=== PATIENT | female | born 1935 | race Caucasian/White ===

== ENCOUNTER 2019-06-21 15:16 | Inpatient (IN) | payer MEDICARE, OTHER ==
[2019-06-21] MEDS ORDERED: HYDROmorphone 1 MG/ML 1 ML SYRINGE IVP STA (15:36)
[2019-06-21] MEDS ORDERED: KETOROLAC 60 MG/2 ML VIAL IVP STA (15:36)
[2019-06-21] MEDS ORDERED: methylPREDNISolone ACETATE 40 MG/ML 1 ML VIAL INTRAARTIC STA (15:53)
[2019-06-21] MEDS ORDERED: SODIUM CHLORIDE 0.9% 1,000 ML IV ONE (16:18)
--- NOTE | 2019-06-21 16:18 | ED ---
General Adult HPI - General Chief complaint: Extremity Injury, Lower Stated complaint: Lower back and leg pain Time Seen by Provider: 06/21/19 15:20 Source: patient, RN notes reviewed Mode of arrival: ambulatory Limitations: no limitations - History of Present Illness Initial comments: This is an 83-year-old female who presents emergency Department complaining of left buttocks pain. Patient states she fell 1 week ago and has since seen her primary medical care doctor and been to another emergency twice had x-rays and a CAT scan of the area and they have found nothing. Patient states she cannot stand the pain is causing her some which pain she can't ambulate and she is writhing all night long. Patient is requesting to stay overnight for some pain control. Patient denies any numbness or weakness. Patient denies any lumbar spine pain. Patient denies any hip pain. - Related Data Home Medications Medication Instructions Recorded Confirmed Lisinopril [Prinivil] 5 mg PO DAILY 12/08/15 06/21/19 Metoprolol Tartrate [Lopressor] 25 mg PO BID 12/08/15 06/21/19 Warfarin [Coumadin] 5 mg PO WALTER 12/08/15 06/21/19 Aspirin 81 mg PO DAILY 06/21/19 06/21/19 Docusate [Colace] 100 mg PO BID PRN 06/21/19 06/21/19 HYDROcodone/APAP 5-325MG [[place] 1 tab PO Q4H PRN 06/21/19 06/21/19 5-325] Warfarin [Coumadin] 2.5 mg PO MOTUWETHFRSA 06/21/19 06/21/19 Allergies Allergy/AdvReac Type Severity Reaction Status Date / Time No Known Allergies Allergy Verified 06/21/19 16:04 Review of Systems ROS Statement: Those systems with pertinent positive or pertinent negative responses have been documented in the HPI. ROS Other: All systems not noted in ROS Statement are negative. Past Medical History Past Medical History: Atrial Fibrillation History of Any Multi-Drug Resistant Organisms: None Reported Past Surgical History: No Surgical Hx Reported Past Psychological History: No Psychological Hx Reported Smoking Status: Never smoker Past Alcohol Use History: None Reported Past Drug Use History: None Reported General Exam - General Exam Comments Initial Comments: qGENERAL Patient is well-developed and well-nourished. Patient is in moderate EYES Patient's pupils are equal and round. Extraocular motion is intact SKIN Unremarkable NEURO The patient is alert and oriented 3 PYSCH Patient has normal interpersonal interactions. MUSCULOSKELETAL I examine the buttocks there is no hematoma palpated no fluctuant area no redness or swelling. Patient does have some tenderness on the left buttocks at the mid sacral area. Patient has no hip pain she has full range of motion of hip and knee Limitations: no limitations Course Vital Signs 06/21/19 15:18 Temperature 97.8 F Pulse Rate 120 H Respiratory 20 Rate Blood Pressure 113/74 O2 Sat by Pulse 99 Oximetry Medical Decision Making - Medical Decision Making I had the radiologist pulled up CAT scan back up of the pelvis and rebreather and look for any area of fluid collection hematoma or any osseous abnormality he found none. One taken the room and Dilaudid and the Toradol did help the patient but she did not feel comfortable going home. I spoke with Dr. Salmeron and he agreed to admit the patient admitted the patient wrote admitting orders. Disposition Clinical Impression: Intractable pain, Sacral pain Disposition: ADMITTED IP TO THIS HOSP Referrals: Danielle Cole MD [Primary Care Provider] - 1-2 days Time of Disposition: 16:18
[2019-06-21] MEDS ORDERED: HYDROmorphone 0.5 MG/0.5 ML SYRINGE IVP PRN (16:20)
[2019-06-21] MEDS ORDERED: DOCUSATE 100 MG CAP PO PRN (18:06)
[2019-06-21] MEDS ORDERED: METOPROLOL TARTRATE 25 MG TAB PO STA (18:13)
[2019-06-21] MEDS ORDERED: DILTIAZEM 125 MG in SODIUM CHLORIDE 0.9% 100 ML IV SCH (18:15)
[2019-06-21 18:27] LABS: Basophils # (A) 0.1 k/uL (0-0.2); Basophils % (A) 1 %; Eosinophils # (A) 0.1 k/uL (0-0.7); Eosinophils % (A) 1 %; HCT 43.5 % (34.0-46.0); HGB 15.1 gm/dL (11.4-16.0); Lymphocytes # (A) 1.8 k/uL (1.0-4.8); Lymphocytes % (A) 18 %; MCH 30.2 pg (25.0-35.0); MCHC 34.8 g/dL (31.0-37.0); MCV 86.9 fL (80.0-100.0); Mean Platelet Volume 7.2; Monocytes # (A) 0.6 k/uL (0-1.0); Monocytes % (A) 6 %; Neutrophils # (A) 7.4 k/uL (1.3-7.7); Neutrophils % (A) 73 %; Platelet Count 219 k/uL (150-450); RDW 15.5 % (11.5-15.5); WBC 10.2 k/uL (3.8-10.6)
[2019-06-21 18:30] LABS: INR 2.9 (<1.2); Prothrombin Time 28.2 sec (9.0-12.0)
[2019-06-21] MEDS ORDERED: WARFARIN 2.5 MG TAB PO SCH (18:45)
[2019-06-21 18:49] LABS: Albumin 3.4 g/dL (3.5-5.0); Calcium 8.9 mg/dL (8.4-10.2); Potassium 4.5 mmol/L (3.5-5.1); Total Bilirubin 0.9 mg/dL (0.2-1.3); Total Protein 6.6 g/dL (6.3-8.2)
[2019-06-21] MEDS: METOPROLOL TARTRATE 25 MG TAB PO SCH (21:07)
[2019-06-21] MEDS: KETOROLAC 30 MG/ML 1 ML VIAL IVP SCH (23:05)
[2019-06-22] MEDS: HYDROcodone/APAP 5-325MG 1 EACH TAB PO PRN ×2 (02:52→11:55)
[2019-06-22] MEDS: KETOROLAC 30 MG/ML 1 ML VIAL IVP SCH ×3 (05:47→16:11)
[2019-06-22 05:56] LABS: Amorphous Sediment,Urine Rare /hpf; Appearance,Urine Clear (Clear); Bacteria,Urine Rare /hpf; Bilirubin,Urine Negative (Negative); Blood,Urine Trace (Negative); Color,Urine Yellow; Glucose,Urine (UA) Trace (Negative); Hyaline Casts,Urine 19 /lpf (0-2); Ketones,Urine 1+ (Negative); Leukocyte Esterase,Urine Negative (Negative); Mucus,Urine Rare /hpf; Nitrite,Urine Negative (Negative); PH, Urine 5.5 (5.0-8.0); Protein,Urine Trace (Negative); RBC,Urine 2 /hpf (0-5); Specific Gravity,Urine 1.028 (1.001-1.035); Squamous Epithelial Cell,Urine 2 /hpf (0-4); Urobilinogen,Urine <2.0 mg/dL (<2.0)
[2019-06-22] MEDS: ASPIRIN 81 MG PO SCH (09:20)
[2019-06-22] MEDS: LISINOPRIL 5 MG TAB PO SCH (09:20)
[2019-06-22] MEDS: METOPROLOL TARTRATE 25 MG TAB PO SCH ×3 (09:20→20:40)
[2019-06-22 10:21] LABS: INR 2.6 (<1.2); Prothrombin Time 25.5 sec (9.0-12.0)
--- NOTE | 2019-06-22 10:40 | P.CRDCN ---
History of Present Illness Consult date: 06/22/19 Consult reason: atrial fibrillation (with RVR) History of present illness: This is an 83-year-old female patient of Dr. Bella with past medical history of chronic atrial fibrillation, hypertension. Patient states that she fell about a week ago and was seen at [facility] and had CAT scan and x-rays done that did not show any fracture of the hip or pelvis. Patient ambulates with 2 canes. She came into [facility] emergency center for evaluation of right buttocks pain but now she states she on ly has pain down the sides of her legs. Patient found to be in A. fib with RVR and was transferred to the cardiac stepdown unit and started on Cardizem drip at 5 mg per hour. Currently heart rate is in the 80s. Patient states that the right buttocks pain is completely resolved but her leg pain remains. EKG reveals atrial fibrillation with RVR, rate 119. Laboratory studies: CBC unremarkable. INR 2.6. Sodium 125, potassium 4.5, chloride 90, CO2 25, BUN 18 creatinine 1.05. Blood sugar 119. Troponin 0.012. Urinalysis clear, nitrite and leukoesterase negative. Review Of Systems: Constitutional: No fever, no chills, no night sweats. No weight change. No weakness, fatigue or lethargy. No daytime sleepiness. EENT: No headache. No blurred vision or double vision, no loss of vision. No loss of Hearing, no ringing in the ears, no dizziness. No nasal drainage or congestion. No epistaxis. No sore throat. Lungs: No shortness of breath, cough, no sputum production. No wheezing. Cardiovascular: No chest pain, no lower extremity edema. No palpitations. No paroxysmal nocturnal dyspnea. No orthopnea. No lightheadedness or dizziness. No syncopal episodes. Abdominal: No abdominal pain. No nausea, vomiting. No diarrhea. No constipation. No bloody or tarry stools.. No loss of appetite. Genitourinary: No dysuria, increased frequency, urgency. No urinary retention. Musculoskeletal: No myalgias. No muscle weakness, no gait dysfunction, no frequent falls. No back pain. No neck pain. Integumentary: No wounds, no lesions. No rash or pruritus. No unusual bruising. No change in hair or nails. Neurologic: No aphasia. No facial droop. No change in mentation. No head injury. No headache. No paralysis. No paresthesia. Psychiatric: No depression. No anxiety. No mood swings. Endocrine: No abnormal blood sugars. No weight change. No excessive sweating or thirst. No cold intolerance. No weight change. Gen: This is an obese 83-year-old female. Patient is seen ambulating from the bathroom, gait is unsteady. HEENT: Head is atraumatic, normocephalic. Pupils equal, round. Sclerae is anicteric. NECK: Supple. No JVD. No lymphadenopathy. No thyromegaly. LUNGS: Clear to auscultation. No wheezes or rhonchi. No intercostal retractions. HEART: Irregularly irregular rhythm. No murmur. ABDOMEN: Soft. Bowel sounds are present. No masses. No tenderness. EXTREMITIES: No pedal edema. No calf tenderness. On no tenderness to the right buttocks, no ecchymosis noted NEUROLOGICAL: Patient is awake, alert and oriented x3. Cranial nerves 2 through 12 are grossly intact. Assessment: Atrial fibrillation with RVR Chronic atrial fibrillation Hypertension Recent fall with right buttocks and leg pain with negative imaging studies done at [facility] Plan: Patient is currently on Cardizem drip at 5 mg/h which will be discontinued Continue Lopressor 25 mg but increase to 3 times daily Continue lisinopril 5 mg daily and aspirin 81 mg daily Continue Coumadin at home dose Further recommendations to follow based on clinical course. Thank you kindly for this consultation. Nurse practitioner note has been reviewed, I agree with documented findings and plan of care. Patient was seen and examined. Past Medical History Past Medical History: Atrial Fibrillation History of Any Multi-Drug Resistant Organisms: None Reported Past Surgical History: No Surgical Hx Reported Past Psychological History: No Psychological Hx Reported Smoking Status: Never smoker Past Alcohol Use History: None Reported Past Drug Use History: None Reported Medications and Allergies Home Medications Medication Instructions Recorded Confirmed Type Lisinopril [Prinivil] 5 mg PO DAILY 12/08/15 06/21/19 History Metoprolol Tartrate [Lopressor] 25 mg PO BID 12/08/15 06/21/19 History Warfarin [Coumadin] 5 mg PO SCHUSTER 12/08/15 06/21/19 History Aspirin 81 mg PO DAILY 06/21/19 06/21/19 History Docusate [Colace] 100 mg PO BID PRN 06/21/19 06/21/19 History HYDROcodone/APAP 5-325MG [[place] 1 tab PO Q4H PRN 06/21/19 06/21/19 History 5-325] Warfarin [Coumadin] 2.5 mg PO MOTUWETHFRSA 06/21/19 06/21/19 History Allergies Allergy/AdvReac Type Severity Reaction Status Date / Time No Known Allergies Allergy Verified 06/21/19 16:04 Physical Exam Vitals: Vital Signs Temp Pulse Pulse Resp BP BP Pulse Ox 06/22/19 04:00 97.0 F L 72 18 128/73 97 06/22/19 03:58 103 H 18 06/22/19 00:00 97.2 F L 103 H 18 142/90 97 06/21/19 20:00 97.6 F 122 H 18 149/109 96 06/21/19 19:26 129 H 20 135/87 97 06/21/19 18:19 140 H 06/21/19 18:02 97.5 F L 140 H 14 155/105 94 L 06/21/19 18:00 97.5 F L 140 H 12 155/105 92 L 06/21/19 17:17 89 18 137/98 98 06/21/19 15:18 97.8 F 120 H 20 113/74 99 Intake and Output 06/21/19 06/22/19 06/22/19 22:59 06:59 14:59 Other: Voiding Method Toilet Toilet # Voids 1 2 Weight 74.843 kg 79 kg Results 06/21/19 18:15 06/21/19 18:15 Cardiac Enzymes 06/21/19 06/21/19 Range/Units 18:15 18:15 AST 29 (14-36) U/L Troponin I <0.012 (0.000-0.034) ng/mL Coagulation 06/21/19 06/22/19 Range/Units 18:15 09:45 PT 28.2 H 25.5 H (9.0-12.0) sec CBC 06/21/19 Range/Units 18:15 WBC 10.2 (3.8-10.6) k/uL RBC 5.00 (3.80-5.40) m/uL Hgb 15.1 (11.4-16.0) gm/dL Hct 43.5 (34.0-46.0) % Plt Count 219 (150-450) k/uL Comprehensive Metabolic Panel 06/21/19 Range/Units 18:15 Sodium 125 L (137-145) mmol/L Potassium 4.5 (3.5-5.1) mmol/L Chloride 90 L (98-107) mmol/L Carbon Dioxide 25 (22-30) mmol/L BUN 18 H (7-17) mg/dL Creatinine 1.05 H (0.52-1.04) mg/dL Glucose 119 H (74-99) mg/dL Calcium 8.9 (8.4-10.2) mg/dL AST 29 (14-36) U/L ALT 24 (9-52) U/L Alkaline Phosphatase 78 (38-126) U/L Total Protein 6.6 (6.3-8.2) g/dL Albumin 3.4 L (3.5-5.0) g/dL Current Medications Generic Name Dose Route Start Last Admin Trade Name Freq PRN Reason Stop Dose Admin Hydrocodone Bitart/Acetaminophen 1 each 06/21/19 18:06 06/22/19 02:52 [place] 5-325 PO 1 each Q4H PRN Administration MILD TO MODERATE Pain Aspirin 81 mg 06/22/19 09:00 06/22/19 09:20 Aspirin PO 81 mg DAILY SURESH Administration Hydromorphone HCl 0.5 mg 06/21/19 16:20 Dilaudid IVP Q6HR PRN SEVERE Pain Sodium Chloride 1,000 mls @ 20 mls/hr 06/21/19 16:18 06/21/19 17:54 Saline 0.9% IV 06/22/19 16:17 Not Given .Q24H ONE Diltiazem HCl 125 mg/ Sodium 125 mls @ 5 mls/hr 06/21/19 18:15 06/21/19 19:20 Chloride IV 5 mg/hr .Q24H SURESH 5 mls/hr Administration 5 MG/HR Ketorolac Tromethamine 15 mg 06/22/19 00:00 06/22/19 05:47 Toradol IVP 06/27/19 00:01 15 mg Q6HR SURESH Administration Lisinopril 5 mg 06/22/19 09:00 06/22/19 09:20 Zestril PO 5 mg DAILY SURESH Administration Metoprolol Tartrate 25 mg 06/21/19 21:00 06/22/19 09:20 Lopressor PO 25 mg BID SURESH Administration Warfarin Sodium 2.5 mg 06/21/19 18:45 06/21/19 21:07 Coumadin PO 2.5 mg [id number] [facility] Administration Warfarin Sodium 5 mg 06/22/19 18:00 Coumadin PO Schuster@1800 [facility] Intake and Output 06/21/19 06/22/19 06/22/19 22:59 06:59 14:59 Other: Voiding Method Toilet Toilet # Voids 1 2 Weight 74.843 kg 79 kg 06/21/19 18:15 06/21/19 18:15
[2019-06-22] MEDS: DOCUSATE 100 MG CAP PO PRN (11:55)
[2019-06-22] MEDS ORDERED: WARFARIN 5 MG TAB PO SCH (18:00)
--- NOTE | 2019-06-22 22:11 | US ---
EXAMINATION TYPE: US venous doppler duplex LE RT DATE OF EXAM: 06/22/2019 9:57 PM COMPARISON: NONE CLINICAL HISTORY: Previous fall, pain in leg. Pain posterior right thigh, patient on blood thinner SIDE PERFORMED: right TECHNIQUE: The lower extremity deep venous system is examined utilizing real time linear array sonog larry with graded compression, doppler sonography and color-flow sonography. VESSELS IMAGED: External Iliac Vein (EIV) Common Femoral Vein Deep Femoral Vein Greater Saphenous Vein * Femoral Vein Popliteal Vein Small Saphenous Vein * Proximal Calf Veins (* superficial vessels) Right Leg: No evidence of DVT as visualized IMPRESSION: No evidence of deep venous thrombosis in the right leg.
--- NOTE | 2019-06-23 00:18 | P.HPIM ---
History of Present Illness H&P Date: 06/21/19 Chief Complaint: left buttock pain Patient is a 83-year-old female with a known history of hypertension, paroxysmal atrial fibrillation on anticoagulation with Coumadin came to ER with complaints of left buttock pain. Patient says that she fell down and landed on her left b uttock. Since then she has been having worsening pain. Patient was seen at [facility] ER where she had x-ray of the pelvis had CT of the pelvis was done and found no acute fracture or dislocation. Patient was given Colace and Haywood prescription and patient took the medication use which made her nauseated and also was having multiple bowel movements with Colace. Patient has been having worsening pain and could not able to sit walk and cannot ambulate and could not sleep all night. Pt. denied any fever or chills. No chest pain or shortness of breath. No leg swelling. No hip pain. No headache or dizziness or lightheadedness. Denied any head injury. Patient was admitted to the hospital for pain management. Once she arrived to the floor she went into atrial fibrillation with rapid ventricular rate. Patient was started on Cardizem drip and was transferred to telemetry unit. Patient is therapeutic with INR level. Review of Systems Constitutional: Patient denies any fever or chills . No generalized weakness or weight loss. Abdomen: Patient denied nausea vomiting and diarrhea and abdominal pain. Cardiovascular: Patient denies any chest pain or short of breath no palpitations. Respiratory: patient denied any cough is from production. No shortness of breath Neurologic: Patient denied any numbness or tingling headache. Musculoskeletal: Patient denies any complaints of joint swelling or deformity. Buttock pain. Skin: Negative Psychiatric: Negative Endocrine: No heat or cold intolerance. No recent weight gain. Genitourinary: No dysuria or hematuria. All other 14 point ROS negative except the above Past Medical History Past Medical History: Atrial Fibrillation History of Any Multi-Drug Resistant Organisms: None Reported Past Surgical History: No Surgical Hx Reported Past Psychological History: No Psychological Hx Reported Smoking Status: Never smoker Past Alcohol Use History: None Reported Past Drug Use History: None Reported Medications and Allergies Home Medications Medication Instructions Recorded Confirmed Type Lisinopril [Prinivil] 5 mg PO DAILY 12/08/15 06/21/19 History Metoprolol Tartrate [Lopressor] 25 mg PO BID 12/08/15 06/21/19 History Warfarin [Coumadin] 5 mg PO WALTER 12/08/15 06/21/19 History Aspirin 81 mg PO DAILY 06/21/19 06/21/19 History Docusate [Colace] 100 mg PO BID PRN 06/21/19 06/21/19 History HYDROcodone/APAP 5-325MG [[place] 1 tab PO Q4H PRN 06/21/19 06/21/19 History 5-325] Warfarin [Coumadin] 2.5 mg PO MOTUWETHFRSA 06/21/19 06/21/19 History Allergies Allergy/AdvReac Type Severity Reaction Status Date / Time No Known Allergies Allergy Verified 06/21/19 16:04 Physical Exam Vitals: Vital Signs Temp Pulse Resp BP Pulse Ox 06/21/19 17:17 89 18 137/98 98 06/21/19 15:18 97.8 F 120 H 20 113/74 99 Intake and Output 06/21/19 06/21/19 06/21/19 06:59 14:59 22:59 Other: Weight 74.843 kg PHYSICAL EXAMINATION: Patient is lying in the bed comfortably, no acute distress, awake alert and oriented.. HEENT: Normocephalic. Neck is supple. Pupils reactive. Nostrils clear. Oral cavity is moist. Ears reveal no drainage. Neck reveals no JVD, carotid bruits, or thyromegaly. CHEST EXAMINATION: Trachea is central. Symmetrical expansion. Lung [place] clear to auscultation and percussion. CARDIAC: Normal S1, S2 with no gallops. No murmurs ABDOMEN: Soft. Bowel sounds normal. No organomegaly. No abdominal bruits. Extremities: reveal no edema. No clubbing or cyanosis Neurologically awake, alert, oriented x3 with well-coordinated movements. No focal deficits noted Skin: No rash or skin lesions. Psychiatric: Coperative. Nonsuicidal Musculoskeletal: No joint swelling or deformity. Normal range of motion. Results CBC & Chem 7: 06/21/19 18:15 06/21/19 18:15 Thrombosis Risk Factor Assmnt - DVT/VTE Prophylaxis DVT/VTE Prophylaxis: Pharmacologic Prophylaxis ordered Assessment and Plan Assessment: Left Buttock pain status post fall. Recent x-ray and CT negative for any acute fractures. Possible muscle contusion. Atrial fibrillation with rapid ventricular rate. Paroxysmal atrial fibrillation on anticoagulation with Coumadin. Coumadin dosing. Hypertension Hyponatremia likely hypovolemic. DVT prophylaxis. Patient is already on anticoagulation. Plan: Patient was given IV hydration. Continue with pain management Toradol and Tylenol will be added. Haywood as needed severe pain. Patient will be continued on Cardizem drip. Patient was started back on her home dose of metoprolol. Cardiology was consulted. Further recommendations based on the clinical course. Discussed with the patient and her daughter at bedside in detail. Time with Patient: Greater than 30
--- NOTE | 2019-06-23 00:21 | P.PN ---
Subjective Progress Note Date: 06/22/19 Principal diagnosis: Left buttock contusion status post fall Atrial fibrillation with rapid regular rate Patient is a 83-year-old female with a known history of hypertension, paroxysmal atrial fibrillation on anticoagulation with Coumadin came to ER with complaints of left buttock pain. Patient says that she fell down and landed on her left buttock. Since then she has been having worsening pain. Patient was seen at [facility] ER where she had x-ray of the pelvis had CT of the pelvis was done and found no acute fracture or dislocation. Patient was given C olace and Morenci prescription and patient took the medication use which made her nauseated and also was having multiple bowel movements with Colace. Patient has been having worsening pain and could not able to sit walk and cannot ambulate and could not sleep all night. Pt. denied any fever or chills. No chest pain or shortness of breath. No leg swelling. No hip pain. No headache or dizziness or lightheadedness. Denied any head injury. Patient was admitted to the hospital for pain management. Once she arrived to the floor she went into atrial fibrillation with rapid ventricular rate. Patient was started on Cardizem drip and was transferred to telemetry unit. Patient is therapeutic with INR level. 06/22/2019 Patient says that her left buttock pain is improved today. Able to walk with a walker. No complaints of fever or chills. No chest pain or shortness of breath. Cardizem drip has been discontinued and patient was started on metoprolol 25 mg 3 times a day. Cardiology is following. Heart rate is controlled. No nausea vomiting or diarrhea. No abdominal pain. Patient will be continued on PT OT tomorrow and possible discharge. Current medications reviewed. Objective - Vital Signs Vital signs: Vital Signs Temp 97.7 F 06/22/19 08:00 Pulse 70 06/22/19 16:00 Resp 20 06/22/19 16:00 BP 138/67 06/22/19 16:00 Pulse Ox 98 06/22/19 16:00 Intake & Output 06/21/19 06/22/19 06/22/19 18:59 06:59 18:59 Output Total 50 Balance -50 Weight 74.843 kg 79 kg Output: Urine 50 Other: Voiding Method Toilet Toilet # Voids 2 2 - Exam PHYSICAL EXAMINATION: Patient is lying in the bed comfortably, no acute distress, awake alert and oriented.. HEENT: Normocephalic. Neck is supple. Pupils reactive. Nostrils clear. Oral cavity is moist. Ears reveal no drainage. Neck reveals no JVD, carotid bruits, or thyromegaly. CHEST EXAMINATION: Trachea is central. Symmetrical expansion. Lung [place] clear to auscultation and percussion. CARDIAC: Normal S1, S2 with no gallops. No murmurs ABDOMEN: Soft. Bowel sounds normal. No organomegaly. No abdominal bruits. Extremities: reveal no edema. No clubbing or cyanosis. Tenderness over the left upper paraspinal gluteus region Neurologically awake, alert, oriented x3 with well-coordinated movements. No focal deficits noted Skin: No rash or skin lesions. Psychiatric: Coperative. Nonsuicidal Musculoskeletal: No joint swelling or deformity. Normal range of motion. - Labs CBC & Chem 7: 06/21/19 18:15 06/21/19 18:15 Labs: Abnormal Lab Results - Last 24 Hours (Table) 06/21/19 06/21/19 06/22/19 Range/Units 18:15 18:15 05:05 PT 28.2 H (9.0-12.0) sec INR 2.9 H (<1.2) Sodium 125 L (137-145) mmol/L Chloride 90 L (98-107) mmol/L BUN 18 H (7-17) mg/dL Creatinine 1.05 H (0.52-1.04) mg/dL Glucose 119 H (74-99) mg/dL Albumin 3.4 L (3.5-5.0) g/dL Urine Protein Trace H (Negative) Urine Glucose (UA) Trace H (Negative) Urine Ketones 1+ H (Negative) Urine Blood Trace H (Negative) Amorphous Sediment Rare H (None) /hpf Urine Bacteria Rare H (None) /hpf Hyaline Casts 19 H (0-2) /lpf Urine Mucus Rare H (None) /hpf 06/22/19 Range/Units 09:45 PT 25.5 H (9.0-12.0) sec INR 2.6 H (<1.2) Sodium (137-145) mmol/L Chloride (98-107) mmol/L BUN (7-17) mg/dL Creatinine (0.52-1.04) mg/dL Glucose (74-99) mg/dL Albumin (3.5-5.0) g/dL Urine Protein (Negative) Urine Glucose (UA) (Negative) Urine Ketones (Negative) Urine Blood (Negative) Amorphous Sediment (None) /hpf Urine Bacteria (None) /hpf Hyaline Casts (0-2) /lpf Urine Mucus (None) /hpf Assessment and Plan Assessment: Left Buttock pain status post fall. Recent x-ray and CT negative for any acute fractures. Possible muscle contusion. Atrial fibrillation with rapid ventricular rate. Paroxysmal atrial fibrillation on anticoagulation with Coumadin. Coumadin dosing. Hypertension Hyponatremia likely hypovolemic. DVT prophylaxis. Patient is already on anticoagulation. Plan: Patient was given IV hydration. Continue with pain management Toradol and Tylenol will be added. Morenci as needed severe pain. Drip has been discontinued and patient was started on metoprolol.. Patient was started back on her home dose of metoprolol. Cardiology is following. . Further recommendations based on the clinical course. Time with Patient: Greater than 30
--- NOTE | 2019-06-23 00:24 | XR ---
EXAMINATION TYPE: XR ankle complete LT DATE OF EXAM: 06/23/2019 COMPARISON: NONE HISTORY: Pain TECHNIQUE: 3 views FINDINGS: There is transverse fracture of the medial and lateral malleolus. There is 1 cm lateral dis placement of the talus. There is soft tissue swelling. There is plantar calcaneal spurring. IMPRESSION: Displaced bimalleolar fracture of the left ankle. Soft tissue swelling.
--- NOTE | 2019-06-23 00:25 | XR ---
EXAMINATION TYPE: XR knee complete LT DATE OF EXAM: 06/23/2019 COMPARISON: NONE HISTORY: Pain TECHNIQUE: 3 views FINDINGS: There is severe narrowing of the lateral joint space. There is genu valgus deformity. There is moderate spurring of the lateral femoral and tibial condyles. I see no acute fracture nor disloca tion. There is spurring on the patella. 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 No fracture seen.
[2019-06-23] MEDS: KETOROLAC 30 MG/ML 1 ML VIAL IVP SCH ×4 (00:38→19:37)
[2019-06-23 06:19] LABS: Basophils # (A) 0.1 k/uL (0-0.2); Basophils % (A) 1 %; Eosinophils # (A) 0.1 k/uL (0-0.7); Eosinophils % (A) 0 %; HCT 40.7 % (34.0-46.0); Lymphocytes # (A) 0.8 k/uL (1.0-4.8); Lymphocytes % (A) 6 %; MCH 29.6 pg (25.0-35.0); MCHC 34.5 g/dL (31.0-37.0); MCV 85.8 fL (80.0-100.0); Mean Platelet Volume 7.4; Monocytes # (A) 0.8 k/uL (0-1.0); Monocytes % (A) 6 %; Neutrophils # (A) 11.9 k/uL (1.3-7.7); Neutrophils % (A) 87 %; Platelet Count 246 k/uL (150-450); RBC 4.74 m/uL (3.80-5.40); RDW 13.3 % (11.5-15.5); WBC 13.7 k/uL (3.8-10.6)
[2019-06-23 06:29] LABS: INR 3.4 (<1.2); Prothrombin Time 32.4 sec (9.0-12.0)
[2019-06-23 07:05] LABS: Calcium 8.5 mg/dL (8.4-10.2); Potassium 4.8 mmol/L (3.5-5.1)
[2019-06-23] MEDS: ASPIRIN 81 MG PO SCH (09:05)
[2019-06-23] MEDS: LISINOPRIL 5 MG TAB PO SCH (09:05)
[2019-06-23] MEDS: METOPROLOL TARTRATE 25 MG TAB PO SCH (09:06)
--- NOTE | 2019-06-23 14:41 | P.CNOR ---
History of Present Illness - [facility] Consult date: 06/23/19 Consult reason: fracture History of present illness: Patient is an 83-year-old female who was recently admitted to [facility] due to buttock pain that was caused from a recent fall. During her spital stay, the patient did experience another fall which resulted in injury of her left lower extremity. X-rays demonstrated a significant left ankle fracture, our orthopedic team was then consulted. Patient was evaluated today at the bedside, Dr. Hackett was available. Patient and multiple family members present at bedside today. She notes discomfort in the left ankle when she moves it. Patient has basically began osteoarthritis involving her left knee. She has a previous right ankle f racture with surgical fixation many years ago. Patient does state she uses a cane when she ambulates. Patient denies any other orthopedic complaints at this time. Review of Systems Constitutional: Reports as per [facility] Past Medical History Past Medical History: Atrial Fibrillation History of Any Multi-Drug Resistant Organisms: None Reported Past Surgical History: No Surgical Hx Reported Past Psychological History: No Psychological Hx Reported Smoking Status: Never smoker Past Alcohol Use History: None Reported Past Drug Use History: None Reported Medications and Allergies Home Medications Medication Instructions Recorded Confirmed Type Lisinopril [Prinivil] 5 mg PO DAILY 12/08/15 06/21/19 History Metoprolol Tartrate [Lopressor] 25 mg PO BID 12/08/15 06/21/19 History Warfarin [Coumadin] 5 mg PO WALTER 12/08/15 06/21/19 History Aspirin 81 mg PO DAILY 06/21/19 06/21/19 History Docusate [Colace] 100 mg PO BID PRN 06/21/19 06/21/19 History HYDROcodone/APAP 5-325MG [[place] 1 tab PO Q4H PRN 06/21/19 06/21/19 History 5-325] Warfarin [Coumadin] 2.5 mg PO [id number] 06/21/19 06/21/19 History Allergies Allergy/AdvReac Type Severity Reaction Status Date / Time No Known Allergies Allergy Verified 06/21/19 16:04 Physical Examination Left lower extremity: No obvious open lesions or sores present throughout the extremity. Soft tissue swelling or ecchymosis present. She is tender both on the medial and lateral aspect of the ankle. Range of motion is limited at this time. She is able to wiggle the toes minimal difficulty. Dorsal pedis pulses 2+. Calf is soft, no tenderness with palpation. Results - Labs Labs: Abnormal Lab Results - Last 24 Hours (Table) 06/23/19 06/23/19 06/23/19 Range/Units 05:56 05:56 05:56 WBC 13.7 H (3.8-10.6) k/uL Neutrophils # 11.9 H (1.3-7.7) k/uL Lymphocytes # 0.8 L (1.0-4.8) k/uL PT 32.4 H (9.0-12.0) sec INR 3.4 H (<1.2) Sodium 119 L* (137-145) mmol/L Chloride 88 L (98-107) mmol/L BUN 21 H (7-17) mg/dL Glucose 141 H (74-99) mg/dL Osmolality (280-301) mosm/kg 06/23/19 Range/Units 05:56 WBC (3.8-10.6) k/uL Neutrophils # (1.3-7.7) k/uL Lymphocytes # (1.0-4.8) k/uL PT (9.0-12.0) sec INR (<1.2) Sodium (137-145) mmol/L Chloride (98-107) mmol/L BUN (7-17) mg/dL Glucose (74-99) mg/dL Osmolality 252 L (280-301) mosm/kg H & H 06/21/19 06/23/19 Range/Units 18:15 05:56 Hgb 15.1 14.0 (11.4-16.0) gm/dL Hct 43.5 40.7 (34.0-46.0) % Coagulation 06/21/19 06/22/19 06/23/19 Range/Units 18:15 09:45 05:56 INR 2.9 H 2.6 H 3.4 H (<1.2) Result Diagrams: 06/23/19 05:56 06/23/19 05:56 - Diagnostic results Ankle/Foot x-ray: report reviewed, image reviewed Assessment and Plan Plan: Imaging: Multiple x-rays of the left ankle were obtained. Images demonstrated a significantly displaced bimalleolar ankle fracture. Assessment: 1. Displaced left ankle bimalleolar fracture 2. Status post fall 3. Other medical comorbidities Plan: Discussed with patient and family today at bedside that surgical intervention would be best option at this time. Patient has other medical comorbidities, in cluding an INR 3.2. Her Coumadin will be held at this time. We will like to proceed with open reduction internal fixation procedure on 06/25/2019. Medical clearance and recommendations for anticoagulation Ice and elevate often Nonweightbearing Further recommendations to follow Time with Patient: Less than 30
[2019-06-23] MEDS ORDERED: SODIUM CHLORIDE 0.9% 1,000 ML IV SCH (15:15)
--- NOTE | 2019-06-23 16:33 | CONS ---
CONSULTATION REASON FOR CONSULT: Hyponatremia. HISTORY OF PRESENT ILLNESS: The patient is an 83-year-old female who was initially admitted to the hospital on 06/21/2019 with pain in her back and left buttock area after having had a fall. The patient developed atrial fibrillation with RVR and was maintained on Cardizem drip. She had sustained an injury from a fall during her last hospitalization when she had initially presented with the previous fall and buttock pain and x-ray had shown left ankle fracture. At this time the leg is in cast and there are plans for possible surgery on 06/25/2019. Sodium was 125 on initial admission, on 06/21/2019. It has gone down to 119 and 118 today. It looks like patient received some IV fluids. Currently she is not on any IV fluids. She continues to have pain. Random urine sodium and urine osmolality is currently pending. Serum creatinine is 0.76. Blood pressure is not low, in fact, her pressure is around 130-140 mmHg systolic. The patient was not on any thiazide diuretics prior to admission. There is no ongoing diarrhea, nausea, vomiting noted at this time. Upon review of medications post admission I do not see normal saline that was administered. PAST MEDICAL HISTORY: Hypertension, a recent fall and then another fall during her last admission with left ankle fracture, atrial fibrillation. PAST SURGICAL HISTORY: None. SOCIAL HISTORY: Negative for smoking, drug abuse or alcohol abuse. MEDICATIONS PRIOR TO ADMISSION: Prinivil, Lopressor, Coumadin, Colace, [place]. ALLERGIES: None. EXAMINATION: Patient is comfortable, awake, alert, oriented x3. She is not in any acute distress. Blood pressure is 142/87, heart rate 108 per minute. She is afebrile. Examination of the heart S1, S2. Examination of the lungs, bilateral breath sounds are heard. Abdomen is soft, nontender. Examination lower extremities shows left lower extremity in cast. Abdomen is soft, nontender. There is no significant edema noted in right lower extremity. TRACK COACH exam grossly intact. LABS: Show hemoglobin of 14.0, sodium 119, potassium 4.8, BUN 21, serum creatinine 0.76. ASSESSMENT: 1. Hyponatremia, possibly hypovolemic. We will give a sodium chloride challenge and I will start this patient on normal saline at 50 mL an hour. We will repeat a sodium in about 3 hours time. 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 A urine osmolarity and urine sodium have been ordered, but it is currently pending. 2. Acute kidney injury, most likely prerenal or secondary to atrial fibrillation, currently improved. Serum creatinine down from 1.0 to 0.76. 3. Atrial fibrillation with rapid ventricular response, now improved with controlled ventricular response. 4. Hypertension. Blood pressure is controlled. Continue with the JANA inhibitors. PLAN: 1. Use Toradol/all NSAIDs cautiously. Currently, we can continue using it as renal function is stable. 2. Start normal saline at 50 mL an hour and repeat sodium in about 3 hours. Follow up on random urine sodium and urine osmolality. Thank you for this consultation. We will continue to follow the patient with you during her hospitalization. MMTENNILLEL / VALENTINAN: [id number] /
--- NOTE | 2019-06-23 17:53 | P.PN ---
Subjective Progress Note Date: 06/23/19 This is a 83-year-old female who was admitted with a fall. Patient is found to have fractures. She is waiting to have surgery on Sunday. She was initially with Amisha humphreys with RVR. Current heart rate seems to be controlled. She denies any chest pain or shortness of breath. We'll continue current medical therapy except holding Coumadin. Objective - Vital Signs Vital signs: Vital Signs Temp 97.5 F L 06/23/19 15:10 Pulse 107 H 06/23/19 15:10 Resp 16 06/23/19 15:10 BP 126/89 06/23/19 15:10 Pulse Ox 96 06/23/19 15:10 Intake & Output 06/22/19 06/23/19 06/23/19 18:59 06:59 18:59 Intake Total 0 395 600 Output Total 50 350 750 Balance -50 45 -150 Intake: Oral 0 395 600 Output: Urine 50 350 750 Other: Voiding Method Toilet Toilet Toilet # Voids 2 2 0 # Bowel Movements 0 - Exam GENERAL EXAM: Patient is alert and oriented and doesn't appear to be in any acute distress HEENT: Normocephalic. Normal reaction of pupils, equal size, normal range of extraocular motion. No erythema or exudates in the throat. NECK: No masses, no nuchal rigidity. CHEST: No chest wall deformity. LUNGS: Equal air entry with no crackles or wheeze. HEART: S1 and S2 normal with no audible mumurs or gallops. Regular rhythm, femorals equal on both sides.. ABDOMEN: No hepatosplenomegaly, normal bowel sounds, no guarding or rigidity. SKIN: No rashes CENTRAL NERVOUS SYSTEM: No focal deficits. EXTREMITIES: No cyanosis, clubbing or edema. - Labs CBC & Chem 7: 06/23/19 05:56 06/23/19 14:08 Labs: Abnormal Lab Results - Last 24 Hours (Table) 06/23/19 06/23/19 06/23/19 Range/Units 05:56 05:56 05:56 WBC 13.7 H (3.8-10.6) k/uL Neutrophils # 11.9 H (1.3-7.7) k/uL Lymphocytes # 0.8 L (1.0-4.8) k/uL PT 32.4 H (9.0-12.0) sec INR 3.4 H (<1.2) Sodium 119 L* (137-145) mmol/L Chloride 88 L (98-107) mmol/L BUN 21 H (7-17) mg/dL Glucose 141 H (74-99) mg/dL Osmolality (280-301) mosm/kg 06/23/19 06/23/19 Range/Units 05:56 14:08 WBC (3.8-10.6) k/uL Neutrophils # (1.3-7.7) k/uL Lymphocytes # (1.0-4.8) k/uL PT (9.0-12.0) sec INR (<1.2) Sodium 118 L* (137-145) mmol/L Chloride (98-107) mmol/L BUN (7-17) mg/dL Glucose (74-99) mg/dL Osmolality 252 L (280-301) mosm/kg Assessment and Plan (1) History of fall Current Visit: Yes Status: Acute Code(s): Z91.81 - HISTORY OF FALLING SNOMED Code(s): 505188236 (2) Atrial fibrillation with RVR Current Visit: Yes Status: Acute Code(s): I48.91 - UNSPECIFIED ATRIAL FI BRILLATION SNOMED Code(s): 220407078933653 Plan: Continue current medical therapy For rate control. Hold Coumadin. Continue beta blockers and JANA inhibitor.
[2019-06-23] MEDS ORDERED: WARFARIN 0.5 MG TAB PO ONE (18:00)
[2019-06-23 20:12] LABS: Creatinine,Urine Random 105.2 mg/dL
[2019-06-23] MEDS: METOPROLOL TARTRATE 50 MG TAB PO SCH (20:56)
[2019-06-23] MEDS ORDERED: FUROSEMIDE 10 MG/ML 2 ML VIAL IV STA (21:27)
[2019-06-24] MEDS: KETOROLAC 30 MG/ML 1 ML VIAL IVP SCH ×4 (01:10→18:16)
[2019-06-24] MEDS ORDERED: SODIUM CHLORIDE TAB 1 GM TAB PO STA (03:05)
[2019-06-24] MEDS: METOPROLOL TARTRATE 50 MG TAB PO SCH ×2 (06:04→21:47)
[2019-06-24] MEDS: LISINOPRIL 5 MG TAB PO SCH (06:05)
[2019-06-24 06:12] LABS: INR 3.1 (<1.2); Prothrombin Time 29.5 sec (9.0-12.0)
[2019-06-24] MEDS ORDERED: SODIUM CHLORIDE 3%(HYPERTONIC) 500 ML IV SCH ×3 (07:45→17:30)
[2019-06-24] MEDS: ASPIRIN 81 MG PO SCH (10:26)
[2019-06-24 10:56] LABS: Glucose,Whole Blood 132 mg/dL (75-99)
[2019-06-24] MEDS: TOLVAPTAN 15 MG 1/2 TABLET PO ONE ×2 (11:13→11:30)
--- NOTE | 2019-06-24 11:18 | PN ---
PROGRESS NOTE Patient is seen for followup for hyponatremia. Yesterday she was given a challenge of normal saline and her serum sodium did drop down to 117. The patient received a dose of sodium chloride tabs last night and her sodium went up by 118. However, this morning, the patient was confused and therefore she is started on 3% saline and is being moved to the ICU. Blood pressure has not been significantly low. In fact, it is slightly on the higher side. The patient does not have significant pain. Urine osmolality came back at 824, which goes along with diagnosis of SIADH. PHYSICAL EXAMINATION: On examination this morning, patient is comfortable, awake. She is not in any acute distress. Blood pressure 120/91, heart rate 106 per minute. She is afebrile. EXAMINATION OF THE HEART: S1 and S2. EXAMINATION OF THE LUNGS: Bilateral breath sounds are heard. Decreased breath sounds at the bases. Abdomen is soft, nontender. Examination of the lower extremities shows edema 1+ left lower extremity, which is currently wrapped. No significant edema noted in the right lower extremity. SUPERVISOR REACTOR FUELING EXAM: Grossly intact. LABS: Labs show sodium of 118 this morning. The urine osmolality 824. Urine sodium 63. ASSESSMENT: 1. Hyponatremia secondary to SIADH. Will start patient on 3% saline as she had been confused earlier this morning. I will also give her a dose of tolvaptan. I believe she will not need to 3% for a long time especially since we are adding the tolvaptan. Repeat sodium in 3 to 4 hours again. 2. Fracture left lower extremity with plans for surgery in the next few days. 3. Atrial fibrillation with rapid ventricular response, controlled ventricular response now. 4. Acute kidney injury, mostly associated with hemodynamic instability with atrial fibrillation, now improved. 5. Hypertension. The blood pressure was high earlier this morning secondary to the salt tablets. However, it is better now. Continue current medications including JANA inhibitors. PLAN: Start 3% saline, tolvaptan x1. Repeat sodium in 3 to 4 hours. MMODL / IJN: [id number] /
[2019-06-24] MEDS ORDERED: NALOXONE 0.4 MG/ML 1 ML VIAL IV PRN (11:31)
[2019-06-24 13:59] LABS: Calcium 8.1 mg/dL (8.4-10.2); Potassium 4.1 mmol/L (3.5-5.1)
--- NOTE | 2019-06-24 14:50 | P.PN ---
Subjective Progress Note Date: 06/24/19 Principal diagnosis: Left ankle bimalleolar fracture Patient is evaluated today in the ICU unit. Patient was transferred there today due to significantly low sodium. She is being followed by both internal medicine and nephrology. Patient was noted to have some confusion and a gitation, confusion has improved slightly. She remains in the posterior splint at this time. Objective - Vital Signs Vital signs: Vital Signs Temp 97.6 F 06/24/19 12:00 Pulse 93 06/24/19 14:00 Resp 12 06/24/19 14:00 BP 100/66 06/24/19 14:00 Pulse Ox 97 06/24/19 14:00 Intake & Output 06/23/19 06/24/19 06/24/19 18:59 06:59 18:59 Intake Total 600 150 300 Output Total 750 1750 Balance -150 -1600 300 Intake: IV 80 Sodium Chloride 3%( 80 Hypertonic) 500 ml @ 20 mls/hr IV .Q24H SURESH Rx#: [id number] Oral 600 150 220 Output: Urine 750 1750 Other: Voiding Method Toilet Bedpan Bedpan # Voids 0 2 0 # Bowel Movements 0 0 0 - Exam Left lower extremity: Posterior splint is in good position and condition. Patient is able to wiggle her toes. Sensation both proximally and distally to this point are intact. - Labs CBC & Chem 7: 06/23/19 05:56 06/24/19 13:23 Labs: Abnormal Lab Results - Last 24 Hours (Table) 06/23/19 06/23/19 06/24/19 Range/Units 14:08 19:06 00:49 PT (9.0-12.0) sec INR (<1.2) Sodium 118 L* 117 L* 117 L* (137-145) mmol/L Chloride (98-107) mmol/L Carbon Dioxide (22-30) mmol/L BUN (7-17) mg/dL Glucose (74-99) mg/dL POC Glucose (mg/dL) (75-99) mg/dL Calcium (8.4-10.2) mg/dL 06/24/19 06/24/19 06/24/19 Range/Units 05:31 05:33 07:53 PT 29.5 H (9.0-12.0) sec INR 3.1 H (<1.2) Sodium 118 L* 118 L* (137-145) mmol/L Chloride (98-107) mmol/L Carbon Dioxide (22-30) mmol/L BUN (7-17) mg/dL Glucose (74-99) mg/dL POC Glucose (mg/dL) (75-99) mg/dL Calcium (8.4-10.2) mg/dL 06/24/19 06/24/19 Range/Units 10:52 13:23 PT (9.0-12.0) sec INR (<1.2) Sodium 116 L* (137-145) mmol/L Chloride 85 L (98-107) mmol/L Carbon Dioxide 20 L (22-30) mmol/L BUN 20 H (7-17) mg/dL Glucose 155 H (74-99) mg/dL POC Glucose (mg/dL) 132 H (75-99) mg/dL Calcium 8.1 L (8.4-10.2) mg/dL Assessment and Plan Plan: Assessment: 1. Displaced left ankle bimalleolar fracture 2. Status post fall 3. Other medical comorbidities Plan: Patient will be made nothing by mouth tonight with hopeful surgery tomorrow, this will depend on clearance from both medical and nephrology. Continue to hold Coumadin at this time, recheck INR tomorrow Ice and elevate often Nonweightbearing Further recommendations to follow Time with Patient: Less than 30
--- NOTE | 2019-06-24 15:37 | P.CNPUL ---
<Shannan May M - Last Filed: 06/24/19 15:37> History of Present Illness Consult date: 06/24/19 Requesting physician: Soraida Motta Reason for consult: other Chief complaint: hyponatremia History of present illness: This is a 83-year-old white female who came into the hospital on 06/21/2019 complaining of pain in her left buttock, and patient apparently started hurting after a recent fall. Patient was in significant amount of discomfort, and was admitted for pain control, range of motion of the hip and knee was not affected, the patient had some local tenderness over the left buttock at the mid sacral area. Patient apparently had computed tomography scan and x-rays done at the [facility] which did not show any fracture of the hip or pelvis. Patient's past medical history is that of hypertension, paroxysmal atrial fibrillation on Coumadin, with past history of cardioversion. Apparently raquel smith went into A. fib with RVR, and was admitted to the cardiac stepdown floor and started on Cardizem drip for rate control. Her admission blood work showed serum sodium of 125, which was down to 117, and the patient was initiated on fluid restriction, and started on 3% hypertonic saline and transferred to the intensive care unit. Her INR today is 3.1, white blood cell count was 13.7, troponin was negative 1, LFTs were within normal limits, serum osmolality was 252, urine osmolality was 824, random urine sodium was 63. Patient has had no fever or chills, no complaints of shortness of breath or chest pain, no leg swelling, no hip pain, no lightheadedness dizziness. Patient has been amb ulating with a walker however her gait is unsteady, and during her hospital stay patient apparently sustained another fall resulting in injury of her left lower extremity, with x-rays showing significant left ankle fracture for which an orthopedic consultation was requested. Patient has been transferred to the intensive care unit for close monitoring, in view of her hyponatremia with increasing confusion, nephrology is following, and 3% hypertonic sitting is infusing. We are consulted for critical care management Review of Systems All systems: negative Constitutional: Denies chills, Denies fever Eyes: denies blurred vision, denies pain Ears, nose, mouth and throat: Denies headache, Denies sore throat Cardiovascular: Denies chest pain, Denies shortness of breath Respiratory: Denies cough Gastrointestinal: Denies abdominal pain, Denies diarrhea, Denies nausea, Denies vomiting Genitourinary: Denies dysuria, Denies hematuria Musculoskeletal: Reports frequent falls, Reports gait dysfunction, Denies myalgias Integumentary: Denies pruritus, Denies rash Neurological: Reports confusion, Reports gait dysfunction, Denies numbness, Denies weakness Psychiatric: Denies anxiety, Denies depression Endocrine: Denies fatigue, Denies weight change Past Medical History Past Medical History: Atrial Fibrillation History of Any Multi-Drug Resistant Organisms: None Reported Past Surgical History: No Surgical Hx Reported Past Psychological History: No Psychological Hx Reported Smoking Status: Never smoker Past Alcohol Use History: None Reported Past Drug Use History: None Reported Medications and Allergies Home Medications Medication Instructions Recorded Confirmed Type Lisinopril [Prinivil] 5 mg PO DAILY 12/08/15 06/21/19 History Metoprolol Tartrate [Lopressor] 25 mg PO BID 12/08/15 06/21/19 History Warfarin [Coumadin] 5 mg PO WALTER 12/08/15 06/21/19 History Aspirin 81 mg PO DAILY 06/21/19 06/21/19 History Docusate [Colace] 100 mg PO BID PRN 06/21/19 06/21/19 History HYDROcodone/APAP 5-325MG [[place] 1 tab PO Q4H PRN 06/21/19 06/21/19 History 5-325] Warfarin [Coumadin] 2.5 mg PO MOTUWETHFRSA 06/21/19 06/21/19 History Allergies Allergy/AdvReac Type Severity Reaction Status Date / Time No Known Allergies Allergy Verified 06/21/19 16:04 Physical Exam Vitals: Vital Signs Temp Pulse Pulse Resp BP BP Pulse Ox 06/24/19 13:00 90 12 129/101 98 06/24/19 12:00 97.6 F 101 H 18 124/71 98 06/24/19 11:00 101 H 12 107/88 98 06/24/19 10:00 100 13 108/75 97 06/24/19 09:50 93 19 102/70 97 06/24/19 08:20 97.8 F 106 H 18 120/91 100 06/24/19 04:00 97.6 F 118 H 20 148/108 97 06/24/19 00:00 97.6 F 109 H 16 111/79 95 06/23/19 20:00 97.6 F 115 H 18 112/74 96 06/23/19 15:10 97.5 F L 107 H 16 126/89 96 Intake and Output 06/23/19 06/24/19 06/24/19 22:59 06:59 14:59 Intake Total 390 280 Output Total 1350 800 Balance -960 -800 280 Intake: IV 60 Sodium Chloride 3%( 60 Hypertonic) 500 ml @ 20 mls/hr IV .Q24H [facility] Rx#: [id number] Oral 390 220 Output: Urine 1350 800 Other: Voiding Method Bedpan Bedpan Bedpan # Voids 3 2 0 # Bowel Movements 0 0 0 GENERAL EXAM: Alert, pleasant, 83-year-old white female, on room air, comfortable in no apparent distress. HEAD: Normocephalic/atraumatic. EYES: Normal reaction of pupils, equal size. Conjunctiva pink, sclera white. NOSE: Clear with pink turbinates. THROAT: No erythema or exudates. NECK: No masses, no JVD, no thyroid enlargement, no adenopathy. CHEST: No chest wall deformity. Symmetrical expansion. LUNGS: Equal air entry with no crackles, wheeze, rhonchi or dullness. CVS: Irregular rate and rhythm, normal S1 and S2, no gallops, no murmurs, no rubs ABDOMEN: Soft, nontender. No hepatosplenomegaly, normal bowel sounds, no guarding or rigidity. EXTREMITIES: No clubbing, mild edema and ecchymosis in the left ankle, no cyanosis, 2+ pulses and upper and lower extremities. MUSCULOSKELETAL: Muscle strength and tone normal. SPINE: No scoliosis or deformity SKIN: No rashes CENTRAL NERVOUS SYSTEM: Alert and oriented -3. No focal deficits, tone is nor mal in all 4 extremities. PSYCHIATRIC: Alert and oriented -3. Appropriate affect. Intact judgment and insight. Results - Laboratory Findings CBC and BMP: 06/23/19 05:56 06/24/19 13:23 PT/INR, D-dimer PT 29.5 sec (9.0-12.0) H 06/24/19 05:33 INR 3.1 (<1.2) H 06/24/19 05:33 Abnormal lab findings: Abnormal Labs 0906/21/19 06/22/19 18:15 18:15 05:05 WBC Neutrophils # Lymphocytes # PT 28.2 H INR 2.9 H Sodium 125 L Chloride 90 L BUN 18 H Creatinine 1.05 H Glucose 119 H POC Glucose (mg/dL) Osmolality Albumin 3.4 L Urine Protein Trace H Urine Glucose (UA) Trace H Urine Ketones 1+ H Urine Blood Trace H Amorphous Sediment Rare H Urine Bacteria Rare H Hyaline Casts 19 H Urine Mucus Rare H 06/22/19 06/23/19 06/23/19 09:45 05:56 05:56 WBC 13.7 H Neutrophils # 11.9 H Lymphocytes # 0.8 L PT 25.5 H 32.4 H INR 2.6 H 3.4 H Sodium Chloride BUN Creatinine Glucose POC Glucose (mg/dL) Osmolality Albumin Urine Protein Urine Glucose (UA) Urine Ketones Urine Blood Amorphous Sediment Urine Bacteria Hyaline Casts Urine Mucus 06/23/19 06/23/19 06/23/19 05:56 05:56 14:08 WBC Neutrophils # Lymphocytes # PT INR Sodium 119 L* 118 L* Chloride 88 L BUN 21 H Creatinine Glucose 141 H POC Glucose (mg/dL) Osmolality 252 L Albumin Urine Protein Urine Glucose (UA) Urine Ketones Urine Blood Amorphous Sediment Urine Bacteria Hyaline Casts Urine Mucus 06/23/19 06/24/19 06/24/19 19:06 00:49 05:31 WBC Neutrophils # Lymphocytes # PT INR Sodium 117 L* 117 L* 118 L* Chloride BUN Creatinine Glucose POC Glucose (mg/dL) Osmolality Albumin Urine Protein Urine Glucose (UA) Urine Ketones Urine Blood Amorphous Sediment Urine Bacteria Hyaline Casts Urine Mucus 06/24/19 06/24/19 06/24/19 05:33 07:53 10:52 WBC Neutrophils # Lymphocytes # PT 29.5 H INR 3.1 H Sodium 118 L* Chloride BUN Creatinine Glucose POC Glucose (mg/dL) 132 H Osmolality Albumin Urine Protein Urine Glucose (UA) Urine Ketones Urine Blood Amorphous Sediment Urine Bacteria Hyaline Casts Urine Mucus - Diagnostic Findings Additional studies: X-ray of the knee, x-ray of the ankle and venous Doppler ultrasound of the right leg reviewed Assessment and Plan Plan: Assessment: #1. 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 Nephrology is following #2. Acute delirium, likely related to the above, being closely monitored in the intensive care unit #3. Displaced left ankle bimalleolar fracture, status post fall #4. Frequent falls at home, most recently sustaining injury to her bilateral buttocks at home #5. Atrial fibrillation with rapid ventricular response #6. Paroxysmal small atrial fibrillation on Coumadin, with previous history of cardioversion #7. Hypertension #8. Lifetime nonsmoker #9. Gait dysfunction, frequent falls Plan: Continue monitoring in the intensive care unit, monitor neurologic status, hypertonic saline infusion per nephrology recommendation, hemodynamically stable, no complaints of shortness of breath or chest pain, her atrial fibrill ation rate is better controlled, INR today is 3.1, Coumadin is on hold. Patient continues to be very restless and confused, delirious. We'll need a director food safety at the bedside. Patient is impulsive, attempts to get up unassisted. Family reports acute mental status change, and denies any history of dementia. May proceed with the brain CT, the patient has been anticoagulated and has not been hypotensive. She has been evaluated by orthopedic service and is planning surgery tomorrow on 06/25/2019, will have to make sure that the serum sodium normalizes before surgery. Maintain pain control. No pulmonary issues at this time. We'll continue to closely monitor I performed a history & physical examination of the patient and discussed their management with my nurse practitioner, Shannan May. I reviewed the nurse practitioner's note and agree with the documented findings and plan of care. Lung sounds are positive for clear breath sounds. The findings and the impression was discussed with the patient. I attest to the documentation by the nurse practitioner. <Sadiq Ku - Last Filed: 06/24/19 20:13> Physical Exam Vitals: Vital Signs Temp Pulse Pulse Resp BP BP Pulse Ox 06/24/19 19:00 91 18 97/55 96 06/24/19 18:00 111 H 22 106/81 98 06/24/19 17:00 104 H 20 116/90 96 06/24/19 16:00 97.6 F 98 17 94/68 96 06/24/19 15:00 105 H 17 92/64 98 06/24/19 14:00 93 12 100/66 97 06/24/19 13:00 90 12 129/101 98 06/24/19 12:00 97.6 F 101 H 18 124/71 98 06/24/19 11:00 101 H 12 107/88 98 06/24/19 10:00 100 13 108/75 97 06/24/19 09:50 93 19 102/70 97 06/24/19 08:20 97.8 F 106 H 18 120/91 100 06/24/19 04:00 97.6 F 118 H 20 148/108 97 06/24/19 00:00 97.6 F 109 H 16 111/79 95 Intake and Output 06/24/19 06/24/19 06/24/19 06:59 14:59 22:59 Intake Total 300 207.5 Output Total 800 802 Balance -800 300 -594.5 Intake: IV 80 107.5 Sodium Chloride 3%( 80 107.5 Hypertonic) 500 ml @ 20 mls/hr IV .Q24H [facility] Rx#: [id number] Oral 220 100 Output: Urine 800 802 Other: Voiding Method Bedpan Bedpan Bedpan # Voids 2 0 1 # Bowel Movements 0 0 Results - Laboratory Findings CBC and BMP: 06/23/19 05:56 06/24/19 15:47 PT/INR, D-dimer PT 29.5 sec (9.0-12.0) H 06/24/19 05:33 INR 3.1 (<1.2) H 06/24/19 05:33 Abnormal lab findings: Abnormal Labs 06/21/19 06/21/19 06/22/19 18:15 18:15 05:05 WBC Neutrophils # Lymphocytes # PT 28.2 H INR 2.9 H Sodium 125 L Chloride 90 L Carbon Dioxide BUN 18 H Creatinine 1.05 H Glucose 119 H POC Glucose (mg/dL) Osmolality Calcium Albumin 3.4 L Urine Protein Trace H Urine Glucose (UA) Trace H Urine Ketones 1+ H Urine Blood Trace H Amorphous Sediment Rare H Urine Bacteria Rare H Hyaline Casts 19 H Urine Mucus Rare H 06/22/19 06/23/19 06/23/19 09:45 05:56 05:56 WBC 13.7 H Neutrophils # 11.9 H Lymphocytes # 0.8 L PT 25.5 H 32.4 H INR 2.6 H 3.4 H Sodium Chloride Carbon Dioxide BUN Creatinine Glucose POC Glucose (mg/dL) Osmolality Calcium Albumin Urine Protein Urine Glucose (UA) Urine Ketones Urine Blood Amorphous Sediment Urine Bacteria Hyaline Casts Urine Mucus 06/23/19 06/23/19 06/23/19 05:56 05:56 14:08 WBC Neutrophils # Lymphocytes # PT INR Sodium 119 L* 118 L* Chloride 88 L Carbon Dioxide BUN 21 H Creatinine Glucose 141 H POC Glucose (mg/dL) Osmolality 252 L Calcium Albumin Urine Protein Urine Glucose (UA) Urine Ketones Urine Blood Amorphous Sediment Urine Bacteria Hyaline Casts Urine Mucus 06/23/19 06/24/19 06/24/19 19:06 00:49 05:31 WBC Neutrophils # Lymphocytes # PT INR Sodium 117 L* 117 L* 118 L* Chloride Carbon Dioxide BUN Creatinine Glucose POC Glucose (mg/dL) Osmolality Calcium Albumin Urine Protein Urine Glucose (UA) Urine Ketones Urine Blood Amorphous Sediment Urine Bacteria Hyaline Casts Urine Mucus 06/24/19 06/24/19 06/24/19 05:33 07:53 10:52 WBC Neutrophils # Lymphocytes # PT 29.5 H INR 3.1 H Sodium 118 L* Chloride Carbon Dioxide BUN Creatinine Glucose POC Glucose (mg/dL) 132 H Osmolality Calcium Albumin Urine Protein Urine Glucose (UA) Urine Ketones Urine Blood Amorphous Sediment Urine Bacteria Hyaline Casts Urine Mucus 06/24/19 06/24/19 13:23 15:47 WBC Neutrophils # Lymphocytes # PT INR Sodium 116 L* 117 L* Chloride 85 L Carbon Dioxide 20 L BUN 20 H Creatinine Glucose 155 H POC Glucose (mg/dL) Osmolality Calcium 8.1 L Albumin Urine Protein Urine Glucose (UA) Urine Ketones Urine Blood Amorphous Sediment Urine Bacteria Hyaline Casts Urine Mucus Assessment and Plan Plan: The patient was seen and the family was interviewed and all of the questions was answered to their satisfaction. The patient is a component of SIADH. She is current on hypertonic saline. We'll going to gradually correct the sodium by hypertonic saline at the rate of 25 mL an hour. We will make sure that the correction is in order of 6-10 mEq of sodium level on a 24-hour period. Monitor mental status. CAT scan of the brain is negative. Hold Coumadin for now. Restrict fluids. We'll continue to follow.
--- NOTE | 2019-06-24 16:19 | XR ---
EXAMINATION TYPE: XR chest 1V DATE OF EXAM: 06/24/2019 COMPARISON: NONE HISTORY: Shortness of breath TECHNIQUE: Single frontal view of the chest is obtained. FINDINGS: Retrocardiac airspace disease blunting the left costophrenic angle and the lateral hemidia phragm border. Eventration is seen of the right hemidiaphragm. Pulmonary hyperinflation with biapical lucency is noted. Mild diffuse osseous demineralization. Cardiomediastinal silhouette is mildly enla rged. No pneumothorax seen. IMPRESSION: Retrocardiac airspace disease may represent a trace left pleural effusion with atelectas is or pneumonia in the appropriate clinical setting.
--- NOTE | 2019-06-24 16:58 | CT ---
EXAMINATION TYPE: CT brain wo con DATE OF EXAM: 06/24/2019 COMPARISON: None HISTORY: 83-year-old female confusion, altered mental status TECHNIQUE: Examination was done in axial plane without intravenous contrast. Coronal and sagittal r econstructions performed. CT DLP: 1086.4 mGycm Automated exposure control for dose reduction was used. FINDINGS: There is no evidence of acute intracranial hemorrhage, acute ischemic changes, mass, mass-effect, or extra-axial fluid collection. There is no effacement of cerebral sulci or basal subarachnoid cister ns. There is no hydrocephalus. There is no midline shift. Agrawal-white matter distinction is preserv ed. Mild generalized supratentorial volume loss. Paranasal sinuses and mastoid air cells are well pneumatized. Orbits and globes are intact. IMPRESSION: Mild generalized atrophy. No acute intracranial abnormality seen.
--- NOTE | 2019-06-24 17:35 | P.PN ---
Subjective Progress Note Date: 06/24/19 This is a 83-year-old female who was admitted with a fall. Patient is found to have fractures. She is waiting to have surgery on Sunday. She was initially with Amisha humphreys with RVR. Current heart rate seems to be controlled. She denies any chest pain or shortness of breath. We'll continue current medical therapy except holding Coumadin. 06/24/2019: This patient was admitted to the hospital with fall and fracture of the leg. Patient has history of atrial fibrillation which is chronic. Patient also developed hyponatremia. Became little confused. Patient was transferred to ICU for management of the hyponatremia an infusion of 3% saline. Denies any chest pain. We'll hold lisinopril also because of low blood pressure and hyponatremia. Further recommendations depend upon the clinical course Objective - Vital Signs Vital signs: Vital Signs Temp 97.6 F 06/24/19 16:00 Pulse 104 H 06/24/19 17:00 Resp 20 06/24/19 17:00 BP 116/90 06/24/19 17:00 Pulse Ox 96 06/24/19 17:00 Intake & Output 06/23/19 06/24/19 06/24/19 18:59 06:59 18:59 Intake Total 600 150 460 Output Total 750 1750 150 Balance -150 -1600 310 Intake: IV 140 Sodium Chloride 3%( 140 Hypertonic) 500 ml @ 20 mls/hr IV .Q24H [facility] Rx#: [id number] Oral 600 150 320 Output: Urine 750 1750 150 Other: Voiding Method Toilet Bedpan Bedpan # Voids 0 2 1 # Bowel Movements 0 0 0 - Exam GENERAL EXAM: Patient is alert and oriented and doesn't appear to be in any acute distress HEENT: Normocephalic. Normal reaction of pupils, equal size, normal range of extraocular motion. No erythema or exudates in the throat. NECK: No masses, no nuchal rigidity. CHEST: No chest wall deformity. LUNGS: Equal air entry with no crackles or wheeze. HEART: S1 and S2 normal with no audible mumurs or gallops. Regular rhythm, femorals equal on both sides.. ABDOMEN: No hepatosplenomegaly, normal bowel sounds, no guarding or rigidity. SKIN: No rashes CENTRAL NERVOUS SYSTEM: No focal deficits. EXTREMITIES: No cyanosis, clubbing or edema. - Labs CBC & Chem 7: 06/23/19 05:56 06/24/19 15:47 Labs: Abnormal Lab Results - Last 24 Hours (Table) 06/23/19 06/24/19 06/24/19 Range/Units 19:06 00:49 05:31 PT (9.0-12.0) sec INR (<1.2) Sodium 117 L* 117 L* 118 L* (137-145) mmol/L Chloride (98-107) mmol/L Carbon Dioxide (22-30) mmol/L BUN (7-17) mg/dL Glucose (74-99) mg/dL POC Glucose (mg/dL) (75-99) mg/dL Calcium (8.4-10.2) mg/dL 06/24/19 06/24/19 06/24/19 Range/Units 05:33 07:53 10:52 PT 29.5 H (9.0-12.0) sec INR 3.1 H (<1.2) Sodium 118 L* (137-145) mmol/L Chloride (98-107) mmol/L Carbon Dioxide (22-30) mmol/L BUN (7-17) mg/dL Glucose (74-99) mg/dL POC Glucose (mg/dL) 132 H (75-99) mg/dL Calcium (8.4-10.2) mg/dL 06/24/19 06/24/19 Range/Units 13:23 15:47 PT (9.0-12.0) sec INR (<1.2) Sodium 116 L* 117 L* (137-145) mmol/L Chloride 85 L (98-107) mmol/L Carbon Dioxide 20 L (22-30) mmol/L BUN 20 H (7-17) mg/dL Glucose 155 H (74-99) mg/dL POC Glucose (mg/dL) (75-99) mg/dL Calcium 8.1 L (8.4-10.2) mg/dL Assessment and Plan (1) History of fall Current Visit: Yes Status: Acute Code(s): Z91.81 - HISTORY OF FALLING SNOMED Code(s): 500936269 (2) Atrial fibrillation with RVR Current Visit: Yes Status: Acute Code(s): I48.91 - UNSPECIFIED ATRIAL FIBRILLATION SNOMED Code(s): 722937947457956 Plan: Patient developed hyponatremia. She is receiving with 3% normal saline. We'll hold lisinopril because of low blood pressure. Continue rest of the medication
[2019-06-24] MEDS ORDERED: LIDOCAINE 1% 20 ML VIAL (10MG/ML) FOR IV START INTRADERMA PRN (19:12)
[2019-06-24] MEDS ORDERED: DEXAMETHASONE SOD PHOSPHATE 10 MG/ML 1 ML VIAL IV ONE ×2 (19:12→19:30)
[2019-06-24] MEDS ORDERED: ONDANSETRON 4 MG/2 ML VIAL IVP PRN (19:12)
[2019-06-24] MEDS ORDERED: HYDROmorphone 0.5 MG/0.5 ML SYRINGE IVP PRN (19:12)
[2019-06-24] MEDS ORDERED: ONDANSETRON 4 MG/2 ML VIAL IVP ONE ×2 (19:12→19:30)
[2019-06-24 19:24] LABS: Appearance,Urine Clear (Clear); Bilirubin,Urine Negative (Negative); Blood,Urine Negative (Negative); Color,Urine Yellow; Glucose,Urine (UA) Negative (Negative); Ketones,Urine Negative (Negative); Leukocyte Esterase,Urine Negative (Negative); Nitrite,Urine Negative (Negative); PH, Urine 5.5 (5.0-8.0); Protein,Urine Negative (Negative); Specific Gravity,Urine 1.011 (1.001-1.035); Urobilinogen,Urine <2.0 mg/dL (<2.0)
[2019-06-24] MEDS: LACTATED RINGERS 1,000 ML IV SCH (19:28)
[2019-06-24] MEDS ORDERED: LORazepam 2 MG/ML INJ IV STA (20:33)
--- NOTE | 2019-06-24 22:30 | P.PN ---
Subjective Progress Note Date: 06/23/19 Principal diagnosis: Left buttock contusion status post fall Atrial fibrillation with rapid regular rate Patient is a 83-year-old female with a known history of hypertension, paroxysmal atrial fibrillation on anticoagulation with Coumadin came to ER with complaints of left buttock pain. Patient says that she fell down and landed on her left buttock. Since then she has been having worsening pain. Patient was seen at [facility] ER where she had x-ray of the pelvis had CT of the pelvis was done and found no acute fracture or dislocation. Patient was given C olace and [place] prescription and patient took the medication use which made her nauseated and also was having multiple bowel movements with Colace. Patient has been having worsening pain and could not able to sit walk and cannot ambulate and could not sleep all night. Pt. denied any fever or chills. No chest pain or shortness of breath. No leg swelling. No hip pain. No headache or dizziness or lightheadedness. Denied any head injury. Patient was admitted to the hospital for pain management. Once she arrived to the floor she went into atrial fibrillation with rapid ventricular rate. Patient was started on Cardizem drip and was transferred to telemetry unit. Patient is therapeutic with INR level. 06/22/2019 Patient says that her left buttock pain is improved today. Able to walk with a walker. No complaints of fever or chills. No chest pain or shortness of breath. Cardizem drip has been discontinued and patient was started on metoprolol 25 mg 3 times a day. Cardiology is following. Heart rate is controlled. No nausea vomiting or diarrhea. No abdominal pain. Patient will be continued on PT OT tomorrow and possible discharge. 06/23/2019 Patient currently denied any chest pain or shortness of breath. Patient does have left ankle pain. Overnight patient sustained a fall while using commode and x-ray of the left ankle showed bimalleolar displaced fracture. Patient was seen by orthopedic surgery and is planning for or once INR normalizes. Otherwise sodium level dropped to 119 today. Possible SIADH was considered. Patient was kept on fluid restriction and nephrology was consulted. Patient was started on normal saline at 60 mL per hour. Monitor sodium level closely. Otherwise heart rate is controlled. INR is more than 3 and is on hold currently. Cardiology is on board. Current medications reviewed. Objective - Vital Signs Vital signs: Vital Signs Temp 97.6 F 06/23/19 20:00 Pulse 115 H 06/23/19 20:00 Resp 18 06/23/19 20:00 BP 112/74 06/23/19 20:00 Pulse Ox 96 06/23/19 20:00 Intake & Output 06/23/19 06/23/19 06/24/19 06:59 18:59 06:59 Intake Total 395 600 Output Total 350 750 50 Balance 45 -150 -50 Intake: Oral 395 600 Output: Urine 350 750 50 Other: Voiding Method Toilet Toilet Bedpan # Voids 2 0 1 # Bowel Movements 0 0 - Exam PHYSICAL EXAMINATION: Patient is lying in the bed comfortably, no acute distress, awake alert and oriented.. HEENT: Normocephalic. Neck is supple. Pupils reactive. Nostrils clear. Oral cavity is moist. Ears reveal no drainage. Neck reveals no JVD, carotid bruits, or thyromegaly. CHEST EXAMINATION: Trachea is central. Symmetrical expansion. Lung [place] clear to auscultation and percussion. CARDIAC: Normal S1, S2 with no gallops. No murmurs ABDOMEN: Soft. Bowel sounds normal. No organomegaly. No abdominal bruits. Extremities: reveal no edema. No clubbing or cyanosis. Tenderness over the left upper paraspinal gluteus region Neurologically awake, alert, oriented x3 with well-coordinated movements. No focal deficits noted Skin: No rash or skin lesions. Psychiatric: Coperative. Nonsuicidal Musculoskeletal: No joint swelling or deformity. Normal range of motion. Left ankle splint in place. - Labs CBC & Chem 7: 06/23/19 05:56 06/24/19 20:18 Labs: Abnormal Lab Results - Last 24 Hours (Table) 06/23/19 06/23/19 06/23/19 Range/Units 05:56 05:56 05:56 WBC 13.7 H (3.8-10.6) k/uL Neutrophils # 11.9 H (1.3-7.7) k/uL Lymphocytes # 0.8 L (1.0-4.8) k/uL PT 32.4 H (9.0-12.0) sec INR 3.4 H (<1.2) Sodium 119 L* (137-145) mmol/L Chloride 88 L (98-107) mmol/L BUN 21 H (7-17) mg/dL Glucose 141 H (74-99) mg/dL Osmolality (280-301) mosm/kg 06/23/19 06/23/19 06/23/19 Range/Units 05:56 14:08 19:06 WBC (3.8-10.6) k/uL Neutrophils # (1.3-7.7) k/uL Lymphocytes # (1.0-4.8) k/uL PT (9.0-12.0) sec INR (<1.2) Sodium 118 L* 117 L* (137-145) mmol/L Chloride (98-107) mmol/L BUN (7-17) mg/dL Glucose (74-99) mg/dL Osmolality 252 L (280-301) mosm/kg Assessment and Plan Assessment: Hypoosmolar hyponatremia. Possible SIADH. Fluid restriction. Left ankle bimalleolar fracture status post fall. Left Buttock pain status post fall. Recent x-ray and CT negative for any acute fractures. Possible muscle contusion. Improving clinically. Atrial fibrillation with rapid ventricular rate. Controlled now. Paroxysmal atrial fibrillation on anticoagulation with Coumadin. Coumadin dosing. Hypertension Hyponatremia likely hypovolemic. DVT prophylaxis. Patient is already on anticoagulation. Plan: Patient is being continued on normal Tenisha 60 mL per hour. Fluid restriction.. Continue with pain management Toradol and Tylenol will be added. [place] as needed severe pain. Drip has been discontinued and patient was started on metoprolol.. Patient was started back on her home dose of metoprolol. Cardiology and nephrology is following. . Further recommendations based on the clinical course. Time with Patient: Greater than 30
--- NOTE | 2019-06-24 22:34 | P.PN ---
Subjective Progress Note Date: 06/24/19 Principal diagnosis: Left buttock contusion status post fall Atrial fibrillation with rapid regular rate Patient is a 83-year-old female with a known history of hypertension, paroxysmal atrial fibrillation on anticoagulation with Coumadin came to ER with complaints of left buttock pain. Patient says that she fell down and landed on her left buttock. Since then she has been having worsening pain. Patient was seen at [facility] ER where she had x-ray of the pelvis had CT of the pelvis was done and found no acute fracture or dislocation. Patient was given C olace and [place] prescription and patient took the medication use which made her nauseated and also was having multiple bowel movements with Colace. Patient has been having worsening pain and could not able to sit walk and cannot ambulate and could not sleep all night. Pt. denied any fever or chills. No chest pain or shortness of breath. No leg swelling. No hip pain. No headache or dizziness or lightheadedness. Denied any head injury. Patient was admitted to the hospital for pain management. Once she arrived to the floor she went into atrial fibrillation with rapid ventricular rate. Patient was started on Cardizem drip and was transferred to telemetry unit. Patient is therapeutic with INR level. 06/22/2019 Patient says that her left buttock pain is improved today. Able to walk with a walker. No complaints of fever or chills. No chest pain or shortness of breath. Cardizem drip has been discontinued and patient was started on metoprolol 25 mg 3 times a day. Cardiology is following. Heart rate is controlled. No nausea vomiting or diarrhea. No abdominal pain. Patient will be continued on PT OT tomorrow and possible discharge. 06/23/2019 Patient currently denied any chest pain or shortness of breath. Patient does have left ankle pain. Overnight patient sustained a fall while using commode and x-ray of the left ankle showed bimalleolar displaced fracture. Patient was seen by orthopedic surgery and is planning for or once INR normalizes. Otherwise sodium level dropped to 119 today. Possible SIADH was considered. Patient was kept on fluid restriction and nephrology was consulted. Patient was started on normal saline at 60 mL per hour. Monitor sodium level closely. Otherwise heart rate is controlled. INR is more than 3 and is on hold currently. Cardiology is on board. 06/24/2019 Patient was confused today morning and CT of the head was ordered. Otherwise sodium level dropped down to 116. Started on hypertonic saline and sodium level is being monitored closely. Likely due to SIADH. Otherwise heart rate is controlled. INR is still at 3.1. Orthopedic surgery is planning for or likely next day. Patient has left ankle bimalleolar displaced fracture. Patient was transferred to MICU for close monitoring. Cardiology, pulmonary and nephrology is following. Current medications reviewed. Objective - Vital Signs Vital signs: Vital Signs Temp 97.6 F 06/24/19 16:00 Pulse 93 06/24/19 22:00 Resp 17 06/24/19 22:00 BP 82/61 06/24/19 22:00 Pulse Ox 100 06/24/19 22:00 Intake & Output 06/24/19 06/24/19 06/25/19 06:59 18:59 06:59 Intake Total 150 482.5 75 Output Total 1750 770 232 Balance -1600 -287.5 -157 Intake: IV 162.5 75 Sodium Chloride 3%( 162.5 75 Hypertonic) 500 ml @ 20 mls/hr IV .Q24H [facility] Rx#: [id number] Oral 150 320 Output: Urine 1750 770 232 Other: Voiding Method Bedpan Bedpan # Voids 2 1 # Bowel Movements 0 0 - Exam PHYSICAL EXAMINATION: Patient is lying in the bed comfortably, no acute distress, awake alert and angela ented.. HEENT: Normocephalic. Neck is supple. Pupils reactive. Nostrils clear. Oral cavity is moist. Ears reveal no drainage. Neck reveals no JVD, carotid bruits, or thyromegaly. CHEST EXAMINATION: Trachea is central. Symmetrical expansion. Lung [place] clear to auscultation and percussion. CARDIAC: Normal S1, S2 with no gallops. No murmurs ABDOMEN: Soft. Bowel sounds normal. No organomegaly. No abdominal bruits. Extremities: reveal no edema. No clubbing or cyanosis. Tenderness over the l eft upper paraspinal gluteus region Neurologically awake, alert, oriented x3 with well-coordinated movements. No focal deficits noted Skin: No rash or skin lesions. Psychiatric: Coperative. Nonsuicidal Musculoskeletal: No joint swelling or deformity. Normal range of motion. Left ankle splint in place. - Labs CBC & Chem 7: 06/23/19 05:56 06/24/19 20:18 Labs: Abnormal Lab Results - Last 24 Hours (Table) 06/24/19 06/24/19 06/24/19 Range/Units 00:49 05:31 05:33 PT 29.5 H (9.0-12.0) sec INR 3.1 H (<1.2) Sodium 117 L* 118 L* (137-145) mmol/L Chloride (98-107) mmol/L Carbon Dioxide (22-30) mmol/L BUN (7-17) mg/dL Glucose (74-99) mg/dL POC Glucose (mg/dL) (75-99) mg/dL Calcium (8.4-10.2) mg/dL 06/24/19 06/24/19 06/24/19 Range/Units 07:53 10:52 13:23 PT (9.0-12.0) sec INR (<1.2) Sodium 118 L* 116 L* (137-145) mmol/L Chloride 85 L (98-107) mmol/L Carbon Dioxide 20 L (22-30) mmol/L BUN 20 H (7-17) mg/dL Glucose 155 H (74-99) mg/dL POC Glucose (mg/dL) 132 H (75-99) mg/dL Calcium 8.1 L (8.4-10.2) mg/dL 06/24/19 06/24/19 Range/Units 15:47 20:18 PT (9.0-12.0) sec INR (<1.2) Sodium 117 L* 120 L (137-145) mmol/L Chloride (98-107) mmol/L Carbon Dioxide (22-30) mmol/L BUN (7-17) mg/dL Glucose (74-99) mg/dL POC Glucose (mg/dL) (75-99) mg/dL Calcium (8.4-10.2) mg/dL Assessment and Plan Assessment: 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 Fluid restriction. Left ankle bimalleolar fracture status post fall. Possible wart once INR normalizes. Left Buttock pain status post fall. Recent x-ray and CT negative for any acute fractures. Possible muscle contusion. Improving clinically. Atrial fibrillation with rapid ventricular rate. Controlled now. Paroxysmal atrial fibrillation on anticoagulation with Coumadin. Coumadin dosing. Hypertension Hyponatremia likely hypovolemic. DVT prophylaxis. Hold on anticoagulation. SCDs. Plan: Patient is being continued on hypertonic saline. Was also given a dose of tolvapton. Fluid restriction.. Continue with pain management Toradol and [place] as needed severe pain. Cardizem Drip has been discontinued and patient was started on metoprolol.. Patient was started back on her home dose of metoprolol. Cardiology and nephrology is following. Orthopedic surgery is planning for OR tomorrow. Coumadin is on hold. Further recommendations based on the clinical course. Time with Patient: Greater than 30
[2019-06-24] MEDS: DILTIAZEM 125 MG in SODIUM CHLORIDE 0.9% 100 ML IV SCH (23:53)
[2019-06-25] MEDS: KETOROLAC 30 MG/ML 1 ML VIAL IVP SCH ×4 (01:46→17:02)
[2019-06-25] MEDS: LORazepam 2 MG/ML INJ IV PRN ×3 (01:47→06:56)
[2019-06-25 04:35] LABS: Basophils % (A) 0 %; Eosinophils # (A) 0.1 k/uL (0-0.7); Eosinophils % (A) 1 %; HCT 36.9 % (34.0-46.0); Lymphocytes % (A) 9 %; MCHC 35.3 g/dL (31.0-37.0); MCV 85.1 fL (80.0-100.0); Mean Platelet Volume 7.4; Monocytes # (A) 0.8 k/uL (0-1.0); Monocytes % (A) 7 %; Neutrophils # (A) 9.4 k/uL (1.3-7.7); Neutrophils % (A) 82 %; Platelet Count 243 k/uL (150-450); RBC 4.34 m/uL (3.80-5.40); RDW 15.9 % (11.5-15.5); WBC 11.4 k/uL (3.8-10.6)
[2019-06-25 04:40] LABS: INR 1.5 (<1.2); Prothrombin Time 15.5 sec (9.0-12.0)
[2019-06-25 04:45] LABS: Calcium 8.3 mg/dL (8.4-10.2)
[2019-06-25] MEDS ORDERED: SODIUM CHLORIDE 3%(HYPERTONIC) 500 ML IV SCH (06:00)
[2019-06-25] MEDS ORDERED: PANTOPRAZOLE 40 MG TABLET PO SCH (07:30)
[2019-06-25] MEDS ORDERED: PANTOPRAZOLE 40 MG/10 ML VIAL IVP SCH (07:30)
[2019-06-25] MEDS: METOPROLOL TARTRATE 50 MG TAB PO SCH ×2 (08:06→21:25)
[2019-06-25] MEDS: PANTOPRAZOLE 40 MG/10 ML VIAL IVP SCH (08:08)
[2019-06-25] MEDS ORDERED: HEPARIN SODIUM,PORCINE 5,000 UNIT/ML 1 ML VIAL IV ONE (09:00)
--- NOTE | 2019-06-25 09:06 | XR ---
EXAMINATION TYPE: XR chest 1V DATE OF EXAM: 06/25/2019 COMPARISON: Prior chest x-ray 06/24/2019 HISTORY: Preop TECHNIQUE: Single frontal view of the chest is obtained. FINDINGS: Patient is rotated and there are overlying cardiac leads, artifacts. Heart remains enlarge d. No evident pneumothorax. Minimal patchy basilar density likely represents subsegmental atelectatic change. There is prominence of the region of the pulmonary artery. IMPRESSION: Rotated exam, cardiomegaly. Possible underlying pulmonary artery enlargement. Probable b asilar subsegmental atelectatic change.
--- NOTE | 2019-06-25 09:34 | P.PN ---
Subjective Progress Note Date: 06/25/19 This is a 83-year-old female who was admitted with a fall. Patient is found to have fractures. She is waiting to have surgery on Sunday. She was initially with Amisha humphreys with RVR. Current heart rate seems to be controlled. She denies any chest pain or shortness of breath. We'll continue current medical therapy except holding Coumadin. 06/24/2019: This patient was admitted to the hospital with fall and fracture of the leg. Patient has history of atrial fibrillation which is chronic. Patient also developed hyponatremia. Became little confused. Patient was transferred to ICU for management of the hyponatremia an infusion of 3% saline. Denies any chest pain. We'll hold lisinopril also because of low blood pressure and hyponatremia. Further recommendations depend upon the clinical course. 06/25/2019: This patient was transferred to intensive care unit yesterday because of hyponatremia and confusional states. She appears to be very agitated and confused. Her sodium has improved to 121. She is on 3% saline IV. Patient went into atrial fibrillation with rapid ventricular response last night. She is on IV Cardizem with rate control. Because of extreme agitation, patient will not take oral medication, though she got Lopressor last night. Patient is is off warfarin. Most probably patient may not have surgery done today. I'll put her on IV heparin which could be discontinued before surgery. Neurology consult may be obtained. Chest x-ray doesn't show any CHF Objective - Vital Signs Vital signs: Vital Signs Temp 97 F L 06/25/19 08:00 Pulse 105 H 06/25/19 09:00 Resp 20 06/25/19 09:00 BP 105/64 06/25/19 09:00 Pulse Ox 100 06/25/19 09:00 Intake & Output 06/24/19 06/25/19 06/25/19 18:59 06:59 18:59 Intake Total 482.5 270 45 Output Total 770 657 45 Balance -287.5 -387 0 Weight 80 kg Intake: IV 162.5 270 45 Sodium Chloride 3%( 162.5 175 Hypertonic) 500 ml @ 20 mls/hr IV .Q24H [facility] Rx#: [id number] Sodium Chloride 3%( 50 Hypertonic) 500 ml @ 25 mls/hr IV .Q20H [facility] Rx#: [id number] sodium chloride 3% 45 45 Oral 320 Output: Urine 770 657 45 Other: Voiding Method Bedpan Indwelling Catheter Indwelling Catheter # Voids 1 # Bowel Movements 0 - Exam GENERAL EXAM: Patient is agitated and confused HEENT: Normocephalic. Normal reaction of pupils, equal size, normal range of extraocular motion. No erythema or exudates in the throat. NECK: No masses, no nuchal rigidity. CHEST: No chest wall deformity. LUNGS: Equal air entry with no crackles or wheeze. HEART: S1 and S2 normal with no audible mumurs or gallops. Regular rhythm, femorals equal on both sides.. ABDOMEN: No hepatosplenomegaly, normal bowel sounds, no guarding or rigidity. SKIN: No rashes CENTRAL NERVOUS SYSTEM: No focal deficits. EXTREMITIES: No cyanosis, clubbing or edema. - Labs CBC & Chem 7: 06/25/19 04:20 06/25/19 04:20 Labs: Abnormal Lab Results - Last 24 Hours (Table) 06/24/19 06/24/19 06/24/19 Range/Units 10:52 13:23 15:47 WBC (3.8-10.6) k/uL RDW (11.5-15.5) % Neutrophils # (1.3-7.7) k/uL PT (9.0-12.0) sec INR (<1.2) Sodium 116 L* 117 L* (137-145) mmol/L Chloride 85 L (98-107) mmol/L Carbon Dioxide 20 L (22-30) mmol/L BUN 20 H (7-17) mg/dL Glucose 155 H (74-99) mg/dL POC Glucose (mg/dL) 132 H (75-99) mg/dL Calcium 8.1 L (8.4-10.2) mg/dL 06/24/19 06/25/19 06/25/19 Range/Units 20:18 01:13 04:20 WBC (3.8-10.6) k/uL RDW (11.5-15.5) % Neutrophils # (1.3-7.7) k/uL PT 15.5 H (9.0-12.0) sec INR 1.5 H (<1.2) Sodium 120 L 120 L (137-145) mmol/L Chloride (98-107) mmol/L Carbon Dioxide (22-30) mmol/L BUN (7-17) mg/dL Glucose (74-99) mg/dL POC Glucose (mg/dL) (75-99) mg/dL Calcium (8.4-10.2) mg/dL 06/25/19 06/25/19 Range/Units 04:20 04:20 WBC 11.4 H (3.8-10.6) k/uL RDW 15.9 H (11.5-15.5) % Neutrophils # 9.4 H (1.3-7.7) k/uL PT (9.0-12.0) sec INR (<1.2) Sodium 123 L (137-145) mmol/L Chloride 93 L (98-107) mmol/L Carbon Dioxide 21 L (22-30) mmol/L BUN 25 H (7-17) mg/dL Glucose 111 H (74-99) mg/dL POC Glucose (mg/dL) (75-99) mg/dL Calcium 8.3 L (8.4-10.2) mg/dL Assessment and Plan (1) History of fall Current Visit: Yes Status: Acute Code(s): Z91.81 - HISTORY OF FALLING SNOMED Code(s): 126868763 (2) Atrial fibrillation with RVR Current Visit: Yes Status: Acute Code(s): I48.91 - UNSPECIFIED ATRIAL FIBRILLATION SNOMED Code(s): 071124780449106 (3) Agitation Current Visit: Yes Status: Acute Code(s): R45.1 - RESTLESSNESS AND AGITATION SNOMED Code(s): 710013915 (4) Hyponatremia Current Visit: Yes Status: Acute Code(s): E87.1 - HYPO-OSMOLALITY AND HYPONATREMIA SNOMED Code(s): 67232310 Plan: Continue with IV Cardizem. Initiate IV heparin. Consider neuro consult
[2019-06-25] MEDS: HEPARIN SOD,PORK IN 0.45% NACL 25,000 UNIT in 0.45% NACL 1 250ML.BAG IV SCH (10:11)
--- NOTE | 2019-06-25 11:43 | P.PN ---
Subjective Progress Note Date: 06/25/19 Principal diagnosis: Left ankle bimalleolar fracture Patient is evaluated today in the ICU unit. Baseline confusion remains, her sodium did improve slightly. She remains in the posterior splint at this time. Objective - Vital Signs Vital signs: Vital Signs Temp 97 F L 06/25/19 08:00 Pulse 93 06/25/19 11:00 Resp 15 06/25/19 11:00 BP 92/76 06/25/19 11:00 Pulse Ox 92 L 06/25/19 11:00 Intake & Output 06/24/19 06/25/19 06/25/19 18:59 06:59 18:59 Intake Total 482.5 270 60 Output Total 770 657 95 Balance -287.5 -387 -35 Weight 80 kg Intake: IV 162.5 270 60 Sodium Chloride 3%( 162.5 175 Hypertonic) 500 ml @ 20 mls/hr IV .Q24H [facility] Rx#: [id number] Sodium Chloride 3%( 50 Hypertonic) 500 ml @ 25 mls/hr IV .Q20H [facility] Rx#: [id number] sodium chloride 3% 45 60 Oral 320 Output: Urine 770 657 95 Other: Voiding Method Bedpan Indwelling Catheter Indwelling Catheter # Voids 1 # Bowel Movements 0 - Exam Left lower extremity: Posterior splint is in good position and condition. - Labs CBC & Chem 7: 06/25/19 04:20 06/25/19 09:00 Labs: Abnormal Lab Results - Last 24 Hours (Table) 06/24/19 06/24/19 06/24/19 Range/Units 13:23 15:47 20:18 WBC (3.8-10.6) k/uL RDW (11.5-15.5) % Neutrophils # (1.3-7.7) k/uL PT (9.0-12.0) sec INR (<1.2) Sodium 116 L* 117 L* 120 L (137-145) mmol/L Chloride 85 L (98-107) mmol/L Carbon Dioxide 20 L (22-30) mmol/L BUN 20 H (7-17) mg/dL Glucose 155 H (74-99) mg/dL Calcium 8.1 L (8.4-10.2) mg/dL 09/25/19 09/25/19 09/25/19 Range/Units 01:13 04:20 04:20 WBC 11.4 H (3.8-10.6) k/uL RDW 15.9 H (11.5-15.5) % Neutrophils # 9.4 H (1.3-7.7) k/uL PT 15.5 H (9.0-12.0) sec INR 1.5 H (<1.2) Sodium 120 L (137-145) mmol/L Chloride (98-107) mmol/L Carbon Dioxide (22-30) mmol/L BUN (7-17) mg/dL Glucose (74-99) mg/dL Calcium (8.4-10.2) mg/dL 06/25/19 06/25/19 Range/Units 04:20 09:00 WBC (3.8-10.6) k/uL RDW (11.5-15.5) % Neutrophils # (1.3-7.7) k/uL PT (9.0-12.0) sec INR (<1.2) Sodium 123 L 126 L (137-145) mmol/L Chloride 93 L (98-107) mmol/L Carbon Dioxide 21 L (22-30) mmol/L BUN 25 H (7-17) mg/dL Glucose 111 H (74-99) mg/dL Calcium 8.3 L (8.4-10.2) mg/dL Assessment and Plan Plan: Assessment: 1. Displaced left ankle bimalleolar fracture 2. Status post fall 3. Other medical comorbidities Plan: Discussed with anesthesia, due to low sodium we'll cancel surgery today Continue to hold Coumadin at this time, recheck INR tomorrow Ice and elevate often Nonweightbearing Further recommendations to follow Time with Patient: Less than 30
--- NOTE | 2019-06-25 11:44 | PN ---
PROGRESS NOTE Patient is seen for followup for hyponatremia secondary to SIADH. Patient was maintained on 3% saline, which is now discontinued. Her sodium has come up to 126. Patient also received a dose of tolvaptan yesterday. Patient has been combative and confused. She did get Ativan this morning and since then, she has been quite sleepy and not easily arousable. She is moving all 4 extremities. She remains quite restless. PHYSICAL EXAMINATION: Blood pressure was 120/85, heart rate about 102 per minute. Patient is afebrile. Examination of the heart S1, S2. Examination of the lungs, decreased breath sounds at the bases. Abdomen is soft, nontender. Examination of the lower extremities shows left lower extremity currently is wrapped. No significant edema noted in the right lower extremity. LABS: Show sodium of 126 this morning at 9, potassium 4.0, BUN 25, serum creatinine 0.9 mg/dL. ASSESSMENT: 1. [id number] secondary to SIADH. Previous sodium was noted to be 140 on 01/21/2019. No obvious adenopathy or masses noted on chest x-ray. Consider CT scan of the lungs and abdomen down the road to determine etiology. In the meantime, patient received a dose of tolvaptan yesterday, I will likely give her another dose today. We will repeat in the sodium level in the next 2-3 hours. Continue off of 3% saline for now. 2. Left lower extremity fracture. Hold off on surgery for now, given the hyponatremia. 3. History of atrial fibrillation with rapid ventricular rate. Patient started on Cardizem drip last night. She is being followed by Cardiology. PLAN: DC 3% saline. Repeat sodium in 3 hours. MMODL / IJN: [id number] /
--- NOTE | 2019-06-25 13:44 | CT ---
EXAMINATION TYPE: CT ChestAbdPelvis w con DATE OF EXAM: 06/25/2019 COMPARISON: Chest x-ray earlier today HISTORY: Intractable pain worse in the sacrum. Hyponatremia. CT DLP: 1264.4 mGycm. Automated Exposure Control for Dose Reduction was Utilized. CONTRAST: CT scan of the thorax, abdomen and pelvis is performed without oral but with IV Contrast, patient inj ected with 100 mL of Isovue 300. FINDINGS: LUNGS: There are small bilateral pleural effusions with associated compressive atelectasis. No suspic ious nodules or masses. No pneumothorax is seen bilaterally. MEDIASTINUM: There are no greater than 1 cm hilar or mediastinal lymph nodes. Small pericardial effus ion is seen most prominent inferiorly posteriorly measuring up to 12 mm in thickness on axial image 4 0. Cardiomegaly is present. Enlarged main and right pulmonary artery are seen, CT findings suggestin g underlying pulmonary hypertension. Moderate left atrial dilatation. OTHER: No additional significant abnormality is seen. LIVER/GB: Cholecystectomy clips are present. PANCREAS: No significant abnormality is seen. SPLEEN: No significant abnormality is seen. ADRENALS: No significant abnormality is seen. KIDNEYS: Menon catheter in decompressed bladder. Symmetric cortical measuring uptake and excretion is seen without hydronephrosis. BOWEL: Evaluation while slightly suboptimal secondary to lack of enteric contrast. Some diverticula i n the left and sigmoid colon. No CT evidence for acute diverticulitis. No suspicious small or large b owel dilatation. There is bowel containing left inguinal hernia without suspicious dilatation to sugg est obstruction. GENITAL ORGANS: Uterus small in size consistent with patient's postmenopausal age. LYMPH NODES: No greater than 1cm abdominal or pelvic lymph nodes are appreciated. OSSEOUS STRUCTURES: Moderate narrowing in both hip joints. No obvious sacral fracture. Surrounding fa t posterior maintained, no decubitus ulcer noted. Exaggerated lumbar lordosis. Moderate disc space na rrowing L3-L4 level. Slight S-shaped scoliotic curvature. OTHER: Asymmetrically heterogeneous hyperdense prominence right rectus muscle could reflect product o f left-sided atrophy or right-sided sheath hematoma coronal image 40. Correlate clinically. IMPRESSION: 1. Cardiomegaly with small bilateral pleural effusions. Possible CHF exacerbation. Correlate clinical ly. 2. Bowel containing left inguinal hernia without CT evidence for small bowel obstruction. 3. Asymmetry to the rectus muscles, possible left-sided atrophy versus right-sided rectus sheath lesly holland. Latter is suspected. Correlate clinically.
--- NOTE | 2019-06-25 14:17 | P.CNNES ---
History of Present Illness Consult date: 06/25/19 Requesting physician: Sadiq Ku Reason for Consult: Altered mental status Chief complaint: Confused History of Present Illness: This is an 83 yo female who initially presented on 06/21/19 c/o left buttock pain s/p a fall. She was admitted for pain control. She does have a h/o afib on warfarin, but went into rapid afib while in-house for which she was started on a cardizem gtt. She was also found to be hyponatremic, initially at 125 but then trended down to 117. She never had any witnessed seizure activity. Despite all of the above, she was still ambulating with a walker. Unfortunately, she sustained another fall and fractured her left ankle. She was then transferred to the ICU for management of her hyponatremia for which she was fluid restricted and started on 3% hypertonic saline. 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 She has been agitated at night requiring a mitten in the right hand and frequent redirection from staff. She did receive 1mg of lorazepam this morning at 656am, which sedated her for a while, after which she became even more confused. Patient cannot provide any meaningful history. My historical information was obtained by discussing the case with OUTPATIENT SCHEDULER and reviewing available medical records in EMR. Review of Systems Cannot obtain from patient due to AMS Past Medical History Past Medical History: Atrial Fibrillation History of Any Multi-Drug Resistant Organisms: None Reported Past Surgical History: No Surgical Hx Reported Past Psychological History: No Psychological Hx Reported Smoking Status: Never smoker Past Alcohol Use History: None Reported Past Drug Use History: None Reported Medications and Allergies Home Medications Medication Instructions Recorded Confirmed Type Lisinopril [Prinivil] 5 mg PO DAILY 12/08/15 06/21/19 History Metoprolol Tartrate [Lopressor] 25 mg PO BID 12/08/15 06/21/19 History Warfarin [Coumadin] 5 mg PO WALTER 12/08/15 06/21/19 History Aspirin 81 mg PO DAILY 06/21/19 06/21/19 History Docusate [Colace] 100 mg PO BID PRN 06/21/19 06/21/19 History HYDROcodone/APAP 5-325MG [Downey 1 tab PO Q4H PRN 06/21/19 06/21/19 History 5-325] Warfarin [Coumadin] 2.5 mg PO MOTUWETHFRSA 06/21/19 06/21/19 History Allergies Allergy/AdvReac Type Severity Reaction Status Date / Time No Known Allergies Allergy Verified 06/21/19 16:04 Physical Examination - Vital Signs Vital Signs: Vital Signs Temp Pulse Resp BP Pulse Ox 06/25/19 11:00 93 15 92/76 92 L 06/25/19 10:00 102 H 22 120/85 95 06/25/19 09:00 105 H 20 105/64 100 06/25/19 08:00 97 F L 101 H 11 L 118/85 98 06/25/19 07:00 18 129/103 99 06/25/19 06:00 141 H 20 104/89 93 L 06/25/19 05:00 101 H 18 106/75 99 06/25/19 04:00 98 F 149 H 20 101/78 93 L 06/25/19 03:00 121 H 21 135/85 96 06/25/19 02:00 107 H 18 121/86 98 06/25/19 01:00 109 H 20 100/85 91 L 06/25/19 00:00 98 F 125 H 16 112/96 93 L 06/24/19 23:00 151 H 22 113/82 96 06/24/19 22:00 93 17 82/61 100 06/24/19 21:19 98 06/24/19 21:00 130 H 19 109/71 98 06/24/19 20:00 98 24 101/58 95 06/24/19 19:00 91 18 97/55 96 06/24/19 18:00 111 H 22 106/81 98 06/24/19 17:00 104 H 20 116/90 96 06/24/19 16:00 97.6 F 98 17 94/68 96 06/24/19 15:00 105 H 17 92/64 98 06/24/19 14:00 93 12 100/66 97 Intake and Output 06/24/19 06/25/19 06/25/19 22:59 06:59 14:59 Intake Total 282.5 170 60 Output Total 1102 325 95 Balance -819.5 -155 -35 Intake: IV 182.5 170 60 Sodium Chloride 3%( 182.5 75 Hypertonic) 500 ml @ 20 mls/hr IV .Q24H [facility] Rx#: [id number] Sodium Chloride 3%( 50 Hypertonic) 500 ml @ 25 mls/hr IV .Q20H [facility] Rx#: [id number] sodium chloride 3% 45 60 Oral 100 Output: Urine 1102 325 95 Other: Voiding Method Indwelling Catheter Indwelling Catheter Indwelling Catheter # Voids 1 Weight 80 kg Gen NAD Frequently moving about in bed and needs to be redirected by medical staff director HEENT NCAT Sclera without icterus O/P clear Neck Supple No meningismus or carotid bruit Cor Irregularly irregular Lungs CTAB Abd Soft NTND +BS Ext Right mitten and left ankle splint in place MS Awake waxing and waning mental status able to follow simple commands on occasion such as mouth opening and shaking hand appears to have echopraxia no intelligible verbal output further detailed language function cannot be assessed CN PERRL Blinks to threat bilaterally No facial asymmetry Equal elevation of palate Tongue appears midline sym SCM bilaterally Motor Normal bulk Bilateral [place] No tremors or other adventitious movements GAR x4 antigravity+ but cannot perform individual muscle group testing due to lack of cooperation/AMS Sens Localizes to nailbed stim x4 No apparent neglect Coord Cannot test due to AMS DTRs 1+/4 sym throughout Right toes downgoing cannot test left toes due to splint no right ankle clonus Gait Deferred Results - Laboratory Findings CBC and BMP: 06/25/19 04:20 06/25/19 11:53 Abnormal Lab Findings: Abnormal Labs 06/21/19 06/21/19 06/22/19 18:15 18:15 05:05 WBC RDW Neutrophils # Lymphocytes # PT 28.2 H INR 2.9 H Sodium 125 L Chloride 90 L Carbon Dioxide BUN 18 H Creatinine 1.05 H Glucose 119 H POC Glucose (mg/dL) Osmolality Calcium Albumin 3.4 L Urine Protein Trace H Urine Glucose (UA) Trace H Urine Ketones 1+ H Urine Blood Trace H Amorphous Sediment Rare H Urine Bacteria Rare H Hyaline Casts 19 H Urine Mucus Rare H 06/22/19 06/23/19 06/23/19 09:45 05:56 05:56 WBC 13.7 H RDW Neutrophils # 11.9 H Lymphocytes # 0.8 L PT 25.5 H 32.4 H INR 2.6 H 3.4 H Sodium Chloride Carbon Dioxide BUN Creatinine Glucose POC Glucose (mg/dL) Osmolality Calcium Albumin Urine Protein Urine Glucose (UA) Urine Ketones Urine Blood Amorphous Sediment Urine Bacteria Hyaline Casts Urine Mucus 06/23/19 06/23/19 06/23/19 05:56 05:56 14:08 WBC RDW Neutrophils # Lymphocytes # PT INR Sodium 119 L* 118 L* Chloride 88 L Carbon Dioxide BUN 21 H Creatinine Glucose 141 H POC Glucose (mg/dL) Osmolality 252 L Calcium Albumin Urine Protein Urine Glucose (UA) Urine Ketones Urine Blood Amorphous Sediment Urine Bacteria Hyaline Casts Urine Mucus 06/23/19 06/24/19 06/24/19 19:06 00:49 05:31 WBC RDW Neutrophils # Lymphocytes # PT INR Sodium 117 L* 117 L* 118 L* Chloride Carbon Dioxide BUN Creatinine Glucose POC Glucose (mg/dL) Osmolality Calcium Albumin Urine Protein Urine Glucose (UA) Urine Ketones Urine Blood Amorphous Sediment Urine Bacteria Hyaline Casts Urine Mucus 06/24/19 06/24/19 06/24/19 05:33 07:53 10:52 WBC RDW Neutrophils # Lymphocytes # PT 29.5 H INR 3.1 H Sodium 118 L* Chloride Carbon Dioxide BUN Creatinine Glucose POC Glucose (mg/dL) 132 H Osmolality Calcium Albumin Urine Protein Urine Glucose (UA) Urine Ketones Urine Blood Amorphous Sediment Urine Bacteria Hyaline Casts Urine Mucus 06/24/19 06/24/19 06/24/19 13:23 15:47 20:18 WBC RDW Neutrophils # Lymphocytes # PT INR Sodium 116 L* 117 L* 120 L Chloride 85 L Carbon Dioxide 20 L BUN 20 H Creatinine Glucose 155 H POC Glucose (mg/dL) Osmolality Calcium 8.1 L Albumin Urine Protein Urine Glucose (UA) Urine Ketones Urine Blood Amorphous Sediment Urine Bacteria Hyaline Casts Urine Mucus 06/25/19 06/25/19 06/25/19 01:13 04:20 04:20 WBC 11.4 H RDW 15.9 H Neutrophils # 9.4 H Lymphocytes # PT 15.5 H INR 1.5 H Sodium 120 L Chloride Carbon Dioxide BUN Creatinine Glucose POC Glucose (mg/dL) Osmolality Calcium Albumin Urine Protein Urine Glucose (UA) Urine Ketones Urine Blood Amorphous Sediment Urine Bacteria Hyaline Casts Urine Mucus 06/25/19 06/25/19 06/25/19 04:20 09:00 11:53 WBC RDW Neutrophils # Lymphocytes # PT INR Sodium 123 L 126 L 126 L Chloride 93 L Carbon Dioxide 21 L BUN 25 H Creatinine Glucose 111 H POC Glucose (mg/dL) Osmolality Calcium 8.3 L Albumin Urine Protein Urine Glucose (UA) Urine Ketones Urine Blood Amorphous Sediment Urine Bacteria Hyaline Casts Urine Mucus - Diagnostic Findings Additional findings: CT Head wo cont 06/25/19. Mild global atrophy. Normal yen-white differentiation and sulci. No evidence of cerebral edema. No ICH. Nil acute. I have reviewed neuroimages myself. Assessment and Plan Assessment: Non-focal exam. Clinical exam is consistent with a metabolic encephalopathy, likely due to hyponatremia worsened by benzodiazepine use in the elderly Plan: -Avoid benzodiazepines if possible. Alpha agonist such as dexmedetomidine gtt may be a better choice of chemical restraint with fewer residual effects that may further cloud sensorium -Minimize opiate use if possible (I do understand her pain does need to be treated due to fracture) so to be able to follow neuro exam -No anticholinergics -She is afebrile without meningismus. There are no temporal changes on CT Head. She does not have a bacterial meningitis, and my index of suspicion for this to be HSV encephalitis is also low at this point. Will hold off on LP -She would need to be still for 15-30 minutes for further neuro testing such as MRI brain and EEG for which she would need to be heavily sedated. I don't believe she is having subclinical seizures, so will hold off on EEG right now. Her exam is non-focal, so a stroke would be less likely. Sometimes strokes in the bilateral thalami can cause altered mental status without much focality on exam. The typical etiology is proximal embolic phenomenon. But, her INR had been therapeutic until today, and she is currently on a heparin gtt -Another differential consideration is central pontine myelinolysis that would only be seen on MRI. But, she does not have quadriparesis, pseudobulbar palsy or seizures that one typically sees. Also, more importantly, her sodium has been correcting under the judicious management by ICU/nephrology -SIADH work-up in progress -Will follow up -d/w ICU staff. All questions answered. Thank you for this consultation. Please call with ?. Time with Patient: Greater than 30 (Time spent in direct patient care, greater than 50% of which was spent in [id number] counseling and coordination of care: 70 minutes)
[2019-06-25] MEDS ORDERED: TOLVAPTAN 15 MG 1/2 TABLET PO ONE (15:00)
--- NOTE | 2019-06-25 16:40 | P.PN ---
Subjective Progress Note Date: 06/25/19 This is a 83-year-old white female who came into the hospital on 06/21/2019 com plaining of pain in her left buttock, and patient apparently started hurting after a recent fall. Patient was in significant amount of discomfort, and was admitted for pain control, range of motion of the hip and knee was not affected, the patient had some local tenderness over the left buttock at the mid sacral area. Patient apparently had computed tomography scan and x-rays done at the [facility] which did not show any fracture of the hip or pelvis. Patient's past medical history is that of hypertension, paroxysmal atrial fibrillation on Coumadin, with past history of cardioversion. Apparently patient went into A. fib with RVR, and was admitted to the cardiac stepdown [facility] and started on Cardizem drip for rate control. Her admission blood work showed serum sodium of 125, which was down to 117, and the patient was initiated on fluid restriction, and started on 3% hypertonic saline and transferred to the intensive care unit. Her INR today is 3.1, white blood cell count was 13.7, troponin was negative 1, LFTs were within normal limits, serum osmolality was 252, urine osmolality was 824, random urine sodium was 63. Patient has had no fever or chills, no complaints of shortness of breath or chest pain, no leg swelling, no hip pain, no lightheadedness dizziness. Patient has been ambulating with a walker however her gait is unsteady, and during her hospital stay patient apparently sustained another fall resulting in injury of her left lower extremity, with x-rays showing significant left ankle fracture for which an orthopedic consultation was requested. Patient has been transferred to the intensive care unit for close monitoring, in view of her hyponatremia with increasing confusion, nephrology is following, and 3% hypertonic sitting is infusing. We are consulted for critical care management On today's evaluation of 06/25/2019, the patient is still in intensive care unit. Unfortunately, the mental status continues to be altered and the patient had significant amount of agitation or restlessness and confusion yesterday. We decided not to give Haldol due to underlying hyponatremia. She received 1 dose of Ativan. We will continue the hypertonic saline infusion and patient's sodium gradually improved and currently is up to 126 and based on his correction the hypertonic saline was completely discontinued. This morning, the patient was m umbling, stating she sentences, unable to have a conversation or follow commands. She is confused and restless and somnolent. She was able to move all 4 extremities and withdraws to pain was diminished in all 4 extremities. Neurology consultation was requested. Note that the CAT scan of the brain was essentially negative. I discussed the case with neurologist. Based on his opinion, the abnormality seen on essentially metabolic in nature. Meanwhile, I ordered a CAT scan of the chest and abdomen and showed no acute abnormalities. No evidence of any intrathoracic or intra-abdominal masses to contribute for an underlying SIADH. The patient currently is afebrile. She is hemodynamically stable. Urine output is improved. She is on a Cardizem drip at the rate of 10 mg an hour for rate control. She is also on IV heparin regarding atrial fibrillation. Warfarin has been discontinued. Objective - Vital Signs Vital signs: Vital Signs Temp 95.7 F L 06/25/19 13:00 Pulse 92 06/25/19 15:00 Resp 17 06/25/19 15:00 BP 96/56 06/25/19 15:00 Pulse Ox 98 06/25/19 15:00 Intake & Output 06/24/19 06/25/19 06/25/19 18:59 06:59 18:59 Intake Total 482.5 270 60 Output Total 770 657 245 Balance -287.5 -387 -185 Weight 80 kg Intake: IV 162.5 270 60 Sodium Chloride 3%( 162.5 175 Hypertonic) 500 ml @ 20 mls/hr IV .Q24H [facility] Rx#: [id number] Sodium Chloride 3%( 50 Hypertonic) 500 ml @ 25 mls/hr IV .Q20H [facility] Rx#: [id number] sodium chloride 3% 45 60 Oral 320 Output: Urine 770 657 245 Other: Voiding Method Bedpan Indwelling Catheter Indwelling Catheter # Voids 1 # Bowel Movements 0 - Exam GENERAL EXAM: Alert, pleasant, 83-year-old white female, on 2 L of oxygen by nasal cannula with a pulse is 98%. She is delirious and confused. Unable to carry conversation. Does not follow any commands. HEAD: Normocephalic/atraumatic. EYES: Normal reaction of pupils, equal size. Conjunctiva pink, sclera white. NOSE: Clear with pink turbinates. THROAT: No erythema or exudates. NECK: No masses, no JVD, no thyroid enlargement, no adenopathy. CHEST: No chest wall deformity. Symmetrical expansion. LUNGS: Equal air entry with no crackles, wheeze, rhonchi or dullness. CVS: Irregular rate and rhythm, normal S1 and S2, no gallops, no murmurs, no ru bs ABDOMEN: Soft, nontender. No hepatosplenomegaly, normal bowel sounds, no guarding or rigidity. EXTREMITIES: No clubbing, mild edema and ecchymosis in the left ankle, no cyanosis, 2+ pulses and upper and lower extremities. MUSCULOSKELETAL: Muscle strength and tone normal. SPINE: No scoliosis or deformity SKIN: No rashes CENTRAL NERVOUS SYSTEM: Alert and oriented 0-1 No focal deficits, tone is normal in all 4 extremities. No neck stiffness. There was a cardiac to light. No nystagmus. Reflexes are 1 over 4 symmetrical and the toes are downgoing without any Babinski or clonus. Speech cannot be evaluated. The patient mumbles and occasion she states few short sentences. Gait evaluation cannot be done. PSYCHIATRIC: Unable to perform. - Labs CBC & Chem 7: 06/25/19 04:20 06/25/19 11:53 Labs: Abnormal Lab Results - Last 24 Hours (Table) 06/24/19 06/25/19 06/25/19 Range/Units 20:18 01:13 04:20 WBC (3.8-10.6) k/uL RDW (11.5-15.5) % Neutrophils # (1.3-7.7) k/uL PT 15.5 H (9.0-12.0) sec INR 1.5 H (<1.2) Sodium 120 L 120 L (137-145) mmol/L Chloride (98-107) mmol/L Carbon Dioxide (22-30) mmol/L BUN (7-17) mg/dL Glucose (74-99) mg/dL Calcium (8.4-10.2) mg/dL 06/25/19 06/25/19 06/25/19 Range/Units 04:20 04:20 09:00 WBC 11.4 H (3.8-10.6) k/uL RDW 15.9 H (11.5-15.5) % Neutrophils # 9.4 H (1.3-7.7) k/uL PT (9.0-12.0) sec INR (<1.2) Sodium 123 L 126 L (137-145) mmol/L Chloride 93 L (98-107) mmol/L Carbon Dioxide 21 L (22-30) mmol/L BUN 25 H (7-17) mg/dL Glucose 111 H (74-99) mg/dL Calcium 8.3 L (8.4-10.2) mg/dL 06/25/19 Range/Units 11:53 WBC (3.8-10.6) k/uL RDW (11.5-15.5) % Neutrophils # (1.3-7.7) k/uL PT (9.0-12.0) sec INR (<1.2) Sodium 126 L (137-145) mmol/L Chloride (98-107) mmol/L Carbon Dioxide (22-30) mmol/L BUN (7-17) mg/dL Glucose (74-99) mg/dL Calcium (8.4-10.2) mg/dL Assessment and Plan Plan: 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 The patient is on fluid restriction. The patient is also treated with hypertonic saline at 3% solution and the patient's sodium level is up to 126. Hypertonic saline infusion has been discontinued. 2 encephalopathy. Rule out metabolic encephalopathy. Encephalitis is felt to b e less likely in the absence of any fever. No meningeal signs at this point in time. CAT scan of the brain is negative. Cannot entirely rule out the possibility of CVA. 3 chronic atrial fibrillation currently on IV heparin 4 recurrent falls with a fracture of the left ankle and the patient has a bimalleolar fracture in the left ankle. 5 hypertension PLAN Discontinue the Ativan. May utilize Haldol for agitation. We'll avoid opiates. We'll monitor the sodium level. Monitor mental status. May consider an MRI of the brain and EEG once the patient is more rested and able to participate with this type of testing. Neurologist on the case. Nephrology on the case. We'll monitor mental status. May consider a lumbar puncture today to state specially the patient does not show any signs of improvement with a correction of the sodium level. We'll follow. As for the ankle fracture, no further intervention at this point in time as long as patient's mental status is not fully recovered. Continued IV heparin. Continue Cardizem drip for rate control for now. Family is at the bedside and I have had a lengthy discussion with the and the daughter explained to them the situation. Awaiting neurology evaluation.
[2019-06-25] MEDS: DILTIAZEM 125 MG in SODIUM CHLORIDE 0.9% 100 ML IV SCH (17:01)
--- NOTE | 2019-06-25 18:45 | XR ---
EXAMINATION TYPE: XR chest 1V confirm line [facility] DATE OF EXAM: 06/25/2019 COMPARISON: 06/25/2019 HISTORY: PICC placement TECHNIQUE: Single frontal view of the chest is obtained. FINDINGS: Sided PICC terminates in the cavoatrial junction just beyond the bronchus intermedius. Haz iness over the left costophrenic angle relates to trace left pleural effusion and minimal bibasilar a telectasis is seen. Cardiomediastinal silhouette is enlarged. Generalized osseous demineralization is noted. No sizable pneumothorax. IMPRESSION: Appropriately placed right-sided PICC.
[2019-06-25 19:00] LABS: ABG Base Excess -1.3 mmol/L; ABG HCO3 22 mmol/L (21-25); ABG Oxygen Saturation 99.1 % (94-97); ABG PCO2 30 mmHg (35-45); ABG PH 7.48 (7.35-7.45); ABG PO2 148 mmHg (83-108); ABG TCO2 23 mmol/L (19-24); Allen Test Performed? Yes
[2019-06-25] MEDS ORDERED: SODIUM CHLORIDE 0.9% 250 ML IV ONE ×2 (19:00→20:38)
--- NOTE | 2019-06-25 19:38 | PCN ---
PROCEDURE NOTE PREOPERATIVE DIAGNOSIS: Altered mental status. POSTOPERATIVE DIAGNOSIS: Altered mental status. PROCEDURE: Insertion of triple-lumen catheter. Indication: Hemodynamic monitoring/Intravenous access. A time-out was completed verifying correct patient, procedure, site, positioning, and implant(s) or special equipment if applicable. The patient was placed in a dependent position appropriate for triple lumen catheter placement based on the vein to be cannulated. The patient's left shoulder was prepped and draped in sterile fashion. Lidocaine 1% was used to anesthetize the surrounding skin area. A triple-lumen 9F Cordis catheter was introduced into the left subclavian vein using Seldinger technique. The catheter was threaded smoothly over the guidewire and appropriate blood return was obtained. Each lumen of the catheter was evacuated of air and flushed with sterile saline. The catheter was then sutured in place to the skin and a sterile dressing applied. Perfusion to the extremity distal to the point of catheter insertion was checked and found to be adequate. No bedside complications or bleeding. MMODL / IJN: [id number] /
--- NOTE | 2019-06-25 19:44 | PCN ---
PROCEDURE NOTE ARTERIAL LINE PLACEMENT: PREOPERATIVE DIAGNOSIS: Altered mental status. POSTOPERATIVE DIAGNOSIS: Altered mental status. DESCRIPTION OF PROCEDURE: A time-out was completed verifying correct patient, procedure, site, positioning, and implant(s) or special equipment if applicable. Edwardo's test was performed to ensure adequate perfusion. The patient's right groin was prepped and draped in sterile fashion. Lidocaine 1% was used to anesthetize the area. An 18G Arrow arterial line was introduced into the femoral artery. The catheter was threaded over the guide wire and the needle was removed with appropriate pulsatile blood return. Blood loss was minimal. The catheter was then sutured in place to the skin and a sterile dressing applied. Perfusion to the extremity distal to the point of catheter insertion was checked and found to be adequate. The patient tolerated the procedure well and there were no bedside complications or bleeding. MMGLENYS / VALENTINAN: [id number] /
[2019-06-25] MEDS ORDERED: SODIUM CHLORIDE 0.9% 500 ML 500 ML IV ONE ×2 (20:18→22:22)
[2019-06-25 20:47] LABS: HGB 11.2 gm/dL (11.4-16.0); MCH 30.8 pg (25.0-35.0); MCHC 35.9 g/dL (31.0-37.0); MCV 85.7 fL (80.0-100.0); Platelet Count 230 k/uL (150-450); RBC 3.62 m/uL (3.80-5.40); RDW 14.1 % (11.5-15.5); WBC 9.7 k/uL (3.8-10.6)
[2019-06-25 20:58] LABS: Glucose,Whole Blood 117 mg/dL (75-99)
[2019-06-25] MEDS: SODIUM CHLORIDE 3%(HYPERTONIC) 500 ML IV SCH (21:11)
[2019-06-25] MEDS: LACTATED RINGERS 1,000 ML IV SCH (21:15)
[2019-06-26 02:03] LABS: Anisocytosis Slight; HCT 30.9 % (34.0-46.0); HGB 10.9 gm/dL (11.4-16.0); MCH 30.4 pg (25.0-35.0); MCHC 35.3 g/dL (31.0-37.0); MCV 86.3 fL (80.0-100.0); Mean Platelet Volume 7.7; Platelet Count 237 k/uL (150-450); RBC 3.58 m/uL (3.80-5.40); RDW 17.1 % (11.5-15.5); WBC 9.7 k/uL (3.8-10.6)
[2019-06-26] MEDS: SODIUM CHLORIDE 3%(HYPERTONIC) 500 ML IV SCH (04:13)
[2019-06-26 04:35] LABS: Calcium 8.2 mg/dL (8.4-10.2); Potassium 3.5 mmol/L (3.5-5.1)
[2019-06-26] MEDS ORDERED: POTASSIUM CHLORIDE 20 MEQ in WATER FOR INJECTION 1 100ML.BAG IVPB SCH (05:00)
[2019-06-26] MEDS: DOCUSATE 100 MG CAP PO PRN (05:40)
[2019-06-26] MEDS: POTASSIUM CHLORIDE ER 20 MEQ TAB.ER PO SCH ×2 (05:40→07:42)
[2019-06-26] MEDS: DILTIAZEM 125 MG in SODIUM CHLORIDE 0.9% 100 ML IV SCH ×2 (05:40→13:31)
[2019-06-26] MEDS ORDERED: SODIUM CHLORIDE 0.9% 500 ML 500 ML IV ONE ×2 (07:13→15:25)
--- NOTE | 2019-06-26 07:54 | P.PN ---
Subjective Progress Note Date: 06/26/19 Principal diagnosis: Metabolic encephalopathy due to hyponatremia confounded by benzodiazepine use Sedation withheld. More alert and oriented this morning. Actually able to converse with me. No neuro c/o. Objective - Vital Signs Vital signs: Vital Signs Temp 97.1 F L 06/26/19 04:45 Pulse 121 H 06/26/19 07:00 Resp 18 06/26/19 05:30 BP 64/40 06/26/19 07:00 Pulse Ox 96 06/26/19 07:00 Intake & Output 06/25/19 06/26/19 06/26/19 18:59 06:59 18:59 Intake Total 435 1427.793 500 Output Total 385 1021 30 Balance 50 406.793 470 Weight 79.3 kg Intake: IV 310 910 500 Lactated Ringers 1,000 ml 100 @ 20 mls/hr IV .Q24H [facility] Rx#:[id number] Sodium Chloride 0.9% 250 250 750 ml @ 999 mls/hr IV .Q16M [facility] Rx#:[id number] Sodium Chloride 0.9% 500 500 ml 500 ml @ 999 mls/hr IV .Q31M [facility] Rx#:[id number] Sodium Chloride 3%( 60 Hypertonic) 500 ml @ 15 mls/hr IV .Q24H [facility] Rx#: [id number] sodium chloride 3% 60 Intake, IV Titration 125 217.793 Amount Diltiazem 125 mg In 125 60.833 Sodium Chloride 0.9% 100 ml @ 10 MG/HR 10 mls/hr IV .[id number] [facility] Rx#: [id number] Heparin Sod,Pork in 0.45% 156.96 NaCl 25,000 unit In 0.45 % NaCl 1 250ml.bag @ 12 UNITS/KG/HR 9.6 mls/hr IV .Q24H [facility] Rx#:[id number] Oral 300 Output: Urine 385 1021 30 Other: Voiding Method Indwelling Catheter Indwelling Catheter ABP, PAP, CO, CI - Last Documented Arterial Blood Pressure 87/43 - Exam Gen NAD Pleasant and cooperative MS Awake and alert knows she's at [facility] thinks year is 2012 but correctly knows it's June and fall has started Presient is Trump Able to give thumbs up and victory sign without finger agnosia or left-right disorientation Able to follow 2-step commands CN II-XII grossly intact no nystagmus Motor Normal bulk/tone No tremors Strength 5/5 sym throughout Sens Intact to LT x4 Coord No dysmetria as she grabs onto my hand with each of hers DTRs 2+/4 sym throughout Gait Deferred - Labs CBC & Chem 7: 06/26/19 01:48 06/26/19 06:48 Labs: Abnormal Lab Results - Last 24 Hours (Table) 06/25/19 06/25/19 06/25/19 Range/Units 09:00 11:53 18:42 RBC (3.80-5.40) m/uL Hgb (11.4-16.0) gm/dL Hct (34.0-46.0) % RDW (11.5-15.5) % APTT (22.0-30.0) sec ABG pH (7.35-7.45) ABG pCO2 (35-45) mmHg ABG pO2 (83-108) mmHg ABG O2 Saturation (94-97) % Sodium 126 L 126 L 126 L (137-145) mmol/L POC Glucose (mg/dL) (75-99) mg/dL Calcium (8.4-10.2) mg/dL 06/25/19 06/25/19 06/25/19 Range/Units 18:57 20:20 20:57 RBC 3.62 L (3.80-5.40) m/uL Hgb 11.2 L (11.4-16.0) gm/dL Hct 31.0 L (34.0-46.0) % RDW (11.5-15.5) % APTT (22.0-30.0) sec ABG pH 7.48 H (7.35-7.45) ABG pCO2 30 L (35-45) mmHg ABG pO2 148 H (83-108) mmHg ABG O2 Saturation 99.1 H (94-97) % Sodium (137-145) mmol/L POC Glucose (mg/dL) 117 H (75-99) mg/dL Calcium (8.4-10.2) mg/dL 06/25/19 06/26/19 06/26/19 Range/Units 22:26 01:48 01:48 RBC 3.58 L (3.80-5.40) m/uL Hgb 10.9 L (11.4-16.0) gm/dL Hct 30.9 L (34.0-46.0) % RDW 17.1 H (11.5-15.5) % APTT >200.0 H* (22.0-30.0) sec ABG pH (7.35-7.45) ABG pCO2 (35-45) mmHg ABG pO2 (83-108) mmHg ABG O2 Saturation (94-97) % Sodium 126 L (137-145) mmol/L POC Glucose (mg/dL) (75-99) mg/dL Calcium (8.4-10.2) mg/dL 06/26/19 06/26/19 Range/Units 03:40 06:48 RBC (3.80-5.40) m/uL Hgb (11.4-16.0) gm/dL Hct (34.0-46.0) % RDW (11.5-15.5) % APTT (22.0-30.0) sec ABG pH (7.35-7.45) ABG pCO2 (35-45) mmHg ABG pO2 (83-108) mmHg ABG O2 Saturation (94-97) % Sodium 131 L 130 L (137-145) mmol/L POC Glucose (mg/dL) (75-99) mg/dL Calcium 8.2 L (8.4-10.2) mg/dL Assessment and Plan Assessment: Metabolic encephalopathy due to hyponatremia (improving) confounded by previous benzodiazepine use. Patient is much improved neurologically. Plan: -Avoid benzodiazepines and anticholinergics -Minimize opiate use if possible (I do understand her pain does need to be mahamed ated due to fracture) so to be able to follow neuro exam -Neuro exam continues to be non-focal. Her mental status is much improved today. Low index of suspicion for RAND TACKER infection or acute intracranial structural explanation -SIADH work-up in progress -Will follow up -d/w ICU staff. All questions answered. Thank you again for this consultation. Time with Patient: Less than 30 (Time spent in direct patient care, greater than 50% of which was spent in [id number] counseling and coordination of care: 25 minutes)
--- NOTE | 2019-06-26 08:11 | XR ---
EXAMINATION TYPE: XR chest 1V portable DATE OF EXAM: 06/26/2019 COMPARISON: 06/25/2019 HISTORY: Shortness of breath TECHNIQUE: Single frontal view of the chest is obtained. FINDINGS: Left-sided central venous catheter line terminates in the cavoatrial junction. There is pu lmonary hyperinflation compatible with underlying COPD. Improved aeration of the left lung with near visualization of the entirety of the hemidiaphragm. Very trace pleural effusions remain. Diffuse osse ous demineralization. IMPRESSION: Stable trace pleural effusions and left-sided central venous catheter with slight improv ed aeration of the left lung base.
[2019-06-26 08:41] LABS: INR 1.5 (<1.2); Prothrombin Time 15.1 sec (9.0-12.0)
[2019-06-26] MEDS: PANTOPRAZOLE 40 MG/10 ML VIAL IVP SCH (08:49)
[2019-06-26] MEDS ORDERED: MIDODRINE 5 MG TAB PO SCH (09:00)
[2019-06-26] MEDS ORDERED: DIGOXIN 250 MCG/ML 2 ML AMP IVP ONE ×2 (09:30→15:30)
[2019-06-26] MEDS: METOPROLOL TARTRATE 50 MG TAB PO SCH ×2 (09:33→22:02)
--- NOTE | 2019-06-26 10:04 | P.PN ---
Subjective Progress Note Date: 06/26/19 This is a 83-year-old female who was admitted with a fall. Patient is found to have fractures. She is waiting to have surgery on Sunday. She was initially with Amisha humphreys with RVR. Current heart rate seems to be controlled. She denies any chest pain or shortness of breath. We'll continue current medical therapy except holding Coumadin. 06/24/2019: This patient was admitted to the hospital with fall and fracture of the leg. Patient has history of atrial fibrillation which is chronic. Patient also developed hyponatremia. Became little confused. Patient was transferred to ICU for management of the hyponatremia an infusion of 3% saline. Denies any chest pain. We'll hold lisinopril also because of low blood pressure and hyponatremia. Further recommendations depend upon the clinical course. 06/25/2019: This patient was transferred to intensive care unit yesterday because of hyponatremia and confusional states. She appears to be very agitated and confused. Her sodium has improved to 121. She is on 3% saline IV. Patient went into atrial fibrillation with rapid ventricular response last night. She is on IV Cardizem with rate control. Because of extreme agitation, patient will not take oral medication, though she got Lopressor last night. Patient is is off warfarin. Most probably patient may not have surgery done today. I'll put her on IV heparin which could be discontinued before surgery. Neurology consult may be obtained. Chest x-ray doesn't show any CHF. 06/26/2019: This patient is admitted with fracture. Patient was getting pain medication. She developed hyponatremia requiring IV 3% saline. She was agitated and confused but seemed to be gradually improving. She is alert and could identify has been. Could not date exactly. Her chest x-ray is normal. S he doesn't appear to be in acute distress. No complaints of chest pain or shortness of breath. Patient is having mild hypotension and also tachycardic with atrial fibrillation. I'm going to give her low dose of Lanoxin. Rest of the medication to be continued. Potassium to be corrected Objective - Vital Signs Vital signs: Vital Signs Temp 96.8 F L 06/26/19 08:00 Pulse 105 H 06/26/19 10:00 Resp 15 06/26/19 10:00 BP 80/38 06/26/19 09:00 Pulse Ox 98 06/26/19 10:00 Intake & Output 06/25/19 06/26/19 06/26/19 18:59 06:59 18:59 Intake Total 435 1427.793 710 Output Total 385 1021 140 Balance 50 406.793 570 Weight 79.3 kg Intake: IV 310 910 560 Lactated Ringers 1,000 ml 100 60 @ 20 mls/hr IV .Q24H [facility] Rx#:[id number] Sodium Chloride 0.9% 250 250 750 ml @ 999 mls/hr IV .Q16M [facility] Rx#:[id number] Sodium Chloride 0.9% 500 500 ml 500 ml @ 999 mls/hr IV .Q31M [facility] Rx#:[id number] Sodium Chloride 3%( 60 0 Hypertonic) 500 ml @ 15 mls/hr IV .Q24H [facility] Rx#: [id number] sodium chloride 3% 60 Intake, IV Titration 125 217.793 Amount Diltiazem 125 mg In 125 60.833 Sodium Chloride 0.9% 100 ml @ 10 MG/HR 10 mls/hr IV .[id number] [facility] Rx#: [id number] Heparin Sod,Pork in 0.45% 156.96 NaCl 25,000 unit In 0.45 % NaCl 1 250ml.bag @ 12 UNITS/KG/HR 9.6 mls/hr IV .Q24H [facility] Rx#:[id number] Oral 300 150 Output: Urine 385 1021 140 Other: Voiding Method Indwelling Catheter Indwelling Catheter Indwelling Catheter # Bowel Movements 0 ABP, PAP, CO, CI - Last Documented Arterial Blood Pressure 130/61 - Exam GENERAL EXAM: Patient is agitated and confused HEENT: Normocephalic. Normal reaction of pupils, equal size, normal range of extraocular motion. No erythema or exudates in the throat. NECK: No masses, no nuchal rigidity. CHEST: No chest wall deformity. LUNGS: Equal air entry with no crackles or wheeze. HEART: S1 and S2 normal with no audible mumurs or gallops. Regular rhythm, femorals equal on both sides.. ABDOMEN: No hepatosplenomegaly, normal bowel sounds, no guarding or rigidity. SKIN: No rashes CENTRAL NERVOUS SYSTEM: No focal deficits. EXTREMITIES: No cyanosis, clubbing or edema. - Labs CBC & Chem 7: 06/26/19 01:48 06/26/19 06:48 Labs: Abnormal Lab Results - Last 24 Hours (Table) 06/25/19 06/25/19 06/25/19 Range/Units 11:53 18:42 18:57 RBC (3.80-5.40) m/uL Hgb (11.4-16.0) gm/dL Hct (34.0-46.0) % RDW (11.5-15.5) % PT (9.0-12.0) sec INR (<1.2) APTT (22.0-30.0) sec ABG pH 7.48 H (7.35-7.45) ABG pCO2 30 L (35-45) mmHg ABG pO2 148 H (83-108) mmHg ABG O2 Saturation 99.1 H (94-97) % Sodium 126 L 126 L (137-145) mmol/L POC Glucose (mg/dL) (75-99) mg/dL Calcium (8.4-10.2) mg/dL 06/25/19 06/25/19 06/25/19 Range/Units 20:20 20:57 22:26 RBC 3.62 L (3.80-5.40) m/uL Hgb 11.2 L (11.4-16.0) gm/dL Hct 31.0 L (34.0-46.0) % RDW (11.5-15.5) % PT (9.0-12.0) sec INR (<1.2) APTT (22.0-30.0) sec ABG pH (7.35-7.45) ABG pCO2 (35-45) mmHg ABG pO2 (83-108) mmHg ABG O2 Saturation (94-97) % Sodium 126 L (137-145) mmol/L POC Glucose (mg/dL) 117 H (75-99) mg/dL Calcium (8.4-10.2) mg/dL 06/26/19 06/26/19 06/26/19 Range/Units 01:48 01:48 01:48 RBC 3.58 L (3.80-5.40) m/uL Hgb 10.9 L (11.4-16.0) gm/dL Hct 30.9 L (34.0-46.0) % RDW 17.1 H (11.5-15.5) % PT 15.1 H (9.0-12.0) sec INR 1.5 H (<1.2) APTT >200.0 H* (22.0-30.0) sec ABG pH (7.35-7.45) ABG pCO2 (35-45) mmHg ABG pO2 (83-108) mmHg ABG O2 Saturation (94-97) % Sodium (137-145) mmol/L POC Glucose (mg/dL) (75-99) mg/dL Calcium (8.4-10.2) mg/dL 06/26/19 06/26/19 Range/Units 03:40 06:48 RBC (3.80-5.40) m/uL Hgb (11.4-16.0) gm/dL Hct (34.0-46.0) % RDW (11.5-15.5) % PT (9.0-12.0) sec INR (<1.2) APTT (22.0-30.0) sec ABG pH (7.35-7.45) ABG pCO2 (35-45) mmHg ABG pO2 (83-108) mmHg ABG O2 Saturation (94-97) % Sodium 131 L 130 L (137-145) mmol/L POC Glucose (mg/dL) (75-99) mg/dL Calcium 8.2 L (8.4-10.2) mg/dL Assessment and Plan (1) History of fall Current Visit: Yes Status: Acute Code(s): Z91.81 - HISTORY OF FALLING SNOMED Code(s): 930935615 (2) Atrial fibrillation with RVR Current Visit: Yes Status: Acute Code(s): I48.91 - UNSPECIFIED ATRIAL FIBRILLATION SNOMED Code(s): 229631534095031 (3) Agitation Current Visit: Yes Status: Acute Code(s): R45.1 - RESTLESSNESS AND AGITATION SNOMED Code(s): 539977239 (4) Hyponatremia Current Visit: Yes Status: Acute Code(s): E87.1 - HYPO-OSMOLALITY AND HYPONATREMIA SNOMED Code(s): 68241950 Plan: I'll give couple of doses of Lanoxin for controlling of heart rate. We will get an echocardiogram also
[2019-06-26 10:55] LABS: Basophils % (A) 0 %; Eosinophils % (A) 0 %; HCT 31.5 % (34.0-46.0); HGB 10.7 gm/dL (11.4-16.0); Lymphocytes # (A) 0.7 k/uL (1.0-4.8); Lymphocytes % (A) 6 %; MCH 29.7 pg (25.0-35.0); MCHC 33.9 g/dL (31.0-37.0); MCV 87.5 fL (80.0-100.0); Mean Platelet Volume 6.9; Monocytes # (A) 0.6 k/uL (0-1.0); Monocytes % (A) 5 %; Neutrophils # (A) 9.8 k/uL (1.3-7.7); Neutrophils % (A) 88 %; Platelet Count 238 k/uL (150-450); RDW 14.6 % (11.5-15.5); WBC 11.2 k/uL (3.8-10.6)
--- NOTE | 2019-06-26 11:36 | ECHOF ---
Referral Reason:assess cardiac function MEASUREMENTS -------- HEIGHT: 165.1 cm WEIGHT: 78.9 kg BP: 120/63 RVIDd: 2.7 cm (< 3.3) IVSd: 1.4 cm (0.6 - 1.1) LVIDd: 3.6 cm (3.9 - 5.3) LVPWd: 1.4 cm (0.6 - 1.1) IVSs: 1.7 cm LVIDs: 2.2 cm LVPWs: 1.6 cm LA Diam: 3.7 cm (2.7 - 3.8) LAESV Index (A-L): 30.10 ml/m Ao Diam: 3.5 cm (2.0 - 3.7) AV Cusp: 2.0 cm (1.5 - 2.6) MV EXCURSION: 16.269 mm (> 18.000) MV EF SLOPE: 67 mm/s (70 - 150) EPSS: 0.3 cm AV maxP.97 mmHg AV meanP.30 mmHg AR PHT: 625 ms RAP: 5.00 mmHg RVSP: 32.85 mmHg FINDINGS -------- Atrial fibrillation. This was a technically difficult study with suboptimal apical views. The left ventricular size is normal. There is moderate concentric left ventricular hypertrophy. O verall left ventricular systolic function is low-normal with, an EF between 50 - 55 %. The right ventricle is normal in size. LA is midly dilated 29-33ml/m2. The right atrial size is normal. 3 ml of Lumason was utilized for enhancement of images. Interatrial and interventricular septum intact. There is mild aortic valve sclerosis. There is moderate aortic regurgitation. There is mild aorti c stenosis present. Peak/mean gradient across the Aortic Valve is 13.97mmHg / 6.30mmHg. Mild mitral annular calcification present. [id number] mitral regurgitation is present. Mild tricuspid regurgitation present. Right ventricular systolic pressure is normal at < 35 mmHg. Trace/mild (physiologic) pulmonic regurgitation. The aortic root size is normal. Normal inferior vena cava with normal inspiratory collapse consistent with estimated right atrial pre ssure of 5 mmHg. There is no pericardial effusion. CONCLUSIONS -------- 1. Atrial fibrillation. 2. This was a technically difficult study with suboptimal apical views. 3. The left ventricular size is normal. 4. There is moderate concentric left ventricular hypertrophy. 5. Overall left ventricular systolic function is low-normal with, an EF between 50 - 55 %. 6. LA is midly dilated 29-33ml/m2. 7. 3 ml of Lumason was utilized for enhancement of images. 8. There is mild aortic valve sclerosis. 9. There is moderate aortic regurgitation. 10. There is mild aortic stenosis present. 11. Peak/mean gradient across the Aortic Valve is 13.97mmHg / 6.30mmHg. 12. Mild mitral annular calcification present. 13. Toxa-do-poagoner mitral regurgitation is present. 14. Mild tricuspid regurgitation present. 15. Right ventricular systolic pressure is normal at < 35 mmHg. 16. Trace/mild (physiologic) pulmonic regurgitation. 17. The aortic root size is normal. 18. Normal inferior vena cava with normal inspiratory collapse consistent with estimated right atrial pressure of 5 mmHg. 19. There is no pericardial effusion. SUPERVISOR AREA: Mckenzie Carcamo RDCS
--- NOTE | 2019-06-26 12:54 | P.PN ---
Subjective Progress Note Date: 06/26/19 Principal diagnosis: SIADH, hyponatremia, metabolic encephalopathy This is a 83-year-old white female who came into the hospital on 06/21/2019 complaining of pain in her left buttock, and patient apparently started hurting after a recent fall. Patient was in significant amount of discomfort, and was admitted for pain control, range of motion of the hip and knee was not affected, the patient had some local tenderness over the left buttock at the mid sacral area. Patient apparently had computed tomography scan and x-rays done at the [facility] which did not show any fracture of the hip or pelvis. Patient's past medical history is that of hypertension, paroxysmal atrial fibrillation on Coumadin, with past history of cardioversion. Apparently patient went into A. fib with RVR, and was admitted to the cardiac stepdown floor and started on Cardizem drip for rate control. Her admission blood work showed serum sodium of 125, which was down to 117, and the patient was initiated on fluid restriction, and started on 3% hypertonic saline and transferred to the intensive care unit. Her INR today is 3.1, white blood cell count was 13.7, troponin was negative 1, LFTs were within normal limits, serum osmolality was 252, urine osmolality was 824, random urine sodium was 63. Patient has had no fever or chills, no complaints of shortness of breath or chest pain, no leg swelling, no hip pain, no lightheadedness dizziness. Patient has been ambulating with a walker however her gait is unsteady, and during her hospital stay patient apparently sustained another fall resulting in injury of her left lower extremity, with x-rays showing significant left ankle fracture for which an orthopedic consultation was requested. Patient has been transferred to the intensive care unit for close monitoring, in view of her hyponatremia with increasing confusion, nephrology is following, and 3% hypertonic sitting is infusing. We are consulted for critical care management On today's evaluation of 06/25/2019, the patient is still in intensive care unit. Unfortunately, the mental status continues to be altered and the patient had significant amount of agitation or restlessness and confusion yesterday. We decided not to give Haldol due to underlying hyponatremia. She received 1 dose of Ativan. We will continue the hypertonic saline infusion and patient's sodium gradually improved and currently is up to 126 and based on his correction the hypertonic saline was completely discontinued. This morning, the patient was mumbling, stating she sentences, unable to have a conversation or follow commands. She is confused and restless and somnolent. She was able to move all 4 extremities and withdraws to pain was diminished in all 4 extremities. Neur ology consultation was requested. Note that the CAT scan of the brain was essentially negative. I discussed the case with neurologist. Based on his opinion, the abnormality seen on essentially metabolic in nature. Meanwhile, I ordered a CAT scan of the chest and abdomen and showed no acute abnormalities. No evidence of any intrathoracic or intra-abdominal masses to contribute for an underlying SIADH. The patient currently is afebrile. She is hemodynamically stable. Urine output is improved. She is on a Cardizem drip at the rate of 10 mg an hour for rate control. She is also on IV heparin regarding atrial fibrillation. Warfarin has been discontinued. On 06/26/2019 patient seen in follow-up in the intensive care unit, she is much more awake today, she is responding appropriately, she knows she is in the hospital, she knows her name, she knew her . Her sodium on today's labs is 132. Last night she was given some IV fluid boluses, a total of 1,5 liters of normal saline last night, an additional 500 mL this morning or hypotension and systolic in the 70s. Patient had a Triple-lumen central venous catheter placed, and her CVP is anywhere from 0-6. Blood pressure has improved, Cardizem drip has been discontinued, patient is in A. fib with RVR with a rate of 1:30 BP M, and she is being loaded with digoxin. His chest x-ray shows stable trace pleural effusions and a left-sided central venous catheter with some improvement in aeration of the left lung base. Echocardiogram showed EF of 50-55%, [id number] MR, mild tricuspid regurg, mild aortic stenosis, and moderate aortic regurgitation. His any chest pain, denies any shortness of breath, her marrow pulse ox is 99%, she is afebrile, she remains on heparin drip for anticoagulation. Denies any left lower extremity pain, which remains in the splint Objective - Vital Signs Vital signs: Vital Signs Temp 97.7 F 06/26/19 12:00 Pulse 116 H 06/26/19 12:00 Resp 14 06/26/19 12:00 BP 111/38 06/26/19 11:00 Pulse Ox 99 06/26/19 12:00 Intake & Output 06/25/19 06/26/19 06/26/19 18:59 06:59 18:59 Intake Total 435 1427.793 808.32 Output Total 385 1021 190 Balance 50 406.793 618.32 Weight 79.3 kg Intake: IV 310 910 600 Lactated Ringers 1,000 ml 100 100 @ 20 mls/hr IV .Q24H [facility] Rx#:[id number] Sodium Chloride 0.9% 250 250 750 ml @ 999 mls/hr IV .Q16M [facility] Rx#:[id number] Sodium Chloride 0.9% 500 500 ml 500 ml @ 999 mls/hr IV .Q31M [facility] Rx#:[id number] Sodium Chloride 3%( 60 0 Hypertonic) 500 ml @ 15 mls/hr IV .Q24H [facility] Rx#: [id number] sodium chloride 3% 60 Intake, IV Titration 125 217.793 58.32 Amount Diltiazem 125 mg In 125 60.833 Sodium Chloride 0.9% 100 ml @ 10 MG/HR 10 mls/hr IV .[id number] [facility] Rx#: [id number] Heparin Sod,Pork in 0.45% 156.96 58.32 NaCl 25,000 unit In 0.45 % NaCl 1 250ml.bag @ 12 UNITS/KG/HR 9.6 mls/hr IV .Q24H [facility] Rx#:[id number] Oral 300 150 Output: Urine 385 1021 190 Other: Voiding Method Indwelling Catheter Indwelling Catheter Indwelling Catheter # Bowel Movements 0 ABP, PAP, CO, CI - Last Documented Arterial Blood Pressure 94/43 - Exam GENERAL EXAM: Alert, pleasant, 83-year-old white female, on room air, with a pulse ox of 99% comfortable in no apparent distress. HEAD: Normocephalic/atraumatic. EYES: Normal reaction of pupils, equal size. Conjunctiva pink, sclera white. NOSE: Clear with pink turbinates. THROAT: No erythema or exudates. NECK: No masses, no JVD, no thyroid enlargement, no adenopathy. CHEST: No chest wall deformity. Symmetrical expansion. LUNGS: Equal air entry with no crackles, wheeze, rhonchi or dullness. CVS: Irregular rate and rhythm, normal S1 and S2, no gallops, no murmurs, no rubs. Patient tachycardic, currently with a rate of 1:30 BPM ABDOMEN: Soft, nontender. No hepatosplenomegaly, normal bowel sounds, no guarding or rigidity. EXTREMITIES: No clubbing, no cyanosis, 2+ pulses and upper and lower extremities. Mild edema and ecchymosis in the left ankle, left ankle is immobilized with a splint and an arnie wrap MUSCULOSKELETAL: Muscle strength and tone normal. SPINE: No scoliosis or deformity SKIN: No rashes CENTRAL NERVOUS SYSTEM: Alert and oriented -3. No focal deficits, tone is normal in all 4 extremities. PSYCHIATRIC: Alert and oriented -3. Appropriate affect. Intact judgment and insight. - Labs CBC & Chem 7: 06/26/19 10:36 06/26/19 09:55 Labs: Abnormal Lab Results - Last 24 Hours (Table) 06/25/19 06/25/19 06/25/19 Range/Units 11:53 18:42 18:57 WBC (3.8-10.6) k/uL RBC (3.80-5.40) m/uL Hgb (11.4-16.0) gm/dL Hct (34.0-46.0) % RDW (11.5-15.5) % Neutrophils # (1.3-7.7) k/uL Lymphocytes # (1.0-4.8) k/uL PT (9.0-12.0) sec INR (<1.2) APTT (22.0-30.0) sec ABG pH 7.48 H (7.35-7.45) ABG pCO2 30 L (35-45) mmHg ABG pO2 148 H (83-108) mmHg ABG O2 Saturation 99.1 H (94-97) % Sodium 126 L 126 L (137-145) mmol/L POC Glucose (mg/dL) (75-99) mg/dL Calcium (8.4-10.2) mg/dL 06/25/19 06/25/19 06/25/19 Range/Units 20:20 20:57 22:26 WBC (3.8-10.6) k/uL RBC 3.62 L (3.80-5.40) m/uL Hgb 11.2 L (11.4-16.0) gm/dL Hct 31.0 L (34.0-46.0) % RDW (11.5-15.5) % Neutrophils # (1.3-7.7) k/uL Lymphocytes # (1.0-4.8) k/uL PT (9.0-12.0) sec INR (<1.2) APTT (22.0-30.0) sec ABG pH (7.35-7.45) ABG pCO2 (35-45) mmHg ABG pO2 (83-108) mmHg ABG O2 Saturation (94-97) % Sodium 126 L (137-145) mmol/L POC Glucose (mg/dL) 117 H (75-99) mg/dL Calcium (8.4-10.2) mg/dL 06/26/19 06/26/19 06/26/19 Range/Units 01:48 01:48 01:48 WBC (3.8-10.6) k/uL RBC 3.58 L (3.80-5.40) m/uL Hgb 10.9 L (11.4-16.0) gm/dL Hct 30.9 L (34.0-46.0) % RDW 17.1 H (11.5-15.5) % Neutrophils # (1.3-7.7) k/uL Lymphocytes # (1.0-4.8) k/uL PT 15.1 H (9.0-12.0) sec INR 1.5 H (<1.2) APTT >200.0 H* (22.0-30.0) sec ABG pH (7.35-7.45) ABG pCO2 (35-45) mmHg ABG pO2 (83-108) mmHg ABG O2 Saturation (94-97) % Sodium (137-145) mmol/L POC Glucose (mg/dL) (75-99) mg/dL Calcium (8.4-10.2) mg/dL 06/26/19 06/26/19 06/26/19 Range/Units 03:40 06:48 09:55 WBC (3.8-10.6) k/uL RBC (3.80-5.40) m/uL Hgb (11.4-16.0) gm/dL Hct (34.0-46.0) % RDW (11.5-15.5) % Neutrophils # (1.3-7.7) k/uL Lymphocytes # (1.0-4.8) k/uL PT (9.0-12.0) sec INR (<1.2) APTT >200.0 H* (22.0-30.0) sec ABG pH (7.35-7.45) ABG pCO2 (35-45) mmHg ABG pO2 (83-108) mmHg ABG O2 Saturation (94-97) % Sodium 131 L 130 L (137-145) mmol/L POC Glucose (mg/dL) (75-99) mg/dL Calcium 8.2 L (8.4-10.2) mg/dL 06/26/19 06/26/19 Range/Units 09:55 10:36 WBC 11.2 H (3.8-10.6) k/uL RBC 3.60 L (3.80-5.40) m/uL Hgb 10.7 L (11.4-16.0) gm/dL Hct 31.5 L (34.0-46.0) % RDW (11.5-15.5) % Neutrophils # 9.8 H (1.3-7.7) k/uL Lymphocytes # 0.7 L (1.0-4.8) k/uL PT (9.0-12.0) sec INR (<1.2) APTT (22.0-30.0) sec ABG pH (7.35-7.45) ABG pCO2 (35-45) mmHg ABG pO2 (83-108) mmHg ABG O2 Saturation (94-97) % Sodium 132 L (137-145) mmol/L POC Glucose (mg/dL) (75-99) mg/dL Calcium (8.4-10.2) mg/dL Assessment and Plan Plan: Assessment: #1. 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 Nephrology is following #2. Metabolic encephalopathy, encephalitis felt to be less likely in the absence of fever, no meningismus, CT brain was negative, seems to be improving with improvement of patient's serum sodium #3. Displaced left ankle bimalleolar fracture, status post fall #4. Frequent falls at home, most recently sustaining injury to her bilateral buttocks at home #5. Atrial fibrillation with rapid ventricular response #6. Paroxysmal small atrial fibrillation on Coumadin, with previous history of cardioversion #7. Hypertension #8. Lifetime nonsmoker #9. Gait dysfunction, frequent falls Plan: Patient's mental status seems to be improving, much less confused, she is oriented 2, no restlessness, no fidgeting. Sodium level is improving, patient has been given IV fluid boluses last night for hypotension, blood pressure has improved, encourage oral intake, maintain aspiration precautions, denies any shortness of breath, or chest pain, nephrology is following, is considering MRI and EEG, hence the patient's mental status is improving with serum sodium. Continue heparin infusion for anticoagulation, Cardizem is currently on hold, cardiology is following, patient has received a couple doses of digoxin, for rate control. Benzodiazepines are on hold, patient is much more alert and oriented, and able to converse, and improving neurologically. We'll follow I performed a history & physical examination of the patient and discussed their management with my nurse practitioner, Shannan May. I reviewed the nurse practitioner's note and agree with the documented findings and plan of care. Lung sounds are positive for clear breath sounds. The findings and the imp ression was discussed with the patient. I attest to the documentation by the nurse practitioner. Time with Patient: Less than 30
[2019-06-26 15:15] LABS: Potassium 4.1 mmol/L (3.5-5.1)
--- NOTE | 2019-06-26 15:51 | P.PN ---
Subjective Progress Note Date: 06/26/19 Principal diagnosis: Left ankle bimalleolar fracture Patient is evaluated today in the ICU unit. Mental status is improved significantly. She remains in the posterior splint at this time. Objective - Vital Signs Vital signs: Vital Signs Temp 97.7 F 06/26/19 12:00 Pulse 106 H 06/26/19 14:00 Resp 13 06/26/19 14:00 BP 111/38 06/26/19 11:00 Pulse Ox 98 06/26/19 14:00 Intake & Output 06/25/19 06/26/19 06/26/19 18:59 06:59 18:59 Intake Total 435 7071.591 1008.487 Output Total 385 1021 240 Balance 50 406.793 797.487 Weight 79.3 kg Intake: IV 310 910 620 Lactated Ringers 1,000 ml 100 120 @ 20 mls/hr IV .Q24H [facility] Rx#:[id number] Sodium Chloride 0.9% 250 250 750 ml @ 999 mls/hr IV .Q16M [facility] Rx#:[id number] Sodium Chloride 0.9% 500 500 ml 500 ml @ 999 mls/hr IV .Q31M [facility] Rx#:[id number] Sodium Chloride 3%( 60 0 Hypertonic) 500 ml @ 15 mls/hr IV .Q24H [facility] Rx#: [id number] sodium chloride 3% 60 Intake, IV Titration 125 217.793 67.487 Amount Diltiazem 125 mg In 125 60.833 9.167 Sodium Chloride 0.9% 100 ml @ 10 MG/HR 10 mls/hr IV .[id number] [facility] Rx#: [id number] Heparin Sod,Pork in 0.45% 156.96 58.32 NaCl 25,000 unit In 0.45 % NaCl 1 250ml.bag @ 12 UNITS/KG/HR 9.6 mls/hr IV .Q24H [facility] Rx#:[id number] Oral 300 350 Output: Urine 385 1021 240 Other: Voiding Method Indwelling Catheter Indwelling Catheter Indwelling Catheter # Bowel Movements 0 ABP, PAP, CO, CI - Last Documented Arterial Blood Pressure 113/44 - Exam Left lower extremity: Posterior splint is in good position and condition. Splint was removed periodically to examine skin, ecchymosis present in both medial and lateral aspects of the ankle along with soft tissue swelling. No obvious skin breakdown note. Dorsal pedis pulses 2+ - Labs CBC & Chem 7: 06/26/19 10:36 06/26/19 15:05 Labs: Abnormal Lab Results - Last 24 Hours (Table) 06/25/19 06/25/19 06/25/19 Range/Units 18:42 18:57 20:20 WBC (3.8-10.6) k/uL RBC 3.62 L (3.80-5.40) m/uL Hgb 11.2 L (11.4-16.0) gm/dL Hct 31.0 L (34.0-46.0) % RDW (11.5-15.5) % Neutrophils # (1.3-7.7) k/uL Lymphocytes # (1.0-4.8) k/uL PT (9.0-12.0) sec INR (<1.2) APTT (22.0-30.0) sec ABG pH 7.48 H (7.35-7.45) ABG pCO2 30 L (35-45) mmHg ABG pO2 148 H (83-108) mmHg ABG O2 Saturation 99.1 H (94-97) % Sodium 126 L (137-145) mmol/L POC Glucose (mg/dL) (75-99) mg/dL Calcium (8.4-10.2) mg/dL 06/25/19 06/25/19 06/26/19 Range/Units 20:57 22:26 01:48 WBC (3.8-10.6) k/uL RBC (3.80-5.40) m/uL Hgb (11.4-16.0) gm/dL Hct (34.0-46.0) % RDW (11.5-15.5) % Neutrophils # (1.3-7.7) k/uL Lymphocytes # (1.0-4.8) k/uL PT 15.1 H (9.0-12.0) sec INR 1.5 H (<1.2) APTT (22.0-30.0) sec ABG pH (7.35-7.45) ABG pCO2 (35-45) mmHg ABG pO2 (83-108) mmHg ABG O2 Saturation (94-97) % Sodium 126 L (137-145) mmol/L POC Glucose (mg/dL) 117 H (75-99) mg/dL Calcium (8.4-10.2) mg/dL 06/26/19 06/26/19 06/26/19 Range/Units 01:48 01:48 03:40 WBC (3.8-10.6) k/uL RBC 3.58 L (3.80-5.40) m/uL Hgb 10.9 L (11.4-16.0) gm/dL Hct 30.9 L (34.0-46.0) % RDW 17.1 H (11.5-15.5) % Neutrophils # (1.3-7.7) k/uL Lymphocytes # (1.0-4.8) k/uL PT (9.0-12.0) sec INR (<1.2) APTT >200.0 H* (22.0-30.0) sec ABG pH (7.35-7.45) ABG pCO2 (35-45) mmHg ABG pO2 (83-108) mmHg ABG O2 Saturation (94-97) % Sodium 131 L (137-145) mmol/L POC Glucose (mg/dL) (75-99) mg/dL Calcium 8.2 L (8.4-10.2) mg/dL 06/26/19 06/26/19 06/26/19 Range/Units 06:48 09:55 09:55 WBC (3.8-10.6) k/uL RBC (3.80-5.40) m/uL Hgb (11.4-16.0) gm/dL Hct (34.0-46.0) % RDW (11.5-15.5) % Neutrophils # (1.3-7.7) k/uL Lymphocytes # (1.0-4.8) k/uL PT (9.0-12.0) sec INR (<1.2) APTT >200.0 H* (22.0-30.0) sec ABG pH (7.35-7.45) ABG pCO2 (35-45) mmHg ABG pO2 (83-108) mmHg ABG O2 Saturation (94-97) % Sodium 130 L 132 L (137-145) mmol/L POC Glucose (mg/dL) (75-99) mg/dL Calcium (8.4-10.2) mg/dL 06/26/19 06/26/19 Range/Units 10:36 15:05 WBC 11.2 H (3.8-10.6) k/uL RBC 3.60 L (3.80-5.40) m/uL Hgb 10.7 L (11.4-16.0) gm/dL Hct 31.5 L (34.0-46.0) % RDW (11.5-15.5) % Neutrophils # 9.8 H (1.3-7.7) k/uL Lymphocytes # 0.7 L (1.0-4.8) k/uL PT (9.0-12.0) sec INR (<1.2) APTT (22.0-30.0) sec ABG pH (7.35-7.45) ABG pCO2 (35-45) mmHg ABG pO2 (83-108) mmHg ABG O2 Saturation (94-97) % Sodium 130 L (137-145) mmol/L POC Glucose (mg/dL) (75-99) mg/dL Calcium (8.4-10.2) mg/dL Assessment and Plan Plan: Assessment: 1. Displaced left ankle bimalleolar fracture 2. Status post fall 3. Other medical comorbidities Plan: Continue use of the posterior splint, icing and elevating often Nonweightbearing Plan for surgical intervention when medically stable Time with Patient: Less than 30
[2019-06-26] MEDS: HEPARIN SOD,PORK IN 0.45% NACL 25,000 UNIT in 0.45% NACL 1 250ML.BAG IV SCH (16:13)
[2019-06-26] MEDS: NOREPINEPHRINE 4 MG in SODIUM CHLORIDE 0.9% 250 ML IV SCH (16:44)
[2019-06-26] MEDS: MIDODRINE 5 MG TAB PO SCH (17:00)
--- NOTE | 2019-06-26 20:27 | PN ---
PROGRESS NOTE Patient is seen for followup for hyponatremia. Her sodium has improved overnight. The patient was hypotensive as well. She received about 750 mL of IV fluid overnight for hypotension. Serum sodium initially stayed up at about 126, but then picked up to about 131. The patient was restarted on 3% saline for about 6 hours. Currently she is off the 3% saline. Her mentation has improved. Blood pressure is staying about 90 mmHg systolic. Urine output is fair. PHYSICAL EXAMINATION: This morning, patient is tired, but arousable. She is alert and oriented x3. Heart rate has been high, around 110-120 beats per minute. Patient is afebrile. Blood pressure was 85-90 mmHg systolic. Examination of the heart S1, S2. Examination of the lungs, bilateral breath sounds are heard. Decreased breath sounds at bases. Abdomen is soft, nontender. Exam of lower extremities shows no evidence of edema. Left lower extremity is currently wrapped. SURVEY INTERVIEWER exam grossly intact. LABS: Show sodium 132 this morning, potassium 3.5, BUN 17, serum creatinine 0.7. ASSESSMENT: 1. Hyponatremia secondary to Syndrome of inappropriate antidiuretic hormone, status post 3% saline. The patient received 3% saline again early this morning. It is now discontinued. She has received normal saline boluses as well for hypotension. Since her sodium is up to about 130-132 mEq/L we can give her a fluid bolus with normal saline if her blood pressure drops again. I will also add midodrine and hopefully we can avoid the Levophed. Cortisol level will be ordered as well. 2. Right lower extremity fracture. Surgery postponed until medically stable. 3. Atrial fibrillation with RVR, being followed by Cardiology. Cardizem drip was discontinued last night because of hypotension. The patient received dig this morning with improvement in rate control. PLAN: Continue to monitor serum sodium levels. Okay to give fluid boluses with normal saline for hypotension as serum sodium has stabilized. Check random cortisol level and repeat serum sodium this evening. MMODL / IJN: [id number] /
--- NOTE | 2019-06-26 21:45 | P.PN ---
Subjective Progress Note Date: 06/25/19 Principal diagnosis: Left buttock contusion status post fall Atrial fibrillation with rapid regular rate Patient is a 83-year-old female with a known history of hypertension, paroxysmal atrial fibrillation on anticoagulation with Coumadin came to ER with complaints of left buttock pain. Patient says that she fell down and landed on her left buttock. Since then she has been having worsening pain. Patient was seen at [facility] ER where she had x-ray of the pelvis had CT of the pelvis was done and found no acute fracture or dislocation. Patient was given C olace and [place] prescription and patient took the medication use which made her nauseated and also was having multiple bowel movements with Colace. Patient has been having worsening pain and could not able to sit walk and cannot ambulate and could not sleep all night. Pt. denied any fever or chills. No chest pain or shortness of breath. No leg swelling. No hip pain. No headache or dizziness or lightheadedness. Denied any head injury. Patient was admitted to the hospital for pain management. Once she arrived to the floor she went into atrial fibrillation with rapid ventricular rate. Patient was started on Cardizem drip and was transferred to telemetry unit. Patient is therapeutic with INR level. 06/22/2019 Patient says that her left buttock pain is improved today. Able to walk with a walker. No complaints of fever or chills. No chest pain or shortness of breath. Cardizem drip has been discontinued and patient was started on metoprolol 25 mg 3 times a day. Cardiology is following. Heart rate is controlled. No nausea vomiting or diarrhea. No abdominal pain. Patient will be continued on PT OT tomorrow and possible discharge. 06/23/2019 Patient currently denied any chest pain or shortness of breath. Patient does have left ankle pain. Overnight patient sustained a fall while using commode and x-ray of the left ankle showed bimalleolar displaced fracture. Patient was seen by orthopedic surgery and is planning for or once INR normalizes. Otherwise sodium level dropped to 119 today. Possible SIADH was considered. Patient was kept on fluid restriction and nephrology was consulted. Patient was started on normal saline at 60 mL per hour. Monitor sodium level closely. Otherwise heart rate is controlled. INR is more than 3 and is on hold currently. Cardiology is on board. 06/24/2019 Patient was confused today morning and CT of the head was ordered. Otherwise sodium level dropped down to 116. Started on hypertonic saline and sodium level is being monitored closely. Likely due to SIADH. Otherwise heart rate is controlled. INR is still at 3.1. Orthopedic surgery is planning for or likely next day. Patient has left ankle bimalleolar displaced fracture. Patient was transferred to MICU for close monitoring. Cardiology, pulmonary and nephrology is following. 06/25/2019 Patient is awake and alert but lethargic. Sodium level improved to 121. Patient was started on heparin drip and Coumadin is on hold. Orthopedic surgery is planning for OR once patient is clinically stable. Heart rate is controlled. Cardiology and pulmonary is following. Current medications reviewed. Objective - Vital Signs Vital signs: Vital Signs Temp 97 F L 06/25/19 08:00 Pulse 93 06/25/19 11:00 Resp 15 06/25/19 11:00 BP 92/76 06/25/19 11:00 Pulse Ox 92 L 06/25/19 11:00 Intake & Output 06/24/19 06/25/19 06/25/19 18:59 06:59 18:59 Intake Total 482.5 270 60 Output Total 770 657 95 Balance -287.5 -387 -35 Weight 80 kg Intake: IV 162.5 270 60 Sodium Chloride 3%( 162.5 175 Hypertonic) 500 ml @ 20 mls/hr IV .Q24H [facility] Rx#: [id number] Sodium Chloride 3%( 50 Hypertonic) 500 ml @ 25 mls/hr IV .Q20H [facility] Rx#: [id number] sodium chloride 3% 45 60 Oral 320 Output: Urine 770 657 95 Other: Voiding Method Bedpan Indwelling Catheter Indwelling Catheter # Voids 1 # Bowel Movements 0 - Exam PHYSICAL EXAMINATION: Patient is lying in the bed comfortably, no acute distress, awake alert and oriented.. HEENT: Normocephalic. Neck is supple. Pupils reactive. Nostrils clear. Oral cavity is moist. Ears reveal no drainage. Neck reveals no JVD, carotid bruits, or thyromegaly. CHEST EXAMINATION: Trachea is central. Symmetrical expansion. Lung [place] clear to auscultation and percussion. CARDIAC: Normal S1, S2 with no gallops. No murmurs ABDOMEN: Soft. Bowel sounds normal. No organomegaly. No abdominal bruits. Extremities: reveal no edema. No clubbing or cyanosis. Tenderness over the left upper paraspinal gluteus region Neurologically awake, alert, oriented x3 with well-coordinated movements. No focal deficits noted Skin: No rash or skin lesions. Psychiatric: Coperative. Nonsuicidal Musculoskeletal: No joint swelling or deformity. Normal range of motion. Left ankle splint in place. - Labs CBC & Chem 7: 06/26/19 10:36 06/26/19 20:47 Labs: Abnormal Lab Results - Last 24 Hours (Table) 06/24/19 06/24/19 06/24/19 Range/Units 13:23 15:47 20:18 WBC (3.8-10.6) k/uL RDW (11.5-15.5) % Neutrophils # (1.3-7.7) k/uL PT (9.0-12.0) sec INR (<1.2) Sodium 116 L* 117 L* 120 L (137-145) mmol/L Chloride 85 L (98-107) mmol/L Carbon Dioxide 20 L (22-30) mmol/L BUN 20 H (7-17) mg/dL Glucose 155 H (74-99) mg/dL Calcium 8.1 L (8.4-10.2) mg/dL 06/25/19 06/25/19 06/25/19 Range/Units 01:13 04:20 04:20 WBC 11.4 H (3.8-10.6) k/uL RDW 15.9 H (11.5-15.5) % Neutrophils # 9.4 H (1.3-7.7) k/uL PT 15.5 H (9.0-12.0) sec INR 1.5 H (<1.2) Sodium 120 L (137-145) mmol/L Chloride (98-107) mmol/L Carbon Dioxide (22-30) mmol/L BUN (7-17) mg/dL Glucose (74-99) mg/dL Calcium (8.4-10.2) mg/dL 06/25/19 06/25/19 06/25/19 Range/Units 04:20 09:00 11:53 WBC (3.8-10.6) k/uL RDW (11.5-15.5) % Neutrophils # (1.3-7.7) k/uL PT (9.0-12.0) sec INR (<1.2) Sodium 123 L 126 L 126 L (137-145) mmol/L Chloride 93 L (98-107) mmol/L Carbon Dioxide 21 L (22-30) mmol/L BUN 25 H (7-17) mg/dL Glucose 111 H (74-99) mg/dL Calcium 8.3 L (8.4-10.2) mg/dL Assessment and Plan Assessment: 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 Fluid restriction. Sodium level is improving. Left ankle bimalleolar fracture status post fall. Possible OR once INR normalizes and clinically stable. Left Buttock pain status post fall. Recent x-ray and CT negative for any acute fractures. Possible muscle contusion. Improving clinically. Atrial fibrillation with rapid ventricular rate. Controlled now. Paroxysmal atrial fibrillation on anticoagulation with Coumadin. Coumadin dosing. Hypertension Hyponatremia likely hypovolemic. DVT prophylaxis. Hold on anticoagulation. SCDs. Plan: Patient was on hypertonic saline. Was also given a dose of tolvapton. Fluid restriction.. Sodium level is improving. Continue with pain management Toradol and [place] as needed severe pain. Cardizem Drip has been discontinued and patient was started on metoprolol.. Patient was started back on her home dose of metoprolol. Cardiology and nephrology is following. Orthopedic surgery is planning for OR tomorrow. Coumadin is on hold. Further recommendations based on the clinical course. Time with Patient: Greater than 30
--- NOTE | 2019-06-26 21:49 | P.PN ---
Subjective Progress Note Date: 06/26/19 Principal diagnosis: Left buttock contusion status post fall Atrial fibrillation with rapid regular rate Patient is a 83-year-old female with a known history of hypertension, paroxysmal atrial fibrillation on anticoagulation with Coumadin came to ER with complaints of left buttock pain. Patient says that she fell down and landed on her left buttock. Since then she has been having worsening pain. Patient was seen at [facility] ER where she had x-ray of the pelvis had CT of the pelvis was done and found no acute fracture or dislocation. Patient was given C olace and [place] prescription and patient took the medication use which made her nauseated and also was having multiple bowel movements with Colace. Patient has been having worsening pain and could not able to sit walk and cannot ambulate and could not sleep all night. Pt. denied any fever or chills. No chest pain or shortness of breath. No leg swelling. No hip pain. No headache or dizziness or lightheadedness. Denied any head injury. Patient was admitted to the hospital for pain management. Once she arrived to the floor she went into atrial fibrillation with rapid ventricular rate. Patient was started on Cardizem drip and was transferred to telemetry unit. Patient is therapeutic with INR level. 06/22/2019 Patient says that her left buttock pain is improved today. Able to walk with a walker. No complaints of fever or chills. No chest pain or shortness of breath. Cardizem drip has been discontinued and patient was started on metoprolol 25 mg 3 times a day. Cardiology is following. Heart rate is controlled. No nausea vomiting or diarrhea. No abdominal pain. Patient will be continued on PT OT tomorrow and possible discharge. 06/23/2019 Patient currently denied any chest pain or shortness of breath. Patient does have left ankle pain. Overnight patient sustained a fall while using commode and x-ray of the left ankle showed bimalleolar displaced fracture. Patient was seen by orthopedic surgery and is planning for or once INR normalizes. Otherwise sodium level dropped to 119 today. Possible SIADH was considered. Patient was kept on fluid restriction and nephrology was consulted. Patient was started on normal saline at 60 mL per hour. Monitor sodium level closely. Otherwise heart rate is controlled. INR is more than 3 and is on hold currently. Cardiology is on board. 06/24/2019 Patient was confused today morning and CT of the head was ordered. Otherwise sodium level dropped down to 116. Started on hypertonic saline and sodium level is being monitored closely. Likely due to SIADH. Otherwise heart rate is controlled. INR is still at 3.1. Orthopedic surgery is planning for or likely next day. Patient has left ankle bimalleolar displaced fracture. Patient was transferred to MICU for close monitoring. Cardiology, pulmonary and nephrology is following. 06/25/2019 Patient is awake and alert but lethargic. Sodium level improved to 121. Patient was started on heparin drip and Coumadin is on hold. Orthopedic surgery is planning for OR once patient is clinically stable. Heart rate is controlled. Cardiology and pulmonary is following. 06/26/2019 Patient was admitted to the hospital due to left gluteal pain status post fall and hyponatremia. Patient went into A. fib with RVR and was started on Cardizem drip initially. Patient did have a fall and fraction left ankle and was transferred to MICU. Patient is currently more awake today. Sodium level improved to 132. Otherwise patient was hypotensive and was given fluid boluses. Patient was started on digoxin. Patient is in atrial fibrillation with rapid ventricular rate. Coumadin is on hold and was started on heparin drip. 2-D echocardiogram showed ejection fraction 50-55% with [id number] MR and mild aortic stenosis and moderate aortic regurgitation. Patient denied any complaints of chest pain or shortness of breath. Patient has been afebrile. Left ankle splint in place. Current medications reviewed. Objective - Vital Signs Vital signs: Vital Signs Temp 97.4 F L 06/26/19 20:00 Pulse 99 06/26/19 21:00 Resp 14 06/26/19 21:00 BP 111/38 06/26/19 11:00 Pulse Ox 99 06/26/19 21:00 Intake & Output 06/26/19 06/26/19 06/27/19 06:59 18:59 06:59 Intake Total 5665.976 0348.007 75.76 Output Total 1021 340 30 Balance 519.038 8371.007 45.76 Weight 79.3 kg Intake: IV 910 1200 60 Lactated Ringers 1,000 ml 100 200 60 @ 20 mls/hr IV .Q24H [facility] Rx#:[id number] Sodium Chloride 0.9% 250 750 ml @ 999 mls/hr IV .Q16M [facility] Rx#:[id number] Sodium Chloride 0.9% 500 1000 ml 500 ml @ 999 mls/hr IV .Q31M [facility] Rx#:[id number] Sodium Chloride 3%( 60 0 Hypertonic) 500 ml @ 15 mls/hr IV .Q24H [facility] Rx#: [id number] Intake, IV Titration 217.793 85.007 15.76 Amount Diltiazem 125 mg In 60.833 9.167 Sodium Chloride 0.9% 100 ml @ 10 MG/HR 10 mls/hr IV .[id number] [facility] Rx#: [id number] Heparin Sod,Pork in 0.45% 156.96 75.84 15.76 NaCl 25,000 unit In 0.45 % NaCl 1 250ml.bag @ 12 UNITS/KG/HR 9.6 mls/hr IV .Q24H [facility] Rx#:[id number] Oral 300 450 Output: Urine 1021 340 30 Other: Voiding Method Indwelling Catheter Indwelling Catheter Indwelling Catheter # Bowel Movements 0 ABP, PAP, CO, CI - Last Documented Arterial Blood Pressure 91/43 - Exam PHYSICAL EXAMINATION: Patient is lying in the bed comfortably, no acute distress, awake alert and orie nted.. HEENT: Normocephalic. Neck is supple. Pupils reactive. Nostrils clear. Oral cavity is moist. Ears reveal no drainage. Neck reveals no JVD, carotid bruits, or thyromegaly. CHEST EXAMINATION: Trachea is central. Symmetrical expansion. Lung [place] clear to auscultation and percussion. CARDIAC: Normal S1, S2 with no gallops. No murmurs ABDOMEN: Soft. Bowel sounds normal. No organomegaly. No abdominal bruits. Extremities: reveal no edema. No clubbing or cyanosis. Tenderness over the le ft upper paraspinal gluteus region Neurologically awake, alert, oriented x3 with well-coordinated movements. No focal deficits noted Skin: No rash or skin lesions. Psychiatric: Coperative. Nonsuicidal Musculoskeletal: No joint swelling or deformity. Normal range of motion. Left ankle splint in place. - Labs CBC & Chem 7: 06/26/19 10:36 06/26/19 20:47 Labs: Abnormal Lab Results - Last 24 Hours (Table) 09/06/26/19 06/26/19 Range/Units 22:26 01:48 01:48 WBC (3.8-10.6) k/uL RBC (3.80-5.40) m/uL Hgb (11.4-16.0) gm/dL Hct (34.0-46.0) % RDW (11.5-15.5) % Neutrophils # (1.3-7.7) k/uL Lymphocytes # (1.0-4.8) k/uL PT 15.1 H (9.0-12.0) sec INR 1.5 H (<1.2) APTT >200.0 H* (22.0-30.0) sec Sodium 126 L (137-145) mmol/L Calcium (8.4-10.2) mg/dL 06/26/19 06/26/19 06/26/19 Range/Units 01:48 03:40 06:48 WBC (3.8-10.6) k/uL RBC 3.58 L (3.80-5.40) m/uL Hgb 10.9 L (11.4-16.0) gm/dL Hct 30.9 L (34.0-46.0) % RDW 17.1 H (11.5-15.5) % Neutrophils # (1.3-7.7) k/uL Lymphocytes # (1.0-4.8) k/uL PT (9.0-12.0) sec INR (<1.2) APTT (22.0-30.0) sec Sodium 131 L 130 L (137-145) mmol/L Calcium 8.2 L (8.4-10.2) mg/dL 06/26/19 06/26/19 06/26/19 Range/Units 09:55 09:55 10:36 WBC 11.2 H (3.8-10.6) k/uL RBC 3.60 L (3.80-5.40) m/uL Hgb 10.7 L (11.4-16.0) gm/dL Hct 31.5 L (34.0-46.0) % RDW (11.5-15.5) % Neutrophils # 9.8 H (1.3-7.7) k/uL Lymphocytes # 0.7 L (1.0-4.8) k/uL PT (9.0-12.0) sec INR (<1.2) APTT >200.0 H* (22.0-30.0) sec Sodium 132 L (137-145) mmol/L Calcium (8.4-10.2) mg/dL 06/26/19 06/26/19 06/26/19 Range/Units 15:05 18:45 20:47 WBC (3.8-10.6) k/uL RBC (3.80-5.40) m/uL Hgb (11.4-16.0) gm/dL Hct (34.0-46.0) % RDW (11.5-15.5) % Neutrophils # (1.3-7.7) k/uL Lymphocytes # (1.0-4.8) k/uL PT (9.0-12.0) sec INR (<1.2) APTT 173.5 H* (22.0-30.0) sec Sodium 130 L 127 L (137-145) mmol/L Calcium (8.4-10.2) mg/dL Assessment and Plan Assessment: 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 Fluid restriction. Sodium level is improving. Left ankle bimalleolar fracture status post fall. Possible OR once INR normalizes and clinically stable. Left Buttock pain status post fall. Recent x-ray and CT negative for any acute fractures. Possible muscle contusion. Improving clinically. Atrial fibrillation with rapid ventricular rate. Started on digitoxin. Paroxysmal atrial fibrillation on anticoagulation with Coumadin. Coumadin dosing. Hypertension Hyponatremia likely hypovolemic. DVT prophylaxis. Hold on anticoagulation. SCDs. Plan: Patient was on hypertonic saline. Was also given a dose of tolvapton. Fluid restriction.. Sodium level is improving. Continue with pain management Toradol and [place] as needed severe pain. Cardizem Drip has been discontinued and patient was started on metoprolol.. Patient was started back on her home dose of metoprolol. Started on digitoxin. Cardiology and nephrology is following. Orthopedic surgery is planning for OR once clinically stable. Coumadin is on hold. On heparin drip now. Further recommendations based on the clinical course. Prognosis is guarded. Time with Patient: Greater than 30
[2019-06-26] MEDS ORDERED: FUROSEMIDE 10 MG/ML 4 ML VIAL IV STA (22:02)
[2019-06-26] MEDS ORDERED: MIDODRINE 5 MG TAB PO STA (22:02)
[2019-06-26] MEDS ORDERED: TOLVAPTAN 15 MG 1/2 TABLET PO ONE (22:28)
[2019-06-27] MEDS ORDERED: AMIODARONE 360 MG in DEXTROSE 5% IN WATER 200 ML IV ONE ×2 (02:13)
[2019-06-27] MEDS ORDERED: DEXTROSE 5% IN WATER 100 ML with AMIODARONE 150 MG IV ONE (02:13)
[2019-06-27] MEDS: HEPARIN SODIUM,PORCINE 5,000 UNIT/ML 1 ML VIAL IV PRN ×2 (03:40→18:31)
[2019-06-27 05:12] LABS: Calcium 8.1 mg/dL (8.4-10.2); Potassium 4.6 mmol/L (3.5-5.1)
[2019-06-27] MEDS ORDERED: SODIUM CHLORIDE 0.9% 500 ML 500 ML IV ONE (05:24)
[2019-06-27 05:27] LABS: Basophils # (A) 0.1 k/uL (0-0.2); Basophils % (A) 0 %; Eosinophils % (A) 0 %; HCT 27.9 % (34.0-46.0); HGB 9.8 gm/dL (11.4-16.0); Lymphocytes % (A) 7 %; MCH 30.7 pg (25.0-35.0); MCHC 35.1 g/dL (31.0-37.0); MCV 87.4 fL (80.0-100.0); Mean Platelet Volume 7.2; Monocytes # (A) 0.7 k/uL (0-1.0); Monocytes % (A) 5 %; Neutrophils # (A) 11.7 k/uL (1.3-7.7); Neutrophils % (A) 86 %; Platelet Count 273 k/uL (150-450); RBC 3.19 m/uL (3.80-5.40); RDW 14.8 % (11.5-15.5); WBC 13.5 k/uL (3.8-10.6)
[2019-06-27] MEDS ORDERED: SODIUM CHLORIDE 3%(HYPERTONIC) 500 ML IV SCH (06:15)
[2019-06-27] MEDS: MIDODRINE 5 MG TAB PO SCH ×3 (08:10→17:10)
[2019-06-27] MEDS: NOREPINEPHRINE 4 MG in SODIUM CHLORIDE 0.9% 250 ML IV SCH (08:14)
[2019-06-27] MEDS: AMIODARONE 300 MG in DEXTROSE 5% IN WATER 250 ML IV SCH ×4 (08:45→18:36)
[2019-06-27] MEDS: PANTOPRAZOLE 40 MG/10 ML VIAL IVP SCH (08:49)
--- NOTE | 2019-06-27 09:21 | P.PN ---
Subjective Progress Note Date: 06/27/19 Principal diagnosis: Metabolic encephalopathy due to hyponatremia confounded by benzodiazepine use Sedation withheld. Na dropped again last night. Per RN patient became more lethargic and less responsive when her Na dropped again last night, but improved after 3% hypertonic saline was restarted and her sodium went back up. Still no exact etiology for her hyponatremia. ICU/nephrology working on it. No seizure. No new neuro c/o. Objective - Vital Signs Vital signs: Vital Signs Temp 97.9 F 06/27/19 08:00 Pulse 90 06/27/19 08:00 Resp 18 06/27/19 08:00 BP 111/38 06/26/19 11:00 Pulse Ox 98 06/27/19 08:00 Intake & Output 06/26/19 06/27/19 06/27/19 18:59 06:59 18:59 Intake Total 1735.007 633.04 215 Output Total 340 140 15 Balance 1395.007 493.04 200 Weight 79.4 kg Intake: IV 1200 600 15 0.9 80 Lactated Ringers 1,000 ml 200 20 @ 20 mls/hr IV .Q24H [facility] Rx#:[id number] Sodium Chloride 0.9% 500 1000 ml 500 ml @ 999 mls/hr IV .Q31M [facility] Rx#:[id number] Sodium Chloride 0.9% 500 500 ml 500 ml @ 999 mls/hr IV .Q31M [facility] Rx#:[id number] Sodium Chloride 3%( 0 Hypertonic) 500 ml @ 15 mls/hr IV .Q24H [facility] Rx#: [id number] Sodium Chloride 3%( 15 Hypertonic) 500 ml @ 15 mls/hr IV .Q24H [facility] Rx#: [id number] Intake, IV Titration 85.007 33.04 200 Amount Amiodarone 360 mg In 200 Dextrose 5% in Water 200 ml @ 1 MG/MIN 33.333 mls/ hr IV .Q6H [facility] Rx#: [id number] Diltiazem 125 mg In 9.167 Sodium Chloride 0.9% 100 ml @ 10 MG/HR 10 mls/hr IV .[id number] [facility] Rx#: [id number] Heparin Sod,Pork in 0.45% 75.84 33.04 NaCl 25,000 unit In 0.45 % NaCl 1 250ml.bag @ 12 UNITS/KG/HR 9.6 mls/hr IV .Q24H [facility] Rx#:[id number] Oral 450 Output: Urine 340 140 15 Other: Voiding Method Indwelling Catheter Indwelling Catheter # Bowel Movements 0 1 ABP, PAP, CO, CI - Last Documented Arterial Blood Pressure 95/49 - Exam Gen NAD Pleasant and cooperative MS Awake and alert [facility] is fall able to follow multi-step commands CN II-XII grossly intact no nystagmus Motor Normal bulk/tone No tremors Strength 5/5 sym throughout Sens Intact to LT x4 Coord No dysmetria as she grabs onto my hand with each of hers DTRs 2+/4 sym throughout Gait Deferred - Labs CBC & Chem 7: 06/27/19 04:25 06/27/19 04:25 Labs: Abnormal Lab Results - Last 24 Hours (Table) 06/26/19 06/26/19 06/26/19 Range/Units 09:55 09:55 10:36 WBC 11.2 H (3.8-10.6) k/uL RBC 3.60 L (3.80-5.40) m/uL Hgb 10.7 L (11.4-16.0) gm/dL Hct 31.5 L (34.0-46.0) % Neutrophils # 9.8 H (1.3-7.7) k/uL Lymphocytes # 0.7 L (1.0-4.8) k/uL APTT >200.0 H* (22.0-30.0) sec Sodium 132 L (137-145) mmol/L Carbon Dioxide (22-30) mmol/L BUN (7-17) mg/dL Creatinine (0.52-1.04) mg/dL Glucose (74-99) mg/dL Calcium (8.4-10.2) mg/dL 06/26/19 06/26/19 06/26/19 Range/Units 15:05 18:45 20:47 WBC (3.8-10.6) k/uL RBC (3.80-5.40) m/uL Hgb (11.4-16.0) gm/dL Hct (34.0-46.0) % Neutrophils # (1.3-7.7) k/uL Lymphocytes # (1.0-4.8) k/uL APTT 173.5 H* (22.0-30.0) sec Sodium 130 L 127 L (137-145) mmol/L Carbon Dioxide (22-30) mmol/L BUN (7-17) mg/dL Creatinine (0.52-1.04) mg/dL Glucose (74-99) mg/dL Calcium (8.4-10.2) mg/dL 06/27/19 06/27/19 06/27/19 Range/Units 00:48 02:31 04:25 WBC 13.5 H (3.8-10.6) k/uL RBC 3.19 L (3.80-5.40) m/uL Hgb 9.8 L (11.4-16.0) gm/dL Hct 27.9 L (34.0-46.0) % Neutrophils # 11.7 H (1.3-7.7) k/uL Lymphocytes # (1.0-4.8) k/uL APTT 43.1 H (22.0-30.0) sec Sodium 128 L (137-145) mmol/L Carbon Dioxide (22-30) mmol/L BUN (7-17) mg/dL Creatinine (0.52-1.04) mg/dL Glucose (74-99) mg/dL Calcium (8.4-10.2) mg/dL 06/27/19 Range/Units 04:25 WBC (3.8-10.6) k/uL RBC (3.80-5.40) m/uL Hgb (11.4-16.0) gm/dL Hct (34.0-46.0) % Neutrophils # (1.3-7.7) k/uL Lymphocytes # (1.0-4.8) k/uL APTT (22.0-30.0) sec Sodium 128 L (137-145) mmol/L Carbon Dioxide 18 L (22-30) mmol/L BUN 25 H (7-17) mg/dL Creatinine 1.33 H (0.52-1.04) mg/dL Glucose 170 H (74-99) mg/dL Calcium 8.1 L (8.4-10.2) mg/dL Assessment and Plan Assessment: Metabolic encephalopathy due to hyponatremia. Mental status is much improved. Plan: -Avoid benzodiazepines and anticholinergics -Minimize opiate use -Low index of suspicion for [employer]IVER infection or acute intracranial structural explanation -SIADH work-up in progress -d/w ICU staff. All questions answered -No further inpatient neuro recs at this time. Will revisit patient prn. Please call with new ?. Thank you again for this consultation. Time with Patient: Less than 30 (Time spent in direct patient care, greater than 50% of which was spent in [id number] counseling and coordination of care: 70 minutes)
[2019-06-27] MEDS ORDERED: TOLVAPTAN 15 MG 1/2 TABLET PO ONE (10:27)
[2019-06-27] MEDS: METOPROLOL TARTRATE 50 MG TAB PO SCH ×2 (10:40→21:07)
[2019-06-27] MEDS: DOCUSATE 100 MG CAP PO PRN (10:47)
--- NOTE | 2019-06-27 11:15 | P.PN ---
Subjective Progress Note Date: 06/27/19 This is a 83-year-old female who was admitted with a fall. Patient is found to have fractures. She is waiting to have surgery on Sunday. She was initially with Amisha humphreys with RVR. Current heart rate seems to be controlled. She denies any chest pain or shortness of breath. We'll continue current medical therapy except holding Coumadin. 06/24/2019: This patient was admitted to the hospital with fall and fracture of the leg. Patient has history of atrial fibrillation which is chronic. Patient also developed hyponatremia. Became little confused. Patient was transferred to ICU for management of the hyponatremia an infusion of 3% saline. Denies any chest pain. We'll hold lisinopril also because of low blood pressure and hyponatremia. Further recommendations depend upon the clinical course. 06/25/2019: This patient was transferred to intensive care unit yesterday because of hyponatremia and confusional states. She appears to be very agitated and confused. Her sodium has improved to 121. She is on 3% saline IV. Patient went into atrial fibrillation with rapid ventricular response last night. She is on IV Cardizem with rate control. Because of extreme agitation, patient will not take oral medication, though she got Lopressor last night. Patient is is off warfarin. Most probably patient may not have surgery done today. I'll put her on IV heparin which could be discontinued before surgery. Neurology consult may be obtained. Chest x-ray doesn't show any CHF. 06/26/2019: This patient is admitted with fracture. Patient was getting pain medication. She developed hyponatremia requiring IV 3% saline. She was agitated and confused but seemed to be gradually improving. She is alert and could identify has been. Could not date exactly. Her chest x-ray is normal. S he doesn't appear to be in acute distress. No complaints of chest pain or shortness of breath. Patient is having mild hypotension and also tachycardic with atrial fibrillation. I'm going to give her low dose of Lanoxin. Rest of the medication to be continued. Potassium to be corrected. 06/27/2019: This patient is admitted following fall and fracture. Patient developed unexplained hyponatremia and has been developing confusion related to hyponatremia. Patient is receiving IV 3% saline. She seemed to be alert and oriented. She is complaining of some pain in the right upper thigh area. She went into atrial fibrillation with rapid ventricular response. Patient went on IV amiodarone last night. Heart rate is better controlled. Chest x-ray doesn't show any evidence of CHF. Overall she seemed to be relatively stable. We'll make continue by mouth amiodarone for now for rate control. Objective - Vital Signs Vital signs: Vital Signs Temp 97.9 F 06/27/19 08:00 Pulse 76 06/27/19 10:00 Resp 21 06/27/19 10:00 BP 111/38 06/26/19 11:00 Pulse Ox 100 06/27/19 10:00 Intake & Output 06/26/19 06/27/19 06/27/19 18:59 06:59 18:59 Intake Total 1735.007 633.04 243.267 Output Total 340 140 125 Balance 1395.007 493.04 118.267 Weight 79.4 kg Intake: IV 1200 600 15 0.9 80 Lactated Ringers 1,000 ml 200 20 @ 20 mls/hr IV .Q24H [facility] Rx#:[id number] Sodium Chloride 0.9% 500 1000 ml 500 ml @ 999 mls/hr IV .Q31M [facility] Rx#:[id number] Sodium Chloride 0.9% 500 500 ml 500 ml @ 999 mls/hr IV .Q31M [facility] Rx#:[id number] Sodium Chloride 3%( 0 Hypertonic) 500 ml @ 15 mls/hr IV .Q24H [facility] Rx#: [id number] Sodium Chloride 3%( 15 Hypertonic) 500 ml @ 15 mls/hr IV .Q24H [facility] Rx#: [id number] Intake, IV Titration 85.007 33.04 228.267 Amount Amiodarone 360 mg In 200 Dextrose 5% in Water 200 ml @ 1 MG/MIN 33.333 mls/ hr IV .Q6H [facility] Rx#: [id number] Diltiazem 125 mg In 9.167 Sodium Chloride 0.9% 100 ml @ 10 MG/HR 10 mls/hr IV .[id number] [facility] Rx#: [id number] Heparin Sod,Pork in 0.45% 75.84 33.04 28.267 NaCl 25,000 unit In 0.45 % NaCl 1 250ml.bag @ 12 UNITS/KG/HR 9.6 mls/hr IV .Q24H [facility] Rx#:[id number] Oral 450 Output: Urine 340 140 125 Other: Voiding Method Indwelling Catheter Indwelling Catheter Indwelling Catheter # Bowel Movements 0 1 ABP, PAP, CO, CI - Last Documented Arterial Blood Pressure 108/42 - Exam GENERAL EXAM: Patient is seemed to be alert and oriented HEENT: Normocephalic. Normal reaction of pupils, equal size, normal range of extraocular motion. No erythema or exudates in the throat. NECK: No masses, no nuchal rigidity. CHEST: No chest wall deformity. LUNGS: Equal air entry with no crackles or wheeze. HEART: S1 and S2 normal with no audible mumurs or gallops. Regular rhythm, femorals equal on both sides.. ABDOMEN: No hepatosplenomegaly, normal bowel sounds, no guarding or rigidity. SKIN: No rashes CENTRAL NERVOUS SYSTEM: No focal deficits. EXTREMITIES: No cyanosis, clubbing or edema. - Labs CBC & Chem 7: 06/27/19 04:25 06/27/19 09:45 Labs: Abnormal Lab Results - Last 24 Hours (Table) 06/26/19 06/26/19 06/26/19 Range/Units 09:55 09:55 15:05 WBC (3.8-10.6) k/uL RBC (3.80-5.40) m/uL Hgb (11.4-16.0) gm/dL Hct (34.0-46.0) % Neutrophils # (1.3-7.7) k/uL APTT >200.0 H* (22.0-30.0) sec Sodium 132 L 130 L (137-145) mmol/L Carbon Dioxide (22-30) mmol/L BUN (7-17) mg/dL Creatinine (0.52-1.04) mg/dL Glucose (74-99) mg/dL Calcium (8.4-10.2) mg/dL 06/26/19 06/26/19 06/27/19 Range/Units 18:45 20:47 00:48 WBC (3.8-10.6) k/uL RBC (3.80-5.40) m/uL Hgb (11.4-16.0) gm/dL Hct (34.0-46.0) % Neutrophils # (1.3-7.7) k/uL APTT 173.5 H* (22.0-30.0) sec Sodium 127 L 128 L (137-145) mmol/L Carbon Dioxide (22-30) mmol/L BUN (7-17) mg/dL Creatinine (0.52-1.04) mg/dL Glucose (74-99) mg/dL Calcium (8.4-10.2) mg/dL 06/27/19 06/27/19 06/27/19 Range/Units 02:31 04:25 04:25 WBC 13.5 H (3.8-10.6) k/uL RBC 3.19 L (3.80-5.40) m/uL Hgb 9.8 L (11.4-16.0) gm/dL Hct 27.9 L (34.0-46.0) % Neutrophils # 11.7 H (1.3-7.7) k/uL APTT 43.1 H (22.0-30.0) sec Sodium 128 L (137-145) mmol/L Carbon Dioxide 18 L (22-30) mmol/L BUN 25 H (7-17) mg/dL Creatinine 1.33 H (0.52-1.04) mg/dL Glucose 170 H (74-99) mg/dL Calcium 8.1 L (8.4-10.2) mg/dL 06/27/19 06/27/19 Range/Units 09:45 09:45 WBC (3.8-10.6) k/uL RBC (3.80-5.40) m/uL Hgb (11.4-16.0) gm/dL Hct (34.0-46.0) % Neutrophils # (1.3-7.7) k/uL APTT 140.8 H* (22.0-30.0) sec Sodium 128 L (137-145) mmol/L Carbon Dioxide (22-30) mmol/L BUN (7-17) mg/dL Creatinine (0.52-1.04) mg/dL Glucose (74-99) mg/dL Calcium (8.4-10.2) mg/dL Assessment and Plan (1) History of fall Current Visit: Yes Status: Acute Code(s): Z91.81 - HISTORY OF FALLING SNOMED Code(s): 020555057 (2) Atrial fibrillation with RVR Current Visit: Yes Status: Acute Code(s): I48.91 - UNSPECIFIED ATRIAL FI BRILLATION SNOMED Code(s): 044190552795530 (3) Agitation Current Visit: Yes Status: Acute Code(s): R45.1 - RESTLESSNESS AND AGITATION SNOMED Code(s): 167381717 (4) Hyponatremia Current Visit: Yes Status: Acute Code(s): E87.1 - HYPO-OSMOLALITY AND HYPON ATREMIA SNOMED Code(s): 40961773 Plan: Patient is on IV amiodarone for rate control. Patient is off beta petr because of low blood pressure. Chest x-ray doesn't show any congestive heart failure. Complaining of some right sided leg pain which is being addressed by orthopedics.
[2019-06-27] MEDS: HYDROcodone/APAP 5-325MG 1 EACH TAB PO PRN (11:17)
--- NOTE | 2019-06-27 11:38 | XR ---
EXAMINATION TYPE: XR chest 1V portable DATE OF EXAM: 06/27/2019 COMPARISON: 06/26/2019 INDICATION: Short of breath TECHNIQUE: Single frontal view of the chest is obtained. FINDINGS: The heart size is borderline in size. The pulmonary vasculature is normal. The lungs are clear. Left central venous catheter is present with tip in the distal superior vena cava region. No pneumoth orax is evident. IMPRESSION: 1. No acute pulmonary process.
--- NOTE | 2019-06-27 11:49 | P.PN ---
Subjective Progress Note Date: 06/27/19 Principal diagnosis: Left ankle bimalleolar fracture Patient is evaluated today in the ICU unit. Mental status has continued to improve. Her sodium remains very low at this time. Family and patient did note that she has some discomfort involving the right anterior thigh. No recent trauma since the fall in the hospital which resulted in the ankle fracture. She remains in the posterior splint at this time. Objective - Vital Signs Vital signs: Vital Signs Temp 97.9 F 06/27/19 08:00 Pulse 70 06/27/19 11:00 Resp 10 L 06/27/19 11:00 BP 111/38 06/26/19 11:00 Pulse Ox 99 06/27/19 11:00 Intake & Output 06/26/19 06/27/19 06/27/19 18:59 06:59 18:59 Intake Total 1735.007 633.04 593.267 Output Total 340 140 155 Balance 1395.007 493.04 438.267 Weight 79.4 kg Intake: IV 1200 600 15 0.9 80 Lactated Ringers 1,000 ml 200 20 @ 20 mls/hr IV .Q24H [facility] Rx#:[id number] Sodium Chloride 0.9% 500 1000 ml 500 ml @ 999 mls/hr IV .Q31M [facility] Rx#:[id number] Sodium Chloride 0.9% 500 500 ml 500 ml @ 999 mls/hr IV .Q31M [facility] Rx#:[id number] Sodium Chloride 3%( 0 Hypertonic) 500 ml @ 15 mls/hr IV .Q24H [facility] Rx#: [id number] Sodium Chloride 3%( 15 Hypertonic) 500 ml @ 15 mls/hr IV .Q24H [facility] Rx#: [id number] Intake, IV Titration 85.007 33.04 228.267 Amount Amiodarone 360 mg In 200 Dextrose 5% in Water 200 ml @ 1 MG/MIN 33.333 mls/ hr IV .Q6H [facility] Rx#: [id number] Diltiazem 125 mg In 9.167 Sodium Chloride 0.9% 100 ml @ 10 MG/HR 10 mls/hr IV .[id number] [facility] Rx#: [id number] Heparin Sod,Pork in 0.45% 75.84 33.04 28.267 NaCl 25,000 unit In 0.45 % NaCl 1 250ml.bag @ 12 UNITS/KG/HR 9.6 mls/hr IV .Q24H [facility] Rx#:[id number] Oral 450 350 Output: Urine 340 140 155 Other: Voiding Method Indwelling Catheter Indwelling Catheter Indwelling Catheter # Bowel Movements 0 1 ABP, PAP, CO, CI - Last Documented Arterial Blood Pressure 99/46 - Exam Left lower extremity: Posterior splint is in good position and condition. Splint was removed periodically to examine skin, ecchymosis present in both medial and lateral aspects of the ankle along with soft tissue swelling. No obvious skin breakdown note. Dorsal pedis pulses 2+ Right lower extremity: No obvious open lesions or sores present on the right upper leg, no areas of ecchymosis or soft tissue swelling. Logroll maneuver the hip reproduces no pain. Palpation of the area reproduces no significant discomfort. Calf is soft, no tenderness with palpation. Sensory exam to light touch is intact throughout extremity - Labs CBC & Chem 7: 06/27/19 04:25 06/27/19 09:45 Labs: Abnormal Lab Results - Last 24 Hours (Table) 06/26/19 06/26/19 06/26/19 Range/Units 15:05 18:45 20:47 WBC (3.8-10.6) k/uL RBC (3.80-5.40) m/uL Hgb (11.4-16.0) gm/dL Hct (34.0-46.0) % Neutrophils # (1.3-7.7) k/uL APTT 173.5 H* (22.0-30.0) sec Sodium 130 L 127 L (137-145) mmol/L Carbon Dioxide (22-30) mmol/L BUN (7-17) mg/dL Creatinine (0.52-1.04) mg/dL Glucose (74-99) mg/dL Calcium (8.4-10.2) mg/dL 06/27/19 06/27/19 06/27/19 Range/Units 00:48 02:31 04:25 WBC 13.5 H (3.8-10.6) k/uL RBC 3.19 L (3.80-5.40) m/uL Hgb 9.8 L (11.4-16.0) gm/dL Hct 27.9 L (34.0-46.0) % Neutrophils # 11.7 H (1.3-7.7) k/uL APTT 43.1 H (22.0-30.0) sec Sodium 128 L (137-145) mmol/L Carbon Dioxide (22-30) mmol/L BUN (7-17) mg/dL Creatinine (0.52-1.04) mg/dL Glucose (74-99) mg/dL Calcium (8.4-10.2) mg/dL 06/27/19 06/27/19 06/27/19 Range/Units 04:25 09:45 09:45 WBC (3.8-10.6) k/uL RBC (3.80-5.40) m/uL Hgb (11.4-16.0) gm/dL Hct (34.0-46.0) % Neutrophils # (1.3-7.7) k/uL APTT 140.8 H* (22.0-30.0) sec Sodium 128 L 128 L (137-145) mmol/L Carbon Dioxide 18 L (22-30) mmol/L BUN 25 H (7-17) mg/dL Creatinine 1.33 H (0.52-1.04) mg/dL Glucose 170 H (74-99) mg/dL Calcium 8.1 L (8.4-10.2) mg/dL Assessment and Plan Plan: Assessment: 1. Displaced left ankle bimalleolar fracture 2. Status post fall 3. Right leg pain 4. Other medical comorbidities Plan: Continue use of the posterior splint, icing and elevating often Nonweightbearing Plan for surgical intervention when medically stable With regards to pain involving the right leg, x-rays were ordered Time with Patient: Less than 30
--- NOTE | 2019-06-27 11:51 | P.PN ---
Subjective This is a pleasant 83 years old female with past medical history of atrial fibrillation on warfarin and metoprolol on admission, history of hypertension. She presents with fall and left ankle fracture, found to have metabolic encephalopathy or altered mental status and hyponatremia secondary to SIADH. Patient has been followed by several consultants including pulmonary/critical care team, neurology, nephrology and cardiology. Orthopedic team are planning to do open reduction for her ankle fracture was she is medically stable and INR down. Patient today he is in the ICU, lying in bed fully awake however she looks lethargic. Blood pressure on the low-normal signed 99/46, she was getting normal saline boluses while monitoring her sodium level, metoprolol is on hold and she didn't get it for the last few days, also patient does not seem in pain and she having used her Morrow and Dilaudid for 2 days. However her blood pressure sore on the low side and medial drain has been added. Was team are following the case and managing her sodium closely, she is status post hypertonic saline 3% and on 06/26/2019 she got a dose of Tolvaptan. Also patient is on heparin drip while Coumadin is on hold. Labs showing WBC of 13.5 K hemoglobin is 10.8, sodium is 128 today on several occasions, creatinine is elevated at 1.3. U Scar UA is negative Review of systems CONSTITUTIONAL: No fever HEENT: No recent visual problems or hearing problems. Denied any sore throat. CARDIOVASCULAR: No orthopnea, PND, no palpitations, no syncope. PULMONARY:no hemoptysis. GASTROINTESTINAL: Normoactive bowel sounds. NEUROLOGICAL: No headaches,no numbness. HEMATOLOGICAL: Denies any bleeding or petechiae. GENITOURINARY: Denies any burning micturition, frequency, or urgency. MUSCULOSKELETAL/RHEUMATOLOGICAL: Denies any joint pain, swelling, or any muscle pain. ENDOCRINE: Denies any polyuria or polydipsia. Active Medications Generic Name Dose Route Start Last Admin Trade Name Freq PRN Reason Stop Dose Admin Hydrocodone Bitart/Acetaminophen 1 each 06/21/19 18:06 06/27/19 11:17 Morrow 5-325 PO 1 each Q4H PRN Administration MILD TO MODERATE Pain Docusate Sodium 100 mg 06/22/19 11:03 06/27/19 10:47 Colace PO 100 mg DAILY PRN Administration Constipation Heparin Sodium (Porcine) 0 unit 06/25/19 09:00 06/27/19 03:40 Heparin IV 1,983 unit PER PROTOCOL PRN Administration Low PTT Protocol Hydromorphone HCl 0.5 mg 06/21/19 16:20 06/22/19 13:36 Dilaudid IVP 0.5 mg Q6HR PRN Administration SEVERE Pain Heparin Sodium/Sodium Chloride 250 mls @ 9.6 mls/hr 06/25/19 09:00 06/27/19 10:45 25,000 unit/ Sodium Chloride IV 0 units/kg/hr .Q24H [facility] 0 mls/hr Titration Protocol 12 UNITS/KG/HR Norepinephrine Bitartrate 4 mg 254 mls @ 15.107 mls/hr 06/26/19 15:15 06/27/19 08:14 / Sodium Chloride IV Not Given .[id number] [facility] Protocol 0.05 MCG/KG/MIN Amiodarone HCl 300 mg/ 250 mls @ 25 mls/hr 06/27/19 08:15 06/27/19 08:45 Dextrose/Water IV 06/28/19 02:14 0.5 mg/min .Q10H [facility] 25 mls/hr Administration Protocol 0.5 MG/MIN Lidocaine HCl 0.1 ml 06/24/19 19:12 .Xylocaine 1% Inj (10mg/Ml) For Iv Start INTRADERMA PER PROTOCOL PRN IV Start Metoprolol Tartrate 50 mg 06/23/19 21:00 06/27/19 10:40 Lopressor PO Not Given BID [facility] Midodrine 10 mg 06/26/19 17:30 06/27/19 08:10 Proamatine PO 10 mg AC-TID [facility] Administration Naloxone HCl 0.2 mg 06/24/19 11:31 Narcan IV Q2M PRN Opioid Reversal Pantoprazole Sodium 40 mg 06/25/19 09:00 06/27/19 08:49 Protonix IVP 40 mg DAILY [facility] Administration Objective - Vital Signs Vital signs: Vital Signs Temp 97.9 F 06/27/19 08:00 Pulse 70 06/27/19 11:00 Resp 10 L 06/27/19 11:00 BP 111/38 06/26/19 11:00 Pulse Ox 99 06/27/19 11:00 Intake & Output 0906/27/19 06/27/19 18:59 06:59 18:59 Intake Total 1735.007 633.04 593.267 Output Total 340 140 155 Balance 1395.007 493.04 438.267 Weight 79.4 kg Intake: IV 1200 600 15 0.9 80 Lactated Ringers 1,000 ml 200 20 @ 20 mls/hr IV .Q24H [facility] Rx#:[id number] Sodium Chloride 0.9% 500 1000 ml 500 ml @ 999 mls/hr IV .Q31M [facility] Rx#:[id number] Sodium Chloride 0.9% 500 500 ml 500 ml @ 999 mls/hr IV .Q31M [facility] Rx#:[id number] Sodium Chloride 3%( 0 Hypertonic) 500 ml @ 15 mls/hr IV .Q24H [facility] Rx#: [id number] Sodium Chloride 3%( 15 Hypertonic) 500 ml @ 15 mls/hr IV .Q24H [facility] Rx#: [id number] Intake, IV Titration 85.007 33.04 228.267 Amount Amiodarone 360 mg In 200 Dextrose 5% in Water 200 ml @ 1 MG/MIN 33.333 mls/ hr IV .Q6H [facility] Rx#: [id number] Diltiazem 125 mg In 9.167 Sodium Chloride 0.9% 100 ml @ 10 MG/HR 10 mls/hr IV .[id number] [facility] Rx#: [id number] Heparin Sod,Pork in 0.45% 75.84 33.04 28.267 NaCl 25,000 unit In 0.45 % NaCl 1 250ml.bag @ 12 UNITS/KG/HR 9.6 mls/hr IV .Q24H [facility] Rx#:[id number] Oral 450 350 Output: Urine 340 140 155 Other: Voiding Method Indwelling Catheter Indwelling Catheter Indwelling Catheter # Bowel Movements 0 1 ABP, PAP, CO, CI - Last Documented Arterial Blood Pressure 99/46 - Labs CBC & Chem 7: 06/27/19 04:25 06/27/19 09:45 Labs: Abnormal Lab Results - Last 24 Hours (Table) 06/26/19 06/26/19 06/26/19 Range/Units 15:05 18:45 20:47 WBC (3.8-10.6) k/uL RBC (3.80-5.40) m/uL Hgb (11.4-16.0) gm/dL Hct (34.0-46.0) % Neutrophils # (1.3-7.7) k/uL APTT 173.5 H* (22.0-30.0) sec Sodium 130 L 127 L (137-145) mmol/L Carbon Dioxide (22-30) mmol/L BUN (7-17) mg/dL Creatinine (0.52-1.04) mg/dL Glucose (74-99) mg/dL Calcium (8.4-10.2) mg/dL 06/27/19 06/27/19 06/27/19 Range/Units 00:48 02:31 04:25 WBC 13.5 H (3.8-10.6) k/uL RBC 3.19 L (3.80-5.40) m/uL Hgb 9.8 L (11.4-16.0) gm/dL Hct 27.9 L (34.0-46.0) % Neutrophils # 11.7 H (1.3-7.7) k/uL APTT 43.1 H (22.0-30.0) sec Sodium 128 L (137-145) mmol/L Carbon Dioxide (22-30) mmol/L BUN (7-17) mg/dL Creatinine (0.52-1.04) mg/dL Glucose (74-99) mg/dL Calcium (8.4-10.2) mg/dL 06/27/19 06/27/19 06/27/19 Range/Units 04:25 09:45 09:45 WBC (3.8-10.6) k/uL RBC (3.80-5.40) m/uL Hgb (11.4-16.0) gm/dL Hct (34.0-46.0) % Neutrophils # (1.3-7.7) k/uL APTT 140.8 H* (22.0-30.0) sec Sodium 128 L 128 L (137-145) mmol/L Carbon Dioxide 18 L (22-30) mmol/L BUN 25 H (7-17) mg/dL Creatinine 1.33 H (0.52-1.04) mg/dL Glucose 170 H (74-99) mg/dL Calcium 8.1 L (8.4-10.2) mg/dL Assessment and Plan Assessment: Hyponatremia secondary to SIADH Left ankle fracture, going for surgery once medically stable A. fib and RVR, currently heart rate is controlled. Coumadin is in hold and patient on heparin drip Acute kidney injury Hypotension, status post several boluses of normal saline Plan: This is a pleasant 83 years old male with left fracture and hyponatremia. Continue with the drain and fluid boluses as needed. Patient is followed by several consultants including critical care, neurologist, patient support associate, chemical unit operator in orthopedic team. Still needs to monitor her sodium closely, monitor blood pressure, continue with medial drain. Hold metoprolol, norco and Dilaudid. Continue with fluid restriction. Monitor glucose sites and INR. Patient will need surgical fixation of her left ankle fracture once she is medically stable. Labs and medication were reviewed.. Continue same treatment. Continue with symptomatic treatment. Resume home medication. Monitor lytes and vitals. DVT and GI prophylaxis. Further recommendations of the clinical course of the patient DVT prophylaxis: heparin GI Prophylaxis: protnix Prognosis is guarded
--- NOTE | 2019-06-27 13:46 | XR ---
EXAMINATION TYPE: XR femur RT DATE OF EXAM: 06/27/2019 COMPARISON: NONE HISTORY: Pain, fall TECHNIQUE: 2 view right femur FINDINGS: Right hip appears normal. Right knee has moderate degenerative change. No acute fractures a re evident. IMPRESSION: 1. No acute osseous abnormality. 2. Moderate degenerative changes right knee
--- NOTE | 2019-06-27 13:47 | P.PN ---
Subjective Progress Note Date: 06/27/19 This is a 83-year-old white female who came into the hospital on 06/21/2019 complaining of pain in her left buttock, and patient apparently started hurting after a recent fall. Patient was in significant amount of discomfort, and was admitted for pain control, range of motion of the hip and knee was not affected, the patient had some local tenderness over the left buttock at the mid sacral area. Patient apparently had computed tomography scan and x-rays done at the [facility] which did not show any fracture of the hip or pelvis. Patient's past medical history is that of hypertension, paroxysmal atrial fibrillation on Coumadin, with past history of cardioversion. Apparently vera merida went into A. fib with RVR, and was admitted to the cardiac stepdown floor and started on Cardizem drip for rate control. Her admission blood work showed serum sodium of 125, which was down to 117, and the patient was initiated on fluid restriction, and started on 3% hypertonic saline and transferred to the intensive care unit. Her INR today is 3.1, white blood cell count was 13.7, troponin was negative 1, LFTs were within normal limits, serum osmolality was 252, urine osmolality was 824, random urine sodium was 63. Patient has had no fever or chills, no complaints of shortness of breath or chest pain, no leg swelling, no hip pain, no lightheadedness dizziness. Patient has been ambu lating with a walker however her gait is unsteady, and during her hospital stay patient apparently sustained another fall resulting in injury of her left lower extremity, with x-rays showing significant left ankle fracture for which an orthopedic consultation was requested. Patient has been transferred to the intensive care unit for close monitoring, in view of her hyponatremia with increasing confusion, nephrology is following, and 3% hypertonic sitting is infusing. We are consulted for critical care management On today's evaluation of 06/25/2019, the patient is still in intensive care unit . Unfortunately, the mental status continues to be altered and the patient had significant amount of agitation or restlessness and confusion yesterday. We decided not to give Haldol due to underlying hyponatremia. She received 1 dose of Ativan. We will continue the hypertonic saline infusion and patient's sodium gradually improved and currently is up to 126 and based on his correction the hypertonic saline was completely discontinued. This morning, the patient was mumbling, stating she sentences, unable to have a conversation or follow commands. She is confused and restless and somnolent. She was able to move all 4 extremities and withdraws to pain was diminished in all 4 extremities. Neurology consultation was requested. Note that the CAT scan of the brain was essentially negative. I discussed the case with neurologist. Based on his opinion, the abnormality seen on essentially metabolic in nature. Meanwhile, I ordered a CAT scan of the chest and abdomen and showed no acute abnormalities. No evidence of any intrathoracic or intra-abdominal masses to contribute for an underlying SIADH. The patient currently is afebrile. She is hemodynamically stable. Urine output is improved. She is on a Cardizem drip at the rate of 10 mg an hour for rate control. She is also on IV heparin regarding atrial fibrillation. Warfarin has been discontinued. On 06/26/2019 patient seen in follow-up in the intensive care unit, she is much more awake today, she is responding appropriately, she knows she is in the hospital, she knows her name, she knew her . Her sodium on today's labs is 132. Last night she was given some IV fluid boluses, a total of 1,5 liters of normal saline last night, an additional 500 mL this morning or hypotension and systolic in the 70s. Patient had a Triple-lumen central venous catheter placed, and her CVP is anywhere from 0-6. Blood pressure has improved, Cardizem drip has been discontinued, patient is in A. fib with RVR with a rate of 1:30 BPM, and she is being loaded with digoxin. His chest x-ray shows stable trace pleural effusions and a left-sided central venous catheter with some improvement in aeration of the left lung base. Echocardiogram showed EF of 50-55%, [id number] MR, mild tricuspid regurg, mild aortic stenosis, and moderate aortic regurgitation. His any chest pain, denies any shortness of breath, her marrow pulse ox is 99%, she is afebrile, she remains on heparin drip for anticoagulation. Denies any left lower extremity pain, which remains in the splint On 06/27/2019 I'm seeing this patient for a follow-up. Patient is awake and alert and following commands and answering questions. Mental status is appropriate. Sodium came up to 131 and subsequently dropped down to 128 as the patient was receiving boluses of normal saline for low CVP and hypotension. The patient currently is back on hypertonic saline at 3%. The patient also received a dose of Tolvaptan 15 mg and would awaiting a follow-up sodium level. The patient is doing well. She is in atrial fibrillation. The rate is controlled. She is on amiodarone drip at 0.5 mg per minute. She is also on metoprolol for rate control. No pressors for now. The patient is on IV heparin for now for anticoagulation. Warfarin has been kept on hold. No pain. No other complaints otherwise for now. The left lower extremity still placed in a splint and she will ultimately need a surgery regarding the ankle fracture. Echo was noted and the patient has mild aortic stenosis, moderate aortic regurgitation, ejection fraction of around 50-55% and the patient has mild to moderate MR. Objective - Vital Signs Vital signs: Vital Signs Temp 97.8 F 06/27/19 12:00 Pulse 98 06/27/19 13:00 Resp 15 06/27/19 13:00 BP 111/38 06/26/19 11:00 Pulse Ox 98 06/27/19 13:00 Intake & Output 06/26/19 06/27/19 06/27/19 18:59 06:59 18:59 Intake Total 1735.007 633.04 793.267 Output Total 340 140 255 Balance 1395.007 493.04 538.267 Weight 79.4 kg 79.4 kg Intake: IV 1200 600 15 0.9 80 Lactated Ringers 1,000 ml 200 20 @ 20 mls/hr IV .Q24H [facility] Rx#:[id number] Sodium Chloride 0.9% 500 1000 ml 500 ml @ 999 mls/hr IV .Q31M [facility] Rx#:[id number] Sodium Chloride 0.9% 500 500 ml 500 ml @ 999 mls/hr IV .Q31M [facility] Rx#:[id number] Sodium Chloride 3%( 0 Hypertonic) 500 ml @ 15 mls/hr IV .Q24H [facility] Rx#: [id number] Sodium Chloride 3%( 15 Hypertonic) 500 ml @ 15 mls/hr IV .Q24H [facility] Rx#: [id number] Intake, IV Titration 85.007 33.04 228.267 Amount Amiodarone 360 mg In 200 Dextrose 5% in Water 200 ml @ 1 MG/MIN 33.333 mls/ hr IV .Q6H [facility] Rx#: [id number] Diltiazem 125 mg In 9.167 Sodium Chloride 0.9% 100 ml @ 10 MG/HR 10 mls/hr IV .[id number] [facility] Rx#: [id number] Heparin Sod,Pork in 0.45% 75.84 33.04 28.267 NaCl 25,000 unit In 0.45 % NaCl 1 250ml.bag @ 12 UNITS/KG/HR 9.6 mls/hr IV .Q24H [facility] Rx#:[id number] Oral 450 550 Output: Urine 340 140 255 Other: Voiding Method Indwelling Catheter Indwelling Catheter Indwelling Catheter # Voids 1 # Bowel Movements 0 1 ABP, PAP, CO, CI - Last Documented Arterial Blood Pressure 106/48 - Exam GENERAL EXAM: Alert, pleasant, 83-year-old white female, on room air, with a pulse ox of 99% comfortable in no apparent distress. HEAD: Normocephalic/atraumatic. EYES: Normal reaction of pupils, equal size. Conjunctiva pink, sclera white. NOSE: Clear with pink turbinates. THROAT: No erythema or exudates. NECK: No masses, no JVD, no thyroid enlargement, no adenopathy. CHEST: No chest wall deformity. Symmetrical expansion. LUNGS: Equal air entry with no crackles, wheeze, rhonchi or dullness. CVS: Irregular rate and rhythm, irregular S1-S2 consistent with atrial fibrillation the rate is controlled for now. ABDOMEN: Soft, nontender. No hepatosplenomegaly, normal bowel sounds, no guarding or rigidity. EXTREMITIES: No clubbing, no cyanosis, 2+ pulses and upper and lower ext remities. Mild edema and ecchymosis in the left ankle, left ankle is immobilized with a splint and an arnie wrap MUSCULOSKELETAL: Muscle strength and tone normal. SPINE: No scoliosis or deformity SKIN: No rashes CENTRAL NERVOUS SYSTEM: Alert and oriented -3. No focal deficits, tone is normal in all 4 extremities. PSYCHIATRIC: Alert and oriented -3. Appropriate affect. Intact judgment and insight. - Labs CBC & Chem 7: 06/27/19 04:25 06/27/19 09:45 Labs: Abnormal Lab Results - Last 24 Hours (Table) 06/26/19 06/26/19 06/26/19 Range/Units 15:05 18:45 20:47 WBC (3.8-10.6) k/uL RBC (3.80-5.40) m/uL Hgb (11.4-16.0) gm/dL Hct (34.0-46.0) % Neutrophils # (1.3-7.7) k/uL APTT 173.5 H* (22.0-30.0) sec Sodium 130 L 127 L (137-145) mmol/L Carbon Dioxide (22-30) mmol/L BUN (7-17) mg/dL Creatinine (0.52-1.04) mg/dL Glucose (74-99) mg/dL Calcium (8.4-10.2) mg/dL 06/27/19 06/27/19 06/27/19 Range/Units 00:48 02:31 04:25 WBC 13.5 H (3.8-10.6) k/uL RBC 3.19 L (3.80-5.40) m/uL Hgb 9.8 L (11.4-16.0) gm/dL Hct 27.9 L (34.0-46.0) % Neutrophils # 11.7 H (1.3-7.7) k/uL APTT 43.1 H (22.0-30.0) sec Sodium 128 L (137-145) mmol/L Carbon Dioxide (22-30) mmol/L BUN (7-17) mg/dL Creatinine (0.52-1.04) mg/dL Glucose (74-99) mg/dL Calcium (8.4-10.2) mg/dL 06/27/19 06/27/19 06/27/19 Range/Units 04:25 09:45 09:45 WBC (3.8-10.6) k/uL RBC (3.80-5.40) m/uL Hgb (11.4-16.0) gm/dL Hct (34.0-46.0) % Neutrophils # (1.3-7.7) k/uL APTT 140.8 H* (22.0-30.0) sec Sodium 128 L 128 L (137-145) mmol/L Carbon Dioxide 18 L (22-30) mmol/L BUN 25 H (7-17) mg/dL Creatinine 1.33 H (0.52-1.04) mg/dL Glucose 170 H (74-99) mg/dL Calcium 8.1 L (8.4-10.2) mg/dL Assessment and Plan Plan: 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 The patient is on fluid restriction. Patient's sodium was stephen and came up to 131 and then dropped to 128. She received Samsca and currently she is on hypertonic saline infusion to correct her sodium level. The level will be monitored within next hour or so. The patient has no cause for her underlying SIADH. Cancer workup including the CAT scan of the chest abdomen and pelvis came back negative. No signs of any hypothyroidism. No drug induced SIADH. 2 encephalopathy essentially to metabolic causes which recovered. 3 chronic atrial fibrillation currently on IV heparin 4 recurrent falls with a fracture of the left ankle and the patient has a bimalleolar fracture in the left ankle. 5 hypertension 6 normocytic anemia 7 acute kidney injury probably related to hypotension in the creatinine is up to 1.3. Nephritis on the case. The patient's urine output is improved since PLAN Correction of sodium per nephrology. Monitor renal function. Mental status is improved. Management of atrial fibrillation. The patient may potentially switch to oral amiodarone and a lower dose metoprolol. This was discussed with cardiology. Continue IV heparin. We'll continue to follow.
[2019-06-27] MEDS: HEPARIN SOD,PORK IN 0.45% NACL 25,000 UNIT in 0.45% NACL 1 250ML.BAG IV SCH (16:15)
[2019-06-27] MEDS: SODIUM CHLORIDE 3%(HYPERTONIC) 500 ML IV SCH (17:15)
--- NOTE | 2019-06-27 17:34 | PN ---
PROGRESS NOTE Patient is seen for followup for hyponatremia which is secondary to SIADH. Patient was quite encephalopathic. She was maintained on 3% saline. Over the last couple of days, sodium has increased. It had gone up to 132; however, patient had become hypotensive and needed multiple normal saline boluses, following which patient's sodium dropped again. She has received tolvaptan over the last 3 days which did help with the hyponatremia. Patient received a dose last night and I will give her another dose this morning. Her mentation has improved significantly. Overnight urine output was low and her serum creatinine is noted to have increased from 0.7 to 1.3 mg/dL this morning. On examination today, blood pressure was 99/44 this morning, heart rate of 80 per minute. Patient is afebrile. EXAMINATION OF THE HEART: S1 and S2. EXAMINATION OF LUNGS: Bilateral breath sounds are heard. ABDOMEN: Soft, non-tender. Examination of lower extremities shows trace edema bilaterally. Patient has a fracture in the left lower extremity and it is currently wrapped. Labs show sodium 128, potassium 4.6. Hemoglobin was 9.8 g/dL. ASSESSMENT: 1. Hyponatremia secondary to syndrome of inappropriate antidiuretic hormone, status post tolvaptan. Repeat another dose this morning. Minimize IV fluids. Maintain high-protein intake. Repeat sodium this evening. 2. Acute kidney injury secondary to hypotension, hypoperfusion. Patient's CVP was low as well. Patient has received fluid boluses. Urine output seems to have picked up slightly. 3. Encephalopathy secondary to hyponatremia, now improved. 4. Left lower extremity fracture; surgery postponed until patient is stable. PLAN: Repeat sodium later today. Repeat a dose of tolvaptan. We will try to minimize IV fluids. Patient is encouraged to increase protein intake. MMODL / IJN: [id number] /
--- NOTE | 2019-06-27 18:31 | PN ---
PROGRESS NOTE ADDENDUM TO PROGRESS NOTE: Patient's repeat sodium did come down to 126. She has been started on amiodarone which is based in D5W and I believe this is the reason why her sodium has dropped again. At this time patient needs the amiodarone. We will ask Pharmacy if it can be made in saline. Otherwise, I will start the patient back on 3% saline. She has received her Samsca today. We may repeat another dose this evening, based on her repeat sodium levels. MMODL / IJN: [id number] /
[2019-06-27] MEDS ORDERED: FUROSEMIDE 10 MG/ML 4 ML VIAL IV STA (22:10)
[2019-06-28] MEDS: NOREPINEPHRINE 4 MG in SODIUM CHLORIDE 0.9% 250 ML IV SCH ×2 (00:19→10:15)
[2019-06-28] MEDS: AMIODARONE 300 MG in DEXTROSE 5% IN WATER 250 ML IV SCH ×4 (00:37→05:09)
[2019-06-28] MEDS: HYDROcodone/APAP 5-325MG 1 EACH TAB PO PRN (02:14)
[2019-06-28 04:39] LABS: Basophils % (A) 0 %; Eosinophils # (A) 0.2 k/uL (0-0.7); Eosinophils % (A) 1 %; HCT 25.9 % (34.0-46.0); Lymphocytes # (A) 1.8 k/uL (1.0-4.8); Lymphocytes % (A) 11 %; MCH 30.6 pg (25.0-35.0); MCHC 34.8 g/dL (31.0-37.0); MCV 87.8 fL (80.0-100.0); Mean Platelet Volume 7.5; Monocytes # (A) 0.9 k/uL (0-1.0); Monocytes % (A) 5 %; Neutrophils # (A) 14.2 k/uL (1.3-7.7); Neutrophils % (A) 82 %; Platelet Count 273 k/uL (150-450); RBC 2.95 m/uL (3.80-5.40); RDW 15.2 % (11.5-15.5); WBC 17.5 k/uL (3.8-10.6)
[2019-06-28 04:52] LABS: Calcium 8.2 mg/dL (8.4-10.2); Potassium 4.4 mmol/L (3.5-5.1)
[2019-06-28] MEDS: MIDODRINE 5 MG TAB PO SCH ×3 (09:20→17:58)
[2019-06-28] MEDS: PANTOPRAZOLE 40 MG/10 ML VIAL IVP SCH (09:21)
--- NOTE | 2019-06-28 11:00 | P.PN ---
Subjective Progress Note Date: 06/28/19 Principal diagnosis: Left ankle bimalleolar fracture Patient is evaluated today in the ICU unit. X-rays were reviewed of the right lower extremity, negative for any acute fractures. Mental status is continued to remain stable, her sodium is been not significantly decreasing. Patient is still question 1 Surgilav and on her ankle. Objective - Vital Signs Vital signs: Vital Signs Temp 97.5 F L 06/28/19 04:00 Pulse 71 06/28/19 07:00 Resp 14 06/28/19 07:00 BP 111/38 06/26/19 11:00 Pulse Ox 98 06/28/19 07:00 Intake & Output 06/27/19 06/28/19 06/28/19 18:59 06:59 18:59 Intake Total 1480.371 206.933 15 Output Total 360 1375 75 Balance 1120.371 -1168.067 -60 Weight 79.4 kg 79.2 kg Intake: IV 15 165 15 Sodium Chloride 3%( 15 165 15 Hypertonic) 500 ml @ 15 mls/hr IV .Q24H [facility] Rx#: [id number] Intake, IV Titration 515.371 41.933 Amount Amiodarone 300 mg In 246.25 Dextrose 5% in Water 250 ml @ 0.5 MG/MIN 25 mls/hr IV .Q10H [facility] Rx#: [id number] Amiodarone 360 mg In 200 Dextrose 5% in Water 200 ml @ 1 MG/MIN 33.333 mls/ hr IV .Q6H [facility] Rx#: [id number] Heparin Sod,Pork in 0.45% 39.121 26.933 NaCl 25,000 unit In 0.45 % NaCl 1 250ml.bag @ 12 UNITS/KG/HR 9.6 mls/hr IV .Q24H [facility] Rx#:[id number] Sodium Chloride 3%( 30 15 Hypertonic) 500 ml @ 15 mls/hr IV .Q24H [facility] Rx#: [id number] Oral 950 Output: Urine 360 1375 75 Other: Voiding Method Indwelling Catheter Indwelling Catheter # Voids 1 ABP, PAP, CO, CI - Last Documented Arterial Blood Pressure 106/44 - Exam Left lower extremity: Posterior splint is in good position and condition. Dorsal pedis pulses 2+ - Labs CBC & Chem 7: 06/28/19 04:30 06/28/19 09:15 Labs: Abnormal Lab Results - Last 24 Hours (Table) 06/27/19 06/27/19 06/27/19 Range/Units 16:11 17:55 20:55 WBC (3.8-10.6) k/uL RBC (3.80-5.40) m/uL Hgb (11.4-16.0) gm/dL Hct (34.0-46.0) % Neutrophils # (1.3-7.7) k/uL APTT 38.1 H (22.0-30.0) sec Sodium 126 L 127 L (137-145) mmol/L Carbon Dioxide (22-30) mmol/L BUN (7-17) mg/dL Creatinine (0.52-1.04) mg/dL Glucose (74-99) mg/dL Calcium (8.4-10.2) mg/dL 06/28/19 06/28/19 06/28/19 Range/Units 00:30 00:30 04:30 WBC 17.5 H (3.8-10.6) k/uL RBC 2.95 L (3.80-5.40) m/uL Hgb 9.0 L (11.4-16.0) gm/dL Hct 25.9 L (34.0-46.0) % Neutrophils # 14.2 H (1.3-7.7) k/uL APTT >200.0 H* (22.0-30.0) sec Sodium 127 L (137-145) mmol/L Carbon Dioxide (22-30) mmol/L BUN (7-17) mg/dL Creatinine (0.52-1.04) mg/dL Glucose (74-99) mg/dL Calcium (8.4-10.2) mg/dL 06/28/19 06/28/19 06/28/19 Range/Units 04:30 09:15 09:15 WBC (3.8-10.6) k/uL RBC (3.80-5.40) m/uL Hgb (11.4-16.0) gm/dL Hct (34.0-46.0) % Neutrophils # (1.3-7.7) k/uL APTT 49.3 H (22.0-30.0) sec Sodium 130 L 130 L (137-145) mmol/L Carbon Dioxide 21 L (22-30) mmol/L BUN 31 H (7-17) mg/dL Creatinine 1.66 H (0.52-1.04) mg/dL Glucose 131 H (74-99) mg/dL Calcium 8.2 L (8.4-10.2) mg/dL Assessment and Plan Plan: Assessment: 1. Displaced left ankle bimalleolar fracture 2. Status post fall 3. Right leg pain 4. Other medical comorbidities Plan: Continue use of the posterior splint, icing and elevating often Nonweightbearing Discussed the case with anesthesia today, she will be tentatively boarded for an ORIF of the left ankle for 06/29/2019. Appreciate other durable medical equipment repairer recommendations for surgical clearance. Time with Patient: Less than 30
[2019-06-28] MEDS: METOPROLOL TARTRATE 50 MG TAB PO SCH ×2 (11:02→22:05)
[2019-06-28] MEDS: AMIODARONE 200 MG TAB PO SCH ×2 (11:03→21:19)
--- NOTE | 2019-06-28 12:01 | P.PN ---
Subjective Progress Note Date: 06/28/19 Seen and examined for the follow-up of hyponatremia. Urine output picked up since last night after giving Lasix. No nausea vomiting diarrhea. Daughter at bedside. Sodium improved today. Objective - Vital Signs Vital signs: Vital Signs Temp 97.9 F 06/28/19 08:00 Pulse 100 06/28/19 11:00 Resp 15 06/28/19 11:00 BP 111/38 06/26/19 11:00 Pulse Ox 98 06/28/19 11:00 Intake & Output 06/27/19 06/28/19 06/28/19 18:59 06:59 18:59 Intake Total 1480.371 206.933 550 Output Total 360 1375 280 Balance 1120.371 -1168.067 270 Weight 79.4 kg 79.2 kg Intake: IV 15 165 33 0.9% Pressure Bag 18 Sodium Chloride 3%( 15 165 15 Hypertonic) 500 ml @ 15 mls/hr IV .Q24H [facility] Rx#: [id number] Intake, IV Titration 515.371 41.933 45 Amount Amiodarone 300 mg In 246.25 Dextrose 5% in Water 250 ml @ 0.5 MG/MIN 25 mls/hr IV .Q10H [facility] Rx#: [id number] Amiodarone 360 mg In 200 Dextrose 5% in Water 200 ml @ 1 MG/MIN 33.333 mls/ hr IV .Q6H [facility] Rx#: [id number] Heparin Sod,Pork in 0.45% 39.121 26.933 NaCl 25,000 unit In 0.45 % NaCl 1 250ml.bag @ 12 UNITS/KG/HR 9.6 mls/hr IV .Q24H [facility] Rx#:[id number] Sodium Chloride 3%( 30 15 45 Hypertonic) 500 ml @ 15 mls/hr IV .Q24H [facility] Rx#: [id number] Oral 950 472 Output: Urine 360 1375 280 Other: Voiding Method Indwelling Catheter Indwelling Catheter Indwelling Catheter # Voids 1 ABP, PAP, CO, CI - Last Documented Arterial Blood Pressure 116/41 - Exam No acute distress S1-S2 heard Lungs clear Trace edema - Labs CBC & Chem 7: 06/28/19 04:30 06/28/19 09:15 Labs: Abnormal Lab Results - Last 24 Hours (Table) 06/27/19 06/27/19 06/27/19 Range/Units 16:11 17:55 20:55 WBC (3.8-10.6) k/uL RBC (3.80-5.40) m/uL Hgb (11.4-16.0) gm/dL Hct (34.0-46.0) % Neutrophils # (1.3-7.7) k/uL APTT 38.1 H (22.0-30.0) sec Sodium 126 L 127 L (137-145) mmol/L Carbon Dioxide (22-30) mmol/L BUN (7-17) mg/dL Creatinine (0.52-1.04) mg/dL Glucose (74-99) mg/dL Calcium (8.4-10.2) mg/dL 06/28/19 06/28/19 06/28/19 Range/Units 00:30 00:30 04:30 WBC 17.5 H (3.8-10.6) k/uL RBC 2.95 L (3.80-5.40) m/uL Hgb 9.0 L (11.4-16.0) gm/dL Hct 25.9 L (34.0-46.0) % Neutrophils # 14.2 H (1.3-7.7) k/uL APTT >200.0 H* (22.0-30.0) sec Sodium 127 L (137-145) mmol/L Carbon Dioxide (22-30) mmol/L BUN (7-17) mg/dL Creatinine (0.52-1.04) mg/dL Glucose (74-99) mg/dL Calcium (8.4-10.2) mg/dL 06/28/19 06/28/19 06/28/19 Range/Units 04:30 09:15 09:15 WBC (3.8-10.6) k/uL RBC (3.80-5.40) m/uL Hgb (11.4-16.0) gm/dL Hct (34.0-46.0) % Neutrophils # (1.3-7.7) k/uL APTT 49.3 H (22.0-30.0) sec Sodium 130 L 130 L (137-145) mmol/L Carbon Dioxide 21 L (22-30) mmol/L BUN 31 H (7-17) mg/dL Creatinine 1.66 H (0.52-1.04) mg/dL Glucose 131 H (74-99) mg/dL Calcium 8.2 L (8.4-10.2) mg/dL Assessment and Plan Assessment: #1 hypotonic hypernatremia suspect hypovolemia. #2 acute kidney injury secondary to hypotension #3 encephalopathy resolved #4 left lower extremity fracture. Plan: #1 continue 3% today. #2 check BMP every 8 hours. #3 anticipate renal functions to improve by tomorrow.
--- NOTE | 2019-06-28 12:04 | PN ---
PROGRESS NOTE Mrs. Stark is an 83-year-old female who presented with pain in her left buttock after a fall. She has a prior history of atrial fibrillation, had atrial fibrillation with rapid ventricular response, had an episode of hyponatremia. She is feeling better today. She is awake, alert, oriented. Her sodium is better. She continues to be in atrial fibrillation with controlled response. She has no evidence of malignant arrhythmia. Her anticoagulation is on hold. She had an echocardiogram that showed preserved systolic function with ejection fraction 50% to 55% with moderate aortic regurgitation, mild to moderate mitral regurgitation. She continues to be at this time on IV amiodarone, heparin, metoprolol tartrate 50 mg twice a day. PHYSICAL EXAMINATION: Blood pressure 106/40 with a heart rate in the 70s. LUNGS: Clear anteriorly. HEART: Irregular irregular. S1, S2. No S3. No rub. ABDOMEN: Soft, nontender. EXTREMITIES: Trace to 1+ edema bilaterally. LAB DATA: BUN and creatinine of 31 and 1.66, worse than yesterday. Sodium is up to 130. Her hemoglobin is 9.0. IMPRESSION: 1. Fall with fracture. She was evaluated for surgery and that has been postponed because of the change in mental status. 2. Hyponatremia, improved. 3. Atrial fibrillation; rate under better control. 4. Acute renal injury. RECOMMENDATIONS: I will switch her to oral amiodarone. Continue the rest of her medical regimen. Will continue IV heparin for possibility of surgery. MMODL / IJN: [id number] /
--- NOTE | 2019-06-28 13:29 | P.PN ---
Subjective This is a pleasant 83 years old female with past medical history of atrial fibrillation on warfarin and metoprolol on admission, history of hypertension. She presents with fall and left ankle fracture, found to have metabolic encephalopathy or altered mental status and hyponatremia secondary to SIADH. Patient has been followed by several consultants including pulmonary/critical care team, neurology, nephrology and cardiology. Orthopedic team are planning to do open reduction for her ankle fracture was she is medically stable and INR down. Patient today he is in the ICU, lying in bed fully awake however she looks lethargic. Blood pressure on the low-normal signed 99/46, she was getting normal saline boluses while monitoring her sodium level, metoprolol is on hold and she didn't get it for the last few days, also patient does not seem in pain and she having used her [place] and Dilaudid for 2 days. However her blood pressure sore on the low side and medial drain has been added. Was team are following the case and managing her sodium closely, she is status post hypertonic saline 3% and on 06/26/2019 she got a dose of Tolvaptan. Also patient is on heparin drip while Coumadin is on hold. Labs showing WBC of 13.5 K hemoglobin is 10.8, sodium is 128 today on several occasions, creatinine is elevated at 1.3. U Scar UA is negative 06/28/2019 Patient is awake and alert, no new complaints. No chest pain or dyspnea. Her pain at the fracture site is minimal. Family at bedside and patient can recognize her daughter. WBC is trending up to 17.5 today. We going to repeat urine analysis. Chest x-ray from yesterday showing no acute process. Sodium today is stable at 130, while patient remains on 3% saline at 15 mL/h, also patient is started on Levophed at 0.05, she is on amiodarone and heparin drips as well for her irregular heart rate.. Orthopedic still pending medical. Metalsmith Helper switch her amiodarone to oral pills, while continue with heparin drip for possible date for surgery Review of systems CONSTITUTIONAL: No fever HEENT: No recent visual problems or hearing problems. Denied any sore throat. CARDIOVASCULAR: No orthopnea, PND, no palpitations, no syncope. PULMONARY:no hemoptysis. GASTROINTESTINAL: Normoactive bowel sounds. NEUROLOGICAL: No headaches,no numbness. HEMATOLOGICAL: Denies any bleeding or petechiae. GENITOURINARY: Denies any burning micturition, frequency, or urgency. MUSCULOSKELETAL/RHEUMATOLOGICAL: Denies any joint pain, swelling, or any muscle pain. ENDOCRINE: Denies any polyuria or polydipsia. Active Medications Generic Name Dose Route Start Last Admin Trade Name Freq PRN Reason Stop Dose Admin Hydrocodone Bitart/Acetaminophen 1 each 06/21/19 18:06 06/28/19 02:14 [place] 5-325 PO 1 each Q4H PRN Administration MILD TO MODERATE Pain Amiodarone HCl 400 mg 06/28/19 10:15 06/28/19 11:03 Cordarone PO 400 mg BID [facility]H Administration Docusate Sodium 100 mg 06/22/19 11:03 06/27/19 10:47 Colace PO 100 mg DAILY PRN Administration Constipation Heparin Sodium (Porcine) 0 unit 06/25/19 09:00 06/27/19 18:31 Heparin IV 4,000 unit PER PROTOCOL PRN Administration Low PTT Protocol Hydromorphone HCl 0.5 mg 06/21/19 16:20 06/22/19 13:36 Dilaudid IVP 0.5 mg Q6HR PRN Administration SEVERE Pain Heparin Sodium/Sodium Chloride 250 mls @ 9.6 mls/hr 06/25/19 09:00 06/28/19 02:17 25,000 unit/ Sodium Chloride IV 2 units/kg/hr .Q24H S[facility] 1.6 mls/hr Titration Protocol 12 UNITS/KG/HR Norepinephrine Bitartrate 4 mg 254 mls @ 15.107 mls/hr 06/26/19 15:15 06/28/19 10:15 / Sodium Chloride IV 0.05 mcg/kg/min .[id number] S[facility] 15.107 mls/hr Administration Protocol 0.05 MCG/KG/MIN Sodium Chloride (Hypertonic) 500 mls @ 15 mls/hr 06/27/19 17:30 06/27/19 17:15 Saline 3% (Hypertonic) IV 06/28/19 17:31 15 mls/hr .Q24H [facility] Administration Protocol Lidocaine HCl 0.1 ml 06/24/19 19:12 .Xylocaine 1% Inj (10mg/Ml) For Iv Start INTRADERMA PER PROTOCOL PRN IV Start Metoprolol Tartrate 50 mg 06/23/19 21:00 06/28/19 11:02 Lopressor PO Not Given BID SURESH Midodrine 10 mg 06/26/19 17:30 06/28/19 13:13 Proamatine PO 10 mg AC-TID S[facility] Administration Naloxone HCl 0.2 mg 06/24/19 11:31 Narcan IV Q2M PRN Opioid Reversal Pantoprazole Sodium 40 mg 06/25/19 09:00 06/28/19 09:21 Protonix IVP 40 mg DAILY SURESH Administration Objective - Vital Signs Vital signs: Vital Signs Temp 97.9 F 06/28/19 08:00 Pulse 100 06/28/19 11:00 Resp 15 06/28/19 11:00 BP 111/38 06/26/19 11:00 Pulse Ox 98 06/28/19 11:00 Intake & Output 06/27/19 06/28/19 06/28/19 18:59 06:59 18:59 Intake Total 1480.371 206.933 571 Output Total 360 1375 280 Balance 1120.371 -1168.067 291 Weight 79.4 kg 79.2 kg Intake: IV 15 165 39 0.9% Pressure Bag 24 Sodium Chloride 3%( 15 165 15 Hypertonic) 500 ml @ 15 mls/hr IV .Q24H [facility] Rx#: [id number] Intake, IV Titration 515.371 41.933 60 Amount Amiodarone 300 mg In 246.25 Dextrose 5% in Water 250 ml @ 0.5 MG/MIN 25 mls/hr IV .Q10H [facility] Rx#: [id number] Amiodarone 360 mg In 200 Dextrose 5% in Water 200 ml @ 1 MG/MIN 33.333 mls/ hr IV .Q6H [facility] Rx#: [id number] Heparin Sod,Pork in 0.45% 39.121 26.933 NaCl 25,000 unit In 0.45 % NaCl 1 250ml.bag @ 12 UNITS/KG/HR 9.6 mls/hr IV .Q24H [facility] Rx#:[id number] Sodium Chloride 3%( 30 15 60 Hypertonic) 500 ml @ 15 mls/hr IV .Q24H [facility] Rx#: [id number] Oral 950 472 Output: Urine 360 1375 280 Other: Voiding Method Indwelling Catheter Indwelling Catheter Indwelling Catheter # Voids 1 ABP, PAP, CO, CI - Last Documented Arterial Blood Pressure 116/41 - Labs CBC & Chem 7: 06/28/19 04:30 06/28/19 09:15 Labs: Abnormal Lab Results - Last 24 Hours (Table) 06/27/19 06/27/19 06/27/19 Range/Units 16:11 17:55 20:55 WBC (3.8-10.6) k/uL RBC (3.80-5.40) m/uL Hgb (11.4-16.0) gm/dL Hct (34.0-46.0) % Neutrophils # (1.3-7.7) k/uL APTT 38.1 H (22.0-30.0) sec Sodium 126 L 127 L (137-145) mmol/L Carbon Dioxide (22-30) mmol/L BUN (7-17) mg/dL Creatinine (0.52-1.04) mg/dL Glucose (74-99) mg/dL Calcium (8.4-10.2) mg/dL 06/28/19 06/28/19 06/28/19 Range/Units 00:30 00:30 04:30 WBC 17.5 H (3.8-10.6) k/uL RBC 2.95 L (3.80-5.40) m/uL Hgb 9.0 L (11.4-16.0) gm/dL Hct 25.9 L (34.0-46.0) % Neutrophils # 14.2 H (1.3-7.7) k/uL APTT >200.0 H* (22.0-30.0) sec Sodium 127 L (137-145) mmol/L Carbon Dioxide (22-30) mmol/L BUN (7-17) mg/dL Creatinine (0.52-1.04) mg/dL Glucose (74-99) mg/dL Calcium (8.4-10.2) mg/dL 06/28/19 06/28/19 06/28/19 Range/Units 04:30 09:15 09:15 WBC (3.8-10.6) k/uL RBC (3.80-5.40) m/uL Hgb (11.4-16.0) gm/dL Hct (34.0-46.0) % Neutrophils # (1.3-7.7) k/uL APTT 49.3 H (22.0-30.0) sec Sodium 130 L 130 L (137-145) mmol/L Carbon Dioxide 21 L (22-30) mmol/L BUN 31 H (7-17) mg/dL Creatinine 1.66 H (0.52-1.04) mg/dL Glucose 131 H (74-99) mg/dL Calcium 8.2 L (8.4-10.2) mg/dL Assessment and Plan Assessment: Hyponatremia secondary to SIADH Left ankle fracture, going for surgery once medically stable A. fib and RVR, currently heart rate is controlled. Coumadin is in hold and patient on heparin drip Acute kidney injury Hypotension, status post several boluses of normal saline Plan: This is a pleasant 83 years old male with left fracture and hyponatremia. Continue with the drain and fluid boluses as needed. Patient is followed by several consultants including critical care, neurologist, seafood and service meat manager, technical customer support specialist in orthopedic team. Still needs to monitor her sodium closely, monitor blood pressure, continue with medial drain. Hold metoprolol, norco and Dilaudid. Continue with fluid restriction. Monitor glucose sites and INR. Patient will need surgical fixation of her left ankle fracture once she is medically stable. Labs and medication were reviewed.. Continue same treatment. Continue with symptomatic treatment. Resume home medication. Monitor lytes and vitals. DVT and GI prophylaxis. Further recommendations of the clinical course of the patient DVT prophylaxis: heparin GI Prophylaxis: protnix Prognosis is guarded
[2019-06-28 13:42] LABS: Basophils # (A) 0.1 k/uL (0-0.2); Basophils % (A) 1 %; Eosinophils # (A) 0.1 k/uL (0-0.7); Eosinophils % (A) 1 %; HCT 26.4 % (34.0-46.0); HGB 9.1 gm/dL (11.4-16.0); Lymphocytes # (A) 1.7 k/uL (1.0-4.8); Lymphocytes % (A) 9 %; MCH 30.7 pg (25.0-35.0); MCHC 34.5 g/dL (31.0-37.0); MCV 88.8 fL (80.0-100.0); Mean Platelet Volume 7.3; Monocytes # (A) 0.9 k/uL (0-1.0); Monocytes % (A) 5 %; Neutrophils # (A) 15.8 k/uL (1.3-7.7); Neutrophils % (A) 84 %; Platelet Count 310 k/uL (150-450); RBC 2.97 m/uL (3.80-5.40); RDW 15.6 % (11.5-15.5); WBC 18.8 k/uL (3.8-10.6)
[2019-06-28 13:50] LABS: Calcium 8.3 mg/dL (8.4-10.2); Potassium 4.5 mmol/L (3.5-5.1)
--- NOTE | 2019-06-28 14:24 | P.PN ---
Subjective Progress Note Date: 06/28/19 This is a 83-year-old white female who came into the hospital on 06/21/2019 complaining of pain in her left buttock, and patient apparently started hurting after a recent fall. Patient was in significant amount of discomfort, and was admitted for pain control, range of motion of the hip and knee was not affected, the patient had some local tenderness over the left buttock at the mid sacral area. Patient apparently had computed tomography scan and x-rays done at the [facility] which did not show any fracture of the hip or pelvis. Patient's past medical history is that of hypertension, paroxysmal atrial fibrillation on Coumadin, with past history of cardioversion. Apparently vera merida went into A. fib with RVR, and was admitted to the cardiac stepdown floor and started on Cardizem drip for rate control. Her admission blood work showed serum sodium of 125, which was down to 117, and the patient was initiated on fluid restriction, and started on 3% hypertonic saline and transferred to the intensive care unit. Her INR today is 3.1, white blood cell count was 13.7, troponin was negative 1, LFTs were within normal limits, serum osmolality was 252, urine osmolality was 824, random urine sodium was 63. Patient has had no fever or chills, no complaints of shortness of breath or chest pain, no leg swelling, no hip pain, no lightheadedness dizziness. Patient has been ambu lating with a walker however her gait is unsteady, and during her hospital stay patient apparently sustained another fall resulting in injury of her left lower extremity, with x-rays showing significant left ankle fracture for which an orthopedic consultation was requested. Patient has been transferred to the intensive care unit for close monitoring, in view of her hyponatremia with increasing confusion, nephrology is following, and 3% hypertonic sitting is infusing. We are consulted for critical care management On today's evaluation of 06/25/2019, the patient is still in intensive care unit . Unfortunately, the mental status continues to be altered and the patient had significant amount of agitation or restlessness and confusion yesterday. We decided not to give Haldol due to underlying hyponatremia. She received 1 dose of Ativan. We will continue the hypertonic saline infusion and patient's sodium gradually improved and currently is up to 126 and based on his correction the hypertonic saline was completely discontinued. This morning, the patient was mumbling, stating she sentences, unable to have a conversation or follow commands. She is confused and restless and somnolent. She was able to move all 4 extremities and withdraws to pain was diminished in all 4 extremities. Neurology consultation was requested. Note that the CAT scan of the brain was essentially negative. I discussed the case with neurologist. Based on his opinion, the abnormality seen on essentially metabolic in nature. Meanwhile, I ordered a CAT scan of the chest and abdomen and showed no acute abnormalities. No evidence of any intrathoracic or intra-abdominal masses to contribute for an underlying SIADH. The patient currently is afebrile. She is hemodynamically stable. Urine output is improved. She is on a Cardizem drip at the rate of 10 mg an hour for rate control. She is also on IV heparin regarding atrial fibrillation. Warfarin has been discontinued. On 06/26/2019 patient seen in follow-up in the intensive care unit, she is much more awake today, she is responding appropriately, she knows she is in the hospital, she knows her name, she knew her . Her sodium on today's labs is 132. Last night she was given some IV fluid boluses, a total of 1,5 liters of normal saline last night, an additional 500 mL this morning or hypotension and systolic in the 70s. Patient had a Triple-lumen central venous catheter placed, and her CVP is anywhere from 0-6. Blood pressure has improved, Cardizem drip has been discontinued, patient is in A. fib with RVR with a rate of 1:30 BPM, and she is being loaded with digoxin. His chest x-ray shows stable trace pleural effusions and a left-sided central venous catheter with some improvement in aeration of the left lung base. Echocardiogram showed EF of 50-55%, [id number] MR, mild tricuspid regurg, mild aortic stenosis, and moderate aortic regurgitation. His any chest pain, denies any shortness of breath, her marrow pulse ox is 99%, she is afebrile, she remains on heparin drip for anticoagulation. Denies any left lower extremity pain, which remains in the splint On 06/27/2019 I'm seeing this patient for a follow-up. Patient is awake and alert and following commands and answering questions. Mental status is appropriate. Sodium came up to 131 and subsequently dropped down to 128 as the patient was receiving boluses of normal saline for low CVP and hypotension. The patient currently is back on hypertonic saline at 3%. The patient also received a dose of Tolvaptan 15 mg and would awaiting a follow-up sodium level. The patient is doing well. She is in atrial fibrillation. The rate is controlled. She is on amiodarone drip at 0.5 mg per minute. She is also on metoprolol for rate control. No pressors for now. The patient is on IV heparin for now for anticoagulation. Warfarin has been kept on hold. No pain. No other complaints otherwise for now. The left lower extremity still placed in a splint and she will ultimately need a surgery regarding the ankle fracture. Echo was noted and the patient has mild aortic stenosis, moderate aortic regurgitation, ejection fraction of around 50-55% and the patient has mild to moderate MR. on 06/28/2019, I'm seeing this patient for a follow-up. The patient is awake and alert. She is following commands and she is fully alert at this point in t mikel. note that the sodium level has also improved. His sodium level is up to 1:30 and the patient is on a hypertonic saline solution. Nevertheless, the patient was on of getting hypotensive. Her CVP was low. She developed an acute kidney injury. Creatinine is up to 1.68. Her white cell count is up to 17.5 which is a new onset leukocytosis. As such one concern is development of an infection along with an acute kidney injury. Despite all this, the patient feels well. She does not have any fever. I checked a lactic acid level which came back at 2.1. She is in atrial fibrillation.I made recommendations to send blood cultures and progress troponin level. Cardiology saw the patient and switch this patient oral amiodarone 400 mg by mouth twice a day. The patient is on IV heparin per protocol. The patient is receiving metoprolol 50 mg by mouth twice a day in addition to IV heparin regarding her lung for ventricular fibrillation. No nausea. No vomiting. No abdominal pain. No dysuria fixed urgency. She has a [place] catheter in place. The left extremity is swollen the patient has an external splint. Objective - Vital Signs Vital signs: Vital Signs Temp 97.9 F 06/28/19 08:00 Pulse 100 06/28/19 11:00 Resp 15 06/28/19 11:00 BP 111/38 06/26/19 11:00 Pulse Ox 98 06/28/19 11:00 Intake & Output 06/27/19 06/28/19 06/28/19 18:59 06:59 18:59 Intake Total 1480.371 206.933 571 Output Total 360 1375 280 Balance 1120.371 -1168.067 291 Weight 79.4 kg 79.2 kg Intake: IV 15 165 39 0.9% Pressure Bag 24 Sodium Chloride 3%( 15 165 15 Hypertonic) 500 ml @ 15 mls/hr IV .Q24H [facility] Rx#: [id number] Intake, IV Titration 515.371 41.933 60 Amount Amiodarone 300 mg In 246.25 Dextrose 5% in Water 250 ml @ 0.5 MG/MIN 25 mls/hr IV .Q10H [facility] Rx#: [id number] Amiodarone 360 mg In 200 Dextrose 5% in Water 200 ml @ 1 MG/MIN 33.333 mls/ hr IV .Q6H [facility] Rx#: [id number] Heparin Sod,Pork in 0.45% 39.121 26.933 NaCl 25,000 unit In 0.45 % NaCl 1 250ml.bag @ 12 UNITS/KG/HR 9.6 mls/hr IV .Q24H [facility] Rx#:[id number] Sodium Chloride 3%( 30 15 60 Hypertonic) 500 ml @ 15 mls/hr IV .Q24H [facility] Rx#: [id number] Oral 950 [id number] Output: Urine 360 1375 280 Other: Voiding Method Indwelling Catheter Indwelling Catheter Indwelling Catheter # Voids 1 ABP, PAP, CO, CI - Last Documented Arterial Blood Pressure 116/41 - Exam GENERAL EXAM: Alert, pleasant, 83-year-old white female, on room air, with a pulse ox of 99% comfortable in no apparent distress. HEAD: Normocephalic/atraumatic. EYES: Normal reaction of pupils, equal size. Conjunctiva pink, sclera white. NOSE: Clear with pink turbinates. THROAT: No erythema or exudates. NECK: No masses, no JVD, no thyroid enlargement, no adenopathy. CHEST: No chest wall deformity. Symmetrical expansion. LUNGS: Equal air entry with no crackles, wheeze, rhonchi or dullness. CVS: Irregular rate and rhythm, irregular S1-S2 consistent with atrial fibrillation the rate is controlled for now. ABDOMEN: Soft, nontender. No hepatosplenomegaly, normal bowel sounds, no guarding or rigidity. EXTREMITIES: No clubbing, no cyanosis, 2+ pulses and upper and lower extremities. Mild edema and ecchymosis in the left ankle, left ankle is immobilized with a splint and an arnie wrap MUSCULOSKELETAL: Muscle strength and tone normal. SPINE: No scoliosis or deformity SKIN: No rashes CENTRAL NERVOUS SYSTEM: Alert and oriented -3. No focal deficits, tone is normal in all 4 extremities. PSYCHIATRIC: Alert and oriented -3. Appropriate affect. Intact judgment and insight. - Labs CBC & Chem 7: 06/28/19 13:20 06/28/19 13:20 Labs: Abnormal Lab Results - Last 24 Hours (Table) 06/27/19 06/27/19 06/27/19 Range/Units 16:11 17:55 20:55 WBC (3.8-10.6) k/uL RBC (3.80-5.40) m/uL Hgb (11.4-16.0) gm/dL Hct (34.0-46.0) % RDW (11.5-15.5) % Neutrophils # (1.3-7.7) k/uL APTT 38.1 H (22.0-30.0) sec ABG Lactic Acid (0.5-1.6) mmol/L Sodium 126 L 127 L (137-145) mmol/L Carbon Dioxide (22-30) mmol/L BUN (7-17) mg/dL Creatinine (0.52-1.04) mg/dL Glucose (74-99) mg/dL Calcium (8.4-10.2) mg/dL 06/28/19 06/28/19 06/28/19 Range/Units 00:30 00:30 04:30 WBC 17.5 H (3.8-10.6) k/uL RBC 2.95 L (3.80-5.40) m/uL Hgb 9.0 L (11.4-16.0) gm/dL Hct 25.9 L (34.0-46.0) % RDW (11.5-15.5) % Neutrophils # 14.2 H (1.3-7.7) k/uL APTT >200.0 H* (22.0-30.0) sec ABG Lactic Acid (0.5-1.6) mmol/L Sodium 127 L (137-145) mmol/L Carbon Dioxide (22-30) mmol/L BUN (7-17) mg/dL Creatinine (0.52-1.04) mg/dL Glucose (74-99) mg/dL Calcium (8.4-10.2) mg/dL 06/28/19 06/28/19 06/28/19 Range/Units 04:30 09:15 09:15 WBC (3.8-10.6) k/uL RBC (3.80-5.40) m/uL Hgb (11.4-16.0) gm/dL Hct (34.0-46.0) % RDW (11.5-15.5) % Neutrophils # (1.3-7.7) k/uL APTT 49.3 H (22.0-30.0) sec ABG Lactic Acid (0.5-1.6) mmol/L Sodium 130 L 130 L (137-145) mmol/L Carbon Dioxide 21 L (22-30) mmol/L BUN 31 H (7-17) mg/dL Creatinine 1.66 H (0.52-1.04) mg/dL Glucose 131 H (74-99) mg/dL Calcium 8.2 L (8.4-10.2) mg/dL 06/28/19 06/28/19 06/28/19 Range/Units 13:20 13:20 13:20 WBC 18.8 H (3.8-10.6) k/uL RBC 2.97 L (3.80-5.40) m/uL Hgb 9.1 L (11.4-16.0) gm/dL Hct 26.4 L (34.0-46.0) % RDW 15.6 H (11.5-15.5) % Neutrophils # 15.8 H (1.3-7.7) k/uL APTT (22.0-30.0) sec ABG Lactic Acid 2.1 H (0.5-1.6) mmol/L Sodium 130 L (137-145) mmol/L Carbon Dioxide 19 L (22-30) mmol/L BUN 31 H (7-17) mg/dL Creatinine 1.68 H (0.52-1.04) mg/dL Glucose 179 H (74-99) mg/dL Calcium 8.3 L (8.4-10.2) mg/dL Assessment and Plan Plan: 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 patient was treated with fluid restriction and hypertonic saline infusion and currently her sodium is up to 1:30. Nevertheless, there is a possibility that she had a hypovolemic hyponatremic condition. The patient was having lower urine output and hypotension and the possibility of hypovolemic hyponatremic condition was also being entertained. In any rate, the patient on 3% hypertonic saline solution. The sodium level remains at 130. I'm convinced that the patient has a component of SIADH and she developed an acute kidney injury in the setting of hypovolemia as the patient was instructed from fluid and the patient was having altered mentation unable to keep up with oral intake. 2 encephalopathy essentially to metabolic causes which recovered. 3 chronic atrial fibrillation currently on IV heparinMild the patient is currently on a combination of metoprolol and amiodarone orally for rate control. 4 recurrent falls with a fracture of the left ankle and the patient has a bimalleolar fracture in the left ankle. 5 hypertension, history of 6 normocytic anemia 7 acute kidney injury probably related to hypotension the patient has a steady rise in the creatinine which is up to 1.68 today. She also has a component of non-anion gap metabolic acidosis with a serum bicarb of 19. 8 acute leukocytosis. 9 mild lactic acidosis with a lactic acid level of 2.1 PLAN we'll check urine analysis and urine cultures. We'll check blood cultures. Lactic acid level was noted. White cell count was noted. We'll give the patient empiric antibiotics with IV Zosyn. We'll check a pro-calcitonin level. We'll monitor the white cell count. Monitor fever pattern. Monitor blood pressure and currently she is on norepinephrine infusion at 0.07 milligrams per kilograms per minute.triple-lumen site is dry clean and intact at this point in time. Blood cultures have been sent. we'll keep the patient of ICU for now awaiting further answers to the above-mentioned disturbances. Orthopedic surgeries on the case also regarding the possibility of a left ankle ORIF. We'll continue to follow.
[2019-06-28 17:18] LABS: Appearance,Urine Clear (Clear); Bacteria,Urine Rare /hpf; Bilirubin,Urine Negative (Negative); Blood,Urine Small (Negative); Color,Urine Light Yellow; Glucose,Urine (UA) Negative (Negative); Ketones,Urine Negative (Negative); Leukocyte Esterase,Urine Negative (Negative); Mucus,Urine Rare /hpf; Nitrite,Urine Negative (Negative); Protein,Urine Negative (Negative); RBC,Urine 1 /hpf (0-5); Specific Gravity,Urine 1.007 (1.001-1.035); Urobilinogen,Urine <2.0 mg/dL (<2.0)
[2019-06-28] MEDS: PIPERACILLIN-TAZOBACTAM 3.375 GM in SODIUM CHLORIDE 0.9% 100 ML IVPB SCH (18:04)
[2019-06-28] MEDS ORDERED: SODIUM CHLORIDE 3%(HYPERTONIC) 500 ML IV SCH (20:15)
[2019-06-28] MEDS: SODIUM CHLORIDE 3%(HYPERTONIC) 500 ML IV SCH (21:12)
[2019-06-29] MEDS: HEPARIN SOD,PORK IN 0.45% NACL 25,000 UNIT in 0.45% NACL 1 250ML.BAG IV SCH ×2 (04:35→10:29)
[2019-06-29 05:17] LABS: Anisocytosis Slight; Basophils % (A) 0 %; Eosinophils # (A) 0.1 k/uL (0-0.7); Eosinophils % (A) 1 %; HGB 8.2 gm/dL (11.4-16.0); Lymphocytes # (A) 1.3 k/uL (1.0-4.8); Lymphocytes % (A) 10 %; MCH 31.9 pg (25.0-35.0); MCHC 35.8 g/dL (31.0-37.0); MCV 89.2 fL (80.0-100.0); Mean Platelet Volume 7.6; Monocytes # (A) 0.8 k/uL (0-1.0); Monocytes % (A) 6 %; Neutrophils % (A) 82 %; Platelet Count 248 k/uL (150-450); RBC 2.58 m/uL (3.80-5.40); RDW 16.3 % (11.5-15.5); WBC 13.4 k/uL (3.8-10.6)
[2019-06-29] MEDS: PIPERACILLIN-TAZOBACTAM 3.375 GM in SODIUM CHLORIDE 0.9% 100 ML IVPB SCH ×3 (05:25→21:16)
[2019-06-29 05:31] LABS: Potassium 4.7 mmol/L (3.5-5.1)
[2019-06-29] MEDS: PANTOPRAZOLE 40 MG/10 ML VIAL IVP SCH (08:31)
--- NOTE | 2019-06-29 08:54 | P.PN ---
Subjective Progress Note Date: 06/29/19 This is a 83-year-old white female who came into the hospital on 06/21/2019 complaining of pain in her left buttock, and patient apparently started hurting after a recent fall. Patient was in significant amount of discomfort, and was admitted for pain control, range of motion of the hip and knee was not affected, the patient had some local tenderness over the left buttock at the mid sacral area. Patient apparently had computed tomography scan and x-rays done at the [facility] which did not show any fracture of the hip or pelvis. Patient's past medical history is that of hypertension, paroxysmal atrial fibrillation on Coumadin, with past history of cardioversion. Apparently vera merida went into A. fib with RVR, and was admitted to the cardiac stepdown floor and started on Cardizem drip for rate control. Her admission blood work showed serum sodium of 125, which was down to 117, and the patient was initiated on fluid restriction, and started on 3% hypertonic saline and transferred to the intensive care unit. Her INR today is 3.1, white blood cell count was 13.7, troponin was negative 1, LFTs were within normal limits, serum osmolality was 252, urine osmolality was 824, random urine sodium was 63. Patient has had no fever or chills, no complaints of shortness of breath or chest pain, no leg swelling, no hip pain, no lightheadedness dizziness. Patient has been ambu lating with a walker however her gait is unsteady, and during her hospital stay patient apparently sustained another fall resulting in injury of her left lower extremity, with x-rays showing significant left ankle fracture for which an orthopedic consultation was requested. Patient has been transferred to the intensive care unit for close monitoring, in view of her hyponatremia with increasing confusion, nephrology is following, and 3% hypertonic sitting is infusing. We are consulted for critical care management On today's evaluation of 06/25/2019, the patient is still in intensive care unit . Unfortunately, the mental status continues to be altered and the patient had significant amount of agitation or restlessness and confusion yesterday. We decided not to give Haldol due to underlying hyponatremia. She received 1 dose of Ativan. We will continue the hypertonic saline infusion and patient's sodium gradually improved and currently is up to 126 and based on his correction the hypertonic saline was completely discontinued. This morning, the patient was mumbling, stating she sentences, unable to have a conversation or follow commands. She is confused and restless and somnolent. She was able to move all 4 extremities and withdraws to pain was diminished in all 4 extremities. Neurology consultation was requested. Note that the CAT scan of the brain was essentially negative. I discussed the case with neurologist. Based on his opinion, the abnormality seen on essentially metabolic in nature. Meanwhile, I ordered a CAT scan of the chest and abdomen and showed no acute abnormalities. No evidence of any intrathoracic or intra-abdominal masses to contribute for an underlying SIADH. The patient currently is afebrile. She is hemodynamically stable. Urine output is improved. She is on a Cardizem drip at the rate of 10 mg an hour for rate control. She is also on IV heparin regarding atrial fibrillation. Warfarin has been discontinued. On 06/26/2019 patient seen in follow-up in the intensive care unit, she is much more awake today, she is responding appropriately, she knows she is in the hospital, she knows her name, she knew her . Her sodium on today's labs is 132. Last night she was given some IV fluid boluses, a total of 1,5 liters of normal saline last night, an additional 500 mL this morning or hypotension and systolic in the 70s. Patient had a Triple-lumen central venous catheter placed, and her CVP is anywhere from 0-6. Blood pressure has improved, Cardizem drip has been discontinued, patient is in A. fib with RVR with a rate of 1:30 BPM, and she is being loaded with digoxin. His chest x-ray shows stable trace pleural effusions and a left-sided central venous catheter with some improvement in aeration of the left lung base. Echocardiogram showed EF of 50-55%, [id number] MR, mild tricuspid regurg, mild aortic stenosis, and moderate aortic regurgitation. His any chest pain, denies any shortness of breath, her marrow pulse ox is 99%, she is afebrile, she remains on heparin drip for anticoagulation. Denies any left lower extremity pain, which remains in the splint On 06/27/2019 I'm seeing this patient for a follow-up. Patient is awake and alert and following commands and answering questions. Mental status is appropriate. Sodium came up to 131 and subsequently dropped down to 128 as the patient was receiving boluses of normal saline for low CVP and hypotension. The patient currently is back on hypertonic saline at 3%. The patient also received a dose of Tolvaptan 15 mg and would awaiting a follow-up sodium level. The patient is doing well. She is in atrial fibrillation. The rate is controlled. She is on amiodarone drip at 0.5 mg per minute. She is also on metoprolol for rate control. No pressors for now. The patient is on IV heparin for now for anticoagulation. Warfarin has been kept on hold. No pain. No other complaints otherwise for now. The left lower extremity still placed in a splint and she will ultimately need a surgery regarding the ankle fracture. Echo was noted and the patient has mild aortic stenosis, moderate aortic regurgitation, ejection fraction of around 50-55% and the patient has mild to moderate MR. on 06/28/2019, I'm seeing this patient for a follow-up. The patient is awake and alert. She is following commands and she is fully alert at this point in t mikel. note that the sodium level has also improved. His sodium level is up to 1:30 and the patient is on a hypertonic saline solution. Nevertheless, the patient was on of getting hypotensive. Her CVP was low. She developed an acute kidney injury. Creatinine is up to 1.68. Her white cell count is up to 17.5 which is a new onset leukocytosis. As such one concern is development of an infection along with an acute kidney injury. Despite all this, the patient feels well. She does not have any fever. I checked a lactic acid level which came back at 2.1. She is in atrial fibrillation.I made recommendations to send blood cultures and progress troponin level. Cardiology saw the patient and switch this patient oral amiodarone 400 mg by mouth twice a day. The patient is on IV heparin per protocol. The patient is receiving metoprolol 50 mg by mouth twice a day in addition to IV heparin regarding her lung for ventricular fibrillation. No nausea. No vomiting. No abdominal pain. No dysuria fixed urgency. She has a [place] catheter in place. The left extremity is swollen the patient has an external splint. On 06/29/2019 the patient is wide awake and alert and his sodium level is up to 134. The hypertonic saline has been discontinued. Renal function continues to improve. I suspected an infectious component to her condition yesterday as the patient had some increased leukocytosis and acute kidney injury and the progress troponin level was also being elevated. Hypo-therapeutic on IV Zosyn. The patient had no fever. She remained hemodynamically stable. In fact her blood pressures improved significantly. Creatinine is down to 1.4. She is doing well and on today's evaluation we'll obtain clearance for this patient to go to surgery. She will be receiving a unit of packed RBC prior to surgery upon the request of general surgery. No other complaints otherwise for now. Objective - Vital Signs Vital signs: Vital Signs Temp 98.6 F 06/29/19 04:00 Pulse 78 06/29/19 07:00 Resp 16 06/29/19 07:00 BP 106/89 06/29/19 07:00 Pulse Ox 98 06/29/19 07:00 Intake & Output 06/28/19 06/29/19 06/29/19 18:59 06:59 18:59 Intake Total 1556.851 409.947 21 Output Total 885 1900 125 Balance 671.851 -1490.053 -104 Weight 80.7 kg Intake: IV 81 192 6 0.9 20 0.9% Pressure Bag 66 72 6 Piperacillin-Tazobactam 3 100 .375 gm In Sodium Chloride 0.9% 100 ml @ 25 mls/hr IVPB Q12H [facility] Rx# :[id number] Sodium Chloride 3%( 15 Hypertonic) 500 ml @ 15 mls/hr IV .Q24H [facility] Rx#: [id number] Intake, IV Titration 413.851 217.947 15 Amount Heparin Sod,Pork in 0.45% 37.947 NaCl 25,000 unit In 0.45 % NaCl 1 250ml.bag @ 12 UNITS/KG/HR 9.6 mls/hr IV .Q24H [facility] Rx#:[id number] Norepinephrine 4 mg In 148.851 Sodium Chloride 0.9% 250 ml @ 0.05 MCG/KG/MIN 15. 107 mls/hr IV .[id number] [facility] Rx#:[id number] Piperacillin-Tazobactam 3 100 .375 gm In Sodium Chloride 0.9% 100 ml @ 25 mls/hr IVPB Q12H [facility] Rx# :[id number] Sodium Chloride 3%( 165 180 15 Hypertonic) 500 ml @ 15 mls/hr IV .Q24H [facility] Rx#: [id number] Oral 1062 Output: Urine 885 1900 125 Other: Voiding Method Indwelling Catheter Indwelling Catheter ABP, PAP, CO, CI - Last Documented Arterial Blood Pressure 130/42 - Exam GENERAL EXAM: Alert, pleasant, 83-year-old white female, on room air, with a pulse ox of 99% comfortable in no apparent distress. HEAD: Normocephalic/atraumatic. EYES: Normal reaction of pupils, equal size. Conjunctiva pink, sclera white. NOSE: Clear with pink turbinates. THROAT: No erythema or exudates. NECK: No masses, no JVD, no thyroid enlargement, no adenopathy. CHEST: No chest wall deformity. Symmetrical expansion. LUNGS: Equal air entry with no crackles, wheeze, rhonchi or dullness. CVS: Irregular rate and rhythm, irregular S1-S2 consistent with atrial fibrillation the rate is controlled for now. ABDOMEN: Soft, nontender. No hepatosplenomegaly, normal bowel sounds, no guarding or rigidity. EXTREMITIES: No clubbing, no cyanosis, 2+ pulses and upper and lower extremities. Mild edema and ecchymosis in the left ankle, left ankle is immobilized with a splint and an arnie wrap MUSCULOSKELETAL: Muscle strength and tone normal. SPINE: No scoliosis or deformity SKIN: No rashes CENTRAL NERVOUS SYSTEM: Alert and oriented -3. No focal deficits, tone is normal in all 4 extremities. PSYCHIATRIC: Alert and oriented -3. Appropriate affect. Intact judgment and insight. - Labs CBC & Chem 7: 06/29/19 05:05 06/29/19 08:25 Labs: Abnormal Lab Results - Last 24 Hours (Table) 06/28/19 06/28/19 06/28/19 Range/Units 04:30 09:15 09:15 WBC (3.8-10.6) k/uL RBC (3.80-5.40) m/uL Hgb (11.4-16.0) gm/dL Hct (34.0-46.0) % RDW (11.5-15.5) % Neutrophils # (1.3-7.7) k/uL APTT 49.3 H (22.0-30.0) sec ABG Lactic Acid (0.5-1.6) mmol/L Sodium 130 L (137-145) mmol/L Carbon Dioxide (22-30) mmol/L BUN (7-17) mg/dL Creatinine (0.52-1.04) mg/dL Glucose (74-99) mg/dL Calcium (8.4-10.2) mg/dL Procalcitonin 0.18 H (0.02-0.09) ng/mL Urine Blood (Negative) Urine Bacteria (None) /hpf Urine Mucus (None) /hpf 06/28/19 06/28/19 06/28/19 Range/Units 13:20 13:20 13:20 WBC 18.8 H (3.8-10.6) k/uL RBC 2.97 L (3.80-5.40) m/uL Hgb 9.1 L (11.4-16.0) gm/dL Hct 26.4 L (34.0-46.0) % RDW 15.6 H (11.5-15.5) % Neutrophils # 15.8 H (1.3-7.7) k/uL APTT (22.0-30.0) sec ABG Lactic Acid 2.1 H (0.5-1.6) mmol/L Sodium 130 L (137-145) mmol/L Carbon Dioxide 19 L (22-30) mmol/L BUN 31 H (7-17) mg/dL Creatinine 1.68 H (0.52-1.04) mg/dL Glucose 179 H (74-99) mg/dL Calcium 8.3 L (8.4-10.2) mg/dL Procalcitonin (0.02-0.09) ng/mL Urine Blood (Negative) Urine Bacteria (None) /hpf Urine Mucus (None) /hpf 06/28/19 06/28/19 06/29/19 Range/Units 15:30 21:15 01:00 WBC (3.8-10.6) k/uL RBC (3.80-5.40) m/uL Hgb (11.4-16.0) gm/dL Hct (34.0-46.0) % RDW (11.5-15.5) % Neutrophils # (1.3-7.7) k/uL APTT (22.0-30.0) sec ABG Lactic Acid (0.5-1.6) mmol/L Sodium 129 L 131 L (137-145) mmol/L Carbon Dioxide (22-30) mmol/L BUN (7-17) mg/dL Creatinine (0.52-1.04) mg/dL Glucose (74-99) mg/dL Calcium (8.4-10.2) mg/dL Procalcitonin (0.02-0.09) ng/mL Urine Blood Small H (Negative) Urine Bacteria Rare H (None) /hpf Urine Mucus Rare H (None) /hpf 06/29/19 06/29/19 06/29/19 Range/Units 05:05 05:05 08:25 WBC 13.4 H (3.8-10.6) k/uL RBC 2.58 L (3.80-5.40) m/uL Hgb 8.2 L (11.4-16.0) gm/dL Hct 23.0 L (34.0-46.0) % RDW 16.3 H (11.5-15.5) % Neutrophils # 11.0 H (1.3-7.7) k/uL APTT (22.0-30.0) sec ABG Lactic Acid (0.5-1.6) mmol/L Sodium 130 L 134 L (137-145) mmol/L Carbon Dioxide 21 L (22-30) mmol/L BUN 29 H (7-17) mg/dL Creatinine 1.44 H (0.52-1.04) mg/dL Glucose 119 H (74-99) mg/dL Calcium 8.0 L (8.4-10.2) mg/dL Procalcitonin (0.02-0.09) ng/mL Urine Blood (Negative) Urine Bacteria (None) /hpf Urine Mucus (None) /hpf Microbiology - Last 24 Hours (Table) 06/28/19 15:30 Urine Culture - Preliminary Urine,Catheterized Assessment and Plan Plan: 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 Hyponatremia improved and the patient's sodium level is up to 134. Hypertonic saline has been discontinued. Mental status is improved. 2 encephalopathy essentially to metabolic causes which recovered. 3 chronic atrial fibrillation currently on IV heparinMild the patient is currently on a combination of metoprolol and amiodarone orally for rate control. 4 recurrent falls with a fracture of the left ankle and the patient has a bimalleolar fracture in the left ankle. 5 hypertension, history of 6 normocytic anemia 7 acute kidney injury probably related to hypotension the patient has a steady rise in the creatinine which is up to 1.68 today. Clinically the kidney function improved and the creatinine is down to 1.4.. 8 acute leukocytosis. Improving and the patient's white cell count is improved down to 13. Currently on IV Zosyn as an empiric antibiotic coverage. 9 mild lactic acidosis with a lactic acid level of 2.1, improving. Currently on IV Zosyn as an empiric antibiotic coverage. PLAN Discontinue hypertonic saline. Continue IV Zosyn. Provide a unit of packed RBC. Proceed with a ORIF of the left ankle fracture. We'll continue to follow. IV heparin will be discontinued around 90 minutes prior to the surgical intervention. She'll be brought in to the ICU following her surgery.
--- NOTE | 2019-06-29 10:17 | P.PN ---
Subjective Progress Note Date: 06/29/19 Seen and examined for the follow-up of hyponatremia. Feels better today. No nausea vomiting diarrhea. Going for a hip surgery today. Objective - Vital Signs Vital signs: Vital Signs Temp 98.6 F 06/29/19 09:55 Pulse 86 06/29/19 09:55 Resp 12 06/29/19 09:55 BP 137/44 06/29/19 09:55 Pulse Ox 97 06/29/19 09:55 Intake & Output 06/28/19 06/29/19 06/29/19 18:59 06:59 18:59 Intake Total 1556.851 409.947 21 Output Total 885 1900 125 Balance 671.851 -1490.053 -104 Weight 80.7 kg Intake: IV 81 192 6 0.9 20 0.9% Pressure Bag 66 72 6 Piperacillin-Tazobactam 3 100 .375 gm In Sodium Chloride 0.9% 100 ml @ 25 mls/hr IVPB Q12H [facility] Rx# :[id number] Sodium Chloride 3%( 15 Hypertonic) 500 ml @ 15 mls/hr IV .Q24H [facility] Rx#: [id number] Intake, IV Titration 413.851 217.947 15 Amount Heparin Sod,Pork in 0.45% 37.947 NaCl 25,000 unit In 0.45 % NaCl 1 250ml.bag @ 12 UNITS/KG/HR 9.6 mls/hr IV .Q24H [facility] Rx#:[id number] Norepinephrine 4 mg In 148.851 Sodium Chloride 0.9% 250 ml @ 0.05 MCG/KG/MIN 15. 107 mls/hr IV .[id number] [facility] Rx#:[id number] Piperacillin-Tazobactam 3 100 .375 gm In Sodium Chloride 0.9% 100 ml @ 25 mls/hr IVPB Q12H [facility] Rx# :[id number] Sodium Chloride 3%( 165 180 15 Hypertonic) 500 ml @ 15 mls/hr IV .Q24H [facility] Rx#: [id number] Oral 1062 Blood Product 0 Rc As-1 Unit 0 [id number] Output: Urine 885 1900 125 Other: Voiding Method Indwelling Catheter Indwelling Catheter ABP, PAP, CO, CI - Last Documented Arterial Blood Pressure 141/46 - Exam No acute distress S1-S2 heard Lungs clear Trace edema - Labs CBC & Chem 7: 06/29/19 05:05 06/29/19 08:25 Labs: Abnormal Lab Results - Last 24 Hours (Table) 06/28/19 06/28/19 06/28/19 Range/Units 04:30 13:20 13:20 WBC 18.8 H (3.8-10.6) k/uL RBC 2.97 L (3.80-5.40) m/uL Hgb 9.1 L (11.4-16.0) gm/dL Hct 26.4 L (34.0-46.0) % RDW 15.6 H (11.5-15.5) % Neutrophils # 15.8 H (1.3-7.7) k/uL ABG Lactic Acid (0.5-1.6) mmol/L Sodium 130 L (137-145) mmol/L Carbon Dioxide 19 L (22-30) mmol/L BUN 31 H (7-17) mg/dL Creatinine 1.68 H (0.52-1.04) mg/dL Glucose 179 H (74-99) mg/dL Calcium 8.3 L (8.4-10.2) mg/dL Procalcitonin 0.18 H (0.02-0.09) ng/mL Urine Blood (Negative) Urine Bacteria (None) /hpf Urine Mucus (None) /hpf Crossmatch 06/28/19 06/28/19 06/28/19 Range/Units 13:20 15:30 21:15 WBC (3.8-10.6) k/uL RBC (3.80-5.40) m/uL Hgb (11.4-16.0) gm/dL Hct (34.0-46.0) % RDW (11.5-15.5) % Neutrophils # (1.3-7.7) k/uL ABG Lactic Acid 2.1 H (0.5-1.6) mmol/L Sodium 129 L (137-145) mmol/L Carbon Dioxide (22-30) mmol/L BUN (7-17) mg/dL Creatinine (0.52-1.04) mg/dL Glucose (74-99) mg/dL Calcium (8.4-10.2) mg/dL Procalcitonin (0.02-0.09) ng/mL Urine Blood Small H (Negative) Urine Bacteria Rare H (None) /hpf Urine Mucus Rare H (None) /hpf Crossmatch 06/29/19 06/29/19 06/29/19 Range/Units 01:00 05:05 05:05 WBC 13.4 H (3.8-10.6) k/uL RBC 2.58 L (3.80-5.40) m/uL Hgb 8.2 L (11.4-16.0) gm/dL Hct 23.0 L (34.0-46.0) % RDW 16.3 H (11.5-15.5) % Neutrophils # 11.0 H (1.3-7.7) k/uL ABG Lactic Acid (0.5-1.6) mmol/L Sodium 131 L 130 L (137-145) mmol/L Carbon Dioxide 21 L (22-30) mmol/L BUN 29 H (7-17) mg/dL Creatinine 1.44 H (0.52-1.04) mg/dL Glucose 119 H (74-99) mg/dL Calcium 8.0 L (8.4-10.2) mg/dL Procalcitonin (0.02-0.09) ng/mL Urine Blood (Negative) Urine Bacteria (None) /hpf Urine Mucus (None) /hpf Crossmatch 06/29/19 06/29/19 Range/Units 08:25 08:25 WBC (3.8-10.6) k/uL RBC (3.80-5.40) m/uL Hgb (11.4-16.0) gm/dL Hct (34.0-46.0) % RDW (11.5-15.5) % Neutrophils # (1.3-7.7) k/uL ABG Lactic Acid (0.5-1.6) mmol/L Sodium 134 L (137-145) mmol/L Carbon Dioxide (22-30) mmol/L BUN (7-17) mg/dL Creatinine (0.52-1.04) mg/dL Glucose (74-99) mg/dL Calcium (8.4-10.2) mg/dL Procalcitonin (0.02-0.09) ng/mL Urine Blood (Negative) Urine Bacteria (None) /hpf Urine Mucus (None) /hpf Crossmatch See Detail Microbiology - Last 24 Hours (Table) 06/28/19 15:30 Urine Culture - Preliminary Urine,Catheterized Assessment and Plan Assessment: #1 hypotonic hypernatremia suspect hypovolemia. #2 acute kidney injury secondary to hypotension #3 encephalopathy resolved #4 left lower extremity fracture. Plan: #1 stop 3% today. Continue to monitor labs every 8 hours. #2 nonfunctioning improving.
--- NOTE | 2019-06-29 10:20 | PN ---
PROGRESS NOTE Mrs. Stark is an 83-year-old female with a known history of chronic persistent atrial fibrillation who presented with a fall and a fracture of her ankle. She is scheduled to undergo surgical intervention today. She is feeling well this morning. Her breathing is stable. She still has some discomfort in the ankle but overall better. She denies any dizziness, palpitations. She is in atrial fibrillation, controlled ventricular response. Hemodynamically, she is stable. She denies any nausea or vomiting. She continues to be at this time on amiodarone 400 mg twice a day, metoprolol tartrate 50 mg twice a day. She is off the IV heparin because of surgery today. PHYSICAL EXAMINATION: Blood pressure 106/89 with a heart rate in the 70s. LUNGS: Clear. HEART: Irregularly irregular, S1, S2. No S3 with systolic murmur. No diastolic murmur. No rub. ABDOMEN: Soft, nontender. Positive bowel sounds. EXTREMITIES +1 edema. Dressing noted on the left side. LAB DATA: Lab data revealed a BUN and creatinine of 29 and 1.44, potassium 4.7. Hemoglobin of 8.2. Her sodium today is 134, hemoglobin of 8.2. IMPRESSION: 1. Atrial fibrillation, controlled ventricular response. Was anticoagulated before. 2. Recent fall and fracture of the ankle scheduled for surgical intervention today. 3. Hyponatremia, resolved. 4. Change in mental status, resolved. 5. Acute renal function, improved. RECOMMENDATION: From the cardiac standpoint, patient will be undergoing surgery today. I would recommend to initiate treatment with Eliquis 5 mg twice a day post surgical intervention. We will follow her heart rate and dose of the amiodarone can be further adjusted down as needed. Depending on her progress, further recommendations will be made. MMODL / IJN: [id number] /
[2019-06-29] MEDS ORDERED: MIDAZOLAM 2 MG/2 ML VIAL ONE (10:50)
[2019-06-29] MEDS ORDERED: fentaNYL (PF) 50 MCG/ML 2 ML AMP ONE (10:50)
[2019-06-29] MEDS ORDERED: KETAMINE 10 MG/ML 20 ML VIAL ONE (10:50)
[2019-06-29] MEDS ORDERED: IV FLUID CONTINUATION 1,000 ML IV ONE (10:52)
[2019-06-29] MEDS ORDERED: SODIUM CHLORIDE 0.9% 100 ML with ceFAZolin 2,000 MG IV ONE ×2 (11:20)
[2019-06-29] MEDS ORDERED: MAGNESIUM HYDROXIDE 2,400 MG/10 ML CUP PO PRN (13:03)
--- NOTE | 2019-06-29 13:14 | P.OP ---
Date of Procedure: 06/29/19 Preoperative Diagnosis: Left ankle bimalleolar fracture Postoperative Diagnosis: Severely comminuted displaced left ankle bimalleolar fracture with severely osteoporotic bone Procedure(s) Performed: Open reduction and internal fixation left ankle bimalleolar fracture Implants: Synthes distal specialty left lateral malleolar plate with appropriate length screws as well as a Synthes medial hook plate Anesthesia: spinal Surgeon: Perez Hackett Riveting Machine Operator Automatic #1: Magdiel Awad Estimated Blood Loss (ml): 20 Pathology: none sent Condition: stable Disposition: PACU Indications for Procedure: 83-year-old patient seen with a comminuted displaced left ankle bimalleolar fracture. I recommended open reduction internal fixation. The procedure risks, complications benefits and recovery were discussed. Consent was obtained. Operative Findings: See description of procedure Description of Procedure: The patient was taken to the operative suite. The patient underwent a spinal anesthetic by the department of anesthesia. He well-padded tourniquet placed proximal left thigh. The left lower extremity was prepped and draped in the normal sterile orthopedic fashion. The extremity was elevated and the tourniquet was insufflated to 300. An incision was now made over the lateral malleolus. I dissected down the fracture. There was severely comminuted distal lateral malleolar fracture with significant bone loss. At this point I pieced together whatever bone I was able to identify and chose a specialty Synthes fibular plate. I dissected proximally to find some good bone stock. I drilled holes proximally to stabilize the plate. I pieced together some larger fragments of bone I could find and introduced a couple of smaller screws into them. The anterior aspect of lateral meniscus was completely obliterated with no real area for me to fixate any hardware to. I now made an incision along the medial aspect. I dissected down to the medial most. That was also severely comminuted and the bones are osteoporotic. Multiple attempts were made to try to fixate this with pins with inability to achieve stabilization. I now chose a Synthes plate secured fragments I could find and introduced one single screw to stabilize medial side. C-arm was brought into the field and noted continued instability of the mortise. I now fired 2 screw holes across the syndesmosis and introduced into long screws to help stabilize the mortise. The C-arm was brought to the operative field noted noting some better stability of the mortise. Spot films can document this. Both wounds were irrigated. The subcu soft tissues were repaired with 2-0 Vicryl. The skin margins were repaired with skin lucius. We applied sterile dressings. The tourniquet was released. The patient was placed into a modified bulky Dc splint with the ankle in neutral position as I could achieve. Patient was then awakened transferred to a bed and recovery stable condition. The prognosis is severely guarded given the severe comminution of the fractures, significant osteoporosis and her medical conditions.
--- NOTE | 2019-06-29 13:16 | FL ---
FLUOROSCOPY 42 seconds of fluoroscopy time were utilized during internal fixation of the left ankle. 3 images doc ument the procedure.
--- NOTE | 2019-06-29 13:50 | P.PN ---
Subjective This is a pleasant 83 years old female with past medical history of atrial fibrillation on warfarin and metoprolol on admission, history of hypertension. She presents with fall and left ankle fracture, found to have metabolic encephalopathy or altered mental status and hyponatremia secondary to SIADH. Patient has been followed by several consultants including pulmonary/critical care team, neurology, nephrology and cardiology. Orthopedic team are planning to do open reduction for her ankle fracture was she is medically stable and INR down. Patient today he is in the ICU, lying in bed fully awake however she looks lethargic. Blood pressure on the low-normal signed 99/46, she was getting normal saline boluses while monitoring her sodium level, metoprolol is on hold and she didn't get it for the last few days, also patient does not seem in pain and she having used her [place] and Dilaudid for 2 days. However her blood pressure sore on the low side and medial drain has been added. Was team are following the case and managing her sodium closely, she is status post hypertonic saline 3% and on 06/26/2019 she got a dose of Tolvaptan. Also patient is on heparin drip while Coumadin is on hold. Labs showing WBC of 13.5 K hemoglobin is 10.8, sodium is 128 today on several occasions, creatinine is elevated at 1.3. U Scar UA is negative 06/28/2019 Patient is awake and alert, no new complaints. No chest pain or dyspnea. Her pain at the fracture site is minimal. Family at bedside and patient can recognize her daughter. WBC is trending up to 17.5 today. We going to repeat urine analysis. Chest x-ray from yesterday showing no acute process. Sodium today is stable at 130, while patient remains on 3% saline at 15 mL/h, also patient is started on Levophed at 0.05, she is on amiodarone and heparin drips as well for her irregular heart rate.. Orthopedic still pending medical. Human Resources Services Specialist switch her amiodarone to oral pills, while continue with heparin drip for possible date for surgery 06/29/2019 Patient is seen and examined by me at bedside in the ICU prior for her going to the operative room. Patient is awake and alert, she is not in distress. She denies chest pain or dyspnea. She is hemodynamically stable, labs showing significant improvement of her potassium up to 134, creatinine 1.4, double BCs 13.4 K. Patient is medically stable for going for surgery for her left ankle fracture however she is at some risk. Review of systems CONSTITUTIONAL: No fever, no malaise, no fatigue. HEENT: No recent visual problems or hearing problems. Denied any sore throat. CARDIOVASCULAR: No orthopnea, PND, no palpitations, no syncope. PULMONARY: No shortness of breath, no cough, no hemoptysis. GASTROINTESTINAL: No diarrhea, no nausea, no vomiting, no abdominal pain. Normoactive bowel sounds. NEUROLOGICAL: No headaches, no weakness, no numbness. HEMATOLOGICAL: Denies any bleeding or petechiae. GENITOURINARY: Denies any burning micturition, frequency, or urgency. MUSCULOSKELETAL/RHEUMATOLOGICAL: Denies any joint pain, swelling, or any muscle pain. ENDOCRINE: Denies any polyuria or polydipsia. Active Medications Generic Name Dose Route Start Last Admin Trade Name Freq PRN Reason Stop Dose Admin Acetaminophen 650 mg 06/29/19 13:03 Tylenol Tab PO Q4HR PRN Pain Scale 1 to 5 Hydrocodone Bitart/Acetaminophen 2 each 06/29/19 13:03 [place] 5-325 PO Q6HR PRN Pain Scale 6 to 10 Amiodarone HCl 400 mg 06/28/19 10:15 06/28/19 21:19 Cordarone PO 400 mg BID SURESH Administration Docusate Sodium 100 mg 06/22/19 11:03 06/27/19 10:47 Colace PO 100 mg DAILY PRN Administration Constipation Heparin Sodium (Porcine) 0 unit 06/25/19 09:00 06/27/19 18:31 Heparin IV 4,000 unit PER PROTOCOL PRN Administration Low PTT Protocol Heparin Sodium/Sodium Chloride 250 mls @ 9.6 mls/hr 06/25/19 09:00 06/29/19 10:29 25,000 unit/ Sodium Chloride IV Not Given .Q24H [facility] Protocol 12 UNITS/KG/HR Norepinephrine Bitartrate 4 mg 254 mls @ 15.107 mls/hr 06/26/19 15:15 06/28/19 18:45 / Sodium Chloride IV 0 mcg/kg/min .[id number] S[facility] 0 mls/hr Titration Protocol 0.05 MCG/KG/MIN Piperacillin Sod/Tazobactam 100 mls @ 25 mls/hr 06/29/19 14:00 Sod 3.375 gm/ Sodium Chloride IVPB Q8H [facility] Lidocaine HCl 0.1 ml 06/24/19 19:12 .Xylocaine 1% Inj (10mg/Ml) For Iv Start INTRADERMA PER PROTOCOL PRN IV Start Magnesium Hydroxide 2,400 mg 06/29/19 13:03 Milk Of Magnesia PO DAILY PRN Constipation Metoprolol Tartrate 50 mg 06/23/19 21:00 06/28/19 22:05 Lopressor PO Not Given BID SURESH Midodrine 10 mg 06/26/19 17:30 06/28/19 17:58 Proamatine PO 10 mg AC-TID S[facility] Administration Naloxone HCl 0.2 mg 06/24/19 11:31 Narcan IV Q2M PRN Opioid Reversal Pantoprazole Sodium 40 mg 06/25/19 09:00 06/29/19 08:31 Protonix IVP 40 mg DAILY S[facility] Administration Senna/Docusate Sodium 2 each 06/29/19 21:00 Senokot-S PO HS SURESH Objective - Vital Signs Vital signs: Vital Signs Temp 98 F 06/29/19 13:03 Pulse 88 06/29/19 13:43 Resp 16 06/29/19 13:43 BP 103/54 06/29/19 13:30 Pulse Ox 98 06/29/19 13:43 Intake & Output 06/28/19 06/29/19 06/29/19 18:59 06:59 18:59 Intake Total 1556.851 409.947 919 Output Total 885 1900 755 Balance 671.851 -1490.053 164 Weight 80.7 kg Intake: IV 81 192 454 0.9 20 30 0.9% Pressure Bag 66 72 24 Piperacillin-Tazobactam 3 100 .375 gm In Sodium Chloride 0.9% 100 ml @ 25 mls/hr IVPB Q12H [facility] Rx# :[id number] Sodium Chloride 3%( 15 Hypertonic) 500 ml @ 15 mls/hr IV .Q24H [facility] Rx#: [id number] Intake, IV Titration 413.851 217.947 30 Amount Heparin Sod,Pork in 0.45% 37.947 NaCl 25,000 unit In 0.45 % NaCl 1 250ml.bag @ 12 UNITS/KG/HR 9.6 mls/hr IV .Q24H [facility] Rx#:[id number] Norepinephrine 4 mg In 148.851 Sodium Chloride 0.9% 250 ml @ 0.05 MCG/KG/MIN 15. 107 mls/hr IV .[id number] [facility] Rx#:[id number] Piperacillin-Tazobactam 3 100 .375 gm In Sodium Chloride 0.9% 100 ml @ 25 mls/hr IVPB Q12H [facility] Rx# :[id number] Sodium Chloride 3%( 165 180 30 Hypertonic) 500 ml @ 15 mls/hr IV .Q24H [facility] Rx#: [id number] Oral 1062 Blood Product 435 Rc As-1 Unit 310 [id number] Output: Urine 885 1900 735 Estimated Blood Loss 20 Other: Voiding Method Indwelling Catheter Indwelling Catheter Indwelling Catheter ABP, PAP, CO, CI - Last Documented Arterial Blood Pressure 138/49 - Exam GENERAL: The patient is alert and oriented x3, not in any acute distress. Well developed, well nourished. HEENT: Pupils are round and equally reacting to light. EOMI. No scleral icterus. No conjunctival pallor. Normocephalic, atraumatic. No pharyngeal erythema. No thyromegaly. CARDIOVASCULAR: S1 and S2 present. No murmurs, rubs, or gallops. PULMONARY: Chest is clear to auscultation, no wheezing or crackles. ABDOMEN: Soft, nontender, nondistended, normoactive bowel sounds. No palpable organomegaly. MUSCULOSKELETAL: No joint swelling or deformity. -EXTREMITIES: No cyanosis, clubbing, or pedal edema. Right leg is on posterior splint NEUROLOGICAL: Gross neurological examination did not reveal any focal deficits. SKIN: No rashes. no petechiae. - Labs CBC & Chem 7: 06/29/19 05:05 06/29/19 08:25 Labs: Abnormal Lab Results - Last 24 Hours (Table) 06/28/19 06/28/19 06/28/19 Range/Units 04:30 13:20 13:20 WBC (3.8-10.6) k/uL RBC (3.80-5.40) m/uL Hgb (11.4-16.0) gm/dL Hct (34.0-46.0) % RDW (11.5-15.5) % Neutrophils # (1.3-7.7) k/uL ABG Lactic Acid 2.1 H (0.5-1.6) mmol/L Sodium 130 L (137-145) mmol/L Carbon Dioxide 19 L (22-30) mmol/L BUN 31 H (7-17) mg/dL Creatinine 1.68 H (0.52-1.04) mg/dL Glucose 179 H (74-99) mg/dL Calcium 8.3 L (8.4-10.2) mg/dL Procalcitonin 0.18 H (0.02-0.09) ng/mL Urine Blood (Negative) Urine Bacteria (None) /hpf Urine Mucus (None) /hpf Crossmatch 06/28/19 06/28/19 06/29/19 Range/Units 15:30 21:15 01:00 WBC (3.8-10.6) k/uL RBC (3.80-5.40) m/uL Hgb (11.4-16.0) gm/dL Hct (34.0-46.0) % RDW (11.5-15.5) % Neutrophils # (1.3-7.7) k/uL ABG Lactic Acid (0.5-1.6) mmol/L Sodium 129 L 131 L (137-145) mmol/L Carbon Dioxide (22-30) mmol/L BUN (7-17) mg/dL Creatinine (0.52-1.04) mg/dL Glucose (74-99) mg/dL Calcium (8.4-10.2) mg/dL Procalcitonin (0.02-0.09) ng/mL Urine Blood Small H (Negative) Urine Bacteria Rare H (None) /hpf Urine Mucus Rare H (None) /hpf Crossmatch 06/29/19 06/29/19 06/29/19 Range/Units 05:05 05:05 08:25 WBC 13.4 H (3.8-10.6) k/uL RBC 2.58 L (3.80-5.40) m/uL Hgb 8.2 L (11.4-16.0) gm/dL Hct 23.0 L (34.0-46.0) % RDW 16.3 H (11.5-15.5) % Neutrophils # 11.0 H (1.3-7.7) k/uL ABG Lactic Acid (0.5-1.6) mmol/L Sodium 130 L 134 L (137-145) mmol/L Carbon Dioxide 21 L (22-30) mmol/L BUN 29 H (7-17) mg/dL Creatinine 1.44 H (0.52-1.04) mg/dL Glucose 119 H (74-99) mg/dL Calcium 8.0 L (8.4-10.2) mg/dL Procalcitonin (0.02-0.09) ng/mL Urine Blood (Negative) Urine Bacteria (None) /hpf Urine Mucus (None) /hpf Crossmatch 06/29/19 Range/Units 08:25 WBC (3.8-10.6) k/uL RBC (3.80-5.40) m/uL Hgb (11.4-16.0) gm/dL Hct (34.0-46.0) % RDW (11.5-15.5) % Neutrophils # (1.3-7.7) k/uL ABG Lactic Acid (0.5-1.6) mmol/L Sodium (137-145) mmol/L Carbon Dioxide (22-30) mmol/L BUN (7-17) mg/dL Creatinine (0.52-1.04) mg/dL Glucose (74-99) mg/dL Calcium (8.4-10.2) mg/dL Procalcitonin (0.02-0.09) ng/mL Urine Blood (Negative) Urine Bacteria (None) /hpf Urine Mucus (None) /hpf Crossmatch See Detail Microbiology - Last 24 Hours (Table) 06/28/19 10:30 Blood Culture - Preliminary Blood No Growth after 24 hours 06/28/19 10:25 Blood Culture - Preliminary Blood No Growth after 24 hours 06/28/19 15:30 Urine Culture - Preliminary Urine,Catheterized Assessment and Plan Assessment: Hyponatremia secondary to SIADH Left ankle fracture, going for surgery once medically stable A. fib and RVR, currently heart rate is controlled. Coumadin is in hold and patient on heparin drip Acute kidney injury Hypotension, status post several boluses of normal saline Plan: This is a pleasant 83 years old male with left fracture and hyponatremia. Continue with the drain and fluid boluses as needed. Patient is followed by several consultants including critical care, neurologist, weed eradicator, optical instrument repairer in orthopedic team. Still needs to monitor her sodium closely, monitor blood pressure, continue with medial drain. Hold metoprolol, norco and Dilaudid. Continue with fluid restriction. Monitor glucose sites and INR. Patient will need surgical fixation of her left ankle fracture once she is m edically stable. Labs and medication were reviewed.. Continue same treatment. Continue with symptomatic treatment. Resume home medication. Monitor lytes and vitals. DVT and GI prophylaxis. Further recommendations of the clinical course of the patient Patient is medically stable for going for her ankle fracture surgery however she still at-risk. (Preop evaluation) DVT prophylaxis: heparin GI Prophylaxis: protnix Prognosis is guarded
[2019-06-29] MEDS: MIDODRINE 5 MG TAB PO SCH ×3 (14:46→19:41)
[2019-06-29] MEDS: AMIODARONE 200 MG TAB PO SCH ×2 (14:46→21:14)
[2019-06-29] MEDS: ACETAMINOPHEN TAB 325 MG TAB PO PRN (15:44)
[2019-06-29] MEDS: HYDROcodone/APAP 5-325MG 1 EACH TAB PO PRN (16:53)
[2019-06-29] MEDS: NOREPINEPHRINE 4 MG in SODIUM CHLORIDE 0.9% 250 ML IV SCH (19:40)
[2019-06-29] MEDS: METOPROLOL TARTRATE 50 MG TAB PO SCH ×2 (19:40→21:14)
[2019-06-29] MEDS: SENNOSIDES-DOCUSATE SODIUM 1 EACH TAB PO SCH (21:14)
[2019-06-29] MEDS: APIXABAN 5 MG TAB PO SCH (21:15)
[2019-06-30] MEDS: HYDROcodone/APAP 5-325MG 1 EACH TAB PO PRN ×2 (00:12→13:49)
[2019-06-30 06:27] LABS: Anisocytosis Slight; HCT 24.7 % (34.0-46.0); HGB 8.5 gm/dL (11.4-16.0); MCH 30.7 pg (25.0-35.0); MCHC 34.3 g/dL (31.0-37.0); MCV 89.5 fL (80.0-100.0); Mean Platelet Volume 5.9; Platelet Count 223 k/uL (150-450); RBC 2.76 m/uL (3.80-5.40); RDW 16.7 % (11.5-15.5); WBC 12.2 k/uL (3.8-10.6)
[2019-06-30 06:49] LABS: Calcium 8.1 mg/dL (8.4-10.2); Potassium 4.6 mmol/L (3.5-5.1)
[2019-06-30] MEDS: MIDODRINE 5 MG TAB PO SCH ×3 (07:14→16:59)
[2019-06-30] MEDS: PIPERACILLIN-TAZOBACTAM 3.375 GM in SODIUM CHLORIDE 0.9% 100 ML IVPB SCH ×3 (07:15→23:05)
[2019-06-30] MEDS: METOPROLOL TARTRATE 50 MG TAB PO SCH ×2 (09:33→20:20)
[2019-06-30] MEDS: PANTOPRAZOLE 40 MG/10 ML VIAL IVP SCH (09:33)
[2019-06-30] MEDS: AMIODARONE 200 MG TAB PO SCH ×2 (09:33→20:20)
[2019-06-30] MEDS: APIXABAN 5 MG TAB PO SCH ×2 (09:33→20:20)
--- NOTE | 2019-06-30 12:39 | P.PN ---
Subjective This is a pleasant 83 years old female with past medical history of atrial fibrillation on warfarin and metoprolol on admission, history of hypertension. She presents with fall and left ankle fracture, found to have metabolic encephalopathy or altered mental status and hyponatremia secondary to SIADH. Patient has been followed by several consultants including pulmonary/critical care team, neurology, nephrology and cardiology. Orthopedic team are planning to do open reduction for her ankle fracture was she is medically stable and INR down. Patient today he is in the ICU, lying in bed fully awake however she looks lethargic. Blood pressure on the low-normal signed 99/46, she was getting normal saline boluses while monitoring her sodium level, metoprolol is on hold and she didn't get it for the last few days, also patient does not seem in pain and she having used her [place] and Dilaudid for 2 days. However her blood pressure sore on the low side and medial drain has been added. Was team are following the case and managing her sodium closely, she is status post hypertonic saline 3% and on 06/26/2019 she got a dose of Tolvaptan. Also patient is on heparin drip while Coumadin is on hold. Labs showing WBC of 13.5 K hemoglobin is 10.8, sodium is 128 today on several occasions, creatinine is elevated at 1.3. U Scar UA is negative 06/28/2019 Patient is awake and alert, no new complaints. No chest pain or dyspnea. Her pain at the fracture site is minimal. Family at bedside and patient can recognize her daughter. WBC is trending up to 17.5 today. We going to repeat urine analysis. Chest x-ray from yesterday showing no acute process. Sodium today is stable at 130, while patient remains on 3% saline at 15 mL/h, also patient is started on Levophed at 0.05, she is on amiodarone and heparin drips as well for her irregular heart rate.. Orthopedic still pending medical. Decision Science Analyst switch her amiodarone to oral pills, while continue with heparin drip for possible date for surgery 06/29/2019 Patient is seen and examined by me at bedside in the ICU prior for her going to the operative room. Patient is awake and alert, she is not in distress. She denies chest pain or dyspnea. She is hemodynamically stable, labs showing significant improvement of her potassium up to 134, creatinine 1.4, double BCs 13.4 K. Patient is medically stable for going for surgery for her left ankle fracture however she is at some risk. 06/30/2019 Patient is a status post open reduction and internal fixation of her left ankle bimalleolar fracture, and today is postoperative day #1. Left leg is in splint with a dressing in place. Her pain is minimal and is well controlled. Patient denies any other symptoms. She denies chest pain or dyspnea. No abdominal pain. No nausea vomiting. Vitas looks stable. Leukocytosis improving down to 12.2, creatinine is down to 1.1, sodium is 134. Patient was started on Eliquis, and amiodarone . She remains on Zosyn for infection of unknown source, however her WBC is trending down. Objective - Vital Signs Vital signs: Vital Signs Temp 97.7 F 06/30/19 08:30 Pulse 93 06/30/19 08:30 Resp 18 06/30/19 08:30 BP 100/54 06/30/19 08:30 Pulse Ox 100 06/30/19 08:30 Intake & Output 06/29/19 06/30/19 06/30/19 18:59 06:59 18:59 Intake Total 999 16 240 Output Total 1105 1900 Balance -106 -1884 240 Weight 94 kg Intake: IV 534 16 0.9 80 10 0.9% Pressure Bag 54 6 Intake, IV Titration 30 Amount Sodium Chloride 3%( 30 Hypertonic) 500 ml @ 15 mls/hr IV .Q24H [facility] Rx#: [id number] Oral 240 Blood Product 435 Rc As-1 Unit 310 [id number] Output: Urine 1085 1900 Uretheral ([place]) 500 Estimated Blood Loss 20 Other: Voiding Method Indwelling Catheter Indwelling Catheter Indwelling Catheter ABP, PAP, CO, CI - Last Documented Arterial Blood Pressure 121/38 - Exam GENERAL: The patient is alert and oriented x3, not in any acute distress. Well developed, well nourished. HEENT: Pupils are round and equally reacting to light. EOMI. No scleral icterus. No conjunctival pallor. Normocephalic, atraumatic. No pharyngeal erythema. No thyromegaly. CARDIOVASCULAR: S1 and S2 present. No murmurs, rubs, or gallops. PULMONARY: Chest is clear to auscultation, no wheezing or crackles. ABDOMEN: Soft, nontender, nondistended, normoactive bowel sounds. No palpable organomegaly. MUSCULOSKELETAL: No joint swelling or deformity. -EXTREMITIES: No cyanosis, clubbing, or pedal edema. Right leg is on posterior splint NEUROLOGICAL: Gross neurological examination did not reveal any focal deficits. SKIN: No rashes. no petechiae. - Labs CBC & Chem 7: 06/30/19 05:38 06/30/19 05:38 Labs: Abnormal Lab Results - Last 24 Hours (Table) 06/30/19 06/30/19 Range/Units 05:38 05:38 WBC 12.2 H (3.8-10.6) k/uL RBC 2.76 L (3.80-5.40) m/uL Hgb 8.5 L (11.4-16.0) gm/dL Hct 24.7 L (34.0-46.0) % RDW 16.7 H (11.5-15.5) % Sodium 134 L (137-145) mmol/L Carbon Dioxide 21 L (22-30) mmol/L BUN 25 H (7-17) mg/dL Creatinine 1.10 H (0.52-1.04) mg/dL Calcium 8.1 L (8.4-10.2) mg/dL Microbiology - Last 24 Hours (Table) 06/28/19 10:25 Blood Culture - Preliminary Blood No Growth after 48 hours 06/28/19 15:30 Urine Culture - Final Urine,Catheterized 06/28/19 10:30 Blood Culture - Preliminary Blood No Growth after 24 hours Assessment and Plan Assessment: Hyponatremia secondary to SIADH, improvement Left ankle fracture, status post open reduction and internal fixation A. fib and RVR, currently heart rate is controlled. Continue with Eliquis and amiodarone Acute kidney injury, improving Hypotension, improved Plan: This is a pleasant 83 years old male with left fracture and hyponatremia. Surgical team are following the case for postop care, continue with the Eliquis, amiodarone, Zosyn. Monitor sodium and creatinine and WBC. Several consultants R following the case. Labs and medication were reviewed.. Continue same treatment. Continue with symptomatic treatment. Resume home medication. Monitor lytes and vitals. DVT and GI prophylaxis. Further recommendations of the clinical course of the patient Patient is medically stable for going for her ankle fracture surgery however she still at-risk. (Preop evaluation) DVT prophylaxis: Eliquis GI Prophylaxis: protnix Prognosis is guarded
--- NOTE | 2019-06-30 12:55 | P.PN ---
Subjective Progress Note Date: 06/30/19 Principal diagnosis: SIADH, hyponatremia, metabolic encephalopathy This is a 83-year-old white female who came into the hospital on 06/21/2019 complaining of pain in her left buttock, and patient apparently started hurting after a recent fall. Patient was in significant amount of discomfort, and was admitted for pain control, range of motion of the hip and knee was not affected, the patient had some local tenderness over the left buttock at the mid sacral area. Patient apparently had computed tomography scan and x-rays done at the [facility] which did not show any fracture of the hip or pelvis. Patient's past medical history is that of hypertension, paroxysmal atrial fibrillation on Coumadin, with past history of cardioversion. Apparently patient went into A. fib with RVR, and was admitted to the cardiac stepdown floor and started on Cardizem drip for rate control. Her admission blood work showed serum sodium of 125, which was down to 117, and the patient was initiated on fluid restriction, and started on 3% hypertonic saline and transferred to the intensive care unit. Her INR today is 3.1, white blood cell count was 13.7, troponin was negative 1, LFTs were within normal limits, serum osmolality was 252, urine osmolality was 824, random urine sodium was 63. Patient has had no fever or chills, no complaints of shortness of breath or chest pain, no leg swelling, no hip pain, no lightheadedness dizziness. Patient has been ambulating with a walker however her gait is unsteady, and during her hospital stay patient apparently sustained another fall resulting in injury of her left lower extremity, with x-rays showing significant left ankle fracture for which an orthopedic consultation was requested. Patient has been transferred to the intensive care unit for close monitoring, in view of her hyponatremia with increasing confusion, nephrology is following, and 3% hypertonic sitting is infusing. We are consulted for critical care management On today's evaluation of 06/25/2019, the patient is still in intensive care unit. Unfortunately, the mental status continues to be altered and the patient had significant amount of agitation or restlessness and confusion yesterday. We decided not to give Haldol due to underlying hyponatremia. She received 1 dose of Ativan. We will continue the hypertonic saline infusion and patient's sodium gradually improved and currently is up to 126 and based on his correction the hypertonic saline was completely discontinued. This morning, the patient was mumbling, stating she sentences, unable to have a conversation or follow commands. She is confused and restless and somnolent. She was able to move all 4 extremities and withdraws to pain was diminished in all 4 extremities. Neur ology consultation was requested. Note that the CAT scan of the brain was essentially negative. I discussed the case with neurologist. Based on his opinion, the abnormality seen on essentially metabolic in nature. Meanwhile, I ordered a CAT scan of the chest and abdomen and showed no acute abnormalities. No evidence of any intrathoracic or intra-abdominal masses to contribute for an underlying SIADH. The patient currently is afebrile. She is hemodynamically stable. Urine output is improved. She is on a Cardizem drip at the rate of 10 mg an hour for rate control. She is also on IV heparin regarding atrial fibrillation. Warfarin has been discontinued. On 06/26/2019 patient seen in follow-up in the intensive care unit, she is much more awake today, she is responding appropriately, she knows she is in the hospital, she knows her name, she knew her . Her sodium on today's labs is 132. Last night she was given some IV fluid boluses, a total of 1,5 liters of normal saline last night, an additional 500 mL this morning or hypotension and systolic in the 70s. Patient had a Triple-lumen central venous catheter placed, and her CVP is anywhere from 0-6. Blood pressure has improved, Cardizem drip has been discontinued, patient is in A. fib with RVR with a rate of 1:30 BP M, and she is being loaded with digoxin. His chest x-ray shows stable trace pleural effusions and a left-sided central venous catheter with some improvement in aeration of the left lung base. Echocardiogram showed EF of 50-55%, [id number] MR, mild tricuspid regurg, mild aortic stenosis, and moderate aortic regurgitation. His any chest pain, denies any shortness of breath, her marrow pulse ox is 99%, she is afebrile, she remains on heparin drip for anticoagulation. Denies any left lower extremity pain, which remains in the splint On 06/30/2019 patient seen in follow-up on selective care unit, she is awake and alert, oriented 3, in no acute distress, this is postop day 1 status post surgical repair of her left ankle fracture. No acute complaints, denies any difficulty breathing, room air pulse ox is 100%, lung sounds are clear, incentive spirometry effort is 500-1000 mL, today's labs have been reviewed showing serum sodium level of 134, renal profile is improving, BUN is down to 25 and creatinine is 1.10, patient is tolerating oral intake, specific complaints, blood and urine cultures showed no growth, patient is on oral anticoagulation and amiodarone, antibiotic coverage is with Zosyn. There have been no fevers or chills Objective - Vital Signs Vital signs: Vital Signs Temp 97.7 F 06/30/19 08:30 Pulse 93 06/30/19 08:30 Resp 18 06/30/19 08:30 BP 100/54 06/30/19 08:30 Pulse Ox 100 06/30/19 08:30 Intake & Output 06/29/19 06/30/19 06/30/19 18:59 06:59 18:59 Intake Total 999 16 240 Output Total 1105 1900 Balance -106 -1884 240 Weight 94 kg Intake: IV 534 16 0.9 80 10 0.9% Pressure Bag 54 6 Intake, IV Titration 30 Amount Sodium Chloride 3%( 30 Hypertonic) 500 ml @ 15 mls/hr IV .Q24H [facility] Rx#: [id number] Oral 240 Blood Product 435 Rc As-1 Unit 310 [id number] Output: Urine 1085 1900 Uretheral ([place]) 500 Estimated Blood Loss 20 Other: Voiding Method Indwelling Catheter Indwelling Catheter Indwelling Catheter ABP, PAP, CO, CI - Last Documented Arterial Blood Pressure 121/38 - Exam GENERAL EXAM: Alert, pleasant, 83-year-old white female, on room air, with a pulse ox of 99% comfortable in no apparent distress. HEAD: Normocephalic/atraumatic. EYES: Normal reaction of pupils, equal size. Conjunctiva pink, sclera white. NOSE: Clear with pink turbinates. THROAT: No erythema or exudates. NECK: No masses, no JVD, no thyroid enlargement, no adenopathy. CHEST: No chest wall deformity. Symmetrical expansion. LUNGS: Equal air entry with no crackles, wheeze, rhonchi or dullness. CVS: Irregular rate and rhythm, normal S1 and S2, no gallops, no murmurs, no rubs. ABDOMEN: Soft, nontender. No hepatosplenomegaly, normal bowel sounds, no guarding or rigidity. EXTREMITIES: No clubbing, no cyanosis, 2+ pulses and upper and lower extremities. Mild edema and ecchymosis in the left ankle, left ankle is immobilized with a splint and an arnie wrap MUSCULOSKELETAL: Muscle strength and tone normal. SPINE: No scoliosis or deformity SKIN: No rashes CENTRAL NERVOUS SYSTEM: Alert and oriented -3. No focal deficits, tone is normal in all 4 extremities. PSYCHIATRIC: Alert and oriented -3. Appropriate affect. Intact judgment and insight. - Labs CBC & Chem 7: 06/30/19 05:38 06/30/19 05:38 Labs: Abnormal Lab Results - Last 24 Hours (Table) 06/30/19 06/30/19 Range/Units 05:38 05:38 WBC 12.2 H (3.8-10.6) k/uL RBC 2.76 L (3.80-5.40) m/uL Hgb 8.5 L (11.4-16.0) gm/dL Hct 24.7 L (34.0-46.0) % RDW 16.7 H (11.5-15.5) % Sodium 134 L (137-145) mmol/L Carbon Dioxide 21 L (22-30) mmol/L BUN 25 H (7-17) mg/dL Creatinine 1.10 H (0.52-1.04) mg/dL Calcium 8.1 L (8.4-10.2) mg/dL Microbiology - Last 24 Hours (Table) 06/28/19 10:30 Blood Culture - Preliminary Blood No Growth after 48 hours 06/28/19 10:25 Blood Culture - Preliminary Blood No Growth after 48 hours 06/28/19 15:30 Urine Culture - Final Urine,Catheterized Assessment and Plan Plan: Assessment: #1. 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 Improved #2. Metabolic encephalopathy, encephalitis felt to be less likely in the absence of fever, no meningismus, CT brain was negative, seems to be improving with improvement of patient's serum sodium. Recovered #3. Displaced left ankle bimalleolar fracture, status post fall, status post ORIF, postoperative day 1 #4. Frequent falls at home, most recently sustaining injury to her bilateral buttocks at home #5. Atrial fibrillation with rapid ventricular response, rate is now controlled, on amiodarone, and oral Xarelto #6. Paroxysmal small atrial fibrillation on Coumadin, with previous history of cardioversion #7. Acute kidney injury related to hypotension, improving with IV hydration #8. Mild lactic acidosis, improving, currently on Zosyn for empiric antibiotic coverage #9. Hypertension #10. Lifetime nonsmoker #11. Gait dysfunction Plan: Patient is doing well, serum sodium stable at 134, mentation is appropriate, patient seems to have recovered from her encephalopathy. Denies any pain, denies any difficulty breathing, denies any chest pain, vital signs are stable, encourage deep breathing and coughing, incentive spirometry use, continues on oral anticoagulation, rate is controlled, continue with empiric anticoagulation, cultures are negative thus far. I performed a history & physical examination of the patient and discussed their management with my nurse practitioner, Shannan May. I reviewed the nurse practitioner's note and agree with the documented findings and plan of care. Lung sounds are positive for clear breath sounds. The findings and the impressi on was discussed with the patient. I attest to the documentation by the nurse practitioner. Time with Patient: Less than 30
--- NOTE | 2019-06-30 13:24 | P.PN ---
Subjective Patient is seen in follow-up for acute kidney injury and hyponatremia. Currently off all IV fluids. Sodium level stable at 134 today. She underwent ankle surgery yesterday. Currently sitting up in chair. No vomiting or diarrhea. Renal function is improving. Vital signs are stable. General: The patient appeared well nourished and normally developed. HEENT: Head exam is unremarkable. Neck is without jugular venous distension. LUNGS: Lungs are clear to auscultation and percussion. Breath sounds decreased. HEART: Rate and Rhythm are regular. First and second heart sounds normal. No murmurs, rubs or gallops. ABDOMEN: Abdominal exam reveals normal bowel sounds. Non-tender and non- distended. No evidence of peritonitis. EXTREMITITES: No clubbing, cyanosis, or edema. Objective - Vital Signs Vital signs: Vital Signs Temp 97.7 F 06/30/19 08:30 Pulse 93 06/30/19 08:30 Resp 18 06/30/19 08:30 BP 100/54 06/30/19 08:30 Pulse Ox 100 06/30/19 08:30 Intake & Output 06/29/19 06/30/19 06/30/19 18:59 06:59 18:59 Intake Total 999 16 240 Output Total 1105 1900 Balance -106 -1884 240 Weight 94 kg Intake: IV 534 16 0.9 80 10 0.9% Pressure Bag 54 6 Intake, IV Titration 30 Amount Sodium Chloride 3%( 30 Hypertonic) 500 ml @ 15 mls/hr IV .Q24H [facility] Rx#: [id number] Oral 240 Blood Product 435 Rc As-1 Unit 310 [id number] Output: Urine 1085 1900 Uretheral ([place]) 500 Estimated Blood Loss 20 Other: Voiding Method Indwelling Catheter Indwelling Catheter Indwelling Catheter ABP, PAP, CO, CI - Last Documented Arterial Blood Pressure 121/38 - Labs CBC & Chem 7: 06/30/19 05:38 06/30/19 05:38 Labs: Abnormal Lab Results - Last 24 Hours (Table) 06/30/19 06/30/19 Range/Units 05:38 05:38 WBC 12.2 H (3.8-10.6) k/uL RBC 2.76 L (3.80-5.40) m/uL Hgb 8.5 L (11.4-16.0) gm/dL Hct 24.7 L (34.0-46.0) % RDW 16.7 H (11.5-15.5) % Sodium 134 L (137-145) mmol/L Carbon Dioxide 21 L (22-30) mmol/L BUN 25 H (7-17) mg/dL Creatinine 1.10 H (0.52-1.04) mg/dL Calcium 8.1 L (8.4-10.2) mg/dL Microbiology - Last 24 Hours (Table) 06/28/19 10:30 Blood Culture - Preliminary Blood No Growth after 48 hours 06/28/19 10:25 Blood Culture - Preliminary Blood No Growth after 48 hours 06/28/19 15:30 Urine Culture - Final Urine,Catheterized Assessment and Plan Plan: Assessment: 1. Acute kidney injury mostly prerenal improved with IV hydration. Creatinine 1.1 today. 2. Hypovolemic hyponatremia improved with IV hydration. Status post 3% saline. Currently off all IV fluids. Sodium level 134 today. 3. Left ankle fracture status post ORIF on June 29. 4. Encephalopathy, resolved. Plan: Encouraged oral intake. Add ensure with meals. 1500 mL fluid restriction. Repeat electrolytes in the morning.
--- NOTE | 2019-06-30 15:34 | P.PN ---
Subjective Progress Note Date: 06/30/19 Principal diagnosis: Status post ORIF left ankle bimalleolar fracture Patient evaluated at bedside, she is on the cardiac stepdown unit. She is resting comfortably. She notes discomfort in the ankle. She denies chest pain or shortness of breath. Objective - Vital Signs Vital signs: Vital Signs Temp 97.9 F 06/30/19 12:20 Pulse 84 06/30/19 12:20 Resp 17 06/30/19 12:20 BP 99/52 06/30/19 12:20 Pulse Ox 93 L 06/30/19 12:20 Intake & Output 06/29/19 06/30/19 06/30/19 18:59 06:59 18:59 Intake Total 999 16 480 Output Total 1105 1900 Balance -106 -1884 480 Weight 94 kg Intake: IV 534 16 0.9 80 10 0.9% Pressure Bag 54 6 Intake, IV Titration 30 Amount Sodium Chloride 3%( 30 Hypertonic) 500 ml @ 15 mls/hr IV .Q24H [facility] Rx#: [id number] Oral 480 Blood Product 435 Rc As-1 Unit 310 [id number] Output: Urine 1085 1900 Uretheral ([place]) 500 Estimated Blood Loss 20 Other: Voiding Method Indwelling Catheter Indwelling Catheter Indwelling Catheter ABP, PAP, CO, CI - Last Documented Arterial Blood Pressure 121/38 - Exam Left lower extremity: Postop splint is in good position and condition, sensory exam throughout the extremities intact. She is able to wiggle the toes minimal difficulty - Labs CBC & Chem 7: 06/30/19 05:38 06/30/19 05:38 Labs: Abnormal Lab Results - Last 24 Hours (Table) 06/30/19 06/30/19 Range/Units 05:38 05:38 WBC 12.2 H (3.8-10.6) k/uL RBC 2.76 L (3.80-5.40) m/uL Hgb 8.5 L (11.4-16.0) gm/dL Hct 24.7 L (34.0-46.0) % RDW 16.7 H (11.5-15.5) % Sodium 134 L (137-145) mmol/L Carbon Dioxide 21 L (22-30) mmol/L BUN 25 H (7-17) mg/dL Creatinine 1.10 H (0.52-1.04) mg/dL Calcium 8.1 L (8.4-10.2) mg/dL Microbiology - Last 24 Hours (Table) 06/28/19 10:30 Blood Culture - Preliminary Blood No Growth after 48 hours 06/28/19 10:25 Blood Culture - Preliminary Blood No Growth after 48 hours 06/28/19 15:30 Urine Culture - Final Urine,Catheterized Assessment and Plan Plan: Assessment: Postoperative day #1 status post ORIF left ankle bimalleolar fracture Plan: Pain control, continue current medication GI and DVT prophylaxis, other medical specialty recommendations for this Nonweightbearing left lower extremity Ice and elevate Recommend rehab placement for discharge Time with Patient: Less than 30
--- NOTE | 2019-06-30 20:27 | PN ---
PROGRESS NOTE Mrs. Stark is a lady who has chronic atrial fibrillation, but the rate is well controlled. She also had significant hyponatremia. She underwent her ankle surgery uneventfully. She is resting comfortably without symptoms. She remains in atrial fibrillation. Rate control is fairly decent. Sodium is 134. Vitals are stable. There is no carotid bruit. JVD is evident. S1, S2 heard normally. Irregular rhythm noted. Short systolic murmur noted. Lungs reveal decent air entry. Abdomen and lower extremity exam is unchanged. I am recommending that we decrease the amiodarone from 400 to 200 mg b.i.d. and continue her other medications as before. MMODL / IJN: [id number] /
[2019-06-30] MEDS: SENNOSIDES-DOCUSATE SODIUM 1 EACH TAB PO SCH (23:05)
[2019-07-01] MEDS: HYDROcodone/APAP 5-325MG 1 EACH TAB PO PRN (05:06)
[2019-07-01 05:50] LABS: Anisocytosis Slight; HGB 8.4 gm/dL (11.4-16.0); Hypochromasia Slight; MCH 31.1 pg (25.0-35.0); MCHC 33.7 g/dL (31.0-37.0); MCV 92.5 fL (80.0-100.0); Mean Platelet Volume 5.6; Platelet Count 226 k/uL (150-450); RBC 2.71 m/uL (3.80-5.40); RDW 17.2 % (11.5-15.5); WBC 10.9 k/uL (3.8-10.6)
[2019-07-01 06:04] LABS: Potassium 4.2 mmol/L (3.5-5.1)
[2019-07-01] MEDS: PANTOPRAZOLE 40 MG TABLET PO SCH (06:45)
[2019-07-01] MEDS: MIDODRINE 5 MG TAB PO SCH ×3 (06:45→18:35)
[2019-07-01] MEDS: PIPERACILLIN-TAZOBACTAM 3.375 GM in SODIUM CHLORIDE 0.9% 100 ML IVPB SCH (06:45)
[2019-07-01] MEDS: AMIODARONE 200 MG TAB PO SCH ×2 (08:55→20:28)
[2019-07-01] MEDS: APIXABAN 5 MG TAB PO SCH ×2 (08:55→20:28)
[2019-07-01] MEDS: METOPROLOL TARTRATE 50 MG TAB PO SCH ×2 (08:55→20:29)
[2019-07-01] MEDS ORDERED: LACTULOSE 20 GM/30 ML CUP PO PRN (10:11)
--- NOTE | 2019-07-01 11:25 | P.PN ---
Subjective Progress Note Date: 07/01/19 Principal diagnosis: Status post ORIF left ankle bimalleolar fracture Patient evaluated at bedside, she is on the cardiac stepdown unit. She is resting comfortably. She notes discomfort in the ankle. She denies chest pain or shortness of breath. Objective - Vital Signs Vital signs: Vital Signs Temp 97.6 F 07/01/19 08:00 Pulse 78 07/01/19 08:00 Resp 18 07/01/19 08:00 BP 96/55 07/01/19 08:00 Pulse Ox 98 07/01/19 08:00 Intake & Output 06/30/19 07/01/19 07/01/19 18:59 06:59 18:59 Intake Total 480 480 360 Output Total 700 1200 Balance -220 -720 360 Intake: Oral 480 480 360 Output: Urine 700 1200 Other: Voiding Method Indwelling Catheter Indwelling Catheter Indwelling Catheter ABP, PAP, CO, CI - Last Documented Arterial Blood Pressure 121/38 - Exam Left lower extremity: Postop splint is in good position and condition, sensory exam throughout the extremities intact. She is able to wiggle the toes minimal difficulty - Labs CBC & Chem 7: 07/01/19 05:35 07/01/19 05:35 Labs: Abnormal Lab Results - Last 24 Hours (Table) 07/01/19 07/01/19 Range/Units 05:35 05:35 WBC 10.9 H (3.8-10.6) k/uL RBC 2.71 L (3.80-5.40) m/uL Hgb 8.4 L (11.4-16.0) gm/dL Hct 25.0 L (34.0-46.0) % RDW 17.2 H (11.5-15.5) % Sodium 134 L (137-145) mmol/L BUN 23 H (7-17) mg/dL Glucose 131 H (74-99) mg/dL Calcium 8.0 L (8.4-10.2) mg/dL Microbiology - Last 24 Hours (Table) 06/28/19 10:30 Blood Culture - Preliminary Blood No Growth after 48 hours 06/28/19 10:25 Blood Culture - Preliminary Blood No Growth after 48 hours Assessment and Plan Plan: Assessment: Postoperative day #2 status post ORIF left ankle bimalleolar fracture Plan: Pain control, continue current medication GI and DVT prophylaxis, other medical specialty recommendations for this Nonweightbearing left lower extremity Ice and elevate Recommend rehab placement for discharge
[2019-07-01 11:36] VITALS: BMI 34.4
[2019-07-01] MEDS: CALCIUM CARB-VIT D 500MG-200UN 1 EACH TAB PO SCH ×2 (12:31→18:35)
--- NOTE | 2019-07-01 16:15 | P.PN ---
Subjective Progress Note Date: 07/01/19 This is a 83-year-old white female who came into the hospital on 06/21/2019 complaining of pain in her left buttock, and patient apparently started hurting after a recent fall. Patient was in significant amount of discomfort, and was admitted for pain control, range of motion of the hip and knee was not affected, the patient had some local tenderness over the left buttock at the mid sacral area. Patient apparently had computed tomography scan and x-rays done at the [facility] which did not show any fracture of the hip or pelvis. Patient's past medical history is that of hypertension, paroxysmal atrial fibrillation on Coumadin, with past history of cardioversion. Apparently patie nt went into A. fib with RVR, and was admitted to the cardiac stepdown floor and started on Cardizem drip for rate control. Her admission blood work showed serum sodium of 125, which was down to 117, and the patient was initiated on fluid restriction, and started on 3% hypertonic saline and transferred to the intensive care unit. Her INR today is 3.1, white blood cell count was 13.7, troponin was negative 1, LFTs were within normal limits, serum osmolality was 252, urine osmolality was 824, random urine sodium was 63. Patient has had no fever or chills, no complaints of shortness of breath or chest pain, no leg swelling, no hip pain, no lightheadedness dizziness. Patient has been ambula ting with a walker however her gait is unsteady, and during her hospital stay patient apparently sustained another fall resulting in injury of her left lower extremity, with x-rays showing significant left ankle fracture for which an orthopedic consultation was requested. Patient seen in follow-up on selective care unit, she is awake and alert, oriented 3, in no acute distress, this is postop day 2 status post surgical repair of her left ankle fracture. No acute complaints, denies any difficulty breathing, room air pulse ox is 100%, lung sounds are clear, incentive spirometry effort is 500-1000 mL, today's labs have been reviewed showing serum sodium level of 134, renal profile is improving, BUN is down to 25 and creatinine is 1.10, patient is tolerating oral intake, specific complaints, blood and urine cultures showed no growth, patient is on oral anticoagulation and amiodarone, antibiotic coverage is with Zosyn. There have been no fevers or chills. We will continue with current medications. Objective - Vital Signs Vital signs: Vital Signs Temp 97.9 F 07/01/19 12:00 Pulse 92 07/01/19 12:00 Resp 18 07/01/19 12:00 BP 98/59 07/01/19 12:00 Pulse Ox 99 07/01/19 12:00 Intake & Output 06/30/19 07/01/19 07/01/19 18:59 06:59 18:59 Intake Total 480 480 720 Output Total 700 1200 1075 Balance -220 -720 -355 Weight 94 kg Intake: Oral 480 480 720 Output: Urine 700 1200 1075 Other: Voiding Method Indwelling Catheter Indwelling Catheter Indwelling Catheter ABP, PAP, CO, CI - Last Documented Arterial Blood Pressure 121/38 - Exam GENERAL EXAM: Alert, pleasant, 83-year-old white female, on room air, with a pulse ox of 99% comfortable in no apparent distress. HEAD: Normocephalic/atraumatic. EYES: Normal reaction of pupils, equal size. Conjunctiva pink, sclera white. NOSE: Clear with pink turbinates. THROAT: No erythema or exudates. NECK: No masses, no JVD, no thyroid enlargement, no adenopathy. CHEST: No chest wall deformity. Symmetrical expansion. LUNGS: Equal air entry with no crackles, wheeze, rhonchi or dullness. CVS: Irregular rate and rhythm, normal S1 and S2, no gallops, no murmurs, no rubs. ABDOMEN: Soft, nontender. No hepatosplenomegaly, normal bowel sounds, no guarding or rigidity. EXTREMITIES: No clubbing, no cyanosis, 2+ pulses and upper and lower extremities. Mild edema and ecchymosis in the left ankle, left ankle is immobilized with a splint and an arnie wrap MUSCULOSKELETAL: Muscle strength and tone normal. SPINE: No scoliosis or deformity SKIN: No rashes CENTRAL NERVOUS SYSTEM: Alert and oriented -3. No focal deficits, tone is normal in all 4 extremities. PSYCHIATRIC: Alert and oriented -3. Appropriate affect. Intact judgment and insight. - Labs CBC & Chem 7: 07/01/19 05:35 07/01/19 05:35 Labs: Abnormal Lab Results - Last 24 Hours (Table) 07/01/19 07/01/19 Range/Units 05:35 05:35 WBC 10.9 H (3.8-10.6) k/uL RBC 2.71 L (3.80-5.40) m/uL Hgb 8.4 L (11.4-16.0) gm/dL Hct 25.0 L (34.0-46.0) % RDW 17.2 H (11.5-15.5) % Sodium 134 L (137-145) mmol/L BUN 23 H (7-17) mg/dL Glucose 131 H (74-99) mg/dL Calcium 8.0 L (8.4-10.2) mg/dL Microbiology - Last 24 Hours (Table) 06/28/19 10:30 Blood Culture - Preliminary Blood No Growth after 72 hours 06/28/19 10:25 Blood Culture - Preliminary Blood No Growth after 72 hours Assessment and Plan Plan: Assessment: #1. 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 Improved #2. Metabolic encephalopathy, encephalitis felt to be less likely in the absence of fever, no meningismus, CT brain was negative, seems to be improving with improvement of patient's serum sodium. Recovered #3. Displaced left ankle bimalleolar fracture, status post fall, status post ORIF, postoperative day 1 #4. Frequent falls at home, most recently sustaining injury to her bilateral bu ttocks at home #5. Atrial fibrillation with rapid ventricular response, rate is now controlled, on amiodarone, and oral Xarelto #6. Paroxysmal small atrial fibrillation on Coumadin, with previous history of cardioversion #7. Acute kidney injury related to hypotension, improving with IV hydration #8. Mild lactic acidosis, improving, currently on Zosyn for empiric antibiotic coverage #9. Hypertension #10. Lifetime nonsmoker #11. Gait dysfunction Plan From Cardiology perspective, we will continue the patient on current medications. She may be able to be discharged once cleared by primary. DNP note has been reviewed, I agree with a documented findings and plan of care. Patient was seen and examined.
--- NOTE | 2019-07-01 17:20 | P.PN ---
Subjective a pleasant 83 years old female with past medical history of atrial fibrillation on warfarin and metoprolol on admission, history of hypertension. She presents with fall and left ankle fracture, found to have metabolic encephalopathy or altered mental status and hyponatremia secondary to SIADH. Patient has been followed by several consultants including pulmonary/critical care team, neurology, nephrology and cardiology. Orthopedic team are planning to do open reduction for her ankle fracture was she is medically stable and INR down. Patient today he is in the ICU, lying in bed fully awake however she looks lethargic. Blood pressure on the low-normal signed 99/46, she was getting normal saline boluses while monitoring her sodium level, metoprolol is on hold and she didn't get it for the last few days, also patient does not seem in pain and she having used her [place] and Dilaudid for 2 days. However her blood pressure sore on the low side and medial drain has been added. Was team are following the case and managing her sodium closely, she is status post hypertonic saline 3% and on 06/26/2019 she got a dose of Tolvaptan. Also p atient is on heparin drip while Coumadin is on hold. Labs showing WBC of 13.5 K hemoglobin is 10.8, sodium is 128 today on several occasions, creatinine is elevated at 1.3. U Scar UA is negative 06/28/2019 Patient is awake and alert, no new complaints. No chest pain or dyspnea. Her pain at the fracture site is minimal. Family at bedside and patient can recognize her daughter. WBC is trending up to 17.5 today. We going to repeat urine analysis. Chest x-ray from yesterday showing no acute process. Sodium today is stable at 130, while patient remains on 3% saline at 15 mL/h, also patient is started on Levophed at 0.05, she is on amiodarone and heparin drips as well for her irregular heart rate.. Orthopedic still pending medical. Night [address] Magistrate switch her amiodarone to oral pills, while continue with heparin drip for possible date for surgery 06/29/2019 Patient is seen and examined by me at bedside in the ICU prior for her going to the operative room. Patient is awake and alert, she is not in distress. She denies chest pain or dyspnea. She is hemodynamically stable, labs showing significant improvement of her potassium up to 134, creatinine 1.4, double BCs 13.4 K. Patient is medically stable for going for surgery for her left ankle fracture however she is at some risk. 06/30/2019 Patient is a status post open reduction and internal fixation of her left ankle bimalleolar fracture, and today is postoperative day #1. Left leg is in splint with a dressing in place. Her pain is minimal and is well controlled. Patient denies any other symptoms. She denies chest pain or dyspnea. No abdominal pain. No nausea vomiting. Vitas looks stable. Leukocytosis improving down to 12.2, creatinine is down to 1.1, sodium is 134. Patient was started on Eliquis, and amiodarone . She remains on Zosyn for infection of unknown source, however her WBC is trending down. 07/01/2019 This is Patient is keep improving gradually, her Vitas looks stable, patient denies chest pain or dyspnea, no abdominal pain, no diarrhea, no nausea vomiting. No fever. However patient feels generally weak and she has gas in her left ankle leg postoperatively. Patient is cleared for discharge by pulmonary, and cardiology teams. Pending clearance by nephrology and orthopedic. It looks like patient is a stable to be discharged today however pending placement, as patient will need to go to [facility] for inpatient subacute rehab Objective - Vital Signs Vital signs: Vital Signs Temp 97.9 F 07/01/19 12:00 Pulse 92 07/01/19 12:00 Resp 18 07/01/19 12:00 BP 98/59 07/01/19 12:00 Pulse Ox 99 07/01/19 12:00 Intake & Output 06/30/19 07/01/19 07/01/19 18:59 06:59 18:59 Intake Total 480 480 720 Output Total 700 1200 2075 Balance -220 720 -1355 Weight 94 kg Intake: Oral 480 480 720 Output: Urine 700 1200 2074 Other: Voiding Method Indwelling Catheter Indwelling Catheter Indwelling Catheter ABP, PAP, CO, CI - Last Documented Arterial Blood Pressure 121/38 - Exam GENERAL: The patient is alert and oriented x3, not in any acute distress. Well developed, well nourished. HEENT: Pupils are round and equally reacting to light. EOMI. No scleral icterus. No conjunctival pallor. Normocephalic, atraumatic. No pharyngeal erythema. No thyromegaly. CARDIOVASCULAR: S1 and S2 present. No murmurs, rubs, or gallops. PULMONARY: Chest is clear to auscultation, no wheezing or crackles. ABDOMEN: Soft, nontender, nondistended, normoactive bowel sounds. No palpable organomegaly. MUSCULOSKELETAL: No joint swelling or deformity. -EXTREMITIES: No cyanosis, clubbing, or pedal edema. Right leg is on posterior splint NEUROLOGICAL: Gross neurological examination did not reveal any focal deficits. SKIN: No rashes. no petechiae. - Labs CBC & Chem 7: 07/01/19 05:35 07/01/19 05:35 Labs: Abnormal Lab Results - Last 24 Hours (Table) 07/01/19 07/01/19 Range/Units 05:35 05:35 WBC 10.9 H (3.8-10.6) k/uL RBC 2.71 L (3.80-5.40) m/uL Hgb 8.4 L (11.4-16.0) gm/dL Hct 25.0 L (34.0-46.0) % RDW 17.2 H (11.5-15.5) % Sodium 134 L (137-145) mmol/L BUN 23 H (7-17) mg/dL Glucose 131 H (74-99) mg/dL Calcium 8.0 L (8.4-10.2) mg/dL Microbiology - Last 24 Hours (Table) 06/28/19 10:30 Blood Culture - Preliminary Blood No Growth after 72 hours 06/28/19 10:25 Blood Culture - Preliminary Blood No Growth after 72 hours Assessment and Plan Assessment: Hyponatremia secondary to SIADH, improvement Left ankle fracture, status post open reduction and internal fixation A. fib and RVR, currently heart rate is controlled. Continue with Eliquis and amiodarone Acute kidney injury, improving Hypotension, improved Plan: This is a pleasant 83 years old male with left fracture and hyponatremia. Surgical team are following the case for postop care, continue with the Eliquis, amiodarone, Zosyn. Monitor sodium and creatinine and WBC. Several consultants R following the case. Labs and medication were reviewed.. Continue same treatment. Continue with symptomatic treatment. Resume home medication. Monitor lytes and vitals. DVT and GI prophylaxis. Further recommendations of the clinical course of the patient Patient is medically stable for going for her ankle fracture surgery however she still at-risk. (Preop evaluation) DVT prophylaxis: Eliquis GI Prophylaxis: protnix Prognosis is guarded
[2019-07-01] MEDS: ACETAMINOPHEN TAB 325 MG TAB PO PRN (19:32)
--- NOTE | 2019-07-01 19:40 | PN ---
PROGRESS NOTE Patient is seen for followup for hyponatremia. Her serum sodium level has improved. It is staying at 134 for the last 2 days. The patient remains on some degree of free water restriction. She is eating better. She also had acute kidney injury and her renal function has improved. Creatinine down to 0.98 from 1.6 mg/dL. PHYSICAL EXAMINATION: On examination today, blood pressure was 98/59, heart rate of 78 per minute. Patient is afebrile. Examination of the heart S1, S2. Examination of the lungs, bilateral breath sounds are heard. Abdomen is soft, nontender, obese. Examination of the lower extremities shows trace edema bilaterally. CRUSHER SUPERVISOR exam grossly intact. LABS: Show sodium of 134, potassium 4.2, chloride 104, BUN 23, serum creatinine 0.98. ASSESSMENT: 1. Hyponatremia. Initially euvolemic. At one time, patient was hypovolemic. Currently she does not appear to be hypovolemic anymore. Sodium is staying at 134. I will continue with free water restriction. The patient is encouraged to maintain good oral protein intake. Hold off on any diuresis as well for now. 2. Acute kidney injury associated with hypotension hypoperfusion, currently resolved. 3. Atrial fibrillation with RVR with controlled ventricular response now. 4. Fracture of left lower extremity, status post surgery. 5. Gastroesophageal reflux disease, maintained on Protonix. PLAN: Repeat labs in a.m. Maintain good oral protein intake and avoid nephrotoxic medications. MMODL / IJN: [id number] /
[2019-07-01] MEDS: SENNOSIDES-DOCUSATE SODIUM 1 EACH TAB PO SCH (20:22)
[2019-07-02] MEDS: HYDROcodone/APAP 5-325MG 1 EACH TAB PO PRN ×2 (02:06→10:17)
[2019-07-02] MEDS: MIDODRINE 5 MG TAB PO SCH ×2 (06:34→12:37)
[2019-07-02] MEDS: CALCIUM CARB-VIT D 500MG-200UN 1 EACH TAB PO SCH (06:35)
[2019-07-02] MEDS: PANTOPRAZOLE 40 MG TABLET PO SCH (06:35)
[2019-07-02 07:01] LABS: Anisocytosis Slight; HCT 25.9 % (34.0-46.0); HGB 8.7 gm/dL (11.4-16.0); Hypochromasia Slight; MCH 30.8 pg (25.0-35.0); MCHC 33.7 g/dL (31.0-37.0); MCV 91.3 fL (80.0-100.0); Mean Platelet Volume 5.7; Platelet Count 246 k/uL (150-450); RBC 2.84 m/uL (3.80-5.40); RDW 17.5 % (11.5-15.5); WBC 9.6 k/uL (3.8-10.6)
[2019-07-02 07:08] LABS: Calcium 8.1 mg/dL (8.4-10.2); Potassium 4.7 mmol/L (3.5-5.1)
[2019-07-02] MEDS: METOPROLOL TARTRATE 50 MG TAB PO SCH (08:19)
[2019-07-02] MEDS: APIXABAN 5 MG TAB PO SCH (08:19)
[2019-07-02] MEDS: AMIODARONE 200 MG TAB PO SCH (08:19)
--- NOTE | 2019-07-02 08:20 | P.DS ---
Providers Date of admission: 06/23/19 10:35 Attending physician: Emile Salmeron Consults: 06/21/19 18:14 Consult Physician Stat Consulting Provider: Krysta eBlla Consult Reason/Comments: a fib RVR Do you want consulting provider notified?: Yes 06/23/19 01:07 Consult Physician Stat Consulting Provider: Perez Hackett Consult Reason/Comments: Fracture left ankle Do you want consulting provider notified?: Yes 06/23/19 09:31 Consult Physician Stat Consulting Provider: Kodi Javier Consult Reason/Comments: Low Sodium 119 Do you want consulting provider notified?: Yes 06/24/19 07:42 Consult Physician Routine Consulting Provider: Sadiq Ku Consult Reason/Comments: ICU MANAGEMENT Do you want consulting provider notified?: Yes 06/25/19 11:17 Consult Physician Routine Consulting Provider: Kirby Karimi Consult Reason/Comments: AMS Do you want consulting provider notified?: Yes Primary care physician: Danielle Cole Hospital Course: Diagnoses: Hyponatremia secondary to SIADH, improvement, continue with fluid restriction Left ankle fracture, status post open reduction and internal fixation A. fib and RVR, currently heart rate is controlled. Continue with Eliquis and amiodarone Soft tissue infection and leukocytosis, improved with antibiotics. Continue short course of oral antibiotics upon discharge Acute kidney injury, improved Hypotension, improved Osteoporosis, on calcium and vitamin D Hospital course: This is a pleasant 83 years old female with past medical history of atrial fibrillation on warfarin and metoprolol on admission, history of hypertension. She presents with fall and left ankle fracture, found to have metabolic encephalopathy or altered mental status and hyponatremia secondary to SIADH. Patient has been followed by several consultants including pulmonary/critical care team, neurology, nephrology and cardiology. Orthopedic team performed open reduction for her ankle fracture was she is medically stable and INR down. Patient has a cast in her left ankle surgery site. Her pain looks controlled. Patient was treated for short time in the intensive care unit for her hyponatremia and other medical problems, she received hypertonic 3% saline and Tolvaptan to control her sodium, currently her sodium is a stable 134 on a fluid restriction 1500 mL per day. Also she is with A. fib and RVR, rate is controlled on Eliquis 5 mg and amiodarone 400 mg twice daily. Also she is on metoprolol 50 mg twice daily. Patient was found to have leukocytosis, source, possible soft tissue infection. Patient was started on Zosyn from 18.8 K down to 10.9 K today. Patient will be discharged on short course of Augmentin. Patient feels generally weak and she will need subacute rehab upon discharge for strengthening training and PT/OT. Patient will be discharged to ECF with recommendation for close monitoring of her sodium and other vitals and labs. She will be discharged with fluid restriction of 1200 mL per day as per nephrology's recommendation, non-weightbearing of her left ankle fracture site as per orthopedic On the day of discharge patient denies chest pain or dyspnea, no nausea vomiting she is tolerating diet, no abdominal pain, she has constipation which is treated symptomatically. No urinary symptoms. Patient is cleared for discharge by all consultants including pulmonary/critical care, neurology, nephrology, cardiology at orthopedic team Problems and management plan were discussed with the patient and he verbalized understanding and acceptance Patient was found stable and can be discharged home however he needs follow-up as an outpatient. Patient was instructed to follow up with PCP within one week and patient agrees. Patient was instructed to follow up with her orthopedic, and land management supervisor, drive away driver Gen: patient is a AAOx3, no distress. Generally weak CVS: S1-S2, RRR, no murmur Lungs: B/L CTA, no wheezing Abdomen: soft, no distention, no tenderness, positive bowel sounds Extremity: no leg edema or induration. Left leg and ankle and cast Time spent more than 35 minutes Plan - Discharge Summary Discharge Rx Participant: Yes New Discharge Prescriptions: New Amoxic-Pot Clav 875-125Mg [Augmentin 875-125] 1 tab PO Q12HR 5 Days #10 tablet Lactulose [Cephulac] 20 gm PO DAILY PRN ml PRN Reason: constipation Docusate [Colace] 100 mg PO DAILY PRN cap PRN Reason: Constipation Amiodarone [Cordarone] 200 mg PO BID tab Apixaban [Eliquis] 5 mg PO BID #60 tab Magnesium Hydroxide [Milk of Magnesia Concentrate] 2,400 mg PO DAILY PRN ml PRN Reason: Constipation HYDROcodone/APAP 5-325MG [Miller 5-325] 2 each PO Q12HR PRN #4 tab PRN Reason: Pain Scale 6 To 10 Calcium Carb-Vit D 500Mg-200Un [Oscal 500+D] 1 each PO BID-W/MEALS #0 tab Midodrine [ProAmatine] 10 mg PO AC-TID tab Pantoprazole [Protonix] 40 mg PO AC-BRKFST tablet.dr [place]-Docusate Sodium [Senokot-S] 2 each PO HS tab Acetaminophen Tab [Tylenol] 325 mg PO Q4HR PRN tab PRN Reason: Pain Scale 1 To 5 Continue Metoprolol Tartrate [Lopressor] 25 mg PO BID Aspirin 81 mg PO DAILY Discontinued Warfarin [Coumadin] 5 mg PO WALTER Lisinopril [Prinivil] 5 mg PO DAILY HYDROcodone/APAP 5-325MG [Miller 5-325] 1 tab PO Q4H PRN PRN Reason: Pain Docusate [Colace] 100 mg PO BID PRN PRN Reason: Constipation Warfarin [Coumadin] 2.5 mg PO [id number] Discharge Medication List Metoprolol Tartrate [Lopressor] 25 mg PO BID 12/08/15 [History] Aspirin 81 mg PO DAILY 06/21/19 [History] Acetaminophen Tab [Tylenol] 325 mg PO Q4HR PRN tab 07/01/19 [Rx] Amiodarone [Cordarone] 200 mg PO BID tab 07/01/19 [Rx] Amoxic-Pot Clav 875-125Mg [Augmentin 875-125] 1 tab PO Q12HR 5 Days #10 tablet 07/01/19 [Rx] Apixaban [Eliquis] 5 mg PO BID #60 tab 07/01/19 [Rx] Calcium Carb-Vit D 500Mg-200Un [Oscal 500+D] 1 each PO BID-W/MEALS #0 tab 07/01/19 [Rx] Docusate [Colace] 100 mg PO DAILY PRN cap 07/01/19 [Rx] HYDROcodone/APAP 5-325MG [Miller 5-325] 2 each PO Q12HR PRN #4 tab 07/01/19 [Rx] Lactulose [Cephulac] 20 gm PO DAILY PRN ml 07/01/19 [Rx] Magnesium Hydroxide [Milk of Magnesia Concentrate] 2,400 mg PO DAILY PRN ml 07/01/19 [Rx] Midodrine [ProAmatine] 10 mg PO AC-TID tab 07/01/19 [Rx] Pantoprazole [Protonix] 40 mg PO AC-BRKFST tablet. 07/01/19 [Rx] Sennosides-Docusate Sodium [Senokot-S] 2 each PO HS tab 07/01/19 [Rx] Follow up Appointment(s)/Referral(s): Perez Hackett DO [Doctor of Osteopathic Medicine] - 2 Weeks Danielle Cole MD [Primary Care Provider] - 1-2 days Krysta Bella MD [STAFF PHYSICIAN] - 1 Week Kodi Javier DO [STAFF PHYSICIAN] - 2 Weeks Activity/Diet/Wound Care/Special Instructions: Water restriction of 1200 mL per day. Monitor sodium closely. Repeat labs in 1 to 2 days (CBC BMP) Non weightbearing, Ice and elevated left lower extremity 23/04 Discharge Disposition: TRANSFER TO SNF/ECF
[2019-07-02 10:54] VITALS: BP 123/55; PULSE 106; RESP 20; TEMP 98
--- NOTE | 2019-07-07 05:44 | CDI ---
Documentation Clarification Form Date: 07/07/19 From: Mata Luis Phone: call [phone] Admit Date: 06/23/2019 10:35:00 AM Patient Name: Alyson Stark Visit Number: [id number] Discharge Date: 07/02/2019 12:51:00 PM ATTENTION: The Clinical Documentation Specialists (CDI) and [facility] Coding Staff appreciate your assistance in clarifying documentation. Please respond to the clarification below the line at the bottom and electronically sign. The CDI & [facility] Coding staff will review the response and follow-up if needed. Please note: Queries are made part of the Legal Health Record. If you have any questions, please contact the author of this message via ITS. Dr. Aly Denise, Patient has been diagnosed with a fracture in the Ankle and underwent ORIF. History/Risk Factors: 83 years / osteoporosis/ osteoarthritis. X-Ray Results :Displaced bimalleolar fracture of the left ankle and Treatment: Underwent ORIF. She presents with fall and left ankle fracture, found to have metabolic encephalopathy or altered mental status and hyponatremia secondary to SIADH. In 06/29 under Perez Joshi DO Operative report stated as "That was also severely comminuted and the bones are osteoporotic" and in other documentes stated as " Displaced bimalleolar fracture of the left ankle". In your professional opinion, please specify the following: Etiology of fracture: Traumatic Pathological (specify cause): Neoplastic disease Osteoporosis Other (please specify): Unable to determine Traumatic secondary to fall MTDD
== END 2019-07-02 12:51 | DRG 492 ==
LOC: EC 15:16 → 4SSUR 16:18 → 3SCARD 18:58 → OBSVTOIN 06-23 10:35 → 2SICU 06-24 09:42 → 3SCARD 06-29 20:43
PROVIDERS: ADMIT Internal Medicine; ATTEND Internal Medicine
PROC: 4A133B1 Monitoring of Arterial Pressure, Peripheral, Percutaneous Approach (ICD-10-PCS; 2019-06-25)
PROC: 04HK33Z Insertion of Infusion Device into Right Femoral Artery, Percutaneous Approach (ICD-10-PCS; 2019-06-25)
PROC: 05HA33Z Insertion of Infusion Device into Left Brachial Vein, Percutaneous Approach (ICD-10-PCS; 2019-06-25)
PROC: 05H633Z Insertion of Infusion Device into Left Subclavian Vein, Percutaneous Approach (ICD-10-PCS; 2019-06-25 14:30)
PROC: 0QSK04Z Reposition Left Fibula with Internal Fixation Device, Open Approach (ICD-10-PCS; principal; 2019-06-29 09:40)
DX: S82.842A Displaced bimalleolar fracture of left lower leg, initial encounter for closed fracture (principal); G93.41 Metabolic encephalopathy; N17.9 Acute kidney failure, unspecified; E22.2 Syndrome of inappropriate secretion of antidiuretic hormone; E87.2 Acidosis; I48.19 Other persistent atrial fibrillation; S30.0XXA Contusion of lower back and pelvis, initial encounter; L08.9 Local infection of the skin and subcutaneous tissue, unspecified; T42.4X5A Adverse effect of benzodiazepines, initial encounter; I95.9 Hypotension, unspecified; R00.0 Tachycardia, unspecified; M81.0 Age-related osteoporosis without current pathological fracture; E86.1 Hypovolemia; F13.90 Sedative, hypnotic, or anxiolytic use, unspecified, uncomplicated; I08.0 Rheumatic disorders of both mitral and aortic valves; I48.0 Paroxysmal atrial fibrillation; K21.9 Gastro-esophageal reflux disease without esophagitis; I10 Essential (primary) hypertension; M17.12 Unilateral primary osteoarthritis, left knee; I08.3 Combined rheumatic disorders of mitral, aortic and tricuspid valves; R29.6 Repeated falls; Z79.01 Long term (current) use of anticoagulants; Z79.899 Other long term (current) drug therapy; Z79.82 Long term (current) use of aspirin; Z91.81 History of falling
CPT/HCPCS: 36410; 70450; 71045; 71260; 74177; 76937; 80048; 80053; 81001; 81003; 82533; 82570; 82805; 83605; 83880; 83930; 83935; 84132; 84145; 84156; 84295; 84300; 84443; 84484; 85025; 85027; 85610; 85730; 86850; 86900; 86901; 86920; 87040; 87086; 93306; 96374; 96375; 99284

== ENCOUNTER 2019-07-04 03:00 | Inpatient (IN) | payer MEDICARE, OTHER ==
[2019-07-04 03:45] LABS: Appearance,Urine Clear (Clear); Bacteria,Urine Rare /hpf; Bilirubin,Urine Negative (Negative); Blood,Urine Moderate (Negative); Color,Urine Yellow; Glucose,Urine (UA) Negative (Negative); Ketones,Urine Negative (Negative); Leukocyte Esterase,Urine Negative (Negative); Mucus,Urine Rare /hpf; Nitrite,Urine Negative (Negative); Protein,Urine Negative (Negative); RBC,Urine 11 /hpf (0-5); Specific Gravity,Urine 1.009 (1.001-1.035); Squamous Epithelial Cell,Urine <1 /hpf (0-4); Urobilinogen,Urine <2.0 mg/dL (<2.0)
[2019-07-04 03:52] LABS: Anisocytosis Slight; Basophils # (A) 0.1 k/uL (0-0.2); Basophils % (A) 1 %; Eosinophils # (A) 0.2 k/uL (0-0.7); Eosinophils % (A) 2 %; HCT 33.9 % (34.0-46.0); HGB 10.8 gm/dL (11.4-16.0); Hypochromasia Slight; Lymphocytes # (A) 0.8 k/uL (1.0-4.8); Lymphocytes % (A) 8 %; MCH 30.8 pg (25.0-35.0); MCV 96.2 fL (80.0-100.0); Macrocytosis Slight; Mean Platelet Volume 6.3; Monocytes # (A) 0.6 k/uL (0-1.0); Monocytes % (A) 6 %; Neutrophils # (A) 8.7 k/uL (1.3-7.7); Neutrophils % (A) 82 %; Platelet Count 335 k/uL (150-450); RBC 3.52 m/uL (3.80-5.40); RDW 18.6 % (11.5-15.5); WBC 10.6 k/uL (3.8-10.6)
[2019-07-04 04:03] LABS: Albumin 3.2 g/dL (3.5-5.0); Calcium 9.1 mg/dL (8.4-10.2); Potassium 4.4 mmol/L (3.5-5.1); Total Bilirubin 1.6 mg/dL (0.2-1.3); Total Protein 6.4 g/dL (6.3-8.2)
[2019-07-04] MEDS ORDERED: SODIUM CHLORIDE 0.9% 1,000 ML IV ONE (05:08)
[2019-07-04] MEDS: METOPROLOL TARTRATE 5 MG/5 ML VIAL IVP SCH ×6 (05:32→20:30)
--- NOTE | 2019-07-04 05:37 | ED ---
Altered Mental Status HPI - General Chief Complaint: Altered Mental Status Stated Complaint: Altered Mental Status Time Seen by Provider: 07/04/19 03:08 Source: patient, EMS Mode of arrival: EMS Limitations: altered mental status - History of Present Illness Initial Comments: Alyson is an 83-year-old female who is recently had a very prolonged stay in the hospital which is complicated by the development of hyponatremia and altered mental status. During that admission altered mental status was attributed to the hyponatremia. Patient was discharged to [facility] 2 days ago for his vehicle therapy prior to returning home. Since going to [facility] the patient has had progressively worsening confusion, she's non-cooperative with staff. She's not taking her medications. She did not sleep tonight and was agitated with staff, she was confused. Family and staff became concerned that this may be due to worsening hyponatremia so they contacted EMS for the patient be brought back to the emergency department. Patient is awake, alert, oriented to person, place, location and date. However patient is actively hallucinating seeing people in the room her or are not there. Patient is fixated on events from the past, she is very concerned about her youngest son Teofilo, she's discussing the of the son that occurred when he was only 14 years old which was greater than 35 years ago. - Related Data Home Medications Medication Instructions Recorded Confirmed Metoprolol Tartrate [Lopressor] 25 mg PO BID 12/08/15 06/21/19 Aspirin 81 mg PO DAILY 06/21/19 06/21/19 Previous Rx's Medication Instructions Recorded Acetaminophen Tab [Tylenol] 325 mg PO Q4HR PRN tab 07/01/19 Amiodarone [Cordarone] 200 mg PO BID tab 07/01/19 Apixaban [Eliquis] 5 mg PO BID #60 tab 07/01/19 Calcium Carb-Vit D 500Mg-200Un 1 each PO BID-W/MEALS #0 tab 07/01/19 [Oscal 500+D] Docusate [Colace] 100 mg PO DAILY PRN cap 07/01/19 HYDROcodone/APAP 5-325MG [[place] 2 each PO Q12HR PRN #4 tab 07/01/19 5-325] Lactulose [Cephulac] 20 gm PO DAILY PRN ml 07/01/19 Magnesium Hydroxide [Milk of 2,400 mg PO DAILY PRN ml 07/01/19 Magnesia Concentrate] Midodrine [ProAmatine] 10 mg PO AC-TID tab 07/01/19 Pantoprazole [Protonix] 40 mg PO AC-BRKFST tablet. 07/01/19 Sennosides-Docusate Sodium 2 each PO HS tab 07/01/19 [Senokot-S] Amoxicillin/Potassium Clav 1 tab PO Q12HR 2 Days #4 tab 07/02/19 [Augmentin 875-125 Tablet] Allergies Allergy/AdvReac Type Severity Reaction Status Date / Time No Known Allergies Allergy Verified 07/04/19 03:09 Review of Systems ROS Statement: Those systems with pertinent positive or pertinent negative responses have been documented in the HPI. ROS Other: All systems not noted in ROS Statement are negative. Past Medical History Past Medical History: Atrial Fibrillation History of Any Multi-Drug Resistant Organisms: None Reported Past Surgical History: No Surgical Hx Reported Past Psychological History: No Psychological Hx Reported Smoking Status: Never smoker Past Alcohol Use History: None Reported Past Drug Use History: None Reported General Exam - General Exam Comments Initial Comments: Physical Exam GENERAL: Pleasantly confused elderly female who appears anxious and resistant to evaluation HENT: Normocephalic, Atraumatic. EYES: PERRL, EOMI PULMONARY: Unlabored respirations CARDIOVASCULAR: Irregularly irregular tachycardic Warm and well perfused extremities ABDOMEN: Soft and nontender with normal bowel sounds. SKIN: Skin is clear with no lesions or rashes and otherwise unremarkable. : Deferred NEUROLOGIC: Patient is alert and oriented x3. Moving all extremities spontaneously MUSCULOSKELETAL: Decreased range of motion of bilateral feet secondary to injury PSYCHIATRIC: Confused, hallucinating, agitated, noncooperative Limitations: altered mental status Course Vital Signs 07/04/19 07/04/19 07/04/19 03:04 04:45 05:44 Temperature 98 F Pulse Rate 145 H 120 H 98 Respiratory 19 18 19 Rate Blood Pressure 127/113 117/75 117/93 O2 Sat by Pulse 99 97 98 Oximetry Medical Decision Making - Medical Decision Making The patient was seen and evaluated, history is obtained from the patient's daughter bedside, review of medical record and EMS This 83-year-old female who is pleasantly confused though staunchly resistant to any medical evaluation or intervention Patient has no history of dementia but had progressively worsening mental status changes during previous admission which during that time were attributed to her having hyponatremia. However her sodium has normalized and she continues to have worsening confusion, agitation hallucinations Patient believes that taking [place] while in the hospital caused her confusion, she is aware that people believe she was hallucinating but insists that everything she could see was real. She is talking to people in the room her currently not there. She has not had [place] since leaving the hospital 2 days ago. Repeat labs were ordered It was noted the patient was in A. fib with RVR which time troponin and coags and EKG were ordered Patient resistant to any IV drip medication decision was made to order Lopressor pushes for rate control of her A. fib with RVR Patient received a single IV dose of Lopressor, heart rate improved to the 80s to 100s. At this time the patient will be admitted for altered mental status. - Lab Data Result diagrams: 07/04/19 03:38 07/04/19 03:38 Lab Results 07/04/19 07/04/19 07/04/19 Range/Units 03:10 03:38 03:38 WBC 10.6 (3.8-10.6) k/uL RBC 3.52 L (3.80-5.40) m/uL Hgb 10.8 L (11.4-16.0) gm/dL Hct 33.9 L (34.0-46.0) % MCV 96.2 (80.0-100.0) fL MCH 30.8 (25.0-35.0) pg MCHC 32.0 (31.0-37.0) g/dL RDW 18.6 H (11.5-15.5) % Plt Count 335 (150-450) k/uL Neutrophils % 82 % Lymphocytes % 8 % Monocytes % 6 % Eosinophils % 2 % Basophils % 1 % Neutrophils # 8.7 H (1.3-7.7) k/uL Lymphocytes # 0.8 L (1.0-4.8) k/uL Monocytes # 0.6 (0-1.0) k/uL Eosinophils # 0.2 (0-0.7) k/uL Basophils # 0.1 (0-0.2) k/uL Hypochromasia Slight Anisocytosis Slight Macrocytosis Slight PT (9.0-12.0) sec INR (<1.2) APTT (22.0-30.0) sec Sodium 135 L (137-145) mmol/L Potassium 4.4 (3.5-5.1) mmol/L Chloride 100 (98-107) mmol/L Carbon Dioxide 24 (22-30) mmol/L Anion Gap 11 mmol/L BUN 20 H (7-17) mg/dL Creatinine 0.85 (0.52-1.04) mg/dL Est GFR (CKD-EPI)AfAm 75 (>60 ml/min/1.73 sqM) Est GFR (CKD-EPI)NonAf 65 (>60 ml/min/1.73 sqM) Glucose 112 H (74-99) mg/dL Calcium 9.1 (8.4-10.2) mg/dL Total Bilirubin 1.6 H (0.2-1.3) mg/dL AST 44 H (14-36) U/L ALT 33 (9-52) U/L Alkaline Phosphatase 80 (38-126) U/L Troponin I (0.000-0.034) ng/mL Total Protein 6.4 (6.3-8.2) g/dL Albumin 3.2 L (3.5-5.0) g/dL Urine Color Yellow Urine Appearance Clear (Clear) Urine pH 6.0 (5.0-8.0) Ur Specific [place] 1.009 (1.001-1.035) Urine Protein Negative (Negative) Urine Glucose (UA) Negative (Negative) Urine Ketones Negative (Negative) Urine Blood Moderate H (Negative) Urine Nitrite Negative (Negative) Urine Bilirubin Negative (Negative) Urine Urobilinogen <2.0 (<2.0) mg/dL Ur Leukocyte Esterase Negative (Negative) Urine RBC 11 H (0-5) /hpf Urine WBC 3 (0-5) /hpf Ur Squamous Epith Cells <1 (0-4) /hpf Urine Bacteria Rare H (None) /hpf Urine Mucus Rare H (None) /hpf 07/04/19 07/04/19 Range/Units 03:38 03:38 WBC (3.8-10.6) k/uL RBC (3.80-5.40) m/uL Hgb (11.4-16.0) gm/dL Hct (34.0-46.0) % MCV (80.0-100.0) fL MCH (25.0-35.0) pg MCHC (31.0-37.0) g/dL RDW (11.5-15.5) % Plt Count (150-450) k/uL Neutrophils % % Lymphocytes % % Monocytes % % Eosinophils % % Basophils % % Neutrophils # (1.3-7.7) k/uL Lymphocytes # (1.0-4.8) k/uL Monocytes # (0-1.0) k/uL Eosinophils # (0-0.7) k/uL Basophils # (0-0.2) k/uL Hypochromasia Anisocytosis Macrocytosis PT 10.5 (9.0-12.0) sec INR 1.0 (<1.2) APTT 27.0 (22.0-30.0) sec Sodium (137-145) mmol/L Potassium (3.5-5.1) mmol/L Chloride (98-107) mmol/L Carbon Dioxide (22-30) mmol/L Anion Gap mmol/L BUN (7-17) mg/dL Creatinine (0.52-1.04) mg/dL Est GFR (CKD-EPI)AfAm (>60 ml/min/1.73 sqM) Est GFR (CKD-EPI)NonAf (>60 ml/min/1.73 sqM) Glucose (74-99) mg/dL Calcium (8.4-10.2) mg/dL Total Bilirubin (0.2-1.3) mg/dL AST (14-36) U/L ALT (9-52) U/L Alkaline Phosphatase (38-126) U/L Troponin I 0.017 (0.000-0.034) ng/mL Total Protein (6.3-8.2) g/dL Albumin (3.5-5.0) g/dL Urine Color Urine Appearance (Clear) Urine pH (5.0-8.0) Ur Specific [place] (1.001-1.035) Urine Protein (Negative) Urine Glucose (UA) (Negative) Urine Ketones (Negative) Urine Blood (Negative) Urine Nitrite (Negative) Urine Bilirubin (Negative) Urine Urobilinogen (<2.0) mg/dL Ur Leukocyte Esterase (Negative) Urine RBC (0-5) /hpf Urine WBC (0-5) /hpf Ur Squamous Epith Cells (0-4) /hpf Urine Bacteria (None) /hpf Urine Mucus (None) /hpf Disposition Clinical Impression: Altered mental status Disposition: ADMITTED IP TO THIS HOSP Condition: Stable Referrals: Danielle Cole MD [Primary Care Provider] - 1-2 days
[2019-07-04] MEDS ORDERED: LORazepam 2 MG/ML INJ IV STA (05:39)
[2019-07-04 05:43] LABS: Prothrombin Time 10.5 sec (9.0-12.0)
[2019-07-04] MEDS ORDERED: NALOXONE 0.4 MG/ML 1 ML VIAL IV PRN (06:16)
[2019-07-04] MEDS ORDERED: HALOPERIDOL LACTATE 5 MG/ML 1 ML VIAL IVP PRN (14:00)
[2019-07-04] MEDS ORDERED: MAGNESIUM HYDROXIDE 2,400 MG/10 ML CUP PO PRN (14:37)
[2019-07-04] MEDS ORDERED: LACTULOSE 20 GM/30 ML CUP PO PRN (14:37)
--- NOTE | 2019-07-04 15:01 | P.HPIM ---
History of Present Illness 83-year-old female was discharged from the hospital after prolonged hospitalization which she had a fall and a fracture of the left left ankle. Patient was treated for hyponatremia as well at that time. Patient was discharged to subacute rehabilitation 2 days ago patient has been confused and agitated patient is oriented 3 but quite a bit agitated appears to have been paranoid. Patient had a CAT scan of the head which did not show any significant abnormality patient has history of A. fib presently in A. fib with rapid ventr icular rate patient is on Eliquis. Patient had a normal ejection fraction. Patient doesn't have any fever chills doesn't have any leukocytosis patient had a Menon catheter that was left in from her previous hospitalization, urinalysis was done which is not significant for UTI. Patient denied any UTI symptoms. Review of Systems REVIEW OF SYSTEMS: CONSTITUTIONAL: No fever, no malaise, no fatigue. HEENT: No recent visual problems or hearing problems. Denied any sore throat. CARDIOVASCULAR: No chest pain, orthopnea, PND, no palpitations, no syncope. PULMONARY: No shortness of breath, no cough, no hemoptysis. GASTROINTESTINAL: No diarrhea, no nausea, no vomiting, no abdominal pain. NEUROLOGICAL: No headaches, no weakness, no numbness. HEMATOLOGICAL: Denies any bleeding or petechiae. GENITOURINARY: Denies any burning micturition, frequency, or urgency. MUSCULOSKELETAL/RHEUMATOLOGICAL: Denies any joint pain, swelling, or any muscle pain. ENDOCRINE: Denies any polyuria or polydipsia. The rest of the 14-point review of systems is negative. Past Medical History Past Medical History: Atrial Fibrillation, Heart Failure, Hypertension Additional Past Medical History / Comment(s): Pt recently admitted to [facility] on 06/23/19 with hyponatremia 2ndary to [facility]/L ankle fracture with surgery/afib RVR, acute kidney injury/hypotension/soft tissue infection. Other hx: Pericardial effusion, cardiomyopathy, osteoporosis. History of Any Multi-Drug Resistant Organisms: None Reported Past Surgical History: Orthopedic Surgery Additional Past Surgical History / Comment(s): ORIF left ankle, past R ankle surgery/plates, colonoscopy/benign polypectomy Past Anesthesia/Blood Transfusion Reactions: No Reported Reaction Additional Past Anesthesia/Blood Transfusion Reaction / Comment(s): Pt has received blood in past without reaction. Smoking Status: Never smoker - Past Family History Father History Unknown: Yes Mother History Unknown: Yes Medications and Allergies Home Medications Medication Instructions Recorded Confirmed Type Metoprolol Tartrate [Lopressor] 25 mg PO BID 12/08/15 07/04/19 History Aspirin 81 mg PO DAILY 06/21/19 07/04/19 History Amiodarone [Cordarone] 200 mg PO BID tab 07/01/19 07/04/19 Rx Apixaban [Eliquis] 5 mg PO BID #60 tab 07/01/19 07/04/19 Rx Docusate [Colace] 100 mg PO DAILY PRN cap 07/01/19 07/04/19 Rx Lactulose [Cephulac] 20 gm PO DAILY PRN ml 07/01/19 07/04/19 Rx Pantoprazole [Protonix] 40 mg PO AC-BRKFST tablet. 07/01/19 07/04/19 Rx Acetaminophen Tab [Tylenol] 650 mg PO Q4HR PRN 07/04/19 07/04/19 History Calcium Carb-Vit D 500Mg-200Un 1 tab PO BID-W/MEALS 07/04/19 07/04/19 History [Oscal 500+D] HYDROcodone/APAP 5-325MG [[place] 2 tab PO Q12HR PRN 07/04/19 07/04/19 History 5-325] Magnesium Hydroxide [Milk of 2,400 mg PO DAILY PRN 07/04/19 07/04/19 History Magnesia] Midodrine HCl [ProAmatine] 10 mg PO AC-TID 07/04/19 07/04/19 History Sennosides-Docusate Sodium 2 tab PO HS 07/04/19 07/04/19 History [Senokot-S] Allergies Allergy/AdvReac Type Severity Reaction Status Date / Time No Known Allergies Allergy Verified 07/04/19 07:11 Physical Exam Vitals: Vital Signs Temp Pulse Pulse Resp BP BP Pulse Ox 07/04/19 13:32 98.2 F 67 16 142/70 98 07/04/19 12:33 120 H 18 129/86 98 07/04/19 09:19 120 H 130/91 07/04/19 05:44 98 19 117/93 98 07/04/19 04:45 120 H 18 117/75 97 07/04/19 03:04 98 F 145 H 19 127/113 99 Intake and Output 07/03/19 07/04/19 07/04/19 22:59 06:59 14:59 Other: Voiding Method Indwelling Catheter Weight 74.389 kg PHYSICAL EXAMINATION: GENERAL: The patient is alert and oriented x3, agitated, angry not in any acute distress. Well developed, well nourished. HEENT: Pupils are round and equally reacting to light. EOMI. No scleral icterus. No conjunctival pallor. Normocephalic, atraumatic. No pharyngeal erythema. No thyromegaly. CARDIOVASCULAR: S1 and S2 present. No murmurs, rubs, or gallops. PULMONARY: Chest is clear to auscultation, no wheezing or crackles. ABDOMEN: Soft, nontender, nondistended, normoactive bowel sounds. No palpable organomegaly. MUSCULOSKELETAL: No joint swelling or deformity. Patient has an Lorenzo bandage to the left leg patient has swelling of both legs EXTREMITIES: No cyanosis, clubbing, or pedal edema. NEUROLOGICAL: Gross neurological examination did not reveal any focal deficits. SKIN: No rashes. Results CBC & Chem 7: 07/04/19 03:38 07/04/19 03:38 Labs: Abnormal Lab Results - Last 24 Hours (Table) 07/04/19 07/04/19 07/04/19 Range/Units 03:10 03:38 03:38 RBC 3.52 L (3.80-5.40) m/uL Hgb 10.8 L (11.4-16.0) gm/dL Hct 33.9 L (34.0-46.0) % RDW 18.6 H (11.5-15.5) % Neutrophils # 8.7 H (1.3-7.7) k/uL Lymphocytes # 0.8 L (1.0-4.8) k/uL Sodium 135 L (137-145) mmol/L BUN 20 H (7-17) mg/dL Glucose 112 H (74-99) mg/dL Total Bilirubin 1.6 H (0.2-1.3) mg/dL AST 44 H (14-36) U/L Albumin 3.2 L (3.5-5.0) g/dL Urine Blood Moderate H (Negative) Urine RBC 11 H (0-5) /hpf Urine Bacteria Rare H (None) /hpf Urine Mucus Rare H (None) /hpf Thrombosis Risk Factor Assmnt - Choose All That Apply Any of the Below Risk Factors Present?: Yes Each Factor Represents 1 point: Obesity (BMI >25) Other Risk Factors: Yes Each Risk Factor Represents 3 Points: Age 75 years or older Other congenital or acquired thrombophilia - If yes, enter type in comment: No Thrombosis Risk Factor Assessment Total Risk Factor Score: 4 Thrombosis Risk Factor Assessment Level: Moderate Risk Assessment and Plan Plan: Altered mental status, toxic encephalopathy patient doesn't have any infection at this time clinically no signs or symptoms of pneumonia or UTI. Patient appears to have toxic encephalopathy from medications. Neurology evaluated the patient. Patient is agitated paranoid will discontinue opiates, patient will be started on antipsychotic if needed, avoid benzodiazepines, barbiturates, anticholinergic medications and opiates. 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 Patient had normal ejection fraction the past -Atrial fibrillation with rapid ventricular rate patient will be resumed on home regimen along with amiodarone, will be monitored patient will be resumed on coagulation -Hypertension - degenerative arthritis Left ankle fracture status post open reduction internal fixation during her previous hospitalization
--- NOTE | 2019-07-04 15:38 | P.CNNES ---
History of Present Illness Consult date: 07/04/19 Reason for Consult: Altered mental status Chief complaint: Worsening confusion History of Present Illness: HISTORY OF PRESENT ILLNESS: Thank you for allowing me to evaluate Ms. Alyson Stark. Ms. Stark is an 83 year-old woman with PMhx of a.fib on warfarin, presenting to [facility] for concern about another episode of hyponatremia as patient was "mean and angry," consulted neurology for altered mental status. Patient's daughter and are at bedside, frustrated. Patient was recently admitted to [facility] for left buttock pain, found with hyponatremia. Patient had been admitted from 06/21/2019 to 07/02/2019 for hyponatremia, which went as low as 116, and improved to 134 before discharge. During this time, patient also had a left ankle fracture, which was repaired once hibernation was better controlled. Patient was sent to a nursing facility, the patient continued to be mean and angry. Patient at times having possible visual hallucinations, and wanting to get out of bed even though she is not supposed to bear weight on her left foot due to her left ankle fracture. Patient is refusing medical care, and daughter states that this is not her usual self. During her initial hospitalization, neurology was consulted at that time. Assessment at time was a nonfocal exam. Metabolic encephalopathy, likely due to hyponatremia worsened by benzodiazepine use in the elderly. PAST MEDICAL HISTORY: Atrial fibrillation PAST SURGICAL HISTORY: None reported HOME MEDICATIONS: Metoprolol, aspirin, amiodarone, Eliquis, Protonix, Midodrine, ALLERGIES: NKDA SOCIAL HISTORY: Never smoker REVIEW OF SYSTEMS: The 14 systems are reviewed and no additional points are identified compared to the review of systems documented history and physical PHYSICAL EXAMINATION: VITAL SIGNS: T 98 HR 145 RR 19 BP 127/113 O2 sat 99% on RA GEN.: NAD, very frustrated, states "it's not safe for me to be here," very uncooperative, not allowing me to HEENT: NC evaluateAT, sclera without icterus NECK: Supple SKIN AND EXTREMITIES: Warm to touch. Significant bruising in her left proximal arm. NEURO: MENTAL STATUS: Patient alert and oriented to self, place, time. Able to name the current president. Speech fluent, able to name and repeat, following all commands readily. No right and left disorientation, neglect. CRANIAL NERVES II THROUGH XII: difficult to assess as patient is not cooperative, but grossly, unremarkable. No obvious facial asymmetry, ptosis or abnormal extra ocular movement. Patient tracks [id number] appropriately. MOTOR: Moves her upper extremities antigravity. Patient with left ankle boot along with some bruising in her right leg. Patient is able to move her toes. REFLEXES: 1+ throughout. Toes are downgoing. No clonus. Saida's is absent COORDINATION/GAIT: Unable to assess due to patient's lack of cooperation DIAGNOSTIC TESTING: LABORATORY: WBC 10.6 hemoglobin 10.8 platelet 335 10.5 INR 1.0 sodium 135 potassium 4.4 chloride 100 bicarb 24 BUN 20 creatinine 0.85 glucose 112 AST 44 ALT 33 alk phos 80 urinalysis moderate blood IMAGING: CT brain without contrast 06/24/2019: Mild generalized atrophy. No acute intracranial abnormalities seen. ASSESSMENT: Ms. Stark is an 83 year-old woman with PMhx of a.fib on warfarin, presenting to [facility] for concern about another episode of hyponatremia as patient was "mean and angry," consulted neurology for altered mental status. patient most likely having some delirium in the setting of getting pain medications. Difficult to look up in the medical record, the patient was given [place] about 2 days prior to this presentation in the hospital. It appears the patient was also discharged with [place], unclear if it was given again at the outside facility. Patient is to be still for about 15-30 minutes for MRI brain and EEG, for which patient will need to be heavily sedated, which could worsen her current episode of delirium. CT brain from 06/24/2019 with generalized atrophy with no acute findings. Patient's mental status is actually very intact. She is just very high agitated and frustrated. Frontal lobe pathology could affect patient's personality. But at this time, medication induced delirium is higher on the differential. RECOMMENDATIONS: 1. Limit pain medication, benzodiazepines, anticholinergic medications in this elderly woman with recent hospitalization. 2. CT head without contrast 3. Delirium precaution (limits vital signs checks at nighttime. Lights out to facilitate better sleep quality. 4. Neurology is not available over the weekend. However, feel free to [employer] message me over the weekend if you have any questions or concerns Past Medical History Past Medical History: Atrial Fibrillation, Heart Failure, Hypertension Additional Past Medical History / Comment(s): Pt recently admitted to [facility] on 06/23/19 with hyponatremia 2ndary to [facility]/L ankle fracture with surgery/afib RVR, acute kidney injury/hypotension/soft tissue infection. Other hx: Pericardial effusion, cardiomyopathy, osteoporosis. History of Any Multi-Drug Resistant Organisms: None Reported Past Surgical History: Orthopedic Surgery Additional Past Surgical History / Comment(s): ORIF left ankle, past R ankle surgery/plates, colonoscopy/benign polypectomy Past Anesthesia/Blood Transfusion Reactions: No Reported Reaction Additional Past Anesthesia/Blood Transfusion Reaction / Comment(s): Pt has received blood in past without reaction. Smoking Status: Never smoker - Past Family History Father History Unknown: Yes Mother History Unknown: Yes Medications and Allergies Home Medications Medication Instructions Recorded Confirmed Type Metoprolol Tartrate [Lopressor] 25 mg PO BID 12/08/15 07/04/19 History Aspirin 81 mg PO DAILY 06/21/19 07/04/19 History Amiodarone [Cordarone] 200 mg PO BID tab 07/01/19 07/04/19 Rx Apixaban [Eliquis] 5 mg PO BID #60 tab 07/01/19 07/04/19 Rx Docusate [Colace] 100 mg PO DAILY PRN cap 07/01/19 07/04/19 Rx Lactulose [Cephulac] 20 gm PO DAILY PRN ml 07/01/19 07/04/19 Rx Pantoprazole [Protonix] 40 mg PO AC-BRKFST tablet. 07/01/19 07/04/19 Rx Acetaminophen Tab [Tylenol] 650 mg PO Q4HR PRN 07/04/19 07/04/19 History Calcium Carb-Vit D 500Mg-200Un 1 tab PO BID-W/MEALS 07/04/19 07/04/19 History [Oscal 500+D] HYDROcodone/APAP 5-325MG [[place] 2 tab PO Q12HR PRN 07/04/19 07/04/19 History 5-325] Magnesium Hydroxide [Milk of 2,400 mg PO DAILY PRN 07/04/19 07/04/19 History Magnesia] Midodrine HCl [ProAmatine] 10 mg PO AC-TID 07/04/19 07/04/19 History Sennosides-Docusate Sodium 2 tab PO HS 07/04/19 07/04/19 History [Senokot-S] Allergies Allergy/AdvReac Type Severity Reaction Status Date / Time No Known Allergies Allergy Verified 07/04/19 07:11 Physical Examination - Vital Signs Vital Signs: Vital Signs Temp Pulse Resp BP Pulse Ox 07/04/19 09:19 120 H 130/91 07/04/19 05:44 98 19 117/93 98 07/04/19 04:45 120 H 18 117/75 97 07/04/19 03:04 98 F 145 H 19 127/113 99 Intake and Output 07/03/19 07/04/19 07/04/19 22:59 06:59 14:59 Other: Weight 74.389 kg Results - Laboratory Findings CBC and BMP: 07/04/19 03:38 07/04/19 03:38 Abnormal Lab Findings: Abnormal Labs 07/04/19 07/04/19 07/04/19 03:10 03:38 03:38 RBC 3.52 L Hgb 10.8 L Hct 33.9 L RDW 18.6 H Neutrophils # 8.7 H Lymphocytes # 0.8 L Sodium 135 L BUN 20 H Glucose 112 H Total Bilirubin 1.6 H AST 44 H Albumin 3.2 L Urine Blood Moderate H Urine RBC 11 H Urine Bacteria Rare H Urine Mucus Rare H
[2019-07-04] MEDS: CALCIUM CARB-VIT D 500MG-200UN 1 EACH TAB PO SCH (16:03)
[2019-07-04] MEDS ORDERED: QUEtiapine 25 MG TAB PO PRN (17:05)
--- NOTE | 2019-07-04 19:01 | CT ---
EXAMINATION TYPE: CT brain wo con DATE OF EXAM: 07/04/2019 COMPARISON: 06/24/2019 HISTORY: Altered mental status. CT DLP: 1122.4 mGycm Automated exposure control for dose reduction was used. FINDINGS: There is cerebral cortical atrophy. There is no mass effect nor midline shift. There is no sign of in tracranial hemorrhage. The calvarium is intact. There are multiple lucencies in the calvarium probabl y due to prominent venous lakes. IMPRESSION: CEREBRAL ATROPHY. NO ACUTE INTRACRANIAL ABNORMALITY. NO CHANGE.
[2019-07-04] MEDS ORDERED: HALOPERIDOL LACTATE 5 MG/ML 1 ML VIAL IM PRN (19:57)
[2019-07-04] MEDS: METOPROLOL TARTRATE 25 MG TAB PO SCH (21:13)
[2019-07-04] MEDS: APIXABAN 5 MG TAB PO SCH (21:13)
[2019-07-04] MEDS: SENNOSIDES-DOCUSATE SODIUM 1 EACH TAB PO SCH (21:13)
[2019-07-04] MEDS: AMIODARONE 200 MG TAB PO SCH (21:13)
[2019-07-05] MEDS ORDERED: HALOPERIDOL LACTATE 5 MG/ML 1 ML VIAL IM PRN (02:08)
[2019-07-05] MEDS ORDERED: HALOPERIDOL LACTATE 5 MG/ML 1 ML VIAL IM ONE (02:09)
[2019-07-05] MEDS: METOPROLOL TARTRATE 25 MG TAB PO SCH ×2 (07:21→22:26)
[2019-07-05] MEDS: APIXABAN 5 MG TAB PO SCH ×2 (07:21→22:27)
[2019-07-05] MEDS: AMIODARONE 200 MG TAB PO SCH ×2 (07:21→22:27)
[2019-07-05] MEDS: PANTOPRAZOLE 40 MG TABLET PO SCH (07:22)
[2019-07-05] MEDS: CALCIUM CARB-VIT D 500MG-200UN 1 EACH TAB PO SCH ×2 (07:22→15:06)
[2019-07-05] MEDS ORDERED: ASPIRIN 81 MG PO SCH (09:00)
[2019-07-05] MEDS ORDERED: KETOROLAC 30 MG/ML 1 ML VIAL IVP PRN (11:08)
--- NOTE | 2019-07-05 11:10 | P.PN ---
Subjective Patient was admitted for toxic encephalopathy secondary to [place]. Patient is still having agitation episodes. Psychiatric was consulted and I'm expecting her agitation to improve in a day 2. Patient was started on Toradol for pain. We'll discontinue the Menon catheter and will assess for urinary retention. Patient is not willing to provide any history All inpatient medications were reviewed and appropriate changes in these medications as dictated in the interval history and assessment and plan. Objective - Vital Signs Vital signs: Vital Signs Temp 97.9 F 07/05/19 05:00 Pulse 114 H 07/05/19 05:00 Resp 24 07/05/19 05:00 BP 155/90 07/05/19 05:00 Pulse Ox 97 07/05/19 05:00 Intake & Output 07/04/19 07/05/19 07/05/19 18:59 06:59 18:59 Intake Total 0 500 Output Total 500 Balance 0 0 Intake: Oral 0 500 Output: Urine 500 Other: Voiding Method Indwelling Catheter Indwelling Catheter Indwelling Catheter # Bowel Movements 1 - Exam PHYSICAL EXAMINATION: GENERAL: The patient is alert and oriented x3, agitated, angry not in any acute distress. Well developed, well nourished. HEENT: Pupils are round and equally reacting to light. EOMI. No scleral icterus. No conjunctival pallor. Normocephalic, atraumatic. No pharyngeal erythema. No thyromegaly. CARDIOVASCULAR: S1 and S2 present. No murmurs, rubs, or gallops. PULMONARY: Chest is clear to auscultation, no wheezing or crackles. ABDOMEN: Soft, nontender, nondistended, normoactive bowel sounds. No palpable organomegaly. MUSCULOSKELETAL: No joint swelling or deformity. Patient has an Lorenzo bandage to the left leg patient has swelling of both legs EXTREMITIES: No cyanosis, clubbing, or pedal edema. NEUROLOGICAL: Gross neurological examination did not reveal any focal deficits. SKIN: No rashes. - Labs CBC & Chem 7: 07/04/19 03:38 07/04/19 03:38 Assessment and Plan Plan: Altered mental status, toxic encephalopathy patient doesn't have any infection at this time clinically no signs or symptoms of pneumonia or UTI. Patient appears to have toxic encephalopathy from medications. Neurology evaluated the patient. Patient is agitated paranoid will discontinue opiates, patient will be started on antipsychotic if needed, avoid benzodiazepines, barbiturates, anticholinergic medications and opiates. 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 Patient had normal ejection fraction the past -Atrial fibrillation with rapid ventricular rate patient will be resumed on home regimen along with amiodarone, will be monitored patient will be resumed on coagulation -Hypertension - degenerative arthritis Left ankle fracture status post open reduction internal fixation during her previous hospitalization
[2019-07-05 11:28] VITALS: BMI 27.3
[2019-07-05] MEDS ORDERED: KETOROLAC 30 MG/ML 1 ML VIAL IVP SCH (12:00)
--- NOTE | 2019-07-05 16:14 | CONS ---
CONSULTATION DATE OF SERVICE: 07/05/2019 IDENTIFYING DATA: This patient is an 83-year-old female who was admitted to the medical floor with hyponatremia and altered mental status. We were asked to consult regarding the same. HISTORY OF PRESENT ILLNESS: The patient is found lying in bed. She is an impaired historian. Nursing states that the patient has been demonstrating agitated behavior during this hospitalization. The patient has been struggling with sleep. She was agitated earlier this morning and threw some of her breakfast food at nursing. The patient has been seen by Neurology. They diagnosed delirium in the context of hyponatremia and recent use of opioids. The patient had fractured her lower extremity and required surgery and opioid analgesics were used in that context. The patient upon approach does not recall her own name. She states that "this is not me". She states that this is a different person. She indicates she used to be a happy person. She is tearful throughout the interaction. She indicates she is and misses her . Again, she is not able to provide relevant history. PAST PSYCHIATRIC HISTORY: Unknown. She is currently prescribed Seroquel 25 mg at bedtime as needed, Haldol 2 mg as needed every 4 hours. PAST MEDICAL HISTORY: Suspected delirium, hyponatremia, history of atrial fibrillation, hypertension, osteoarthritis, SIADH. ALLERGIES: No known drug allergies. CHEMICAL DEPENDENCY HISTORY: Unknown. FAMILY PSYCHIATRIC AND CHEMICAL DEPENDENCY HISTORY: Unknown. SOCIAL HISTORY: The patient is 83 years old. She states that she is and resides with her . She indicates she has 7 children. She states she has 12 grandchildren. 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 She graduated high school and has some community college credits. MENTAL STATUS EXAM: The patient is a female appearing her stated age. She is lying in bed. She is dressed in hospital gown. Her left lower extremity is wrapped in an Lorenzo bandage. She has a [place]on catheter in. She initially is alert and during the conversation, she falls asleep. She demonstrates affect lability. She can be calm one moment and then demonstrates tearfulness and agitation. She is not oriented to person. She states that she is at [facility]. She is unaware of the date. She is reporting no suicidal or homicidal thoughts. She endorses a sad mood. She is endorsing no auditory or visual hallucinations or specific delusions, although again she is an impaired historian. She may be experiencing symptoms of psychosis. She demonstrated no verbal or physical aggressiveness during our session. IMPRESSION: Delirium, rule out history of neurocognitive disorder. PLAN: The patient will continue on the Seroquel. We will schedule it for 25 mg at 5 p.m., 25 mg at bedtime at least temporarily. It appears that the patient has a delirium, but her behavior is becoming more agitated and we need to attempt to control that with the Seroquel. We will attempt to refrain from any use of benzodiazepines, any opiate analgesics and other delirium recommendations provided by Neurology. We will continue to follow her while medically admitted. We will monitor for any excessive sedation or hypotension with use of Seroquel. MMODL / IJN: [id number] /
[2019-07-05] MEDS: QUEtiapine 25 MG TAB PO SCH ×2 (17:06→22:26)
[2019-07-05] MEDS: SENNOSIDES-DOCUSATE SODIUM 1 EACH TAB PO SCH (22:26)
[2019-07-06] MEDS: ACETAMINOPHEN TAB 325 MG TAB PO PRN ×2 (03:54→07:03)
[2019-07-06] MEDS: PANTOPRAZOLE 40 MG TABLET PO SCH (07:03)
[2019-07-06] MEDS: CALCIUM CARB-VIT D 500MG-200UN 1 EACH TAB PO SCH ×2 (07:04→16:00)
[2019-07-06] MEDS: METOPROLOL TARTRATE 25 MG TAB PO SCH ×2 (07:04→19:33)
[2019-07-06] MEDS: APIXABAN 5 MG TAB PO SCH ×2 (07:04→19:35)
[2019-07-06] MEDS: AMIODARONE 200 MG TAB PO SCH ×2 (07:04→19:33)
[2019-07-06 07:29] LABS: Anisocytosis Slight; HCT 30.9 % (34.0-46.0); HGB 9.9 gm/dL (11.4-16.0); Hypochromasia Slight; MCH 31.6 pg (25.0-35.0); MCV 98.8 fL (80.0-100.0); Macrocytosis Moderate; Mean Platelet Volume 5.7; Platelet Count 318 k/uL (150-450); RBC 3.13 m/uL (3.80-5.40); RDW 18.7 % (11.5-15.5); WBC 9.6 k/uL (3.8-10.6)
[2019-07-06 07:38] LABS: Calcium 8.6 mg/dL (8.4-10.2); Potassium 3.9 mmol/L (3.5-5.1)
--- NOTE | 2019-07-06 14:10 | P.PN ---
Subjective Patient was admitted for toxic encephalopathy secondary to Reynolds. Patient is still having agitation episodes. Psychiatric was consulted and I'm expecting her agitation to improve in a day 2. Patient was started on Toradol for pain. We'll discontinue the Menon catheter and will assess for urinary retention. 07/06/2019 Patient is a very cooperative today doing much better today, significant improvement in her toxic encephalopathy. Patient is doing better on Tylenol avoid any opiates upon discharge Constitutional: Denied any fatigue denied any fever. Cardio vascular: denied any chest pain, palpitations Gastrointestinal denied any nausea vomiting Pulmonary: Denied any shortness of breath cough Neurologic denied any new focal deficits All inpatient medications were reviewed and appropriate changes in these medications as dictated in the interval history and assessment and plan. Objective - Vital Signs Vital signs: Vital Signs Temp 98.2 F 07/06/19 13:48 Pulse 84 07/06/19 13:48 Resp 18 07/06/19 13:48 BP 102/65 07/06/19 13:48 Pulse Ox 96 07/06/19 13:48 Intake & Output 07/05/19 07/06/19 07/06/19 18:59 06:59 18:59 Intake Total 800 320 Output Total 1000 Balance -200 320 Weight 74.389 kg Intake: Oral 800 320 Output: Urine 1000 Other: Voiding Method Indwelling Catheter Indwelling Catheter Indwelling Catheter # Bowel Movements 1 1 0 - Exam PHYSICAL EXAMINATION: GENERAL: The patient is alert and oriented x3, agitated, . Well developed, well nourished. HEENT: Pupils are round and equally reacting to light. EOMI. No scleral icterus. No conjunctival pallor. Normocephalic, atraumatic. No pharyngeal erythema. No thyromegaly. CARDIOVASCULAR: S1 and S2 present. No murmurs, rubs, or gallops. PULMONARY: Chest is clear to auscultation, no wheezing or crackles. ABDOMEN: Soft, nontender, nondistended, normoactive bowel sounds. No palpable organomegaly. MUSCULOSKELETAL: No joint swelling or deformity. Patient has an Lorenzo bandage to the left leg patient has swelling of both legs EXTREMITIES: No cyanosis, clubbing, or pedal edema. NEUROLOGICAL: Gross neurological examination did not reveal any focal deficits. SKIN: No rashes. - Labs CBC & Chem 7: 07/06/19 06:50 07/06/19 06:50 Labs: Abnormal Lab Results - Last 24 Hours (Table) 07/06/19 07/06/19 Range/Units 06:50 06:50 RBC 3.13 L (3.80-5.40) m/uL Hgb 9.9 L (11.4-16.0) gm/dL Hct 30.9 L (34.0-46.0) % RDW 18.7 H (11.5-15.5) % Sodium 135 L (137-145) mmol/L Assessment and Plan Plan: Altered mental status, toxic encephalopathy patient doesn't have any infection at this time clinically no signs or symptoms of pneumonia or UTI. Patient appears to have toxic encephalopathy from medications. Neurology evaluated the patient. Patient is patient is doing much better today, patient will be started on antipsychotic if needed, avoid benzodiazepines, barbiturates, anticholinergic medications and opiates. 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 Patient had normal ejection fraction the past -Atrial fibrillation with rapid ventricular rate patient will be resumed on home regimen along with amiodarone, will be monitored, on coagulation -Hypertension - degenerative arthritis Left ankle fracture status post open reduction internal fixation during her previous hospitalization
[2019-07-06] MEDS: QUEtiapine 25 MG TAB PO SCH ×2 (16:00→19:35)
[2019-07-06] MEDS: SENNOSIDES-DOCUSATE SODIUM 1 EACH TAB PO SCH (19:35)
[2019-07-07] MEDS: METOPROLOL TARTRATE 25 MG TAB PO SCH ×2 (09:12→21:21)
[2019-07-07] MEDS: APIXABAN 5 MG TAB PO SCH ×2 (09:15→21:21)
[2019-07-07] MEDS: AMIODARONE 200 MG TAB PO SCH ×2 (09:15→21:21)
[2019-07-07] MEDS: CALCIUM CARB-VIT D 500MG-200UN 1 EACH TAB PO SCH ×2 (09:15→16:48)
[2019-07-07] MEDS: PANTOPRAZOLE 40 MG TABLET PO SCH (09:15)
--- NOTE | 2019-07-07 10:22 | P.PN ---
Progress Note - Text Progress Note Date: 07/07/19 SUBJECTIVE/INTERVAL EVENTS: No acute overnight events. Patient doing much better. Patient and state she looks and feels more like her usual self. Denies headache, nausea, vomiting, weakness, numbness or tingling. PHYSICAL EXAMINATION: VITAL SIGNS: T 97.8 HR 99 RR 18 BP 92/55 O2 sat 98% on RA GEN.: NAD, very frustrated, states "it's not safe for me to be here," very uncooperative, not allowing me to HEENT: NC evaluateAT, sclera without icterus NECK: Supple SKIN AND EXTREMITIES: Warm to touch. Significant bruising in her left proximal arm. NEURO: MENTAL STATUS: Patient alert and oriented to self, place, time. Able to name the current president. Speech fluent, able to name and repeat, following all commands readily. No right and left disorientation, neglect. Able to spell WORLD forwards and backwards. Difficulty with serial 7's. CRANIAL NERVES II THROUGH XII: difficult to assess as patient is not cooperative, but grossly, unremarkable. No obvious facial asymmetry, ptosis or abnormal extra ocular movement. Patient tracks [id number] appropriately. MOTOR: Moves her upper extremities antigravity. Patient with left ankle boot along with some bruising in her right leg. Patient is able to move her toes. REFLEXES: 1+ throughout. Toes are downgoing. No clonus. Saida's is absent COORDINATION/GAIT: Unable to assess due to patient's lack of cooperation DIAGNOSTIC TESTING: LABORATORY: 07/04/19: WBC 10.6 hemoglobin 10.8 platelet 335 10.5 INR 1.0 sodium 135 potassium 4.4 chloride 100 bicarb 24 BUN 20 creatinine 0.85 glucose 112 AST 44 ALT 33 alk phos 80 urinalysis moderate blood 07/06/19: WBC 9.6 hemoglobin 9.9 platelet 318 sodium 135 potassium 3.9 chloride 102 bicarb 29 BUN 15 creatinine 0.78 glucose 96 IMAGING: CT head without contrast 07/04/2019: Cerebral atrophy. No acute intracranial abnormality. No change compared to CT head from 06/24/2019 CT brain without contrast 06/24/2019: Mild generalized atrophy. No acute intracranial abnormalities seen. ASSESSMENT: Ms. Stark is an 83 year-old woman with PMhx of a.fib on warfarin, presenting to [facility] for concern about another episode of hyponatremia as patient was "mean and angry," consulted neurology for altered mental status. patient most likely having some delirium in the setting of getting pain medications. Difficult to look up in the medical record, the patient was given Holstein about 2 days prior to this presentation in the hospital. It appears the patient was also discharged with Holstein, unclear if it was given again at the outside fa cility. Patient is to be still for about 15-30 minutes for MRI brain and EEG, for which patient will need to be heavily sedated, which could worsen her current episode of delirium. CT brain from 06/24/2019 with generalized atrophy with no acute findings. Patient's mental status is actually very intact. She is just very high agitated and frustrated. CT Head with no acute intracranial process. Metabolic encephalopathy, medication induced delirium RECOMMENDATIONS: 1. Limit pain medication, benzodiazepines, anticholinergic medications in this elderly woman with recent hospitalization. 2. Delirium precaution (limits vital signs checks at nighttime. Lights out to facilitate better sleep quality. 3. Routine EEG obtained; pending final result 4. Neurology will sign off at this time. Will continue to follow if EEG shows any seizures. Please feel free to contact Neurology again if with additional questions or concerns.
[2019-07-07 15:24] VITALS: RESP 16
--- NOTE | 2019-07-07 16:05 | PN ---
PROGRESS NOTE DATE OF SERVICE: 07/07/2019 This 83-year-old woman who was recently admitted with hyponatremia secondary to SIADH and left ankle fracture, status post ORIF, was transferred to [facility] recently, but after getting to the [facility], the patient had change in mental status. Patient was combative. Patient was sent back to [facility] and was admitted for further evaluation and treatment. Medication use changes are noted. There is no history of fever, rigors, chills at this time. Past medical history reviewed. REVIEW OF SYSTEMS: CARDIOVASCULAR SYSTEM: No angina, palpitations. RESPIRATORY SYSTEM: No cough, hemoptysis. GI: As mentioned earlier. : No dysuria or retention. NERVOUS SYSTEM: As mentioned earlier. CURRENT MEDICATIONS: Reviewed. They include: 1. Tylenol 650 q.4 p.r.n. 2. Cordarone 200 mg p.o. b.i.d. 3. Eliquis 5 mg p.o. b.i.d. 4. Os-Kishan with vitamin D. 5. Haldol 2 mg p.r.n. 6. Toradol 15 mg q.6 p.r.n. 7. Lactulose 20 grams daily. 8. Milk of Magnesia. 9. Lopressor. 10.Narcan. 11.Protonix. 12.Seroquel. 13.Senokot S. PHYSICAL EXAMINATION: Patient is alert, oriented x3. Pulse is 99, blood pressure 92/55, respiration 18, temperature 97.8, pulse ox 98% on room air. HEENT: Conjunctivae normal. Oral mucosa moist. NECK: No jugular venous distention. No carotid bruit. No lymph node enlargement. CARDIOVASCULAR SYSTEM: S1, S2 muffled. RESPIRATORY SYSTEM: Breath sounds diminished at the bases. Scattered rhonchi. No crackles. ABDOMEN: Soft, non-tender. No mass palpable. LEGS: No edema. No swelling. NERVOUS SYSTEM: Diffusely weak. LABS: Labs at this time show WBC 9.6, hemoglobin 9.9, sodium 135, potassium 3.9. UA noted. ASSESSMENT: 1. Change in mental status, possible toxic encephalopathy secondary to medications. 2. 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 3. Atrial fibrillation history. 4. Hyponatremia. 5. Anemia, normocytic; anemia of chronic disease. 6. History of congestive heart failure. 7. Hypertension. 8. History of pericardial effusion and cardiomyopathy. 9. History of open reduction internal fixation, left ankle. RECOMMENDATIONS AND DISCUSSION: In this 83-year-old woman who presented with multiple complex medical issues, we will monitor the patient closely, continue the current management, continue with symptomatic treatment. Otherwise at this time monitor creatinine closely. Neurology evaluation. EEG. Guarded prognosis because of multiple complex medical issues. Further recommendations to follow. MMODL / IJN: [id number] /
[2019-07-07] MEDS: QUEtiapine 25 MG TAB PO SCH ×2 (16:49→21:21)
[2019-07-07] MEDS: SENNOSIDES-DOCUSATE SODIUM 1 EACH TAB PO SCH (21:21)
--- NOTE | 2019-07-08 05:20 | EEG ---
ELECTROENCEPHALOGRAM REPORT PROCEDURE DATE: 07/07/2019 ELECTROENCEPHALOGRAM (EEG) REPORT: TECHNIQUE: A routine 18 channel EEG was performed with video using the 10/20 international electrode placement system. HISTORY: Encephalopathy, atrial fibrillation. CURRENT MEDICATIONS: Senokot, Seroquel, Protonix, Lopressor, milk of magnesia, Cephulac. STUDY DURATION: 21 minutes. FINDINGS: BACKGROUND: The background activity consisted of 8-9 hertz rhythmic waveforms symmetrically distributed over both posterior quadrants. ACTIVATION: Hyperventilation: Not performed. Photic stimulation: Symmetric driving seen. Sleep: None. ABNORMALITIES: None. Please note that 1 channel of this EEG was dedicated to EKG at times it did not demonstrate a sinus rhythm. IMPRESSION: Normal EEG. No epileptiform activity was present. No seizures were recorded. MMODL / IJN: [id number] / MTDD
[2019-07-08 05:29] VITALS: BP 106/69; PULSE 101; TEMP 97.9
[2019-07-08] MEDS: METOPROLOL TARTRATE 25 MG TAB PO SCH (08:55)
[2019-07-08] MEDS: AMIODARONE 200 MG TAB PO SCH (08:55)
[2019-07-08] MEDS: PANTOPRAZOLE 40 MG TABLET PO SCH (08:55)
[2019-07-08] MEDS: APIXABAN 5 MG TAB PO SCH (08:55)
[2019-07-08] MEDS: CALCIUM CARB-VIT D 500MG-200UN 1 EACH TAB PO SCH (08:55)
--- NOTE | 2019-07-08 13:16 | P.DS ---
Providers Date of admission: 07/06/19 15:54 Final diagnosis Change in mental status possible toxic encephalopathy secondary to medications History of recent the SIADH with a severe hyponatremia Atrial fibrillation history Hyponatremia Anemia normocytic anemia of chronic disease History of CHF ejection fraction unknown Hypertension History of be pericardial effusion cardio myopathy History of for ORIF left ankle Discharge disposition The patient be discharged in a stable condition with guarded prognosis to [facility] on the [place] and Dr. Duff. Total time taken 35 minutes. Stable present illness This 83-year-old woman with a past medical history multiple medical problems being followed by Dr. Cole in the outpatient setting was recently admitted with SIADH recently to [facility]. The patient was sent to rehab. In the rehab apparently patient got some pain medications. Patient had change in mental status delirious subsequently. Patient was returned to [facility]. Patient was given symptomatic treatment. Pain medications are to be avoided. Patient was also seen by Dr. addison from a psychiatric. Medications are adjusted. Patient improved significantly. Sodium is 130 and remained stable. On exam vitals are stable. Cardiac S1 and S2 normal. Respirator system clear to oscillation. Abdomen soft nontender. Nervous system minimal diffuse weakness. The patient be discharged in a stable condition with guarded prognosis. Recommended close follow-up with her daughter Dr. Cole in [place] after discharge Dr. Cole in the outpatient setting after DC from [facility]. Special recommendations avoid pain medication except Tylenol. Fluid resection 1500 mL per 24 hours. monitor CBC BMP in 2-3 days in the ECF. Attending physician: Yusra Graf Consults: 07/04/19 06:17 Consult Physician Urgent Consulting Provider: Teofilo Espinoza Consult Reason/Comments: altered - likely sundowning, however no formal diagnosis of dementia Do you want consulting provider notified?: Yes Consult Physician Urgent Consulting Provider: Pepper Llamas Consult Reason/Comments: altered Do you want consulting provider notified?: Yes Primary care physician: Danielle Cole Patient Condition at Discharge: Stable Plan - Discharge Summary Discharge Rx Participant: No New Discharge Prescriptions: New QUEtiapine [SEROquel] 25 mg PO BID@1700,2100 #10 tab Continue Metoprolol Tartrate [Lopressor] 25 mg PO BID Aspirin 81 mg PO DAILY Lactulose [Cephulac] 20 gm PO DAILY PRN ml PRN Reason: constipation Docusate [Colace] 100 mg PO DAILY PRN cap PRN Reason: Constipation Amiodarone [Cordarone] 200 mg PO BID tab Apixaban [Eliquis] 5 mg PO BID #60 tab Pantoprazole [Protonix] 40 mg PO AC-BRKFST tablet. Midodrine HCl [ProAmatine] 10 mg PO AC-TID Acetaminophen Tab [Tylenol] 650 mg PO Q4HR PRN PRN Reason: Pain Scale 1 To 5 Magnesium Hydroxide [Milk of Magnesia] 2,400 mg PO DAILY PRN PRN Reason: Constipation Calcium Carb-Vit D 500Mg-200Un [Oscal 500+D] 1 tab PO BID-W/MEALS Sennosides-Docusate Sodium [Senokot-S] 2 tab PO HS Discontinued HYDROcodone/APAP 5-325MG [[place] 5-325] 2 tab PO Q12HR PRN PRN Reason: Pain Scale 6 To 10 Discharge Medication List Metoprolol Tartrate [Lopressor] 25 mg PO BID 12/08/15 [History] Aspirin 81 mg PO DAILY 06/21/19 [History] Amiodarone [Cordarone] 200 mg PO BID tab 07/01/19 [Rx] Apixaban [Eliquis] 5 mg PO BID #60 tab 07/01/19 [Rx] Docusate [Colace] 100 mg PO DAILY PRN cap 07/01/19 [Rx] Lactulose [Cephulac] 20 gm PO DAILY PRN ml 07/01/19 [Rx] Pantoprazole [Protonix] 40 mg PO AC-BRKFST tablet. 07/01/19 [Rx] Acetaminophen Tab [Tylenol] 650 mg PO Q4HR PRN 07/04/19 [History] Calcium Carb-Vit D 500Mg-200Un [Oscal 500+D] 1 tab PO BID-W/MEALS 07/04/19 [History] Magnesium Hydroxide [Milk of Magnesia] 2,400 mg PO DAILY PRN 07/04/19 [History] Midodrine HCl [ProAmatine] 10 mg PO AC-TID 07/04/19 [History] Sennosides-Docusate Sodium [Senokot-S] 2 tab PO HS 07/04/19 [History] QUEtiapine [SEROquel] 25 mg PO BID@1700,2100 #10 tab 07/08/19 [Rx] Follow up Appointment(s)/Referral(s): Danielle Cole MD [Primary Care Provider] - 1 Week Activity/Diet/Wound Care/Special Instructions: Menon catheter to be changed 07/15. Discontinue when patient is ambulatory.
--- NOTE | 2019-07-14 12:19 | CDI ---
Documentation Clarification Form Date: 07/14/19 From: Shell Barnes Phone: If you have a question regarding this query, please contact Leeann Kramer at [phone] between 8am and 5pm. Admit Date: 07/06/2019 3:59:00 AM Patient Name: Spencer Stuart Visit Number: [id number] Discharge Date: 07/08/2019 1:52:00 PM ATTENTION: The Clinical Documentation Specialists (CDI) and [facility] Coding Staff appreciate your assistance in clarifying documentation. Please respond to the clarification below the line at the bottom and electronically sign. The CDI & [facility] Coding staff will review the response and follow-up if needed. Please note: Queries are made part of the Legal Health Record. If you have any questions, please contact the author of this message via ITS. Dr. Yusra Graf CHF is documented in the past medical history in the ED note, H&P and Consult note. History/Risk Factors: Hypertension, CAD Clinical Indicators: Chest pain VS/Pulse OX: T. 97.9, P. 60, R. 17, BP 122/70, Pulse Ox. 96% on room air BNP: Not tested Chest X Ray: Not done Treatment: PO Lasix 20 mg BID at home In your professional opinion, can you please clarify the type of CHF if known? Systolic Heart Failure: Diastolic Heart Failure: Systolic & Diastolic Heart Failure: Unable to Determine Other, please specify Unable to Determine MTDD
--- NOTE | 2019-07-14 12:40 | CDI ---
Documentation Clarification Form Date: 07/14/19 From: Shell Barnes Phone: If you have a question regarding this query, please contact Leeann Kramer at [phone] between 8am and 5pm. Admit Date: 07/06/2019 3:54:00 PM Patient Name: Alyson Stark Visit Number: [id number] Discharge Date: 07/08/2019 2:38:00 PM ATTENTION: The Clinical Documentation Specialists (CDI) and [facility] Coding Staff appreciate your assistance in clarifying documentation. Please respond to the clarification below the line at the bottom and electronically sign. The CDI & [facility] Coding staff will review the response and follow-up if needed. Please note: Queries are made part of the Legal Health Record. If you have any questions, please contact the author of this message via ITS. Dr. Yusra Graf Patient has been diagnosed with a left ankle fracture after a fall and ORIF in her previous admission. Patient discharged 2 days prior. History/Risk Factors: History of fall, osteoporosis Clinical Indications: Non weight bearing wearing a left ankle boot and bruising in her right leg Treatment: Left ankle boot, non weight bearing In your professional opinion, please specify the following: Etiology of fracture: Traumatic Pathological (specify cause): Neoplastic disease Osteoporosis Other (please specify): Unable to determine Specify if: Closed Open (If fracture of forearm, lower leg (including ankle or femur), requires Gustilo-Flaco classification Episode of care: Initial Subsequent with delayed healing Subsequent with malunion Subsequent with nonunion Sequela Traumatic Closed Sequela MTDD
== END 2019-07-08 14:38 | DRG 92 ==
LOC: EC 03:00 → 3SCARD 06:18 → 4MS4W 20:14 → OBSVTOIN 07-06 15:54
PROVIDERS: ADMIT Hospitalist; ATTEND Hospitalist
DX: G92 Toxic encephalopathy (principal); E87.1 Hypo-osmolality and hyponatremia; I13.0 Hypertensive heart and chronic kidney disease with heart failure and stage 1 through stage 4 chronic kidney disease, or unspecified chronic kidney disease; I42.9 Cardiomyopathy, unspecified; I48.91 Unspecified atrial fibrillation; I50.9 Heart failure, unspecified; D63.8 Anemia in other chronic diseases classified elsewhere; T40.2X5A Adverse effect of other opioids, initial encounter; M81.0 Age-related osteoporosis without current pathological fracture; S82.892S Other fracture of left lower leg, sequela; M19.90 Unspecified osteoarthritis, unspecified site; Z79.01 Long term (current) use of anticoagulants; Z79.82 Long term (current) use of aspirin; Z79.899 Other long term (current) drug therapy; Z86.010 Personal history of colon polyps; W19.XXXS Unspecified fall, sequela
CPT/HCPCS: 36415; 70450; 80048; 80053; 81001; 84484; 85025; 85027; 85610; 85730; 95816; 96361; 96374; 96375; 99285